=== PATIENT | female | born 1960 | race American Indian/Alaskan Native ===

== ENCOUNTER 2020-07-13 17:31 | Inpatient (IN) | payer MEDICARE ==
[2020-07-13] MEDS ORDERED: ASPIRIN 325 MG TAB PO ONE (17:49)
[2020-07-13 18:30] LABS: Basophils % (Auto) 0.4 % (0.0-1.8); Eosinophils # (Auto) 0.1 K/mm3 (0.0-0.4); Hematocrit 26.5 % (30.3-42.9); Hemoglobin 8.9 gm/dl (10.1-14.3); Lymphocytes # (Auto) 0.6 K/mm3 (1.2-5.4); Lymphocytes % (Auto) 12.9 % (13.4-35.0); Mean Corpuscular HGB Conc 33 % (30-34); Mean Corpuscular Volume 93 fl (79-97); Monocytes # (Auto) 0.2 K/mm3 (0.0-0.8); Monocytes % (Auto) 3.5 % (0.0-7.3); Platelet Count 188 K/mm3 (140-440); Red Blood Count 2.85 M/mm3 (3.65-5.03); Red Cell Distribution Width 17.2 % (13.2-15.2)
--- NOTE | 2020-07-13 18:31 | XRay Report ---
CHEST 1 VIEW INDICATION: Chest pain COMPARISON: 03/07/2017 FINDINGS: SUPPORT DEVICES: Central venous line has tip in the superior vena cava right atrial junction HEART / MEDIASTINUM: No significant abnormality. LUNGS / PLEURA: Bronchovascular markings are prominent. No pneumothorax. ADDITIONAL FINDINGS: IMPRESSION: 1. No acute cardiopulmonary disease Signer Name: Maxx Ramos MD Signed: 07/13/2020 6:27 PM Workstation Name: [id number]
--- NOTE | 2020-07-13 18:40 | Emergency Department Report ---
ED General Adult HPI - General Chief complaint: Chest Pain Stated complaint: CHEST PAIN/BACK PAIN Time Seen by Provider: 07/13/20 18:22 Source: EMS Mode of arrival: Stretcher Limitations: Physical Limitation - History of Present Illness Initial comments: Patient presents to the emergency department the chief complaint of chest pain that started today. She states the pain is located in middle of her chest and denies any radiation. She describes the pain as intermittent in nature. Patient denies any shortness of breath or abdominal pain. Patient does have end-stage renal disease and is on dialysis. Patient is a last dialysis was yesterday. 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 -: Sudden Location: chest Radiation: non-radiation Severity scale (0 -10): 4 Quality: aching Consistency: constant Improves with: none Worsens with: none Associated Symptoms: denies other symptoms Treatments Prior to Arrival: none - Related Data Home Medications Medication Instructions Recorded Confirmed Last Taken Fluticasone Propionate [Flonase] 100 mcg NS QDAY 02/15/14 03/01/17 Unknown Albuterol Sulfate [Albuterol 0.63% 0.63 mg IH Q4H PRN 03/01/17 03/01/17 1 Month Ago NEBS] ~01/29/17 AtorvaSTATin [Lipitor] 40 mg PO QHS 03/01/17 03/01/17 1 Day Ago ~02/28/17 Clopidogrel [Plavix] 75 mg PO QDAY 03/01/17 03/01/17 Unknown Ferrous Sulfate [Feosol 325 MG tab] 325 mg PO QDAY 03/01/17 03/01/17 Unknown Oxymetazoline 0.05% [Vicks Sinex] 1 spray NS BID 03/01/17 03/01/17 1 Day Ago ~02/28/17 carvediloL [Coreg] 25 mg PO BID 03/01/17 03/01/17 Unknown Previous Rx's Medication Instructions Recorded Last Taken Type Aspirin EC [Halfprin EC] 81 mg PO QDAY #30 tablet. 03/05/17 Unknown Rx AtorvaSTATin [Lipitor] 80 mg PO QHS #30 tablet 03/05/17 Unknown Rx Ezetimibe [Zetia] 10 mg PO QDAY #30 tablet 03/05/17 Unknown Rx Furosemide [Lasix TAB] 80 mg PO QDAY #30 tablet 03/05/17 Unknown Rx HYDROcodone/APAP 5-325 [[place] 1 - 2 each PO Q4-6H PRN #15 tablet 03/05/17 Unknown Rx 5-325 mg TAB] NIFEdipine XL [Procardia Xl] 60 mg PO BID #60 tablet 03/05/17 Unknown Rx Nystatin [Nystop Powder] 1 applic TP BID #15 g 03/05/17 Unknown Rx Warfarin [Coumadin] 10 mg PO DAILY@1700 #7 tablet 03/05/17 Unknown Rx Allergies Allergy/AdvReac Type Severity Reaction Status Date / Time apixaban [From Eliquis] Allergy Itching Verified 03/01/17 20:29 dabigatran etexilate mesylate Allergy Itching Verified 03/01/17 20:27 [From Pradaxa] hydralazine HCl Allergy Unknown Verified 03/01/17 13:11 [From Apresoline] morphine Allergy Itching Verified 02/15/14 02:23 povidone-iodine Allergy Itching Verified 03/01/17 20:26 [From Betadine] rivaroxaban [From Xarelto] Allergy Itching Verified 03/01/17 20:29 soap [From Betadine] Allergy Itching Verified 03/01/17 20:26 verapamil HCl [From Calan] Allergy Headache Verified 02/15/14 02:23 ED Review of Systems ROS: Stated complaint: CHEST PAIN/BACK PAIN Other details as noted in HPI Comment: All other systems reviewed and negative Constitutional: denies: chills, fever Eyes: denies: eye pain, eye discharge, vision change ENT: denies: ear pain, throat pain Respiratory: denies: cough, shortness of breath, wheezing Cardiovascular: chest pain. denies: palpitations Endocrine: no symptoms reported Gastrointestinal: denies: abdominal pain, nausea, diarrhea Genitourinary: denies: urgency, dysuria, discharge Musculoskeletal: denies: back pain, joint swelling, arthralgia Skin: denies: rash, lesions Neurological: denies: headache, weakness, paresthesias Psychiatric: denies: anxiety, depression Hematological/Lymphatic: denies: easy bleeding, easy bruising ED Past Medical Hx - Past Medical History Hx Hypertension: Yes Hx CVA: Yes (Left Side Deficits) Hx Heart Attack/AMI: Yes Hx Congestive Heart Failure: Yes Hx Diabetes: Yes Hx Deep Vein Thrombosis: No Hx Renal Disease: Yes (ESRD, Hemodialysis ur, Sat.) Hx Asthma: Yes Additional medical history: 99.5Sinusitis, Vaginal delivery x 2, 2 miscarriages, Cataract right eye - Surgical History Hx Pacemaker: No Hx Internal Defibrillator: No Additional Surgical History: Right collar bone replaced, - Social History Smoking Status: Unknown if ever smoked - Medications Home Medications: Home Medications Medication Instructions Recorded Confirmed Last Taken Type Fluticasone Propionate [Flonase] 100 mcg NS QDAY 02/15/14 03/01/17 Unknown History Albuterol Sulfate [Albuterol 0.63% 0.63 mg IH Q4H PRN 03/01/17 03/01/17 1 Month Ago History NEBS] ~01/29/17 AtorvaSTATin [Lipitor] 40 mg PO QHS 03/01/17 03/01/17 1 Day Ago History ~02/28/17 Clopidogrel [Plavix] 75 mg PO QDAY 03/01/17 03/01/17 Unknown History Ferrous Sulfate [Feosol 325 MG tab] 325 mg PO QDAY 03/01/17 03/01/17 Unknown History Oxymetazoline 0.05% [Vicks Sinex] 1 spray NS BID 03/01/17 03/01/17 1 Day Ago History ~02/28/17 carvediloL [Coreg] 25 mg PO BID 03/01/17 03/01/17 Unknown History Aspirin EC [Halfprin EC] 81 mg PO QDAY #30 tablet. 03/05/17 Unknown Rx AtorvaSTATin [Lipitor] 80 mg PO QHS #30 tablet 03/05/17 Unknown Rx Ezetimibe [Zetia] 10 mg PO QDAY #30 tablet 03/05/17 Unknown Rx Furosemide [Lasix TAB] 80 mg PO QDAY #30 tablet 03/05/17 Unknown Rx HYDROcodone/APAP 5-325 [[place] 1 - 2 each PO Q4-6H PRN #15 tablet 03/05/17 Unknown Rx 5-325 mg TAB] NIFEdipine XL [Procardia Xl] 60 mg PO BID #60 tablet 03/05/17 Unknown Rx Nystatin [Nystop Powder] 1 applic TP BID #15 g 03/05/17 Unknown Rx Warfarin [Coumadin] 10 mg PO DAILY@1700 #7 tablet 03/05/17 Unknown Rx ED Physical Exam - General Limitations: Physical Limitation General appearance: alert, in no apparent distress - Head Head exam: Present: atraumatic, normocephalic - Eye Eye exam: Present: normal appearance, PERRL, EOMI - ENT ENT exam: Present: mucous membranes moist - Neck Neck exam: Present: normal inspection - Respiratory Respiratory exam: Present: normal lung sounds bilaterally. Absent: respiratory distress - Cardiovascular Cardiovascular Exam: Present: regular rate, normal rhythm. Absent: systolic murmur, diastolic murmur, rubs, gallop - GI/Abdominal GI/Abdominal exam: Present: soft, normal bowel sounds. Absent: distended, tenderness - Extremities Exam Extremities exam: Present: normal inspection - Back Exam Back exam: Present: normal inspection - Neurological Exam Neurological exam: Present: alert, oriented X3, CN II-XII intact. Absent: motor sensory deficit - Psychiatric Psychiatric exam: Present: normal affect, normal mood - Skin Skin exam: Present: warm, dry, intact, normal color. Absent: rash ED Course Vital Signs 07/13/20 07/13/20 17:42 19:15 Pulse Rate 82 Respiratory 20 18 Rate Blood Pressure 183/100 O2 Sat by Pulse 97 100 Oximetry ED Medical Decision Making - Lab Data Result diagrams: 07/13/20 17:59 07/13/20 17:59 Lab Results 07/13/20 07/13/20 07/13/20 Range/Units 17:59 17:59 20:25 WBC 4.8 (4.5-11.0) K/mm3 RBC 2.85 L (3.65-5.03) M/mm3 Hgb 8.9 L (10.1-14.3) gm/dl Hct 26.5 L (30.3-42.9) % MCV 93 (79-97) fl MCH 31 (28-32) pg MCHC 33 (30-34) % RDW 17.2 H (13.2-15.2) % Plt Count 188 (140-440) K/mm3 Lymph % (Auto) 12.9 L (13.4-35.0) % [place] % (Auto) 3.5 (0.0-7.3) % Eos % (Auto) 3.0 (0.0-4.3) % Baso % (Auto) 0.4 (0.0-1.8) % Lymph # (Auto) 0.6 L (1.2-5.4) K/mm3 [place] # (Auto) 0.2 (0.0-0.8) K/mm3 Eos # (Auto) 0.1 (0.0-0.4) K/mm3 Baso # (Auto) 0.0 (0.0-0.1) K/mm3 Seg Neutrophils % 80.2 H (40.0-70.0) % Seg Neutrophils # 3.9 (1.8-7.7) K/mm3 Sodium 135 L (137-145) mmol/L Potassium 4.3 (3.6-5.0) mmol/L Chloride 95.5 L (98-107) mmol/L Carbon Dioxide 24 (22-30) mmol/L Anion Gap 20 mmol/L BUN 36 H (7-17) mg/dL Creatinine 5.5 H (0.6-1.2) mg/dL Estimated GFR 10 ml/min BUN/Creatinine Ratio 7 % Glucose 122 H (65-100) mg/dL Calcium 9.0 (8.4-10.2) mg/dL Troponin T 0.092 H 0.094 H (0.00-0.029) ng/mL - EKG Data -: EKG Interpreted by Tn EKG shows normal: sinus rhythm - EKG Data Interpretation: LVH - Radiology Data Radiology results: report reviewed - Medical Decision Making Discussed results with patient Critical care attestation.: If time is entered above; I have spent that time in minutes in the direct care of this critically ill patient, excluding procedure time. ED Disposition Clinical Impression: Chest pain Disposition: OP ADMIT IP TO THIS HOSP Is pt being admited?: Yes Does the pt Need Aspirin: Yes Condition: Stable Instructions: Chest Pain (ED) Referrals: PRIMARY CARE, [Primary Care Provider] - 3-5 Days
[2020-07-13] MEDS ORDERED: ASPIRIN 81 MG TAB CHEW PO ONE (22:49)
[2020-07-13] MEDS ORDERED: HEPARIN 10,000 UNITS/10 ML VIAL IV ONE ×2 (23:03→23:15)
[2020-07-13] MEDS ORDERED: oxyCODONE /ACETAMINOPHEN 5-325MG TAB PO STA (23:06)
[2020-07-13] MEDS ORDERED: ONDANSETRON 4 MG/2 ML INJ IV PRN (23:07)
[2020-07-13] MEDS ORDERED: HEPARIN/ 0.45% NACL DRIP 25,000 UNIT/500 ML BAG IV SCH (23:45)
[2020-07-14 00:06] LABS: INR 1.09 (0.87-1.13)
[2020-07-14 00:07] LABS: Partial Thromboplastin Time 28.2 Sec. (24.2-36.6)
[2020-07-14 01:20] LABS: Chol/HDL Ratio 2.57 %
[2020-07-14] MEDS: NITROGLYCERIN 2% OINT 1 GM TP SCH ×4 (05:12→19:01)
--- NOTE | 2020-07-14 06:09 | History and Physical Report ---
History of Present Illness Date of examination: 07/13/20 Date of admission: 07/13/20 22:55 Chief complaint: Chest Pain History of present illness: 60 year old male presenting with intermitted retrosternal chest that does not radiate and associated with shortness of breath, nausea but no vomiting.Patient also has history of diarrhea, and back pain. There is no history of fever, chills or cough. Past History Past Medical History: CAD, COPD, diabetes, ESRD, heart failure, hypertension, other (ASTHMA) Past Surgical History: Other (COLLAR BONE SURGERY) Medications and Allergies Allergies Allergy/AdvReac Type Severity Reaction Status Date / Time apixaban [From Eliquis] Allergy Itching Verified 03/01/17 20:29 dabigatran etexilate mesylate Allergy Itching Verified 03/01/17 20:27 [From Pradaxa] heparin Allergy Vomiting Verified 07/14/20 05:54 hydralazine HCl Allergy Unknown Verified 03/01/17 13:11 [From Apresoline] morphine Allergy Itching Verified 02/15/14 02:23 povidone-iodine Allergy Itching Verified 03/01/17 20:26 [From Betadine] rivaroxaban [From Xarelto] Allergy Itching Verified 03/01/17 20:29 soap [From Betadine] Allergy Itching Verified 03/01/17 20:26 verapamil HCl [From Calan] Allergy Headache Verified 02/15/14 02:23 Home Medications Medication Instructions Recorded Confirmed Last Taken Type Fluticasone Propionate [Flonase] 100 mcg NS QDAY 02/15/14 07/14/20 Unknown History Albuterol Sulfate [Albuterol 0.63% 0.63 mg IH Q4H PRN 03/01/17 07/14/20 1 Month Ago History NEBS] ~01/29/17 AtorvaSTATin [Lipitor] 40 mg PO QHS 03/01/17 07/14/20 1 Day Ago History ~02/28/17 Clopidogrel [Plavix] 75 mg PO QDAY 03/01/17 07/14/20 Unknown History Ferrous Sulfate [Feosol 325 MG tab] 325 mg PO QDAY 03/01/17 07/14/20 Unknown History Oxymetazoline 0.05% [Vicks Sinex] 1 spray NS BID 03/01/17 07/14/20 1 Day Ago History ~02/28/17 carvediloL [Coreg] 25 mg PO BID 03/01/17 07/14/20 Unknown History Aspirin EC [Halfprin EC] 81 mg PO QDAY #30 tablet. 03/05/17 07/14/20 Unknown Rx AtorvaSTATin [Lipitor] 80 mg PO QHS #30 tablet 03/05/17 07/14/20 Unknown Rx Ezetimibe [Zetia] 10 mg PO QDAY #30 tablet 03/05/17 07/14/20 Unknown Rx Furosemide [Lasix TAB] 80 mg PO QDAY #30 tablet 03/05/17 07/14/20 Unknown Rx HYDROcodone/APAP 5-325 [[place] 1 - 2 each PO Q4-6H PRN #15 tablet 03/05/17 07/14/20 Unknown Rx 5-325 mg TAB] NIFEdipine XL [Procardia Xl] 60 mg PO BID #60 tablet 03/05/17 07/14/20 Unknown Rx Nystatin [Nystop Powder] 1 applic TP BID #15 g 03/05/17 07/14/20 Unknown Rx Warfarin [Coumadin] 10 mg PO DAILY@1700 #7 tablet 03/05/17 07/14/20 Unknown Rx Active Meds: Active Medications Acetaminophen (Tylenol) 650 mg PO Q4H PRN PRN Reason: Headache Aspirin (Aspirin) 325 mg PO QDAY [facility] Nitroglycerin (Nitro-Bid 2%) 0.5 inch TP QIDNTG [facility]; Protocol Last Admin: 07/14/20 05:12 Dose: Not Given Documented by: Ondansetron HCl (Zofran) 4 mg IV Q8H PRN PRN Reason: Nausea And Vomiting Review of Systems Constitutional: no fever, no chills, no sweats, no weakness Eyes: bilateral: other (NO BILATERAL EYE SYMPTOM) Breasts: deferred Cardiovascular: chest pain, shortness of breath, no palpitations, no rapid/irregular heart beat, no edema, no syncope, no lightheadedness Respiratory: shortness of breath, dyspnea on exertion, no cough, no cough with sputum, no congestion, no wheezing Gastrointestinal: nausea, diarrhea, no abdominal pain, no vomiting, no constipation, no change in bowel habits Rectal: no pain Musculoskeletal: no neck stiffness, no neck pain Integumentary: no rash, no pruritis, no redness, no sores, no wounds Neurological: no paralysis, no parathesias, no numbness, no tingling, no seizures, no syncope, no tremors, no ataxia, no vertigo, no headaches Psychiatric: no anxiety, no depression Endocrine: no polydipsia, no polyuria, no nocturia, no excessive sweating Hematologic/Lymphatic: no easy bruising, no easy bleeding Exam - Constitutional Vitals: Temp Pulse Resp BP Pulse Ox 97.7 F 81 18 175/82 94 07/14/20 05:39 07/14/20 05:39 07/14/20 05:39 07/14/20 05:39 07/14/20 05:39 General appearance: Present: no acute distress - EENT Eyes: Present: PERRL ENT: hearing intact, clear oral mucosa - Neck Neck: Present: supple, normal ROM - Respiratory Respiratory effort: normal - Cardiovascular Rhythm: regular Heart Sounds: Present: S1 & S2. Absent: gallop, systolic murmur, diastolic murmur, rub, click - Extremities Extremities: no ischemia, No edema Peripheral Pulses: within normal limits - Abdominal General gastrointestinal: Present: soft, non-tender, non-distended, hepatomegaly, splenomegaly. Absent: tender, distended, rigid Female genitourinary: Present: deferred - Rectal Rectal Exam: deferred - Integumentary Integumentary: Present: clear, warm, dry. Absent: erythema - Musculoskeletal Musculoskeletal: strength equal bilaterally - Psychiatric Psychiatric: appropriate mood/affect HEART Score - HEART Score Risk factors: > 3 risk factors or hx of atherosclerotic disease Troponin: Troponin T 0.103 ng/mL (0.00-0.029) H* 07/13/20 23:36 Troponin: 1-3x normal limit - Critical Actions Critical Actions: 4-6 pts:12-16.6% risk of adverse cardiac event. Should be admitted (PATIENT UNDERGOING WORK UP) Results - Labs CBC & Chem 7: 07/13/20 23:36 07/13/20 17:59 Labs: Laboratory Last Values WBC 4.8 K/mm3 (4.5-11.0) 07/13/20 17:59 RBC 2.85 M/mm3 (3.65-5.03) L 07/13/20 17:59 Hgb 9.0 gm/dl (10.1-14.3) L 07/13/20 23:36 Hct 27.0 % (30.3-42.9) L 07/13/20 23:36 MCV 93 fl (79-97) 07/13/20 17:59 MCH 31 pg (28-32) 07/13/20 17:59 MCHC 33 % (30-34) 07/13/20 17:59 RDW 17.2 % (13.2-15.2) H 07/13/20 17:59 Plt Count 175 K/mm3 (140-440) 07/13/20 23:36 Lymph % (Auto) 12.9 % (13.4-35.0) L 07/13/20 17:59 [place] % (Auto) 3.5 % (0.0-7.3) 07/13/20 17:59 Eos % (Auto) 3.0 % (0.0-4.3) 07/13/20 17:59 Baso % (Auto) 0.4 % (0.0-1.8) 07/13/20 17:59 Lymph # (Auto) 0.6 K/mm3 (1.2-5.4) L 07/13/20 17:59 [place] # (Auto) 0.2 K/mm3 (0.0-0.8) 07/13/20 17:59 Eos # (Auto) 0.1 K/mm3 (0.0-0.4) 07/13/20 17:59 Baso # (Auto) 0.0 K/mm3 (0.0-0.1) 07/13/20 17:59 Seg Neutrophils % 80.2 % (40.0-70.0) H 07/13/20 17:59 Seg Neutrophils # 3.9 K/mm3 (1.8-7.7) 07/13/20 17:59 PT 14.3 Sec. (12.2-14.9) 07/13/20 23:36 INR 1.09 (0.87-1.13) 07/13/20 23:36 APTT 28.2 Sec. (24.2-36.6) 07/13/20 23:36 Sodium 135 mmol/L (137-145) L 07/13/20 17:59 Potassium 4.3 mmol/L (3.6-5.0) 07/13/20 17:59 Chloride 95.5 mmol/L (98-107) L 07/13/20 17:59 Carbon Dioxide 24 mmol/L (22-30) 07/13/20 17:59 Anion Gap 20 mmol/L 07/13/20 17:59 BUN 36 mg/dL (7-17) H 07/13/20 17:59 Creatinine 5.5 mg/dL (0.6-1.2) H 07/13/20 17:59 Estimated GFR 10 ml/min 07/13/20 17:59 BUN/Creatinine Ratio 7 % 07/13/20 17:59 Glucose 122 mg/dL (65-100) H 07/13/20 17:59 Calcium 9.0 mg/dL (8.4-10.2) 07/13/20 17:59 Troponin T 0.103 ng/mL (0.00-0.029) H* 07/13/20 23:36 Triglycerides 89 mg/dL (2-149) 07/13/20 23:36 Cholesterol 152 mg/dL (50-199) 07/13/20 23:36 LDL Cholesterol Direct 84 mg/dL (50-130) 07/13/20 23:36 HDL Cholesterol 59 mg/dL (40-59) 07/13/20 23:36 Cholesterol/HDL Ratio 2.57 % 07/13/20 23:36 Assessment and Plan - Patient Problems (1) End stage renal disease on dialysis Current Visit: No Status: Acute Plan to address problem: 1. NEPHROLOGY CONSULT 2. AVOID NEPHROTOXIC MEDICATIONS (2) NSTEMI (non-ST elevated myocardial infarction) Current Visit: Yes Status: Acute Plan to address problem: 1 I.V HEPARIN DRIP 2. NITROPASTE 3. ASPIRIN PO 4. CARDIOLOGY CONSULT 5 I.V ZOFRAN FOR NAUSEA AND VOMITING 6. OXYGEN BY NASAL CANNULA 7. TYLENOL PO FOR HEADACHE
[2020-07-14] MEDS ORDERED: ASPIRIN 325 MG TAB PO SCH (10:00)
[2020-07-14] MEDS ORDERED: NIFEdipine XL 60 MG TAB PO SCH (10:00)
[2020-07-14] MEDS ORDERED: NON-FORMULARY EACH (Furosemide [Lasix Tab] 80 MG) PO SCH (10:00)
--- NOTE | 2020-07-14 10:43 | Consultation ---
History of Present Illness Consult date: 07/14/20 Requesting physician: CABRERA ADAMS Consult reason: elevated troponin History of present illness: The pt is a 60 YO female NHR with a past medical history of CAD s/p PCI (most recent PCI on 01/06/2017 @ [facility] with successful multivessel PCI with RAGINI to LAD, RAGINI to LCX, and RAGINI to RCA), ICMP, CVA x 2 (most recent CVA was 1 month ago per pt report), ESRD on HD, HTN, HLP, DM, PVD, s/p LLE stent, H/O DVT in LLE, H/O PE, s/p IVC filter, anticoagulated on coumadin (failed NOAC therapy with ischemic CVA per pt report), anemia, asthma. Pt has been seen by our practice on prior hospitalizations, she reports that she is regularly followed by [facility]. She presented with c/o chest pain and back pain for 1 day prior to arrival. She d escribes her chest pain as an intermittent midsternal stabbing pain. She denies any SOB, palpitations, n/v, diaphoresis, dizziness or syncope. She reports compliance with her home medication regimen and dialysis. tte done 02/2017 showed EF 40-45%, LV mildly dilated. Past History Past Medical History: CAD, COPD, diabetes, ESRD, hypertension, other (ASTHMA) Past Surgical History: PTCA, Other (COLLAR BONE SURGERY) Medications and Allergies Allergies Allergy/AdvReac Type Severity Reaction Status Date / Time apixaban [From Eliquis] Allergy Itching Verified 03/01/17 20:29 dabigatran etexilate mesylate Allergy Itching Verified 03/01/17 20:27 [From Pradaxa] heparin Allergy Vomiting Verified 07/14/20 05:54 hydralazine HCl Allergy Unknown Verified 03/01/17 13:11 [From Apresoline] morphine Allergy Itching Verified 02/15/14 02:23 povidone-iodine Allergy Itching Verified 03/01/17 20:26 [From Betadine] rivaroxaban [From Xarelto] Allergy Itching Verified 03/01/17 20:29 soap [From Betadine] Allergy Itching Verified 03/01/17 20:26 verapamil HCl [From Calan] Allergy Headache Verified 02/15/14 02:23 Home Medications Medication Instructions Recorded Confirmed Last Taken Type Fluticasone Propionate [Flonase] 100 mcg NS QDAY 02/15/14 07/14/20 Unknown History Albuterol Sulfate [Albuterol 0.63% 0.63 mg IH Q4H PRN 03/01/17 07/14/20 1 Month Ago History NEBS] ~01/29/17 AtorvaSTATin [Lipitor] 40 mg PO QHS 03/01/17 07/14/20 1 Day Ago History ~02/28/17 Clopidogrel [Plavix] 75 mg PO QDAY 03/01/17 07/14/20 Unknown History Ferrous Sulfate [Feosol 325 MG tab] 325 mg PO QDAY 03/01/17 07/14/20 Unknown History Oxymetazoline 0.05% [Vicks Sinex] 1 spray NS BID 03/01/17 07/14/20 1 Day Ago History ~02/28/17 carvediloL [Coreg] 25 mg PO BID 03/01/17 07/14/20 Unknown History Aspirin EC [Halfprin EC] 81 mg PO QDAY #30 tablet. 03/05/17 07/14/20 Unknown Rx AtorvaSTATin [Lipitor] 80 mg PO QHS #30 tablet 03/05/17 07/14/20 Unknown Rx Ezetimibe [Zetia] 10 mg PO QDAY #30 tablet 03/05/17 07/14/20 Unknown Rx Furosemide [Lasix TAB] 80 mg PO QDAY #30 tablet 03/05/17 07/14/20 Unknown Rx HYDROcodone/APAP 5-325 [[place] 1 - 2 each PO Q4-6H PRN #15 tablet 03/05/17 Unknown Rx 5-325 mg TAB] Nystatin [Nystop Powder] 1 applic TP BID #15 g 03/05/17 07/14/20 Unknown Rx Warfarin [Coumadin] 10 mg PO DAILY@1700 #7 tablet 03/05/17 07/14/20 Unknown Rx Lidocaine [Lidoderm] 5 patch TRANSDERMA QDAY 07/14/20 07/14/20 Unknown History NIFEdipine XL [Procardia Xl] 90 mg PO BID 07/14/20 07/14/20 Unknown History Warfarin [Coumadin] 2 mg PO QDAY 07/14/20 07/14/20 Unknown History Warfarin [Coumadin] 10 mg PO QDAY 07/14/20 07/14/20 Unknown History oxyCODONE /ACETAMINOPHEN [Percocet 1 tab PO Q6HR PRN 07/14/20 07/14/20 Unknown History 5/325] Active Meds: Active Medications Acetaminophen (Tylenol) 650 mg PO Q4H PRN PRN Reason: Headache Aspirin (Halfprin Ec) 81 mg PO QDAY [facility] Atorvastatin Calcium (Lipitor) 40 mg PO QHS [facility] Carvedilol (Coreg) 25 mg PO BID [facility] Clopidogrel Bisulfate (Plavix) 75 mg PO QDAY [facility] Ezetimibe (Zetia) 10 mg PO QDAY [facility] Fluticasone Propionate (Flonase) 100 mcg NS QDAY [facility] Furosemide (Lasix) 80 mg PO DAILY [facility] Nifedipine (Procardia Xl) 90 mg PO BID [facility] Nitroglycerin (Nitro-Bid 2%) 0.5 inch TP QIDNTG [facility]; Protocol Last Admin: 07/14/20 05:12 Dose: Not Given Documented by: Ondansetron HCl (Zofran) 4 mg IV Q8H PRN PRN Reason: Nausea And Vomiting Review of Systems Constitutional: no weight loss, no weight gain, no fever, no chills, no sweats Ears, nose, mouth and throat: no ear pain, no nose pain, no sinus pressure, no sinus pain Cardiovascular: chest pain, no orthopnea, no palpitations, no rapid/irregular heart beat, no edema, no syncope, no lightheadedness, no shortness of breath, no dyspnea on exertion Respiratory: no cough, no shortness of breath, no dyspnea on exertion, no congestion, no wheezing, no pain on inspiration Gastrointestinal: no abdominal pain, no nausea, no vomiting, no diarrhea, no constipation, no change in bowel habits Genitourinary Female: no pelvic pain, no flank pain, no dysuria, no urinary freq uency, no urgency Musculoskeletal: low back pain (chronic), no neck stiffness, no neck pain, no shooting arm pain, no arm numbness/tingling, no shooting leg pain, no leg numbn ess/tingling Integumentary: no rash, no pruritis, no redness, no sores, no wounds Neurological: no head injury, no paralysis, no weakness, no parathesias, no numbness, no tingling, no seizures, no syncope Psychiatric: no anxiety Endocrine: no cold intolerance, no heat intolerance Hematologic/Lymphatic: no easy bruising, no easy bleeding Allergic/Immunologic: no urticaria Physical Examination Vital Signs Pulse Resp BP Pulse Ox 82 20 183/100 97 07/13/20 17:42 07/13/20 17:42 07/13/20 17:42 07/13/20 17:42 General appearance: no acute distress HEENT: Positive: PERRL, Normocephaly, Mucus Membranes Moist Neck: Positive: neck supple, trachea midline Cardiac: Positive: Reg Rate and Rhythm, S1/S2 Lungs: Positive: Decreased Breath Sounds Neuro: Positive: Grossly Intact Abdomen: Negative: Tender Skin: Negative: Rash Musculoskeletal: No Pain Extremities: Absent: edema Results 07/13/20 23:36 07/13/20 17:59 Coagulation 07/13/20 Range/Units 23:36 PT 14.3 (12.2-14.9) Sec. INR 1.09 (0.87-1.13) APTT 28.2 (24.2-36.6) Sec. Lipids 07/13/20 Range/Units 23:36 Triglycerides 89 (2-149) mg/dL Cholesterol 152 (50-199) mg/dL HDL Cholesterol 59 (40-59) mg/dL Cholesterol/HDL Ratio 2.57 % CBC 07/13/20 07/13/20 Range/Units 17:59 23:36 WBC 4.8 (4.5-11.0) K/mm3 RBC 2.85 L (3.65-5.03) M/mm3 Hgb 8.9 L 9.0 L (10.1-14.3) gm/dl Hct 26.5 L 27.0 L (30.3-42.9) % Plt Count 188 175 (140-440) K/mm3 Lymph # (Auto) 0.6 L (1.2-5.4) K/mm3 [place] # (Auto) 0.2 (0.0-0.8) K/mm3 Eos # (Auto) 0.1 (0.0-0.4) K/mm3 Baso # (Auto) 0.0 (0.0-0.1) K/mm3 Comprehensive Metabolic Panel 07/13/20 Range/Units 17:59 Sodium 135 L (137-145) mmol/L Potassium 4.3 (3.6-5.0) mmol/L Chloride 95.5 L (98-107) mmol/L Carbon Dioxide 24 (22-30) mmol/L BUN 36 H (7-17) mg/dL Creatinine 5.5 H (0.6-1.2) mg/dL Glucose 122 H (65-100) mg/dL Calcium 9.0 (8.4-10.2) mg/dL - Imaging and Cardiology Echo: report reviewed ( 02/2017 showed EF 40-45%, LV mildly dilated. ) Cardiac cath: report reviewed (most recent PCI on 01/06/2017 @ [facility] with successful multivessel PCI with RAGINI to LAD, RAGINI to LCX, and RAGINI to RCA) EKG: report reviewed, image reviewed EKG interpretations - Telemetry EKG Rhythm: Sinus Rhythm - EKG Sinus rhythms and dysrhythmias: sinus rhythm Chamber hypertrophy or enlargement: left ventricular hypertro Assessment and Plan Optimize BPs - home anti-hypertensive regimen resumed. CE elevation appears c/w NSTEMI type II. Cont to trend Dayo and f/u ECG in AM. Pending BPs are optimized, plan for lexiscan MPI stress test in AM. NPO after MN. Obtain echo. Pt has h/o DVT, PE, IVC filter in situ, CVA x 2 (most recent was 1 month ago per pt report). She reports she is anticoagulated with Coumadin only as she has failed NOAC therapy with recurrent CVA. Recommend resumption of Coumadin per primary team. Will follow. The patient has been seen in conjunction with Dr. Rhonda Limon who agrees with the assessment and plan of care. - Patient Problems (1) Chest pain Current Visit: Yes Status: Acute (2) NSTEMI (non-ST elevated myocardial infarction) Current Visit: Yes Status: Acute Plan to address problem: suspect type II (3) Hypertensive urgency Current Visit: Yes Status: Acute (4) CAD (coronary artery disease) Current Visit: Yes Status: Chronic (5) Stented coronary artery Current Visit: Yes Status: Chronic (6) Ischemic cardiomyopathy Current Visit: Yes Status: Chronic (7) PVD (peripheral vascular disease) Current Visit: Yes Status: Chronic (8) History of DVT (deep vein thrombosis) Current Visit: Yes Status: Chronic (9) History of pulmonary embolism Current Visit: Yes Status: Chronic (10) Presence of IVC filter Current Visit: Yes Status: Chronic (11) End stage renal disease on dialysis Current Visit: Yes Status: Chronic (12) History of CVA (cerebrovascular accident) Current Visit: Yes Status: Chronic (13) Hyperlipidemia Current Visit: Yes Status: Chronic (14) Diabetes Current Visit: Yes Status: Chronic (15) Anemia Current Visit: Yes Status: Acute
[2020-07-14] MEDS: ASPIRIN EC 81 MG TAB PO SCH (11:00)
[2020-07-14] MEDS: FUROSEMIDE 40 MG TAB PO SCH (11:00)
[2020-07-14] MEDS: CLOPIDOGREL 75 MG TAB PO SCH (11:02)
[2020-07-14] MEDS: EZETIMIBE 10 MG TAB PO SCH (11:03)
[2020-07-14] MEDS: NIFEdipine XL 90 MG TAB PO SCH ×2 (11:03→21:19)
[2020-07-14 11:11] LABS: Creatine Kinase MB 1.9 ng/mL (0.0-4.0)
--- NOTE | 2020-07-14 12:45 | Consultation ---
History of Present Illness - Reason for Consult Consult date: 07/14/20 end stage renal disease - History of Present Illness This is a 60 year-old woman with ESRD who presents for chest pain, diarrhea, back pain Patient usually dialyzes and follows with Dr. Hood. Last HD 07/12 as she missed on 07/11. Denies any recent issues with HD, including dizziness, lightheadedness, cramping, chest pain on HD. Currently, patient denies any issues including edema, access issues, nausea, vomiting, headaches. Feeling better, does note dyspnea however and is nasal cannula. Notes chronic diarrhea which is not improving. Past History Past Medical History: CAD, COPD, diabetes, ESRD, hypertension, other (ASTHMA) Past Surgical History: PTCA, Other (COLLAR BONE SURGERY) Medications and Allergies Allergies Allergy/AdvReac Type Severity Reaction Status Date / Time apixaban [From Eliquis] Allergy Itching Verified 03/01/17 20:29 dabigatran etexilate mesylate Allergy Itching Verified 03/01/17 20:27 [From Pradaxa] heparin Allergy Vomiting Verified 07/14/20 05:54 hydralazine HCl Allergy Unknown Verified 03/01/17 13:11 [From Apresoline] morphine Allergy Itching Verified 02/15/14 02:23 povidone-iodine Allergy Itching Verified 03/01/17 20:26 [From Betadine] rivaroxaban [From Xarelto] Allergy Itching Verified 03/01/17 20:29 soap [From Betadine] Allergy Itching Verified 03/01/17 20:26 verapamil HCl [From Calan] Allergy Headache Verified 02/15/14 02:23 Home Medications Medication Instructions Recorded Confirmed Last Taken Type Fluticasone Propionate [Flonase] 100 mcg NS QDAY 02/15/14 07/14/20 Unknown History Albuterol Sulfate [Albuterol 0.63% 0.63 mg IH Q4H PRN 03/01/17 07/14/20 1 Month Ago History NEBS] ~01/29/17 AtorvaSTATin [Lipitor] 40 mg PO QHS 03/01/17 07/14/20 1 Day Ago History ~02/28/17 Clopidogrel [Plavix] 75 mg PO QDAY 03/01/17 07/14/20 Unknown History Ferrous Sulfate [Feosol 325 MG tab] 325 mg PO QDAY 03/01/17 07/14/20 Unknown History Oxymetazoline 0.05% [Vicks Sinex] 1 spray NS BID 03/01/17 07/14/20 1 Day Ago History ~02/28/17 carvediloL [Coreg] 25 mg PO BID 03/01/17 07/14/20 Unknown History Aspirin EC [Halfprin EC] 81 mg PO QDAY #30 tablet. 03/05/17 07/14/20 Unknown Rx AtorvaSTATin [Lipitor] 80 mg PO QHS #30 tablet 03/05/17 07/14/20 Unknown Rx Ezetimibe [Zetia] 10 mg PO QDAY #30 tablet 03/05/17 07/14/20 Unknown Rx Furosemide [Lasix TAB] 80 mg PO QDAY #30 tablet 03/05/17 07/14/20 Unknown Rx HYDROcodone/APAP 5-325 [[place] 1 - 2 each PO Q4-6H PRN #15 tablet 03/05/17 Unknown Rx 5-325 mg TAB] Nystatin [Nystop Powder] 1 applic TP BID #15 g 03/05/17 07/14/20 Unknown Rx Warfarin [Coumadin] 10 mg PO DAILY@1700 #7 tablet 03/05/17 07/14/20 Unknown Rx Lidocaine [Lidoderm] 5 patch TRANSDERMA QDAY 07/14/20 07/14/20 Unknown History NIFEdipine XL [Procardia Xl] 90 mg PO BID 07/14/20 07/14/20 Unknown History Warfarin [Coumadin] 2 mg PO QDAY 07/14/20 07/14/20 Unknown History Warfarin [Coumadin] 10 mg PO QDAY 07/14/20 07/14/20 Unknown History oxyCODONE /ACETAMINOPHEN [Percocet 1 tab PO Q6HR PRN 07/14/20 07/14/20 Unknown History 5/325] Active Meds: Active Medications Acetaminophen (Tylenol) 650 mg PO Q4H PRN PRN Reason: Headache Aspirin (Halfprin Ec) 81 mg PO QDAY [facility] Atorvastatin Calcium (Lipitor) 40 mg PO QHS [facility] Carvedilol (Coreg) 25 mg PO BID [facility] Clopidogrel Bisulfate (Plavix) 75 mg PO QDAY [facility] Ezetimibe (Zetia) 10 mg PO QDAY [facility] Fluticasone Propionate (Flonase) 100 mcg NS QDAY [facility] Furosemide (Lasix) 80 mg PO DAILY [facility] Sodium Chloride (Nacl 0.9%) 100 mls @ 999 mls/hr IV CHICHI PRN PRN Reason: Hypotension Nifedipine (Procardia Xl) 90 mg PO BID [facility] Nitroglycerin (Nitro-Bid 2%) 0.5 inch TP QIDNTG [facility]; Protocol Last Admin: 07/14/20 05:12 Dose: Not Given Documented by: Ondansetron HCl (Zofran) 4 mg IV Q8H PRN PRN Reason: Nausea And Vomiting Review of Systems All systems: negative (as per HPI) Exam - Vital Signs Vital signs: Vital Signs Pulse Resp BP Pulse Ox 82 20 183/100 97 07/13/20 17:42 07/13/20 17:42 07/13/20 17:42 07/13/20 17:42 - Physical Exam Narrative exam: Constitutional: no acute distress Head: NC/AT Neck: supple Lungs: decreased sounds, on NC CV: RRR, no M/R/G Abdomen: soft, non-tender, bowel sounds present Back: nontender Extremities: no edema, pulses WNL Skin: intact Neuro: no focal deficits, alert and oriented x4 Results - Lab Results 07/13/20 23:36 07/13/20 17:59 Most recent lab results Calcium 9.0 mg/dL (8.4-10.2) 07/13/20 17:59 Assessment and Plan This is a 60 year old woman who presents with chest pain, diarrhea. # ESRD: will provide HD today given dyspnea, last HD was two days ago. Will continue MWF for now while inpatient (usually //) and prn based on labs, volume, clinical status - daily labs - renally dose meds - avoid nephrotoxins - renal diet # Anemia: last hemoglobin 9.0, will plan to restart ESAs with HD # HTN: UF as tolerated. BP high, continue home medications # Secondary Hyperparathyroidism: continue home binders as needed # Chest pain: no active chest pain at time of consult. Workup per cardiology, potential plan for stress test in AM # Diarrhea: monitor UF with HD # DM: management per primary
[2020-07-14] MEDS ORDERED: SODIUM CHLORIDE 0.9% 100 ML IV PRN (13:00)
[2020-07-14 15:33] LABS: Hepatitis B Surface Antigen Non-Reactive (Negative); Hepatitis C Virus Antibody Non-Reactive (NonReactive)
[2020-07-14] MEDS: carvediloL 25 MG TAB PO SCH ×2 (17:50→21:19)
--- NOTE | 2020-07-14 18:22 | Progress Note ---
Assessment and Plan Assessment and plan: --Non-ST elevation CT, type II In the setting of end-stage renal disease We will closely monitor Follow cardiology evaluation and recommendations Continue current management Possible stress test tomorrow --History of coronary artery disease status post PCI Continue current cardiac medications, cardiology following Possible stress test tomorrow --Ischemic cardiomyopathy; EF 40 to 45% 2016 Continue antifailure medications Follow echocardiogram LV function ejection fraction --End-stage renal disease; On hemodialysis, nephrology following HD per schedule --Hypertensive emergency; present on admission Blood pressures are reasonably controlled no Continue current antihypertensives As needed medications --History of peripheral vascular disease; Continue antiplatelets and statins --History of DVT and PE; On chronic anticoagulation with Coumadin Target INR 2-3 Closely monitor --History of IVC filter placement; supportive care --Type 2 diabetes mellitus; Accu-Chek sliding scale coverage ADA diet Insulin as needed --Dyslipidemia; Stable on lipid-lowering medications --Obesity; BMI 39.0 Advised weight reduction when medically stable --Possible obstructive sleep apnea; Patient may need outpatient sleep study Rule out KENY, CPAP BiPAP at night as needed --DVT prophylaxis; Patient is already on Coumadin We will closely monitor the patient and adjust the management as needed Follow surgical product sales consultant recommendation Plan of care reviewed with the patient and her nurse History Interval history: I have seen and examined the patient at the bedside Patient's chart and medications reviewed Patient was admitted with chest pain shortness of breath Feels slightly better Vital signs noted Hospitalist Physical - Constitutional Vitals: Temp Pulse Resp BP Pulse Ox 98.6 F 86 20 207/103 89 07/14/20 08:10 07/14/20 17:50 07/14/20 08:10 07/14/20 17:50 07/14/20 08:10 General appearance: Present: no acute distress, well-nourished, obese (Morbidly obese) - EENT Eyes: Present: PERRL, EOM intact - Neck Neck: Present: supple, normal ROM - Respiratory Respiratory effort: normal Respiratory: bilateral: diminished, negative: rales, rhonchi, wheezing - Cardiovascular Rhythm: regular Heart Sounds: Present: S1 & S2 - Extremities Extremities: no ischemia, No edema - Abdominal General gastrointestinal: soft, non-tender, non-distended, normal bowel sounds - Integumentary Integumentary: Present: clear, warm - Psychiatric Psychiatric: appropriate mood/affect, cooperative - Neurologic Neurologic: CNII-XII intact, moves all extremities HEART Score - HEART Score Risk factors: > 3 risk factors or hx of atherosclerotic disease Troponin: Troponin T 0.099 ng/mL (0.00-0.029) H 07/14/20 10:13 Troponin: 1-3x normal limit - Critical Actions Critical Actions: 4-6 pts:12-16.6% risk of adverse cardiac event. Should be admitted (PATIENT UNDERGOING WORK UP) Results - Labs CBC & Chem 7: 07/13/20 23:36 07/13/20 17:59 Labs: Laboratory Last Values WBC 4.8 K/mm3 (4.5-11.0) 07/13/20 17:59 RBC 2.85 M/mm3 (3.65-5.03) L 07/13/20 17:59 Hgb 9.0 gm/dl (10.1-14.3) L 07/13/20 23:36 Hct 27.0 % (30.3-42.9) L 07/13/20 23:36 MCV 93 fl (79-97) 07/13/20 17:59 MCH 31 pg (28-32) 07/13/20 17:59 MCHC 33 % (30-34) 07/13/20 17:59 RDW 17.2 % (13.2-15.2) H 07/13/20 17:59 Plt Count 175 K/mm3 (140-440) 07/13/20 23:36 Lymph % (Auto) 12.9 % (13.4-35.0) L 07/13/20 17:59 [place] % (Auto) 3.5 % (0.0-7.3) 07/13/20 17:59 Eos % (Auto) 3.0 % (0.0-4.3) 07/13/20 17:59 Baso % (Auto) 0.4 % (0.0-1.8) 07/13/20 17:59 Lymph # (Auto) 0.6 K/mm3 (1.2-5.4) L 07/13/20 17:59 [place] # (Auto) 0.2 K/mm3 (0.0-0.8) 07/13/20 17:59 Eos # (Auto) 0.1 K/mm3 (0.0-0.4) 07/13/20 17:59 Baso # (Auto) 0.0 K/mm3 (0.0-0.1) 07/13/20 17:59 Seg Neutrophils % 80.2 % (40.0-70.0) H 07/13/20 17:59 Seg Neutrophils # 3.9 K/mm3 (1.8-7.7) 07/13/20 17:59 PT 14.3 Sec. (12.2-14.9) 07/13/20 23:36 INR 1.09 (0.87-1.13) 07/13/20 23:36 APTT 28.2 Sec. (24.2-36.6) 07/13/20 23:36 Sodium 135 mmol/L (137-145) L 07/13/20 17:59 Potassium 4.3 mmol/L (3.6-5.0) 07/13/20 17:59 Chloride 95.5 mmol/L (98-107) L 07/13/20 17:59 Carbon Dioxide 24 mmol/L (22-30) 07/13/20 17:59 Anion Gap 20 mmol/L 07/13/20 17:59 BUN 36 mg/dL (7-17) H 07/13/20 17:59 Creatinine 5.5 mg/dL (0.6-1.2) H 07/13/20 17:59 Estimated GFR 10 ml/min 07/13/20 17:59 BUN/Creatinine Ratio 7 % 07/13/20 17:59 Glucose 122 mg/dL (65-100) H 07/13/20 17:59 Calcium 9.0 mg/dL (8.4-10.2) 07/13/20 17:59 Total Creatine Kinase 81 units/L (30-135) 07/14/20 10:13 CK-MB (CK-2) 1.9 ng/mL (0.0-4.0) 07/14/20 10:13 CK-MB (CK-2) Rel Index 2.3 (0-4) 07/14/20 10:13 Troponin T 0.099 ng/mL (0.00-0.029) H 07/14/20 10:13 Triglycerides 89 mg/dL (2-149) 11/05/20 23:36 Cholesterol 152 mg/dL (50-199) 07/13/20 23:36 LDL Cholesterol Direct 84 mg/dL (50-130) 07/13/20 23:36 HDL Cholesterol 59 mg/dL (40-59) 07/13/20 23:36 Cholesterol/HDL Ratio 2.57 % 07/13/20 23:36 Hepatitis A IgM Ab Non-reactive (NonReactive) 07/14/20 10:13 Hep Bs Antigen Non-reactive (Negative) 07/14/20 10:13 Hep B Core IgM Ab Non-reactive (NonReactive) 07/14/20 10:13 Hepatitis C Antibody Non-reactive (NonReactive) 07/14/20 10:13 Active Medications - Current Medications Current Medications: Generic Name Dose Route Start Last Admin Trade Name Freq PRN Reason Stop Dose Admin Acetaminophen 650 mg 07/13/20 23:07 Tylenol PO Q4H PRN Headache Aspirin 81 mg 07/14/20 10:00 Halfprin Ec PO QDAY [facility] Atorvastatin Calcium 40 mg 07/14/20 22:00 Lipitor PO QHS [facility] Carvedilol 25 mg 07/14/20 10:00 07/14/20 17:50 Coreg PO 25 mg BID JP Administration Clopidogrel Bisulfate 75 mg 07/14/20 10:00 Plavix PO QDAY [facility] Ezetimibe 10 mg 07/14/20 10:00 Zetia PO QDAY [facility] Fluticasone Propionate 100 mcg 07/14/20 10:00 Flonase NS QDAY [facility] Furosemide 80 mg 07/14/20 10:00 Lasix PO DAILY [facility] Sodium Chloride 100 mls @ 999 mls/hr 07/14/20 13:00 Nacl 0.9% IV CHICHI PRN Hypotension Nifedipine 90 mg 07/14/20 10:00 Procardia Xl PO BID [facility] Nitroglycerin 0.5 inch 07/14/20 06:00 07/14/20 05:12 Nitro-Bid 2% TP Not Given QIDNTG [facility] Protocol Ondansetron HCl 4 mg 07/13/20 23:07 Zofran IV Q8H PRN Nausea And Vomiting
[2020-07-14] MEDS: ACETAMINOPHEN 325 MG TAB PO PRN (21:19)
[2020-07-14] MEDS: HEPARIN 5,000 UNIT/1 ML VIAL SUB-Q SCH (21:20)
[2020-07-15] MEDS ORDERED: REGADENOSON 0.4 MG/5 ML INJ IV ONE ×2 (07:55→07:58)
--- NOTE | 2020-07-15 10:44 | Progress Note ---
Assessment and Plan Lexiscan stress MPI 07/15/2020 findings reviewed - fixed lateral wall defect; no significant ischemia; EF 38%. Echo pending. Continue ASA, Plavix, and statin. Pt has h/o DVT, PE, IVC filter in situ, CVA x 2 (most recent was 1 month ago per pt report). She reports she is anticoagulated with Coumadin only, as she has failed NOAC therapy with recurrent CVAs. Recommend resumption of Coumadin per Primary team. BP is much better on current antihypertensive regimen. Continue BB. Would also add low-dose Lisinopril if ok from a renal standpoint. Pt seen in conjunction with Dr. Dumont, who agrees with the assessment and plan of care. - Patient Problems (1) Chest pain Current Visit: Yes Status: Resolved (2) NSTEMI (non-ST elevated myocardial infarction) Current Visit: Yes Status: Acute Plan to address problem: Type 2 (3) End stage renal disease on dialysis Current Visit: Yes Status: Chronic (4) Anemia Current Visit: Yes Status: Chronic (5) CAD (coronary artery disease) Current Visit: Yes Status: Chronic (6) Stented coronary artery Current Visit: Yes Status: Chronic (7) Ischemic cardiomyopathy Current Visit: Yes Status: Chronic (8) History of DVT (deep vein thrombosis) Current Visit: Yes Status: Chronic (9) History of pulmonary embolism Current Visit: Yes Status: Chronic (10) Presence of IVC filter Current Visit: Yes Status: Chronic (11) Accelerated hypertension Current Visit: Yes Status: Chronic (12) DM2 (diabetes mellitus, type 2) Current Visit: Yes Status: Chronic (13) Secondary hyperparathyroidism Current Visit: Yes Status: Chronic (14) PVD (peripheral vascular disease) Current Visit: Yes Status: Chronic (15) History of CVA (cerebrovascular accident) Current Visit: Yes Status: Chronic Subjective Date of service: 07/15/20 Principal diagnosis: NSTEMI Type 2, Acc HTN Interval history: Pt seen in stress lab this AM. Chest pain has improved. No additional cardiac complaints. Pt noted to refuse tele. Objective Last Vital Signs Temp 96.6 F L 07/15/20 07:42 Pulse 80 07/15/20 07:42 Resp 18 07/15/20 07:42 BP 127/63 07/15/20 09:10 Pulse Ox 98 07/15/20 07:42 - Physical Examination General: No Apparent Distress HEENT: Positive: PERRL, Normocephaly Neck: Positive: neck supple, trachea midline Cardiac: Positive: S1/S2 Lungs: Positive: clear to auscultation Neuro: Positive: Grossly Intact Abdomen: Positive: Soft, Active Bowel Sounds. Negative: Tender Skin: Negative: Rash Musculoskeletal: No Pain Extremities: Absent: edema - Labs and Meds Cardiac Enzymes 07/14/20 Range/Units 10:13 CK-MB (CK-2) 1.9 (0.0-4.0) ng/mL - Imaging and Cardiology EKG: report reviewed, image reviewed Pharmacologic stress test: report reviewed (07/15/2020 - fixed lateral wall defect; no significant ischemia; EF 38%) Echo: report reviewed (02/2017 - EF 40-45%, LV mildly dilated) Cardiac cath: report reviewed (Most recent PCI on 01/06/2017 @ [facility] with successful multivessel PCI with RAGINI to LAD, RAGINI to LCX, and RAGINI to RCA) - EKG Sinus rhythms and dysrhythmias: sinus rhythm Chamber hypertrophy or enlargement: left ventricular hypertro
--- NOTE | 2020-07-15 11:48 | Progress Note ---
Assessment and Plan Assessment and plan: --Non-ST elevation SD, type II Pt's 07/15/2020 stress test negative EF 38 %. Cardiology following Continue current management including aspirin and Plavix --History of coronary artery disease status post PCI Continue current cardiac medications, cardiology following Possible stress test tomorrow --Ischemic cardiomyopathy; EF 40 to 45% 2016 Continue antifailure medications Follow echocardiogram LV function ejection fraction --End-stage renal disease; On hemodialysis, nephrology following HD per schedule --Hypertensive emergency; present on admission Blood pressures are reasonably controlled no Continue current antihypertensives As needed medications --History of peripheral vascular disease; Continue antiplatelets and statins --History of DVT and PE; On chronic anticoagulation with Coumadin Target INR 2-3, Closely monitor Patient is noncompliant, INR subtherapeutic when she was admitted --History of IVC filter placement; supportive care --Type 2 diabetes mellitus; Accu-Chek sliding scale coverage ADA diet Insulin as needed --Dyslipidemia; Stable on lipid-lowering medications --Obesity; BMI 39.0 Advised weight reduction when medically stable --Possible obstructive sleep apnea; Patient may need outpatient sleep study Rule out KENY, CPAP BiPAP at night as needed --DVT prophylaxis; Patient is already on Coumadin We will closely monitor the patient and adjust the management as needed Follow applications sales consultant recommendation Plan of care reviewed with the patient and her nurse History Interval history: I have seen and examined the patient at the bedside Patient's chart and medications reviewed Patient had negative stress test this morning Denies chest pain or shortness of breath Complains of generalized weakness Vital signs noted Hospitalist Physical - Constitutional Vitals: Temp Pulse Resp BP Pulse Ox 96.6 F L 80 18 127/63 98 07/15/20 07:42 07/15/20 07:42 07/15/20 07:42 07/15/20 09:10 07/15/20 07:42 General appearance: Present: no acute distress, well-nourished, obese (Morbidly obese) - EENT Eyes: Present: PERRL, EOM intact - Neck Neck: Present: supple, normal ROM - Respiratory Respiratory effort: normal Respiratory: bilateral: diminished, negative: rales, rhonchi, wheezing - Cardiovascular Rhythm: regular Heart Sounds: Present: S1 & S2 - Extremities Extremities: no ischemia, No edema - Abdominal General gastrointestinal: soft, non-tender, non-distended, normal bowel sounds - Integumentary Integumentary: Present: clear, warm - Psychiatric Psychiatric: appropriate mood/affect, cooperative - Neurologic Neurologic: moves all extremities HEART Score - HEART Score Risk factors: > 3 risk factors or hx of atherosclerotic disease Troponin: Troponin T 0.099 ng/mL (0.00-0.029) H 07/14/20 10:13 Troponin: 1-3x normal limit - Critical Actions Critical Actions: 4-6 pts:12-16.6% risk of adverse cardiac event. Should be admitted (PATIENT UNDERGOING WORK UP) Results - Labs CBC & Chem 7: 07/15/20 15:18 07/13/20 17:59 Labs: Laboratory Last Values WBC 4.8 K/mm3 (4.5-11.0) 07/13/20 17:59 RBC 2.85 M/mm3 (3.65-5.03) L 07/13/20 17:59 Hgb 9.0 gm/dl (10.1-14.3) L 07/13/20 23:36 Hct 27.0 % (30.3-42.9) L 07/13/20 23:36 MCV 93 fl (79-97) 07/13/20 17:59 MCH 31 pg (28-32) 07/13/20 17:59 MCHC 33 % (30-34) 07/13/20 17:59 RDW 17.2 % (13.2-15.2) H 07/13/20 17:59 Plt Count 175 K/mm3 (140-440) 07/13/20 23:36 Lymph % (Auto) 12.9 % (13.4-35.0) L 07/13/20 17:59 Morrison % (Auto) 3.5 % (0.0-7.3) 07/13/20 17:59 Eos % (Auto) 3.0 % (0.0-4.3) 07/13/20 17:59 Baso % (Auto) 0.4 % (0.0-1.8) 07/13/20 17:59 Lymph # (Auto) 0.6 K/mm3 (1.2-5.4) L 07/13/20 17:59 Morrison # (Auto) 0.2 K/mm3 (0.0-0.8) 07/13/20 17:59 Eos # (Auto) 0.1 K/mm3 (0.0-0.4) 07/13/20 17:59 Baso # (Auto) 0.0 K/mm3 (0.0-0.1) 07/13/20 17:59 Seg Neutrophils % 80.2 % (40.0-70.0) H 07/13/20 17:59 Seg Neutrophils # 3.9 K/mm3 (1.8-7.7) 07/13/20 17:59 PT 14.3 Sec. (12.2-14.9) 07/13/20 23:36 INR 1.09 (0.87-1.13) 07/13/20 23:36 APTT 28.2 Sec. (24.2-36.6) 07/13/20 23:36 Sodium 135 mmol/L (137-145) L 07/13/20 17:59 Potassium 4.3 mmol/L (3.6-5.0) 07/13/20 17:59 Chloride 95.5 mmol/L (98-107) L 07/13/20 17:59 Carbon Dioxide 24 mmol/L (22-30) 07/13/20 17:59 Anion Gap 20 mmol/L 07/13/20 17:59 BUN 36 mg/dL (7-17) H 07/13/20 17:59 Creatinine 5.5 mg/dL (0.6-1.2) H 07/13/20 17:59 Estimated GFR 10 ml/min 07/13/20 17:59 BUN/Creatinine Ratio 7 % 07/13/20 17:59 Glucose 122 mg/dL (65-100) H 07/13/20 17:59 Calcium 9.0 mg/dL (8.4-10.2) 07/13/20 17:59 Total Creatine Kinase 81 units/L (30-135) 07/14/20 10:13 CK-MB (CK-2) 1.9 ng/mL (0.0-4.0) 07/14/20 10:13 CK-MB (CK-2) Rel Index 2.3 (0-4) 07/14/20 10:13 Troponin T 0.099 ng/mL (0.00-0.029) H 07/14/20 10:13 Triglycerides 89 mg/dL (2-149) 07/13/20 23:36 Cholesterol 152 mg/dL (50-199) 07/13/20 23:36 LDL Cholesterol Direct 84 mg/dL (50-130) 07/13/20 23:36 HDL Cholesterol 59 mg/dL (40-59) 07/13/20 23:36 Cholesterol/HDL Ratio 2.57 % 07/13/20 23:36 Hepatitis A IgM Ab Non-reactive (NonReactive) 07/14/20 10:13 Hep Bs Antigen Non-reactive (Negative) 07/14/20 10:13 Hep B Core IgM Ab Non-reactive (NonReactive) 07/14/20 10:13 Hepatitis C Antibody Non-reactive (NonReactive) 07/14/20 10:13 Veliz/IV: Voiding Method Urinal Active Medications - Current Medications Current Medications: Generic Name Dose Route Start Last Admin Trade Name Freq PRN Reason Stop Dose Admin Acetaminophen 650 mg 07/13/20 23:07 07/14/20 21:19 Tylenol PO 650 mg Q4H PRN Administration Headache Aspirin 81 mg 07/14/20 10:00 07/14/20 11:00 Halfprin Ec PO Not Given QDAY [facility] Atorvastatin Calcium 40 mg 07/14/20 22:00 07/14/20 21:20 Lipitor PO Not Given QHS [facility] Carvedilol 25 mg 07/14/20 10:00 07/14/20 21:19 Coreg PO 25 mg BID JP Administration Clopidogrel Bisulfate 75 mg 07/14/20 10:00 07/14/20 11:02 Plavix PO Not Given QDAY [facility] Ezetimibe 10 mg 07/14/20 10:00 07/14/20 11:03 Zetia PO Not Given QDAY [facility] Fluticasone Propionate 100 mcg 07/14/20 10:00 Flonase NS QDAY [facility] Furosemide 80 mg 07/14/20 10:00 07/14/20 11:00 Lasix PO Not Given DAILY [facility] Heparin Sodium (Porcine) 5,000 unit 07/14/20 22:00 07/14/20 21:20 Heparin SUB-Q Not Given Q12HR [facility] Sodium Chloride 100 mls @ 999 mls/hr 07/14/20 13:00 Nacl 0.9% IV CHICHI PRN Hypotension Nifedipine 90 mg 07/14/20 10:00 07/14/20 21:19 Procardia Xl PO 90 mg BID JP Administration Nitroglycerin 0.5 inch 07/14/20 06:00 07/14/20 19:01 Nitro-Bid 2% TP Not Given QIDNTG [facility] Protocol Ondansetron HCl 4 mg 07/13/20 23:07 Zofran IV Q8H PRN Nausea And Vomiting
[2020-07-15] MEDS: FLUTICASONE PROPIONATE NASAL SPRAY 16 GM NS SCH ×2 (12:07→12:15)
[2020-07-15] MEDS: NITROGLYCERIN 2% OINT 1 GM TP SCH ×4 (12:07→17:44)
[2020-07-15] MEDS: EZETIMIBE 10 MG TAB PO SCH (12:08)
[2020-07-15] MEDS: ASPIRIN EC 81 MG TAB PO SCH (12:08)
[2020-07-15] MEDS: HEPARIN 5,000 UNIT/1 ML VIAL SUB-Q SCH (12:08)
[2020-07-15] MEDS: carvediloL 25 MG TAB PO SCH ×2 (12:15→21:41)
[2020-07-15] MEDS: FUROSEMIDE 40 MG TAB PO SCH (12:15)
[2020-07-15] MEDS: CLOPIDOGREL 75 MG TAB PO SCH (12:17)
[2020-07-15] MEDS: NIFEdipine XL 90 MG TAB PO SCH ×2 (12:18→21:40)
[2020-07-15 16:21] LABS: Hematocrit 30.4 % (30.3-42.9); Hemoglobin 9.8 gm/dl (10.1-14.3)
[2020-07-15] MEDS ORDERED: WARFARIN 10 MG TAB PO SCH (17:00)
[2020-07-15] MEDS: LIDOCAINE 5% 1 EACH PATCH TD SCH (17:43)
[2020-07-15] MEDS: WARFARIN 2 MG TAB PO SCH (17:43)
--- NOTE | 2020-07-15 18:36 | Treadmill Report ---
MYOCARDIAL PERFUSION IMAGING STUDY This is a 60-year-old female with history of multiple stent deployment and end-stage renal disease, was noted to have elevated troponin level and chest pain. Resting myocardial perfusion images revealed diminished radioisotope activity in the lateral wall. Again, she was noted to have similar diminished radioisotope activity in the lateral wall on post-Lexiscan images. There was diminished contractility of the lateral wall. Ejection fraction was noted to be 38%. IMPRESSION: 1. This test is positive for scar in the lateral wall without reversible ischemia. 2. Left ventricular systolic dysfunction with ejection fraction of 38%. JOB# [id number] ROBERT/NISH
--- NOTE | 2020-07-15 19:57 | Progress Note ---
Assessment and Plan This is a 60 year old woman who presents with chest pain, diarrhea. # ESRD: had HD yesterday for dyspnea. Will continue MWF for now while inpatient (usually //) and prn based on labs, volume, clinical status - daily labs - renally dose meds - avoid nephrotoxins - renal diet # Anemia: last hemoglobin 9.8, will plan to restart ESAs with HD prn # HTN: UF as tolerated. BP improved, continue home medications # Secondary Hyperparathyroidism: continue home binders as needed # Chest pain: no active chest pain at time of consult. Workup per cardiology # Diarrhea: monitor UF with HD; consider checking c-diff as patient notes she was positive for this recently # DM: management per primary Subjective Date of service: 07/15/20 Principal diagnosis: NSTEMI Type 2, Acc HTN Interval history: No acute issues noted, dyspnea improved. HD went well yesterday per patient. Does note ongoing diarrhea Objective - Exam Narrative Exam: Constitutional: no acute distress Head: NC/AT Neck: supple Lungs: decreased sounds, on NC CV: RRR, no M/R/G Abdomen: soft, non-tender, bowel sounds present Back: nontender Extremities: no edema, pulses WNL Skin: intact Neuro: no focal deficits, alert and oriented x4 - Vital Signs Vital signs: Vital Signs - 12hr 07/15/20 07/15/20 07/15/20 08:47 08:51 09:05 Blood Pressure 149/74 136/66 146/68 07/15/20 07/15/20 07/15/20 09:07 09:08 09:10 Blood Pressure 145/58 134/60 127/63 - Lab 07/15/20 15:18 07/13/20 17:59 Most recent lab results Calcium 9.0 mg/dL (8.4-10.2) 07/13/20 17:59 Medications & Allergies - Medications Allergies/Adverse Reactions: Allergies apixaban [From Eliquis] Allergy (Verified 03/01/17 20:29) Itching dabigatran etexilate mesylate [From Pradaxa] Allergy (Verified 03/01/17 20:27) Itching heparin Allergy (Verified 07/14/20 05:54) Vomiting hydralazine HCl [From Apresoline] Allergy (Verified 03/01/17 13:11) Unknown morphine Allergy (Verified 02/15/14 02:23) Itching povidone-iodine [From Betadine] Allergy (Verified 03/01/17 20:26) Itching rivaroxaban [From Xarelto] Allergy (Verified 03/01/17 20:29) Itching soap [From Betadine] Allergy (Verified 03/01/17 20:26) Itching verapamil HCl [From Calan] Allergy (Verified 02/15/14 02:23) Headache Home Medications: Home Medications Medication Instructions Recorded Confirmed Last Taken Type Fluticasone Propionate [Flonase] 100 mcg NS QDAY 02/15/14 07/14/20 Unknown History Albuterol Sulfate [Albuterol 0.63% 0.63 mg IH Q4H PRN 03/01/17 07/14/20 1 Month Ago History NEBS] ~01/29/17 AtorvaSTATin [Lipitor] 40 mg PO QHS 03/01/17 07/14/20 1 Day Ago History ~02/28/17 Clopidogrel [Plavix] 75 mg PO QDAY 03/01/17 07/14/20 Unknown History Ferrous Sulfate [Feosol 325 MG tab] 325 mg PO QDAY 03/01/17 07/14/20 Unknown History Oxymetazoline 0.05% [Vicks Sinex] 1 spray NS BID 03/01/17 07/14/20 1 Day Ago History ~02/28/17 carvediloL [Coreg] 25 mg PO BID 03/01/17 07/14/20 Unknown History Aspirin EC [Halfprin EC] 81 mg PO QDAY #30 tablet. 03/05/17 07/14/20 Unknown Rx AtorvaSTATin [Lipitor] 80 mg PO QHS #30 tablet 03/05/17 07/14/20 Unknown Rx Ezetimibe [Zetia] 10 mg PO QDAY #30 tablet 03/05/17 07/14/20 Unknown Rx Furosemide [Lasix TAB] 80 mg PO QDAY #30 tablet 03/05/17 07/14/20 Unknown Rx HYDROcodone/APAP 5-325 [[place] 1 - 2 each PO Q4-6H PRN #15 tablet 03/05/17 Unknown Rx 5-325 mg TAB] Nystatin [Nystop Powder] 1 applic TP BID #15 g 03/05/17 07/14/20 Unknown Rx Warfarin [Coumadin] 10 mg PO DAILY@1700 #7 tablet 03/05/17 07/14/20 Unknown Rx Lidocaine [Lidoderm] 5 patch TRANSDERMA QDAY 07/14/20 07/14/20 Unknown History NIFEdipine XL [Procardia Xl] 90 mg PO BID 07/14/20 07/14/20 Unknown History Warfarin [Coumadin] 2 mg PO QDAY 07/14/20 07/14/20 Unknown History Warfarin [Coumadin] 10 mg PO QDAY 07/14/20 07/14/20 Unknown History oxyCODONE /ACETAMINOPHEN [Percocet 1 tab PO Q6HR PRN 07/14/20 07/14/20 Unknown History 5/325] Active Medications: Generic Name Dose Route Start Last Admin Trade Name Freq PRN Reason Stop Dose Admin Acetaminophen 650 mg 07/13/20 23:07 07/14/20 21:19 Tylenol PO 650 mg Q4H PRN Administration Headache Aspirin 81 mg 07/14/20 10:00 07/15/20 12:08 Halfprin Ec PO Not Given QDAY [facility] Atorvastatin Calcium 40 mg 07/14/20 22:00 07/14/20 21:20 Lipitor PO Not Given QHS [facility] Carvedilol 25 mg 07/14/20 10:00 07/15/20 12:15 Coreg PO 25 mg BID JP Administration Clopidogrel Bisulfate 75 mg 07/14/20 10:00 07/15/20 12:17 Plavix PO 75 mg QDAY [facility] Administration Ezetimibe 10 mg 07/14/20 10:00 07/15/20 12:08 Zetia PO Not Given QDAY [facility] Fluticasone Propionate 100 mcg 07/14/20 10:00 07/15/20 12:15 Flonase NS 100 mcg QDAY [facility] Administration Furosemide 80 mg 07/14/20 10:00 07/15/20 12:15 Lasix PO 80 mg DAILY JP Administration Sodium Chloride 100 mls @ 999 mls/hr 07/14/20 13:00 Nacl 0.9% IV CHICHI PRN Hypotension Lidocaine 1 each 07/15/20 16:00 07/15/20 17:43 Lidoderm 5% TD 1 each QDAY [facility] Administration Loperamide HCl 2 mg 07/15/20 19:18 Imodium PO Q2H PRN Diarrhea Nifedipine 90 mg 07/14/20 10:00 07/15/20 12:18 Procardia Xl PO 90 mg BID JP Administration Nitroglycerin 0.5 inch 07/14/20 06:00 07/15/20 17:44 Nitro-Bid 2% TP Not Given QIDNTG [facility] Protocol Ondansetron HCl 4 mg 07/13/20 23:07 Zofran IV Q8H PRN Nausea And Vomiting Warfarin Sodium 10 mg 07/17/20 17:00 Coumadin PO MoWeFr [facility] Protocol Warfarin Sodium 10 mg 07/15/20 17:00 07/15/20 17:43 Coumadin PO 10 mg SuTuThSa [facility] Administration Warfarin Sodium 2 mg 07/15/20 17:00 07/15/20 17:43 Coumadin PO 2 mg SuTuThSa [facility] Administration
[2020-07-15] MEDS: LOPERAMIDE 2 MG CAP PO PRN (21:41)
[2020-07-16] MEDS: NITROGLYCERIN 2% OINT 1 GM TP SCH ×4 (06:14→18:30)
--- NOTE | 2020-07-16 08:45 | Progress Note ---
Assessment and Plan Lexiscan stress MPI 07/15/2020 findings reviewed - fixed lateral wall defect; no significant ischemia; EF 38%. Echo 07/14/2020 findings reviewed - mild concentric LVH; multiple regional wall abnormalities (septal, basal, inferior wall hypokinetic); EF 35-40%; impaired LV relaxation; elev LAP; LA mildly dilated; RV mild-mod dilated; AV leaflets mod thickened; trace AR; mild-mod MR; mild-mod TR. Continue ASA, Plavix, and statin. Coumadin resumed. BP is much better on current antihypertensive regimen. Continue BB. Will also add low-dose Lisinopril. Continue nitro patch PRN upon discharge. Otherwise stable cardiac status. Follow-up with Primary E Commerce Developer (Fito) within 1-2 weeks of discharge. Pt seen in conjunction with Dr. Dumont, who agrees with the assessment and plan of care. - Patient Problems (1) Chest pain Current Visit: Yes Status: Resolved (2) NSTEMI (non-ST elevated myocardial infarction) Current Visit: Yes Status: Acute Plan to address problem: Type 2 (3) End stage renal disease on dialysis Current Visit: Yes Status: Chronic (4) Anemia Current Visit: Yes Status: Chronic (5) CAD (coronary artery disease) Current Visit: Yes Status: Chronic (6) Stented coronary artery Current Visit: Yes Status: Chronic (7) Ischemic cardiomyopathy Current Visit: Yes Status: Chronic Plan to address problem: no ICD yet, EF 35-40% on echo this admission (8) History of DVT (deep vein thrombosis) Current Visit: Yes Status: Chronic (9) History of pulmonary embolism Current Visit: Yes Status: Chronic (10) Presence of IVC filter Current Visit: Yes Status: Chronic (11) Accelerated hypertension Current Visit: Yes Status: Chronic (12) DM2 (diabetes mellitus, type 2) Current Visit: Yes Status: Chronic (13) Secondary hyperparathyroidism Current Visit: Yes Status: Chronic (14) PVD (peripheral vascular disease) Current Visit: Yes Status: Chronic (15) Asthma Current Visit: No Status: Chronic (16) KENY (obstructive sleep apnea) Current Visit: Yes Status: Suspected (17) H/O myocardial ischemia Current Visit: Yes Status: Acute (18) History of CVA (cerebrovascular accident) Current Visit: Yes Status: Chronic Plan to address problem: x 2 Subjective Date of service: 07/16/20 Principal diagnosis: ESRD/HD, Acc HTN, NSTEMI 2, H/o PE/DVT (IVC filter) Interval history: Pt resting comfortably in bed upon exam. She denies any cardiac complaints overnight or this AM. Tele reviewed - SR 80s w/no acute events noted overnight. Objective Last Vital Signs Temp 98.2 F 07/16/20 08:48 Pulse 87 07/16/20 08:48 Resp 18 07/16/20 08:48 BP 138/61 07/16/20 08:48 Pulse Ox 100 07/16/20 08:48 - Physical Examination General: No Apparent Distress HEENT: Positive: EOMI, Normocephaly Neck: Positive: neck supple, trachea midline Cardiac: Positive: Reg Rate and Rhythm, S1/S2 Lungs: Positive: clear to auscultation Neuro: Positive: Grossly Intact Abdomen: Positive: Soft, Active Bowel Sounds. Negative: Tender Skin: Negative: Rash Musculoskeletal: No Fluid Collection Extremities: Present: upper extr. pulses, lower extr. pulses, Other (R foot in boot). Absent: edema - Labs and Meds CBC 07/15/20 Range/Units 15:18 Hgb 9.8 L (10.1-14.3) gm/dl Hct 30.4 (30.3-42.9) % Plt Count 154 (140-440) K/mm3 - Imaging and Cardiology EKG: report reviewed, image reviewed Pharmacologic stress test: report reviewed (07/15/2020 - fixed lateral wall defect; no significant ischemia; EF 38%) Echo: report reviewed (07/14/2020 - mild concentric LVH; multiple regional wall abnormalities (septal, basal, inferior wall hypokinetic); EF 35-40%; impaired LV relaxation; elev LAP; LA mildly dilated; RV mild-mod dilated; AV leaflets mod thickened; trace AR; mild-mod MR; mild-mod TR), other (02/2017 - EF 40-45%, LV mildly dilated) Cardiac cath: report reviewed (Most recent PCI on 01/06/[address] [facility] with successful multivessel PCI with RAGINI to LAD, RAGINI to LCX, and RAGINI to RCA) - Telemetry EKG Rhythm: Sinus Rhythm - EKG Sinus rhythms and dysrhythmias: sinus rhythm Chamber hypertrophy or enlargement: left ventricular hypertro
--- NOTE | 2020-07-16 10:07 | Progress Note ---
Assessment and Plan This is a 60 year old woman who presents with chest pain, diarrhea. # ESRD: had HD 07/14 for dyspnea. Will continue MWF for now while inpatient (usually // outpatient) and prn based on labs, volume, clinical status - daily labs - renally dose meds - avoid nephrotoxins - renal diet # Anemia: last hemoglobin 9.8, will plan to restart ESAs with HD prn # HTN: UF as tolerated. BP improved, continue home medications # Secondary Hyperparathyroidism: continue home binders as needed # Chest pain: no active chest pain at time of consult. Workup per cardiology # Diarrhea: monitor UF with HD; consider checking c-diff as patient notes she was positive for this recently # DM: management per primary Subjective Date of service: 07/16/20 Principal diagnosis: ESRD/HD, Acc HTN, NSTEMI 2, H/o PE/DVT (IVC filter) Interval history: No acute issues noted. Does note ongoing diarrhea Objective - Exam Narrative Exam: Constitutional: no acute distress Head: NC/AT Neck: supple Lungs: decreased sounds, on NC CV: RRR, no M/R/G Abdomen: soft, non-tender, bowel sounds present Back: nontender Extremities: no edema, pulses WNL Skin: intact Neuro: no focal deficits, alert and oriented x4 - Vital Signs Vital signs: Vital Signs - 12hr 07/15/20 07/15/20 07/16/20 22:28 23:43 04:24 Temperature 97.7 F 98.2 F Pulse Rate 86 88 Respiratory 20 20 Rate Blood Pressure 152/67 134/62 O2 Sat by Pulse 100 99 100 Oximetry 07/16/20 08:48 Temperature 98.2 F Pulse Rate 87 Respiratory 18 Rate Blood Pressure 138/61 O2 Sat by Pulse 100 Oximetry - Lab 07/15/20 15:18 07/13/20 17:59 Most recent lab results Calcium 9.0 mg/dL (8.4-10.2) 07/13/20 17:59 Medications & Allergies - Medications Allergies/Adverse Reactions: Allergies apixaban [From Eliquis] Allergy (Verified 03/01/17 20:29) Itching dabigatran etexilate mesylate [From Pradaxa] Allergy (Verified 03/01/17 20:27) Itching heparin Allergy (Verified 07/14/20 05:54) Vomiting hydralazine HCl [From Apresoline] Allergy (Verified 03/01/17 13:11) Unknown morphine Allergy (Verified 02/15/14 02:23) Itching povidone-iodine [From Betadine] Allergy (Verified 03/01/17 20:26) Itching rivaroxaban [From Xarelto] Allergy (Verified 03/01/17 20:29) Itching soap [From Betadine] Allergy (Verified 03/01/17 20:26) Itching verapamil HCl [From Calan] Allergy (Verified 02/15/14 02:23) Headache Home Medications: Home Medications Medication Instructions Recorded Confirmed Last Taken Type Fluticasone Propionate [Flonase] 100 mcg NS QDAY 02/15/14 07/14/20 Unknown History Albuterol Sulfate [Albuterol 0.63% 0.63 mg IH Q4H PRN 03/01/17 07/14/20 1 Month Ago History NEBS] ~01/29/17 AtorvaSTATin [Lipitor] 40 mg PO QHS 03/01/17 07/14/20 1 Day Ago History ~02/28/17 Clopidogrel [Plavix] 75 mg PO QDAY 03/01/17 07/14/20 Unknown History Ferrous Sulfate [Feosol 325 MG tab] 325 mg PO QDAY 03/01/17 07/14/20 Unknown History Oxymetazoline 0.05% [Vicks Sinex] 1 spray NS BID 03/01/17 07/14/20 1 Day Ago History ~02/28/17 carvediloL [Coreg] 25 mg PO BID 03/01/17 07/14/20 Unknown History Aspirin EC [Halfprin EC] 81 mg PO QDAY #30 tablet.dr 03/05/17 07/14/20 Unknown Rx AtorvaSTATin [Lipitor] 80 mg PO QHS #30 tablet 03/05/17 07/14/20 Unknown Rx Ezetimibe [Zetia] 10 mg PO QDAY #30 tablet 03/05/17 07/14/20 Unknown Rx Furosemide [Lasix TAB] 80 mg PO QDAY #30 tablet 03/05/17 07/14/20 Unknown Rx HYDROcodone/APAP 5-325 [[place] 1 - 2 each PO Q4-6H PRN #15 tablet 03/05/17 Unknown Rx 5-325 mg TAB] Nystatin [Nystop Powder] 1 applic TP BID #15 g 03/05/17 07/14/20 Unknown Rx Warfarin [Coumadin] 10 mg PO DAILY@1700 #7 tablet 03/05/17 07/14/20 Unknown Rx Lidocaine [Lidoderm] 5 patch TRANSDERMA QDAY 07/14/20 07/14/20 Unknown History NIFEdipine XL [Procardia Xl] 90 mg PO BID 07/14/20 07/14/20 Unknown History Warfarin [Coumadin] 2 mg PO QDAY 07/14/20 07/14/20 Unknown History Warfarin [Coumadin] 10 mg PO QDAY 07/14/20 07/14/20 Unknown History oxyCODONE /ACETAMINOPHEN [Percocet 1 tab PO Q6HR PRN 07/14/20 07/14/20 Unknown History 5/325] Active Medications: Generic Name Dose Route Start Last Admin Trade Name Freq PRN Reason Stop Dose Admin Acetaminophen 650 mg 07/13/20 23:07 07/14/20 21:19 Tylenol PO 650 mg Q4H PRN Administration Headache Aspirin 81 mg 07/14/20 10:00 07/15/20 12:08 Halfprin Ec PO Not Given QDAY [facility] Atorvastatin Calcium 40 mg 07/14/20 22:00 07/15/20 21:42 Lipitor PO Not Given QHS JP Carvedilol 25 mg 07/14/20 10:00 07/15/20 21:41 Coreg PO 25 mg BID JP Administration Clopidogrel Bisulfate 75 mg 07/14/20 10:00 07/15/20 12:17 Plavix PO 75 mg QDAY JP Administration Ezetimibe 10 mg 07/14/20 10:00 07/15/20 12:08 Zetia PO Not Given QDAY JP Fluticasone Propionate 100 mcg 07/14/20 10:00 07/15/20 12:15 Flonase NS 100 mcg QDAY JP Administration Furosemide 80 mg 07/14/20 10:00 07/15/20 12:15 Lasix PO 80 mg DAILY JP Administration Sodium Chloride 100 mls @ 999 mls/hr 07/14/20 13:00 Nacl 0.9% IV CHICHI PRN Hypotension Lidocaine 1 each 07/15/20 16:00 07/15/20 17:43 Lidoderm 5% TD 1 each QDAY JP Administration Lisinopril 5 mg 07/17/20 10:00 Zestril PO QDAY JP Loperamide HCl 2 mg 07/15/20 19:18 07/15/20 21:41 Imodium PO 2 mg Q2H PRN Administration Diarrhea Nifedipine 90 mg 07/14/20 10:00 07/15/20 21:40 Procardia Xl PO 90 mg BID JP Administration Nitroglycerin 0.5 inch 07/14/20 06:00 07/16/20 06:14 Nitro-Bid 2% TP Not Given QIDNTG [facility] Protocol Ondansetron HCl 4 mg 07/13/20 23:07 Zofran IV Q8H PRN Nausea And Vomiting Warfarin Sodium 10 mg 07/16/20 17:00 Coumadin PO DAILY@1700 [facility] Protocol Warfarin Sodium 2 mg 07/15/20 17:00 07/15/20 17:43 Coumadin PO 2 mg SuTuThSa JP Administration
[2020-07-16] MEDS: FUROSEMIDE 40 MG TAB PO SCH (12:15)
[2020-07-16] MEDS: FLUTICASONE PROPIONATE NASAL SPRAY 16 GM NS SCH (12:15)
[2020-07-16] MEDS: LIDOCAINE 5% 1 EACH PATCH TD SCH (12:15)
[2020-07-16] MEDS: EZETIMIBE 10 MG TAB PO SCH (12:15)
[2020-07-16] MEDS: ASPIRIN EC 81 MG TAB PO SCH (12:15)
[2020-07-16] MEDS: carvediloL 25 MG TAB PO SCH ×2 (12:15→22:03)
[2020-07-16] MEDS: NIFEdipine XL 90 MG TAB PO SCH ×2 (12:15→22:03)
[2020-07-16] MEDS: CLOPIDOGREL 75 MG TAB PO SCH (12:15)
[2020-07-16 13:57] LABS: INR 1.02 (0.87-1.13)
[2020-07-16 14:10] LABS: Calcium 8.7 mg/dL (8.4-10.2)
--- NOTE | 2020-07-16 15:55 | Progress Note ---
Assessment and Plan Assessment and plan: --Non-ST elevation IL, type II Pt's 07/15/2020 stress test negative EF 38 %. Continue current management including aspirin and Plavix --History of coronary artery disease status post PCI Continue current cardiac medications, cardiology following --Ischemic cardiomyopathy; EF 40 to 45% 2016 Continue antifailure medications Follow echocardiogram LV function ejection fraction --End-stage renal disease; On hemodialysis, nephrology following, HD per schedule --Hypertensive emergency; present on admission Blood pressures are reasonably controlled now Continue current antihypertensives --History of peripheral vascular disease; Continue antiplatelets and statins --History of DVT and PE; On chronic anticoagulation with Coumadin Target INR 2-3, Closely monitor Patient is noncompliant, INR subtherapeutic when she was admitted --History of IVC filter placement; supportive care --Type 2 diabetes mellitus; Accu-Chek sliding scale coverage ADA diet Insulin as needed --Dyslipidemia; Stable on lipid-lowering medications --Obesity; BMI 39.0 Advised weight reduction when medically stable --Possible obstructive sleep apnea; Patient may need outpatient sleep study Rule out KENY, CPAP BiPAP at night as needed --DVT prophylaxis; Patient is already on Coumadin DC planning per case management We will closely monitor the patient and adjust management as needed Plan of care reviewed with the patient and her nurse History Interval history: Patient feels better No new complaints Vital signs noted Hospitalist Physical - Constitutional Vitals: Temp Pulse Resp BP Pulse Ox 96.4 F L 83 18 131/71 100 07/16/20 13:55 07/16/20 13:55 07/16/20 13:55 07/16/20 13:55 07/16/20 13:55 General appearance: Present: no acute distress, well-nourished, obese (Morbidly obese) - EENT Eyes: Present: PERRL, EOM intact - Neck Neck: Present: supple, normal ROM - Respiratory Respiratory effort: normal Respiratory: bilateral: diminished, negative: rales, rhonchi, wheezing - Cardiovascular Rhythm: regular Heart Sounds: Present: S1 & S2 - Extremities Extremities: no ischemia, No edema - Abdominal General gastrointestinal: soft, non-tender, non-distended, normal bowel sounds - Integumentary Integumentary: Present: clear, warm - Psychiatric Psychiatric: appropriate mood/affect, cooperative - Neurologic Neurologic: moves all extremities HEART Score - HEART Score Risk factors: > 3 risk factors or hx of atherosclerotic disease Troponin: Troponin T 0.099 ng/mL (0.00-0.029) H 07/14/20 10:13 Troponin: 1-3x normal limit - Critical Actions Critical Actions: 4-6 pts:12-16.6% risk of adverse cardiac event. Should be admitted (PATIENT UNDERGOING WORK UP) Results - Labs CBC & Chem 7: 07/15/20 15:18 07/16/20 12:46 Labs: Laboratory Last Values WBC 4.8 K/mm3 (4.5-11.0) 07/13/20 17:59 RBC 2.85 M/mm3 (3.65-5.03) L 07/13/20 17:59 Hgb 9.8 gm/dl (10.1-14.3) L 07/15/20 15:18 Hct 30.4 % (30.3-42.9) 07/15/20 15:18 MCV 93 fl (79-97) 07/13/20 17:59 MCH 31 pg (28-32) 07/13/20 17:59 MCHC 33 % (30-34) 07/13/20 17:59 RDW 17.2 % (13.2-15.2) H 07/13/20 17:59 Plt Count 154 K/mm3 (140-440) 07/15/20 15:18 Lymph % (Auto) 12.9 % (13.4-35.0) L 07/13/20 17:59 Hayes % (Auto) 3.5 % (0.0-7.3) 07/13/20 17:59 Eos % (Auto) 3.0 % (0.0-4.3) 07/13/20 17:59 Baso % (Auto) 0.4 % (0.0-1.8) 07/13/20 17:59 Lymph # (Auto) 0.6 K/mm3 (1.2-5.4) L 07/13/20 17:59 Hayes # (Auto) 0.2 K/mm3 (0.0-0.8) 07/13/20 17:59 Eos # (Auto) 0.1 K/mm3 (0.0-0.4) 07/13/20 17:59 Baso # (Auto) 0.0 K/mm3 (0.0-0.1) 07/13/20 17:59 Seg Neutrophils % 80.2 % (40.0-70.0) H 07/13/20 17:59 Seg Neutrophils # 3.9 K/mm3 (1.8-7.7) 07/13/20 17:59 PT 13.6 Sec. (12.2-14.9) 07/16/20 12:46 INR 1.02 (0.87-1.13) 07/16/20 12:46 APTT 28.2 Sec. (24.2-36.6) 07/13/20 23:36 Sodium 138 mmol/L (137-145) 07/16/20 12:46 Potassium 3.8 mmol/L (3.6-5.0) 07/16/20 12:46 Chloride 96.7 mmol/L (98-107) L 07/16/20 12:46 Carbon Dioxide 28 mmol/L (22-30) 07/16/20 12:46 Anion Gap 17 mmol/L 07/16/20 12:46 BUN 40 mg/dL (7-17) H 07/16/20 12:46 Creatinine 5.9 mg/dL (0.6-1.2) H 07/16/20 12:46 Estimated GFR 9 ml/min 07/16/20 12:46 BUN/Creatinine Ratio 7 % 07/16/20 12:46 Glucose 117 mg/dL (65-100) H 07/16/20 12:46 Calcium 8.7 mg/dL (8.4-10.2) 07/16/20 12:46 Total Creatine Kinase 81 units/L (30-135) 07/14/20 10:13 CK-MB (CK-2) 1.9 ng/mL (0.0-4.0) 07/14/20 10:13 CK-MB (CK-2) Rel Index 2.3 (0-4) 07/14/20 10:13 Troponin T 0.099 ng/mL (0.00-0.029) H 07/14/20 10:13 Triglycerides 89 mg/dL (2-149) 07/13/20 23:36 Cholesterol 152 mg/dL (50-199) 07/13/20 23:36 LDL Cholesterol Direct 84 mg/dL (50-130) 07/13/20 23:36 HDL Cholesterol 59 mg/dL (40-59) 07/13/20 23:36 Cholesterol/HDL Ratio 2.57 % 07/13/20 23:36 Hepatitis A IgM Ab Non-reactive (NonReactive) 07/14/20 10:13 Hep Bs Antigen Non-reactive (Negative) 07/14/20 10:13 Hep B Core IgM Ab Non-reactive (NonReactive) 07/14/20 10:13 Hepatitis C Antibody Non-reactive (NonReactive) 07/14/20 10:13 - Diagnostic Impressions Diagnostic Impressions: Echocardiogram 07/14/20 10:55 Transthoracic Echocardiogram Indication: Chest Pain BP: 137/63 HR: 79 Conclusions *The left ventricular chamber size is normal. *Mild concentric left ventricular hypertrophy is observed. *There are multiple regional wall motion abnormalities. *septal,basal inferior wall hypokinetic *The estimated ejection fraction is 35-40%. *Abnormal left ventricular diastolic filling is observed, consistent with impaired relaxation. *The left ventricular diastolic filling pattern is consistent with pseudonormalization. *The left ventricular diastolic filling pattern is consistent with elevated mean left atrial pressure. *The left atrium is mildly dilated. *The right ventricle is mild to moderately dilated. *The aortic valve leaflets are moderately thickened. *There is trace of aortic regurgitation. *There is no evidence of aortic stenosis. *There is mitral annular calcification. *There is mild to moderate mitral regurgitation. *There is mild to moderate tricuspid regurgitation. *There is no pericardial effusion. *The inferior vena cava appears normal in size. Findings Left Ventricle: The left ventricular chamber size is normal. Mild concentric left ventricular hypertrophy is observed. There are multiple regional wall motion abnormalities. Global left ventricular systolic function is mild to moderately decreased. The estimated ejection fraction is 35-40%. Abnormal left ventricular diastolic function is observed. The left ventricular diastolic filling pattern is consistent with pseudonormalization. The left ventricular diastolic filling pattern is consistent with elevated mean left atrial pressure. Left Atrium: The left atrium is mildly dilated. Right Ventricle: The right ventricle is mild to moderately dilated. The right ventricular global systolic function is normal. Right Atrium: The right atrium appears normal. The interatrial septum appears normal. 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 Aortic Valve: The aortic valve is trileaflet. The aortic valve leaflets are moderately thickened. There is trace of aortic regurgitation. There is no evidence of aortic stenosis. Mitral Valve: The mitral valve leaflets appear normal. There is mitral annular calcification. There is mild to moderate mitral regurgitation. There is no evidence of mitral stenosis. Tricuspid Valve: The tricuspid valve leaflets are normal. There is mild to moderate tricuspid regurgitation. There is no tricuspid stenosis. Pulmonic Valve: The pulmonic valve appears normal. There is trace pulmonic regurgitation. There is no pulmonic stenosis. Pericardium: There is no pericardial effusion. Aorta: There is no dilatation of the ascending aorta. There is no dilatation of the aortic arch. There is no dilatation of the descending thoracic aorta. There is no dilatation of the aortic root. Venous: The inferior vena cava appears normal in size. Measurements Chambers 2D Name Value Normal Range IVSd (2D) 1.21 cm (0.6 - 1.1) LVPWd (2D) 1.22 cm (0.6 - 1.1) LVIDd (2D) 5.61 cm (3.7 - 5.6) LVIDs (2D) 4.74 cm (2 - 3.8) LV FS (2D) 15.52 % - EF Teichholz (2D) 32.35 % - Ao root diameter (2D) 2.98 cm (2 - 3.7) Volumes/Mass Name Value Normal Range LA ESV SP 4CH (A/L) 90.79 ml - LA ESV SP 2CH (A/L) 79.53 ml - LA ESV BP (A/L) 85.37 ml - LA ESV SP 4CH (MOD) 84.6 ml - LA ESV SP 2CH (MOD) 74.61 ml - LV EDV SP 4CH (MOD) 197.38 ml - LV ESV SP 4CH (MOD) 123.93 ml - EF SP 4CH (MOD) 37.21 % - LV EDV SP 2CH (MOD) 194.2 ml - LV ESV SP 2CH (MOD) 123.7 ml - EF SP 2CH (MOD) 36.3 % - LV EDV BP 201.77 ml - LV ESV BP 131.12 ml - BP EF (MOD) 35.02 % - Diastolic/Systolic Function Name Value Normal Range MV E-wave Vmax 1.15 m/sec - MV deceleration time 133.32 msec - MV A-wave Vmax 0.78 m/sec - MV E:A ratio 1.48 ratio - Aortic Valve Name Value Normal Range AV Vmax 1.8 m/sec - AV VTI 35.01 cm - AV peak gradient 12.99 mmHg - AV mean gradient 6.54 mmHg - LVOT diameter 2.11 cm - LVOT Vmax 0.86 m/sec - LVOT VTI 17.92 cm - LVOT peak gradient 2.94 mmHg - LVOT mean gradient 1.54 mmHg - SV LVOT 62.77 ml - SKINNY (continuity Vmax) 1.67 cm2 - SKINNY (continuity VTI) 1.79 cm2 - Tricuspid Valve Name Value Normal Range TR Vmax 3.55 m/sec - TR peak gradient 50.29 mmHg - Pulmonic Valve/Qp:Qs Name Value Normal Range PV Vmax 1.09 m/sec - PV peak gradient 4.78 mmHg - IL end-diastolic Vmax 1.48 m/sec - PV acceleration time 117.98 msec - Veliz/IV: Voiding Method Toilet IV Catheter Type [Left Hand] Peripheral IV Active Medications - Current Medications Current Medications: Generic Name Dose Route Start Last Admin Trade Name Freq PRN Reason Stop Dose Admin Acetaminophen 650 mg 07/13/20 23:07 07/14/20 21:19 Tylenol PO 650 mg Q4H PRN Administration Headache Aspirin 81 mg 07/14/20 10:00 07/15/20 12:08 Halfprin Ec PO Not Given QDAY [facility] Atorvastatin Calcium 40 mg 07/14/20 22:00 07/15/20 21:42 Lipitor PO Not Given QHS JP Carvedilol 25 mg 07/14/20 10:00 07/15/20 21:41 Coreg PO 25 mg BID JP Administration Clopidogrel Bisulfate 75 mg 07/14/20 10:00 07/15/20 12:17 Plavix PO 75 mg QDAY JP Administration Ezetimibe 10 mg 07/14/20 10:00 07/15/20 12:08 Zetia PO Not Given QDAY JP Fluticasone Propionate 100 mcg 07/14/20 10:00 07/15/20 12:15 Flonase NS 100 mcg QDAY JP Administration Furosemide 80 mg 07/14/20 10:00 07/15/20 12:15 Lasix PO 80 mg DAILY JP Administration Sodium Chloride 100 mls @ 999 mls/hr 07/14/20 13:00 Nacl 0.9% IV CHICHI PRN Hypotension Lidocaine 1 each 07/15/20 16:00 07/15/20 17:43 Lidoderm 5% TD 1 each QDAY [facility] Administration Lisinopril 5 mg 07/17/20 10:00 Zestril PO QDAY [facility] Loperamide HCl 2 mg 07/15/20 19:18 07/15/20 21:41 Imodium PO 2 mg Q2H PRN Administration Diarrhea Nifedipine 90 mg 07/14/20 10:00 07/15/20 21:40 Procardia Xl PO 90 mg BID JP Administration Nitroglycerin 0.5 inch 07/14/20 06:00 07/16/20 06:14 Nitro-Bid 2% TP Not Given QIDNTG [facility] Protocol Ondansetron HCl 4 mg 07/13/20 23:07 Zofran IV Q8H PRN Nausea And Vomiting Warfarin Sodium 10 mg 07/16/20 17:00 Coumadin PO DAILY@1700 [facility] Protocol Warfarin Sodium 2 mg 07/15/20 17:00 07/15/20 17:43 Coumadin PO 2 mg SuTuThSa [facility] Administration
[2020-07-16] MEDS: WARFARIN 10 MG TAB PO SCH (17:08)
[2020-07-16] MEDS: WARFARIN 2 MG TAB PO SCH (20:09)
[2020-07-16] MEDS: LOPERAMIDE 2 MG CAP PO PRN (22:03)
[2020-07-17 08:31] LABS: INR 1.07 (0.87-1.13)
[2020-07-17 08:32] LABS: Calcium 8.7 mg/dL (8.4-10.2)
[2020-07-17] MEDS: CLOPIDOGREL 75 MG TAB PO SCH ×2 (09:04→13:53)
[2020-07-17] MEDS: NIFEdipine XL 90 MG TAB PO SCH ×2 (09:04→22:06)
[2020-07-17] MEDS: ASPIRIN EC 81 MG TAB PO SCH ×2 (09:04→13:53)
[2020-07-17] MEDS: LISINOPRIL 5 MG TAB PO SCH ×2 (09:04→13:54)
[2020-07-17] MEDS: carvediloL 25 MG TAB PO SCH ×2 (09:04→22:12)
[2020-07-17] MEDS: EZETIMIBE 10 MG TAB PO SCH (09:04)
[2020-07-17] MEDS: FUROSEMIDE 40 MG TAB PO SCH (09:04)
--- NOTE | 2020-07-17 09:29 | Progress Note ---
Assessment and Plan Impression: * End stage renal disease * NSTEMI --MPI: fixed lateral wall defect; no significant ischemia; EF 38%. (Jul 15 2020) --TTE: mild concentric LVH; multiple regional wall abnormalities (septal, basal, inf wall hypokinetic); EF 35-40%; impaired LV relaxation (Jul 14 2020) * Ischemic cardiomyopathy * Hypertension * Anemia secondary to CKD * Secondary hyperparathyroidism Plan: * Hemodialysis treatment ordered for today * UF as tolerated * Resume TTS schedule upon d/c * Cardiology recommendations noted * Renal/HD diet * Note plans for discharge; unsure of patient's outpatient dialysis clinic - per CM notes, patient is not a dialysis patient at [facility] or [facility] [place] [place] Subjective Date of service: 07/17/20 Principal diagnosis: ESRD/HD, Acc HTN, NSTEMI 2, H/o PE/DVT (IVC filter) Interval history: Patient seen on dialysis today - resting comfortably Objective - Vital Signs Vital signs: Vital Signs - 12hr 07/16/20 07/16/20 07/17/20 22:03 22:33 00:24 Temperature 98.0 F Pulse Rate 87 87 Respiratory 18 Rate Blood Pressure 146/69 156/67 Blood Pressure [Right] O2 Sat by Pulse 100 99 Oximetry 07/17/20 07/17/20 07/17/20 05:26 09:04 09:09 Temperature 98.6 F Pulse Rate 68 Respiratory Rate Blood Pressure 140/68 140/68 Blood Pressure 141/68 [Right] O2 Sat by Pulse Oximetry - General Appearance General appearance: well-developed EENT: ATNC Respiratory: Present: Clear to Ascultation Cardiology: regular, S1S2 Musculoskeletal: other (no edema) Psychiatric: cooperative - Lab 07/15/20 15:18 07/17/20 06:33 Most recent lab results Calcium 8.7 mg/dL (8.4-10.2) 07/17/20 06:33 Medications & Allergies - Medications Allergies/Adverse Reactions: Allergies apixaban [From Eliquis] Allergy (Verified 03/01/17 20:29) Itching dabigatran etexilate mesylate [From Pradaxa] Allergy (Verified 03/01/17 20:27) Itching heparin Allergy (Verified 07/14/20 05:54) Vomiting hydralazine HCl [From Apresoline] Allergy (Verified 03/01/17 13:11) Unknown morphine Allergy (Verified 02/15/14 02:23) Itching povidone-iodine [From Betadine] Allergy (Verified 03/01/17 20:26) Itching rivaroxaban [From Xarelto] Allergy (Verified 03/01/17 20:29) Itching soap [From Betadine] Allergy (Verified 03/01/17 20:26) Itching verapamil HCl [From Calan] Allergy (Verified 02/15/14 02:23) Headache Home Medications: Home Medications Medication Instructions Recorded Confirmed Last Taken Type Fluticasone Propionate [Flonase] 100 mcg NS QDAY 02/15/14 07/14/20 Unknown History Albuterol Sulfate [Albuterol 0.63% 0.63 mg IH Q4H PRN 03/01/17 07/14/20 1 Month Ago History NEBS] ~01/29/17 AtorvaSTATin [Lipitor] 40 mg PO QHS 03/01/17 07/14/20 1 Day Ago History ~02/28/17 Clopidogrel [Plavix] 75 mg PO QDAY 03/01/17 07/14/20 Unknown History Ferrous Sulfate [Feosol 325 MG tab] 325 mg PO QDAY 03/01/17 07/14/20 Unknown History Oxymetazoline 0.05% [Vicks Sinex] 1 spray NS BID 03/01/17 07/14/20 1 Day Ago History ~02/28/17 carvediloL [Coreg] 25 mg PO BID 03/01/17 07/14/20 Unknown History Aspirin EC [Halfprin EC] 81 mg PO QDAY #30 tablet. 03/05/17 07/14/20 Unknown Rx AtorvaSTATin [Lipitor] 80 mg PO QHS #30 tablet 03/05/17 07/14/20 Unknown Rx Ezetimibe [Zetia] 10 mg PO QDAY #30 tablet 03/05/17 07/14/20 Unknown Rx Furosemide [Lasix TAB] 80 mg PO QDAY #30 tablet 03/05/17 07/14/20 Unknown Rx HYDROcodone/APAP 5-325 [Geraldine 1 - 2 each PO Q4-6H PRN #15 tablet 03/05/17 Unknown Rx 5-325 mg TAB] Nystatin [Nystop Powder] 1 applic TP BID #15 g 03/05/17 07/14/20 Unknown Rx Warfarin [Coumadin] 10 mg PO DAILY@1700 #7 tablet 03/05/17 07/14/20 Unknown Rx Lidocaine [Lidoderm] 5 patch TRANSDERMA QDAY 07/14/20 07/14/20 Unknown History NIFEdipine XL [Procardia Xl] 90 mg PO BID 07/14/20 07/14/20 Unknown History Warfarin [Coumadin] 2 mg PO QDAY 07/14/20 07/14/20 Unknown History Warfarin [Coumadin] 10 mg PO QDAY 07/14/20 07/14/20 Unknown History oxyCODONE /ACETAMINOPHEN [Percocet 1 tab PO Q6HR PRN 07/14/20 07/14/20 Unknown History 5/325] Active Medications: Generic Name Dose Route Start Last Admin Trade Name Freq PRN Reason Stop Dose Admin Acetaminophen 650 mg 07/13/20 23:07 07/14/20 21:19 Tylenol PO 650 mg Q4H PRN Administration Headache Albuterol 2.5 mg 07/16/20 18:22 Proventil IH Q4HRT PRN Shortness Of Breath Aspirin 81 mg 07/14/20 10:00 07/17/20 09:04 Halfprin Ec PO 81 mg QDAY JP Administration Atorvastatin Calcium 40 mg 07/14/20 22:00 07/16/20 22:10 Lipitor PO Not Given QHS JP Carvedilol 25 mg 07/14/20 10:00 07/17/20 09:04 Coreg PO 25 mg BID JP Administration Clopidogrel Bisulfate 75 mg 07/14/20 10:00 07/17/20 09:04 Plavix PO 75 mg QDAY JP Administration Ezetimibe 10 mg 07/14/20 10:00 07/17/20 09:04 Zetia PO 10 mg QDAY JP Administration Fluticasone Propionate 100 mcg 07/14/20 10:00 07/16/20 12:15 Flonase NS 100 mcg QDAY JP Administration Furosemide 80 mg 07/14/20 10:00 07/17/20 09:04 Lasix PO 80 mg DAILY JP Administration Sodium Chloride 100 mls @ 999 mls/hr 07/14/20 13:00 Nacl 0.9% IV CHICHI PRN Hypotension Lidocaine 1 each 07/15/20 16:00 07/16/20 12:15 Lidoderm 5% TD 1 each QDAY JP Administration Lisinopril 5 mg 07/17/20 10:00 07/17/20 09:04 Zestril PO 5 mg QDAY JP Administration Loperamide HCl 2 mg 07/15/20 19:18 07/15/20 21:41 Imodium PO 2 mg Q2H PRN Administration Diarrhea Nifedipine 90 mg 07/14/20 10:00 07/17/20 09:04 Procardia Xl PO 90 mg BID JP Administration Nitroglycerin 0.5 inch 07/14/20 06:00 07/16/20 18:30 Nitro-Bid 2% TP Not Given QIDNTG [facility] Protocol Ondansetron HCl 4 mg 07/13/20 23:07 Zofran IV Q8H PRN Nausea And Vomiting Warfarin Sodium 10 mg 07/16/20 17:00 07/16/20 17:08 Coumadin PO 10 mg DAILY@1700 [facility] Administration Protocol Warfarin Sodium 2 mg 07/15/20 17:00 07/16/20 20:09 Coumadin PO 2 mg SuTuThSa [facility] Administration
[2020-07-17] MEDS ORDERED: LISINOPRIL 5 MG TAB PO SCH (10:00)
[2020-07-17] MEDS: NITROGLYCERIN 2% OINT 1 GM TP SCH ×4 (10:47→17:53)
[2020-07-17] MEDS: FLUTICASONE PROPIONATE NASAL SPRAY 16 GM NS SCH ×2 (13:38→13:52)
[2020-07-17] MEDS: LIDOCAINE 5% 1 EACH PATCH TD SCH (13:39)
--- NOTE | 2020-07-17 14:15 | Progress Note ---
Assessment and Plan Assessment and plan: --Non-ST elevation ID, type II Pt's 07/15/2020 stress test negative EF 38 %. Continue current management including aspirin and Plavix Cardiology cleared for discharge --History of coronary artery disease status post PCI Continue current cardiac medications, cardiology following --Ischemic cardiomyopathy; EF 40 to 45% 2016 Continue antifailure medications Follow echocardiogram LV function ejection fraction --End-stage renal disease; On hemodialysis, nephrology following, HD per schedule Stable ,renal cleared for discharge --Hypertensive emergency; present on admission Blood pressures well controlled --History of peripheral vascular disease; Continue antiplatelets and statins --History of DVT and PE; chronic anticoagulation with Coumadin subtherapeutic INR noncompliant Coumadin resumed Target INR 2-3, Closely monitor Monitor INR and adjust as needed --History of IVC filter placement; supportive care --Type 2 diabetes mellitus; Accu-Chek sliding scale coverage ADA diet Insulin as needed --Dyslipidemia; Stable on lipid-lowering medications --Obesity; BMI 39.0 Advised weight reduction when medically stable --Possible obstructive sleep apnea; Patient may need outpatient sleep study Rule out KENY, CPAP BiPAP at night as needed --DVT prophylaxis; Patient is already on Coumadin DC planning per case management We will closely monitor the patient and adjust management as needed Plan of care reviewed with the patient and her nurse --07/17/2020; patient is clinically stable for discharge, cleared by nephrology and cardiology Patient wants a different SNF placement, case management assisting with discharge planning Patient is clinically stable for discharge today Awaiting placement History Interval history: I have seen and examined the patient at the bedside Patient's chart and medications reviewed Patient received hemodialysis today No new complaints Vital signs noted Hospitalist Physical - Constitutional Vitals: Temp Pulse Resp BP Pulse Ox 98.6 F 85 18 121/64 96 07/17/20 05:26 07/17/20 10:00 07/17/20 13:50 07/17/20 13:50 07/17/20 10:32 General appearance: Present: no acute distress, well-nourished, obese (Morbidly obese) - EENT Eyes: Present: PERRL, EOM intact - Neck Neck: Present: supple, normal ROM - Respiratory Respiratory effort: normal Respiratory: bilateral: diminished, rales, negative: rhonchi, wheezing - Cardiovascular Rhythm: regular Heart Sounds: Present: S1 & S2 - Extremities Extremities: no ischemia, No edema - Abdominal General gastrointestinal: soft, non-tender, non-distended, normal bowel sounds - Integumentary Integumentary: Present: clear, warm - Psychiatric Psychiatric: appropriate mood/affect, cooperative - Neurologic Neurologic: moves all extremities HEART Score - HEART Score Risk factors: > 3 risk factors or hx of atherosclerotic disease Troponin: Troponin T 0.099 ng/mL (0.00-0.029) H 07/14/20 10:13 Troponin: 1-3x normal limit - Critical Actions Critical Actions: 4-6 pts:12-16.6% risk of adverse cardiac event. Should be admitted (PATIENT UNDERGOING WORK UP) Results - Labs CBC & Chem 7: 07/15/20 15:18 07/17/20 06:33 Labs: Laboratory Last Values WBC 4.8 K/mm3 (4.5-11.0) 07/13/20 17:59 RBC 2.85 M/mm3 (3.65-5.03) L 07/13/20 17:59 Hgb 9.8 gm/dl (10.1-14.3) L 07/15/20 15:18 Hct 30.4 % (30.3-42.9) 07/15/20 15:18 MCV 93 fl (79-97) 07/13/20 17:59 MCH 31 pg (28-32) 07/13/20 17:59 MCHC 33 % (30-34) 07/13/20 17:59 RDW 17.2 % (13.2-15.2) H 07/13/20 17:59 Plt Count 154 K/mm3 (140-440) 07/15/20 15:18 Lymph % (Auto) 12.9 % (13.4-35.0) L 07/13/20 17:59 [place] % (Auto) 3.5 % (0.0-7.3) 07/13/20 17:59 Eos % (Auto) 3.0 % (0.0-4.3) 07/13/20 17:59 Baso % (Auto) 0.4 % (0.0-1.8) 07/13/20 17:59 Lymph # (Auto) 0.6 K/mm3 (1.2-5.4) L 07/13/20 17:59 [place] # (Auto) 0.2 K/mm3 (0.0-0.8) 07/13/20 17:59 Eos # (Auto) 0.1 K/mm3 (0.0-0.4) 07/13/20 17:59 Baso # (Auto) 0.0 K/mm3 (0.0-0.1) 07/13/20 17:59 Seg Neutrophils % 80.2 % (40.0-70.0) H 07/13/20 17:59 Seg Neutrophils # 3.9 K/mm3 (1.8-7.7) 07/13/20 17:59 PT 14.1 Sec. (12.2-14.9) 07/17/20 06:33 INR 1.07 (0.87-1.13) 07/17/20 06:33 APTT 28.2 Sec. (24.2-36.6) 07/13/20 23:36 Sodium 136 mmol/L (137-145) L 07/17/20 06:33 Potassium 4.2 mmol/L (3.6-5.0) 07/17/20 06:33 Chloride 96.2 mmol/L (98-107) L 07/17/20 06:33 Carbon Dioxide 24 mmol/L (22-30) 07/17/20 06:33 Anion Gap 20 mmol/L 07/17/20 06:33 BUN 48 mg/dL (7-17) H 07/17/20 06:33 Creatinine 7.0 mg/dL (0.6-1.2) H 07/17/20 06:33 Estimated GFR 7 ml/min 07/17/20 06:33 BUN/Creatinine Ratio 7 % 07/17/20 06:33 Glucose 104 mg/dL (65-100) H 07/17/20 06:33 Calcium 8.7 mg/dL (8.4-10.2) 07/17/20 06:33 Total Creatine Kinase 81 units/L (30-135) 07/14/20 10:13 CK-MB (CK-2) 1.9 ng/mL (0.0-4.0) 07/14/20 10:13 CK-MB (CK-2) Rel Index 2.3 (0-4) 07/14/20 10:13 Troponin T 0.099 ng/mL (0.00-0.029) H 07/14/20 10:13 Triglycerides 89 mg/dL (2-149) 07/13/20 23:36 Cholesterol 152 mg/dL (50-199) 07/13/20 23:36 LDL Cholesterol Direct 84 mg/dL (50-130) 07/13/20 23:36 HDL Cholesterol 59 mg/dL (40-59) 07/13/20 23:36 Cholesterol/HDL Ratio 2.57 % 07/13/20 23:36 Hepatitis A IgM Ab Non-reactive (NonReactive) 07/14/20 10:13 Hep Bs Antigen Non-reactive (Negative) 07/14/20 10:13 Hep B Core IgM Ab Non-reactive (NonReactive) 07/14/20 10:13 Hepatitis C Antibody Non-reactive (NonReactive) 07/14/20 10:13 Microbiology: Microbiology 07/15/20 Unknown Nares - Right MRSA Culture - Preliminary - Diagnostic Impressions Diagnostic Impressions: Echocardiogram 07/14/20 10:55 Transthoracic Echocardiogram Indication: Chest Pain BP: 137/63 HR: 79 Conclusions *The left ventricular chamber size is normal. *Mild concentric left ventricular hypertrophy is observed. *There are multiple regional wall motion abnormalities. *septal,basal inferior wall hypokinetic *The estimated ejection fraction is 35-40%. *Abnormal left ventricular diastolic filling is observed, consistent with impaired relaxation. *The left ventricular diastolic filling pattern is consistent with pseudonormalization. *The left ventricular diastolic filling pattern is consistent with elevated mean left atrial pressure. *The left atrium is mildly dilated. *The right ventricle is mild to moderately dilated. *The aortic valve leaflets are moderately thickened. *There is trace of aortic regurgitation. *There is no evidence of aortic stenosis. *There is mitral annular calcification. *There is mild to moderate mitral regurgitation. *There is mild to moderate tricuspid regurgitation. *There is no pericardial effusion. *The inferior vena cava appears normal in size. Findings Left Ventricle: The left ventricular chamber size is normal. Mild concentric left ventricular hypertrophy is observed. There are multiple regional wall motion abnormalities. Global left ventricular systolic function is mild to moderately decreased. The estimated ejection fraction is 35-40%. Abnormal left ventricular diastolic function is observed. The left ventricular diastolic filling pattern is consistent with pseudonormalization. The left ventricular diastolic filling pattern is consistent with elevated mean left atrial pressure. Left Atrium: The left atrium is mildly dilated. Right Ventricle: The right ventricle is mild to moderately dilated. The right ventricular global systolic function is normal. Right Atrium: The right atrium appears normal. The interatrial septum appears normal. 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 Aortic Valve: The aortic valve is trileaflet. The aortic valve leaflets are moderately thickened. There is trace of aortic regurgitation. There is no evidence of aortic stenosis. Mitral Valve: The mitral valve leaflets appear normal. There is mitral annular calcification. There is mild to moderate mitral regurgitation. There is no evidence of mitral stenosis. Tricuspid Valve: The tricuspid valve leaflets are normal. There is mild to moderate tricuspid regurgitation. There is no tricuspid stenosis. Pulmonic Valve: The pulmonic valve appears normal. There is trace pulmonic regurgitation. There is no pulmonic stenosis. Pericardium: There is no pericardial effusion. Aorta: There is no dilatation of the ascending aorta. There is no dilatation of the aortic arch. There is no dilatation of the descending thoracic aorta. There is no dilatation of the aortic root. Venous: The inferior vena cava appears normal in size. Measurements Chambers 2D Name Value Normal Range IVSd (2D) 1.21 cm (0.6 - 1.1) LVPWd (2D) 1.22 cm (0.6 - 1.1) LVIDd (2D) 5.61 cm (3.7 - 5.6) LVIDs (2D) 4.74 cm (2 - 3.8) LV FS (2D) 15.52 % - EF Teichholz (2D) 32.35 % - Ao root diameter (2D) 2.98 cm (2 - 3.7) Volumes/Mass Name Value Normal Range LA ESV SP 4CH (A/L) 90.79 ml - LA ESV SP 2CH (A/L) 79.53 ml - LA ESV BP (A/L) 85.37 ml - LA ESV SP 4CH (MOD) 84.6 ml - LA ESV SP 2CH (MOD) 74.61 ml - LV EDV SP 4CH (MOD) 197.38 ml - LV ESV SP 4CH (MOD) 123.93 ml - EF SP 4CH (MOD) 37.21 % - LV EDV SP 2CH (MOD) 194.2 ml - LV ESV SP 2CH (MOD) 123.7 ml - EF SP 2CH (MOD) 36.3 % - LV EDV BP 201.77 ml - LV ESV BP 131.12 ml - BP EF (MOD) 35.02 % - Diastolic/Systolic Function Name Value Normal Range MV E-wave Vmax 1.15 m/sec - MV deceleration time 133.32 msec - MV A-wave Vmax 0.78 m/sec - MV E:A ratio 1.48 ratio - Aortic Valve Name Value Normal Range AV Vmax 1.8 m/sec - AV VTI 35.01 cm - AV peak gradient 12.99 mmHg - AV mean gradient 6.54 mmHg - LVOT diameter 2.11 cm - LVOT Vmax 0.86 m/sec - LVOT VTI 17.92 cm - LVOT peak gradient 2.94 mmHg - LVOT mean gradient 1.54 mmHg - SV LVOT 62.77 ml - SKINNY (continuity Vmax) 1.67 cm2 - SKINNY (continuity VTI) 1.79 cm2 - Tricuspid Valve Name Value Normal Range TR Vmax 3.55 m/sec - TR peak gradient 50.29 mmHg - Pulmonic Valve/Qp:Qs Name Value Normal Range PV Vmax 1.09 m/sec - PV peak gradient 4.78 mmHg - AR end-diastolic Vmax 1.48 m/sec - PV acceleration time 117.98 msec - Veliz/IV: Voiding Method Bedpan IV Catheter Type [Left Hand] Peripheral IV Active Medications - Current Medications Current Medications: Generic Name Dose Route Start Last Admin Trade Name Adolfoq PRN Reason Stop Dose Admin Acetaminophen 650 mg 07/13/20 23:07 07/14/20 21:19 Tylenol PO 650 mg Q4H PRN Administration Headache Albuterol 2.5 mg 07/16/20 18:22 Proventil IH Q4HRT PRN Shortness Of Breath Aspirin 81 mg 07/14/20 10:00 07/17/20 13:53 Halfprin Ec PO Not Given QDAY JP Atorvastatin Calcium 40 mg 07/14/20 22:00 07/16/20 22:10 Lipitor PO Not Given QHS JP Carvedilol 25 mg 07/14/20 10:00 07/17/20 09:04 Coreg PO 25 mg BID JP Administration Clopidogrel Bisulfate 75 mg 07/14/20 10:00 07/17/20 13:53 Plavix PO Not Given QDAY JP Ezetimibe 10 mg 07/14/20 10:00 07/17/20 09:04 Zetia PO 10 mg QDAY JP Administration Fluticasone Propionate 100 mcg 07/14/20 10:00 07/17/20 13:52 Flonase NS Not Given QDAY JP Furosemide 80 mg 07/14/20 10:00 07/17/20 09:04 Lasix PO 80 mg DAILY JP Administration Sodium Chloride 100 mls @ 999 mls/hr 07/14/20 13:00 Nacl 0.9% IV CHICHI PRN Hypotension Lidocaine 1 each 07/15/20 16:00 07/17/20 13:39 Lidoderm 5% TD [address] [facility] Administration Lisinopril 5 mg 07/17/20 10:00 07/17/20 13:54 Zestril PO Not Given QDAY JP Loperamide HCl 2 mg 07/15/20 19:18 07/15/20 21:41 Imodium PO 2 mg Q2H PRN Administration Diarrhea Nifedipine 90 mg 07/14/20 10:00 07/17/20 09:04 Procardia Xl PO 90 mg BID JP Administration Nitroglycerin 0.5 inch 07/14/20 06:00 07/17/20 13:58 Nitro-Bid 2% TP Not Given QIDNTG [facility] Protocol Ondansetron HCl 4 mg 07/13/20 23:07 Zofran IV Q8H PRN Nausea And Vomiting Warfarin Sodium 10 mg 07/16/20 17:00 07/16/20 17:08 Coumadin PO 10 mg DAILY@1700 [facility] Administration Protocol Warfarin Sodium 2 mg 07/15/20 17:00 07/16/20 20:09 Coumadin PO [id number] [facility] Administration Nutrition/Malnutrition Assess - Dietary Evaluation Nutrition/Malnutrition Findings: Nutrition Notes Start: 07/17/20 13:10 Freq: Status: Active Protocol: Document 07/17/20 13:10 YENI (Rec: 07/17/20 13:13 [email or web address] [id number]) Nutrition Notes Initial or Follow up Brief Note Current Diagnosis CKD (stage V CKD),Coronary Artery Disease,Diabetes, Hypertension Other Pertinent Diagnosis ESRD on HD, NSTEMI, dyslipidedema Current Diet Renal Pertinent Medications Coumadin Lasix Subjective/Other Information Screen for Coumadin education. Pt not in room at time of visit. Nutrition Intervention Follow-Up By: 07/18/20 Additional Comments FU for Comandin education
[2020-07-17] MEDS: ALBUTEROL 2.5 MG/3 ML NEBU IH PRN ×2 (15:20→21:19)
[2020-07-17] MEDS: WARFARIN 10 MG TAB PO SCH (17:41)
[2020-07-18] MEDS: NITROGLYCERIN 2% OINT 1 GM TP SCH ×4 (05:53→18:01)
[2020-07-18] MEDS: NIFEdipine XL 90 MG TAB PO SCH ×2 (09:52→21:52)
[2020-07-18] MEDS: carvediloL 25 MG TAB PO SCH ×2 (09:52→21:52)
[2020-07-18] MEDS: ASPIRIN EC 81 MG TAB PO SCH (09:52)
[2020-07-18] MEDS: CLOPIDOGREL 75 MG TAB PO SCH (09:52)
[2020-07-18] MEDS: LIDOCAINE 5% 1 EACH PATCH TD SCH (09:56)
[2020-07-18] MEDS: FLUTICASONE PROPIONATE NASAL SPRAY 16 GM NS SCH (09:57)
[2020-07-18] MEDS: EZETIMIBE 10 MG TAB PO SCH (09:57)
[2020-07-18] MEDS: LISINOPRIL 5 MG TAB PO SCH (09:59)
--- NOTE | 2020-07-18 10:04 | Progress Note ---
Assessment and Plan Impression: * End stage renal disease * NSTEMI --MPI: fixed lateral wall defect; no significant ischemia; EF 38%. (Jul 15 2020) --TTE: mild concentric LVH; multiple regional wall abnormalities (septal, basal, inf wall hypokinetic); EF 35-40%; impaired LV relaxation (Jul 14 2020) * Ischemic cardiomyopathy * Hypertension * Anemia secondary to CKD * Secondary hyperparathyroidism Plan: * Continue hemodialysis MWF * UF as tolerated * Cardiology recommendations noted * Renal/HD diet * Discharge planning in progress - awaiting SNF placement Subjective Date of service: 07/18/20 Principal diagnosis: ESRD/HD, Acc HTN, NSTEMI 2, H/o PE/DVT (IVC filter) Interval history: Patient has no complaint today with exception of chronic back pain Objective - Vital Signs Vital signs: Vital Signs - 12hr 07/17/20 07/18/20 07/18/20 23:44 02:00 04:21 Temperature 96.8 F L 97.8 F Pulse Rate 91 H 104 H 87 Respiratory 20 16 Rate Blood Pressure 153/73 135/68 O2 Sat by Pulse 100 97 Oximetry 07/18/20 07/18/20 07/18/20 07:30 08:35 09:52 Temperature 98.6 F Pulse Rate 86 82 Respiratory 18 Rate Blood Pressure 137/63 O2 Sat by Pulse 96 96 Oximetry 07/18/20 07/18/20 09:56 09:59 Temperature Pulse Rate 82 82 Respiratory Rate Blood Pressure O2 Sat by Pulse Oximetry - General Appearance General appearance: well-developed, well-nourished EENT: ATNC Cardiology: regular, S1S2 Gastrointestinal: normal Integumentary: no rash, warm and dry Neurologic: alert and oriented x3 Musculoskeletal: other (no edema) Psychiatric: cooperative - Lab 07/15/20 15:18 07/17/20 06:33 Most recent lab results Calcium 8.7 mg/dL (8.4-10.2) 07/17/20 06:33 Medications & Allergies - Medications Allergies/Adverse Reactions: Allergies apixaban [From Eliquis] Allergy (Verified 03/01/17 20:29) Itching dabigatran etexilate mesylate [From Pradaxa] Allergy (Verified 03/01/17 20:27) Itching heparin Allergy (Verified 07/14/20 05:54) Vomiting hydralazine HCl [From Apresoline] Allergy (Verified 03/01/17 13:11) Unknown morphine Allergy (Verified 02/15/14 02:23) Itching povidone-iodine [From Betadine] Allergy (Verified 03/01/17 20:26) Itching rivaroxaban [From Xarelto] Allergy (Verified 03/01/17 20:29) Itching soap [From Betadine] Allergy (Verified 03/01/17 20:26) Itching verapamil HCl [From Calan] Allergy (Verified 02/15/14 02:23) Headache Home Medications: Home Medications Medication Instructions Recorded Confirmed Last Taken Type Fluticasone Propionate [Flonase] 100 mcg NS QDAY 02/15/14 07/14/20 Unknown History Albuterol Sulfate [Albuterol 0.63% 0.63 mg IH Q4H PRN 03/01/17 07/14/20 1 Month Ago History NEBS] ~01/29/17 AtorvaSTATin [Lipitor] 40 mg PO QHS 03/01/17 07/14/20 1 Day Ago History ~02/28/17 Clopidogrel [Plavix] 75 mg PO QDAY 03/01/17 07/14/20 Unknown History Ferrous Sulfate [Feosol 325 MG tab] 325 mg PO QDAY 03/01/17 07/14/20 Unknown History Oxymetazoline 0.05% [Vicks Sinex] 1 spray NS BID 03/01/17 07/14/20 1 Day Ago History ~02/28/17 carvediloL [Coreg] 25 mg PO BID 03/01/17 07/14/20 Unknown History Aspirin EC [Halfprin EC] 81 mg PO QDAY #30 tablet. 03/05/17 07/14/20 Unknown Rx AtorvaSTATin [Lipitor] 80 mg PO QHS #30 tablet 03/05/17 07/14/20 Unknown Rx Ezetimibe [Zetia] 10 mg PO QDAY #30 tablet 03/05/17 07/14/20 Unknown Rx Furosemide [Lasix TAB] 80 mg PO QDAY #30 tablet 03/05/17 07/14/20 Unknown Rx HYDROcodone/APAP 5-325 [[place] 1 - 2 each PO Q4-6H PRN #15 tablet 03/05/17 Unknown Rx 5-325 mg TAB] Nystatin [Nystop Powder] 1 applic TP BID #15 g 03/05/17 07/14/20 Unknown Rx Warfarin [Coumadin] 10 mg PO DAILY@1700 #7 tablet 03/05/17 07/14/20 Unknown Rx Lidocaine [Lidoderm] 5 patch TRANSDERMA QDAY 07/14/20 07/14/20 Unknown History NIFEdipine XL [Procardia Xl] 90 mg PO BID 07/14/20 07/14/20 Unknown History Warfarin [Coumadin] 2 mg PO QDAY 07/14/20 07/14/20 Unknown History Warfarin [Coumadin] 10 mg PO QDAY 07/14/20 07/14/20 Unknown History oxyCODONE /ACETAMINOPHEN [Percocet 1 tab PO Q6HR PRN 07/14/20 07/14/20 Unknown History 5/325] Active Medications: Generic Name Dose Route Start Last Admin Trade Name Freq PRN Reason Stop Dose Admin Acetaminophen 650 mg 07/13/20 23:07 07/14/20 21:19 Tylenol PO 650 mg Q4H PRN Administration Headache Albuterol 2.5 mg 07/16/20 18:22 07/17/20 21:19 Proventil IH 2.5 mg Q4HRT PRN Administration Shortness Of Breath Aspirin 81 mg 07/14/20 10:00 07/18/20 09:52 Halfprin Ec PO 81 mg QDAY JP Administration Atorvastatin Calcium 40 mg 07/14/20 22:00 07/17/20 22:12 Lipitor PO Not Given QHS JP Carvedilol 25 mg 07/14/20 10:00 07/18/20 09:52 Coreg PO 25 mg BID JP Administration Clopidogrel Bisulfate 75 mg 07/14/20 10:00 07/18/20 09:52 Plavix PO 75 mg QDAY JP Administration Ezetimibe 10 mg 07/14/20 10:00 07/18/20 09:57 Zetia PO Not Given QDAY JP Fluticasone Propionate 100 mcg 07/14/20 10:00 07/18/20 09:57 Flonase NS Not Given QDAY JP Furosemide 80 mg 07/14/20 10:00 07/17/20 09:04 Lasix PO 80 mg DAILY JP Administration Sodium Chloride 100 mls @ 999 mls/hr 07/14/20 13:00 Nacl 0.9% IV CHICHI PRN Hypotension Lidocaine 1 each 07/15/20 16:00 07/18/20 09:56 Lidoderm 5% TD 1 each QDAY [facility] Administration Lisinopril 5 mg 07/17/20 10:00 07/18/20 09:59 Zestril PO Not Given QDAY [facility] Loperamide HCl 2 mg 07/15/20 19:18 07/15/20 21:41 Imodium PO 2 mg Q2H PRN Administration Diarrhea Nifedipine 90 mg 07/14/20 10:00 07/18/20 09:52 Procardia Xl PO 90 mg BID JP Administration Nitroglycerin 0.5 inch 07/14/20 06:00 07/18/20 09:56 Nitro-Bid 2% TP Not Given QIDNTG [facility] Protocol Ondansetron HCl 4 mg 07/13/20 23:07 Zofran IV Q8H PRN Nausea And Vomiting Warfarin Sodium 10 mg 07/16/20 17:00 07/17/20 17:41 Coumadin PO 10 mg DAILY@1700 [facility] Administration Protocol Warfarin Sodium 2 mg 07/18/20 17:00 Coumadin PO DAILY@1700 [facility]
[2020-07-18] MEDS: FUROSEMIDE 40 MG TAB PO SCH (10:12)
--- NOTE | 2020-07-18 12:18 | Progress Note ---
Assessment and Plan Assessment and plan: --Non-ST elevation [place], type II Pt's 07/15/2020 stress test negative EF 38 %. Continue current management including aspirin and Plavix Cardiology cleared for discharge --History of coronary artery disease status post PCI Continue current cardiac medications, cardiology following --Ischemic cardiomyopathy; EF 40 to 45% 2016 Continue antifailure medications Follow echocardiogram LV function ejection fraction --End-stage renal disease; On hemodialysis, nephrology following, HD per schedule Stable ,renal cleared for discharge --Hypertensive emergency; present on admission Blood pressures well controlled --History of peripheral vascular disease; Continue antiplatelets and statins --History of DVT and PE; chronic anticoagulation with Coumadin subtherapeutic INR noncompliant Coumadin resumed Target INR 2-3, Closely monitor Monitor INR and adjust as needed --History of IVC filter placement; supportive care --Type 2 diabetes mellitus; Accu-Chek sliding scale coverage ADA diet Insulin as needed --Dyslipidemia; Stable on lipid-lowering medications --Obesity; BMI 39.0 Advised weight reduction when medically stable --Possible obstructive sleep apnea; Patient may need outpatient sleep study Rule out KENY, CPAP BiPAP at night as needed --DVT prophylaxis; Patient is already on Coumadin DC planning per case management We will closely monitor the patient and adjust management as needed Plan of care reviewed with the patient and her nurse --07/17/2020; patient is clinically stable for discharge, cleared by nephrology and cardiology Patient wants a different SNF placement, case management assisting with discharge planning Patient is clinically stable for discharge today Awaiting placement History Interval history: I have seen and examined the patient at the bedside Patient's chart and medications reviewed Patient feels slightly better no new complaints Vital signs noted Case management is processing placement Hospitalist Physical - Constitutional Vitals: Temp Pulse Resp BP Pulse Ox 98.6 F 82 18 137/63 96 07/18/20 07:30 07/18/20 09:59 07/18/20 07:30 07/18/20 07:30 07/18/20 08:35 General appearance: Present: no acute distress, well-nourished, obese (Morbidly obese) - EENT Eyes: Present: PERRL, EOM intact - Neck Neck: Present: supple, normal ROM - Respiratory Respiratory effort: normal Respiratory: bilateral: diminished, negative: rales, rhonchi, wheezing - Cardiovascular Rhythm: regular Heart Sounds: Present: S1 & S2 - Extremities Extremities: no ischemia, No edema - Abdominal General gastrointestinal: soft, non-tender, non-distended, normal bowel sounds - Integumentary Integumentary: Present: clear, warm - Psychiatric Psychiatric: appropriate mood/affect, cooperative - Neurologic Neurologic: moves all extremities, other (Legally blind) HEART Score - HEART Score Risk factors: > 3 risk factors or hx of atherosclerotic disease Troponin: Troponin T 0.099 ng/mL (0.00-0.029) H 07/14/20 10:13 Troponin: 1-3x normal limit - Critical Actions Critical Actions: 4-6 pts:12-16.6% risk of adverse cardiac event. Should be admitted (PATIENT UNDERGOING WORK UP) Results - Labs CBC & Chem 7: 07/15/20 15:18 07/17/20 06:33 Labs: Laboratory Last Values WBC 4.8 K/mm3 (4.5-11.0) 07/13/20 17:59 RBC 2.85 M/mm3 (3.65-5.03) L 07/13/20 17:59 Hgb 9.8 gm/dl (10.1-14.3) L 07/15/20 15:18 Hct 30.4 % (30.3-42.9) 07/15/20 15:18 MCV 93 fl (79-97) 07/13/20 17:59 MCH 31 pg (28-32) 07/13/20 17:59 MCHC 33 % (30-34) 07/13/20 17:59 RDW 17.2 % (13.2-15.2) H 07/13/20 17:59 Plt Count 154 K/mm3 (140-440) 07/15/20 15:18 Lymph % (Auto) 12.9 % (13.4-35.0) L 07/13/20 17:59 [place] % (Auto) 3.5 % (0.0-7.3) 07/13/20 17:59 Eos % (Auto) 3.0 % (0.0-4.3) 07/13/20 17:59 Baso % (Auto) 0.4 % (0.0-1.8) 07/13/20 17:59 Lymph # (Auto) 0.6 K/mm3 (1.2-5.4) L 07/13/20 17:59 [place] # (Auto) 0.2 K/mm3 (0.0-0.8) 07/13/20 17:59 Eos # (Auto) 0.1 K/mm3 (0.0-0.4) 07/13/20 17:59 Baso # (Auto) 0.0 K/mm3 (0.0-0.1) 07/13/20 17:59 Seg Neutrophils % 80.2 % (40.0-70.0) H 07/13/20 17:59 Seg Neutrophils # 3.9 K/mm3 (1.8-7.7) 07/13/20 17:59 PT 13.4 Sec. (12.2-14.9) 07/18/20 07:22 INR 1.00 (0.87-1.13) 07/18/20 07:22 APTT 28.2 Sec. (24.2-36.6) 07/13/20 23:36 Sodium 136 mmol/L (137-145) L 07/17/20 06:33 Potassium 4.2 mmol/L (3.6-5.0) 07/17/20 06:33 Chloride 96.2 mmol/L (98-107) L 07/17/20 06:33 Carbon Dioxide 24 mmol/L (22-30) 07/17/20 06:33 Anion Gap 20 mmol/L 07/17/20 06:33 BUN 48 mg/dL (7-17) H 07/17/20 06:33 Creatinine 7.0 mg/dL (0.6-1.2) H 07/17/20 06:33 Estimated GFR 7 ml/min 07/17/20 06:33 BUN/Creatinine Ratio 7 % 07/17/20 06:33 Glucose 104 mg/dL (65-100) H 07/17/20 06:33 Calcium 8.7 mg/dL (8.4-10.2) 07/17/20 06:33 Total Creatine Kinase 81 units/L (30-135) 07/14/20 10:13 CK-MB (CK-2) 1.9 ng/mL (0.0-4.0) 07/14/20 10:13 CK-MB (CK-2) Rel Index 2.3 (0-4) 07/14/20 10:13 Troponin T 0.099 ng/mL (0.00-0.029) H 07/14/20 10:13 Triglycerides 89 mg/dL (2-149) 07/13/20 23:36 Cholesterol 152 mg/dL (50-199) 07/13/20 23:36 LDL Cholesterol Direct 84 mg/dL (50-130) 07/13/20 23:36 HDL Cholesterol 59 mg/dL (40-59) 07/13/20 23:36 Cholesterol/HDL Ratio 2.57 % 07/13/20 23:36 Hepatitis A IgM Ab Non-reactive (NonReactive) 07/14/20 10:13 Hep Bs Antigen Non-reactive (Negative) 07/14/20 10:13 Hep B Core IgM Ab Non-reactive (NonReactive) 07/14/20 10:13 Hepatitis C Antibody Non-reactive (NonReactive) 07/14/20 10:13 Microbiology: Microbiology 07/15/20 Unknown Nares - Right MRSA Culture - Final - Diagnostic Impressions Diagnostic Impressions: Echocardiogram 07/14/20 10:55 Transthoracic Echocardiogram Indication: Chest Pain BP: 137/63 HR: 79 Conclusions *The left ventricular chamber size is normal. *Mild concentric left ventricular hypertrophy is observed. *There are multiple regional wall motion abnormalities. *septal,basal inferior wall hypokinetic *The estimated ejection fraction is 35-40%. *Abnormal left ventricular diastolic filling is observed, consistent with impaired relaxation. *The left ventricular diastolic filling pattern is consistent with pseudonormalization. *The left ventricular diastolic filling pattern is consistent with elevated mean left atrial pressure. *The left atrium is mildly dilated. *The right ventricle is mild to moderately dilated. *The aortic valve leaflets are moderately thickened. *There is trace of aortic regurgitation. *There is no evidence of aortic stenosis. *There is mitral annular calcification. *There is mild to moderate mitral regurgitation. *There is mild to moderate tricuspid regurgitation. *There is no pericardial effusion. *The inferior vena cava appears normal in size. Findings Left Ventricle: The left ventricular chamber size is normal. Mild concentric left ventricular hypertrophy is observed. There are multiple regional wall motion abnormalities. Global left ventricular systolic function is mild to moderately decreased. The estimated ejection fraction is 35-40%. Abnormal left ventricular diastolic function is observed. The left ventricular diastolic filling pattern is consistent with pseudonormalization. The left ventricular diastolic filling pattern is consistent with elevated mean left atrial pressure. Left Atrium: The left atrium is mildly dilated. Right Ventricle: The right ventricle is mild to moderately dilated. The right ventricular global systolic function is normal. Right Atrium: The right atrium appears normal. The interatrial septum appears normal. 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 Aortic Valve: The aortic valve is trileaflet. The aortic valve leaflets are moderately thickened. There is trace of aortic regurgitation. There is no evidence of aortic stenosis. Mitral Valve: The mitral valve leaflets appear normal. There is mitral annular calcification. There is mild to moderate mitral regurgitation. There is no evidence of mitral stenosis. Tricuspid Valve: The tricuspid valve leaflets are normal. There is mild to moderate tricuspid regurgitation. There is no tricuspid stenosis. Pulmonic Valve: The pulmonic valve appears normal. There is trace pulmonic regurgitation. There is no pulmonic stenosis. Pericardium: There is no pericardial effusion. Aorta: There is no dilatation of the ascending aorta. There is no dilatation of the aortic arch. There is no dilatation of the descending thoracic aorta. There is no dilatation of the aortic root. Venous: The inferior vena cava appears normal in size. Measurements Chambers 2D Name Value Normal Range IVSd (2D) 1.21 cm (0.6 - 1.1) LVPWd (2D) 1.22 cm (0.6 - 1.1) LVIDd (2D) 5.61 cm (3.7 - 5.6) LVIDs (2D) 4.74 cm (2 - 3.8) LV FS (2D) 15.52 % - EF Teichholz (2D) 32.35 % - Ao root diameter (2D) 2.98 cm (2 - 3.7) Volumes/Mass Name Value Normal Range LA ESV SP 4CH (A/L) 90.79 ml - LA ESV SP 2CH (A/L) 79.53 ml - LA ESV BP (A/L) 85.37 ml - LA ESV SP 4CH (MOD) 84.6 ml - LA ESV SP 2CH (MOD) 74.61 ml - LV EDV SP 4CH (MOD) 197.38 ml - LV ESV SP 4CH (MOD) 123.93 ml - EF SP 4CH (MOD) 37.21 % - LV EDV SP 2CH (MOD) 194.2 ml - LV ESV SP 2CH (MOD) 123.7 ml - EF SP 2CH (MOD) 36.3 % - LV EDV BP 201.77 ml - LV ESV BP 131.12 ml - BP EF (MOD) 35.02 % - Diastolic/Systolic Function Name Value Normal Range MV E-wave Vmax 1.15 m/sec - MV deceleration time 133.32 msec - MV A-wave Vmax 0.78 m/sec - MV E:A ratio 1.48 ratio - Aortic Valve Name Value Normal Range AV Vmax 1.8 m/sec - AV VTI 35.01 cm - AV peak gradient 12.99 mmHg - AV mean gradient 6.54 mmHg - LVOT diameter 2.11 cm - LVOT Vmax 0.86 m/sec - LVOT VTI 17.92 cm - LVOT peak gradient 2.94 mmHg - LVOT mean gradient 1.54 mmHg - SV LVOT 62.77 ml - SKINNY (continuity Vmax) 1.67 cm2 - SKINNY (continuity VTI) 1.79 cm2 - Tricuspid Valve Name Value Normal Range TR Vmax 3.55 m/sec - TR peak gradient 50.29 mmHg - Pulmonic Valve/Qp:Qs Name Value Normal Range PV Vmax 1.09 m/sec - PV peak gradient 4.78 mmHg - WV end-diastolic Vmax 1.48 m/sec - PV acceleration time 117.98 msec - Veliz/IV: Voiding Method Bedpan IV Catheter Type [Left Hand] Peripheral IV Active Medications - Current Medications Current Medications: Generic Name Dose Route Start Last Admin Trade Name Adolfoq PRN Reason Stop Dose Admin Acetaminophen 650 mg 07/13/20 23:07 07/14/20 21:19 Tylenol PO 650 mg Q4H PRN Administration Headache Albuterol 2.5 mg 07/16/20 18:22 07/17/20 21:19 Proventil IH 2.5 mg Q4HRT PRN Administration Shortness Of Breath Aspirin 81 mg 07/14/20 10:00 07/18/20 09:52 Halfprin Ec PO 81 mg QDAY JP Administration Atorvastatin Calcium 40 mg 07/14/20 22:00 07/17/20 22:12 Lipitor PO Not Given QHS JP Carvedilol 25 mg 07/14/20 10:00 07/18/20 09:52 Coreg PO 25 mg BID [facility] Administration Clopidogrel Bisulfate 75 mg 07/14/20 10:00 07/18/20 09:52 Plavix PO 75 mg QDAY JP Administration Ezetimibe 10 mg 07/14/20 10:00 07/18/20 09:57 Zetia PO Not Given QDAY [facility] Fluticasone Propionate 100 mcg 07/14/20 10:00 07/18/20 09:57 Flonase NS Not Given QDAY [facility] Furosemide 80 mg 07/14/20 10:00 07/18/20 10:12 Lasix PO 80 mg DAILY [facility] Administration Sodium Chloride 100 mls @ 999 mls/hr 07/14/20 13:00 Nacl 0.9% IV CHICHI PRN Hypotension Lidocaine 1 each 07/15/20 16:00 07/18/20 09:56 Lidoderm 5% TD 1 each QDAY [facility] Administration Lisinopril 5 mg 07/17/20 10:00 07/18/20 09:59 Zestril PO Not Given QDAY [facility] Loperamide HCl 2 mg 07/15/20 19:18 07/15/20 21:41 Imodium PO 2 mg Q2H PRN Administration Diarrhea Nifedipine 90 mg 07/14/20 10:00 07/18/20 09:52 Procardia Xl PO 90 mg BID [facility] Administration Nitroglycerin 0.5 inch 07/14/20 06:00 07/18/20 09:56 Nitro-Bid 2% TP Not Given QIDNTG [facility] Protocol Ondansetron HCl 4 mg 07/13/20 23:07 Zofran IV Q8H PRN Nausea And Vomiting Warfarin Sodium 10 mg 07/16/20 17:00 07/17/20 17:41 Coumadin PO 10 mg DAILY@1700 [facility] Administration Protocol Warfarin Sodium 2 mg 07/18/20 17:00 Coumadin PO DAILY@1700 [facility] Nutrition/Malnutrition Assess - Dietary Evaluation Nutrition/Malnutrition Findings: Nutrition Notes Start: 07/17/20 13:10 Freq: Status: Active Protocol: Document 07/18/20 11:47 EN (Rec: 07/18/20 12:10 EN [email or web address]) Co-Sign 07/18/20 11:47 LM Nutrition Notes Need for Assessment generated from: Education Initial or Follow up Assessment Current Diagnosis CKD (stage V CKD),Coronary Artery Disease,Diabetes, Hypertension Other Pertinent Diagnosis ESRD on HD, NSTEMI, dyslipidedema Current Diet Renal Labs/Tests Na 136, BUN 48, Cr 7.0, Glu 104 Pertinent Medications Coumadin 10mg Lasix 80mg Height 5 ft 3 in Weight 75.3 kg [place] Body Weight (kg) 52.27 BMI 29.4 Intake Prior to Admission Good Weight change and time frame 19% weight loss in 2 months Weight Status Overweight Subjective/Other Information Screen for Coumadin education. Pt reports beginning Coumadin in 2011. Education provided on Vitamin K and Vit K foods. Pt verbalized understanding. Pt states that she has eating well [employer] but that she has unintentionally lost 40 pounds (18kg) in 2 months. Pt declines N/V/D. Pt reports that she has allergies to chicken, eggs, fish and turkey . Pt states that she has a good appetite and that she would like more food. Pt reports eating 50% of her breakfast because she was served eggs which she cannot have. Pt states that ONS cause her to have diarrhea and that she would not like tea, coffee, mashed potatoes or gravy. Pt would like bottled water on every tray. Burn Absent Trauma Absent GI Symptoms None Food Allergy Yes Current % PO Fair (50-74%) Minimum of two criteria No Interpretation of Weight Loss (severe) >5% in 1 month #2 Nutrition Diagnosis Inadequate oral intake Etiology CHF and ESRD As Evidenced by Signs and Symptoms consuming 50% of breakfast #1 Nutrition Diagnosis Food and nutrition-related knowledge deficit Etiology No prior nutrition education relating to Coumadin As Evidenced by Signs and Symptoms Pt verbalized questions about Vitamin K foods. Is patient on ventilator? No Is Patient Ambulatory and/or Out of Bed No REE-([facility]-confined to bed) [phone] Calculation Used for Recommendations [facility] Additional Notes Protein: >1.2 g/kg (> 90g) Fluid: [id number] ml/day Nutrition Intervention Change Diet Order: Continue Renal diet Teaching Recipient Patient Learning Readiness Good Teaching Methods Discussion Response to Teaching Verbalize understanding Barriers to Learning Visual RD phone number provided Yes Patient aware of follow up options Yes Goal #1 Meet 75% of energy and protein needs Anticipated Discharge Needs: Renal diet Follow-Up By: 07/20/20 Additional Comments F/u for intakes and possible education questions
[2020-07-18] MEDS: WARFARIN 2 MG TAB PO SCH (17:56)
[2020-07-18] MEDS: WARFARIN 10 MG TAB PO SCH (18:16)
[2020-07-19] MEDS: NITROGLYCERIN 2% OINT 1 GM TP SCH ×3 (05:47→14:38)
[2020-07-19] MEDS: LIDOCAINE 5% 1 EACH PATCH TD SCH (09:20)
--- NOTE | 2020-07-19 09:30 | Progress Note ---
Assessment and Plan Impression: * End stage renal disease * NSTEMI --MPI: fixed lateral wall defect; no significant ischemia; EF 38%. (Jul 15 2020) --TTE: mild concentric LVH; multiple regional wall abnormalities (septal, basal, inf wall hypokinetic); EF 35-40%; impaired LV relaxation (Jul 14 2020) * Ischemic cardiomyopathy * Hypertension * Anemia secondary to CKD * Secondary hyperparathyroidism Plan: * AM labs are pending * Continue hemodialysis MWF * UF as tolerated * Cardiology recommendations noted * Renal/HD diet * Discharge planning in progress - awaiting SNF placement Subjective Date of service: 07/19/20 Principal diagnosis: ESRD/HD, Acc HTN, NSTEMI 2, H/o PE/DVT (IVC filter) Interval history: Patient has no complaint today. Objective - Vital Signs Vital signs: Vital Signs - 12hr 07/18/20 07/18/20 07/18/20 21:52 22:00 22:50 Temperature 97.6 F Pulse Rate 84 91 H Respiratory 18 28 H Rate Blood Pressure 151/77 164/79 O2 Sat by Pulse 96 97 Oximetry 07/19/20 02:00 Temperature Pulse Rate 90 Respiratory Rate Blood Pressure O2 Sat by Pulse Oximetry - General Appearance General appearance: well-developed, well-nourished EENT: ATNC Respiratory: Present: Clear to Ascultation Cardiology: regular, S1S2 Integumentary: no rash, warm and dry Musculoskeletal: other (no edema) Psychiatric: cooperative - Lab 07/15/20 15:18 07/17/20 06:33 Most recent lab results Calcium 8.7 mg/dL (8.4-10.2) 07/17/20 06:33 Medications & Allergies - Medications Allergies/Adverse Reactions: Allergies apixaban [From Eliquis] Allergy (Verified 03/01/17 20:29) Itching dabigatran etexilate mesylate [From Pradaxa] Allergy (Verified 03/01/17 20:27) Itching heparin Allergy (Verified 07/14/20 05:54) Vomiting hydralazine HCl [From Apresoline] Allergy (Verified 03/01/17 13:11) Unknown morphine Allergy (Verified 02/15/14 02:23) Itching povidone-iodine [From Betadine] Allergy (Verified 03/01/17 20:26) Itching rivaroxaban [From Xarelto] Allergy (Verified 03/01/17 20:29) Itching soap [From Betadine] Allergy (Verified 03/01/17 20:26) Itching verapamil HCl [From Calan] Allergy (Verified 02/15/14 02:23) Headache Home Medications: Home Medications Medication Instructions Recorded Confirmed Last Taken Type Fluticasone Propionate [Flonase] 100 mcg NS QDAY 02/15/14 07/14/20 Unknown History Albuterol Sulfate [Albuterol 0.63% 0.63 mg IH Q4H PRN 03/01/17 07/14/20 1 Month Ago History NEBS] ~01/29/17 AtorvaSTATin [Lipitor] 40 mg PO QHS 03/01/17 07/14/20 1 Day Ago History ~02/28/17 Clopidogrel [Plavix] 75 mg PO QDAY 03/01/17 07/14/20 Unknown History Ferrous Sulfate [Feosol 325 MG tab] 325 mg PO QDAY 03/01/17 07/14/20 Unknown History Oxymetazoline 0.05% [Vicks Sinex] 1 spray NS BID 03/01/17 07/14/20 1 Day Ago History ~02/28/17 carvediloL [Coreg] 25 mg PO BID 03/01/17 07/14/20 Unknown History Aspirin EC [Halfprin EC] 81 mg PO QDAY #30 tablet. 03/05/17 07/14/20 Unknown Rx AtorvaSTATin [Lipitor] 80 mg PO QHS #30 tablet 03/05/17 07/14/20 Unknown Rx Ezetimibe [Zetia] 10 mg PO QDAY #30 tablet 03/05/17 07/14/20 Unknown Rx Furosemide [Lasix TAB] 80 mg PO QDAY #30 tablet 03/05/17 07/14/20 Unknown Rx HYDROcodone/APAP 5-325 [[place] 1 - 2 each PO Q4-6H PRN #15 tablet 03/05/17 Unknown Rx 5-325 mg TAB] Nystatin [Nystop Powder] 1 applic TP BID #15 g 03/05/17 07/14/20 Unknown Rx Warfarin [Coumadin] 10 mg PO DAILY@1700 #7 tablet 03/05/17 07/14/20 Unknown Rx Lidocaine [Lidoderm] 5 patch TRANSDERMA QDAY 07/14/20 07/14/20 Unknown History NIFEdipine XL [Procardia Xl] 90 mg PO BID 07/14/20 07/14/20 Unknown History Warfarin [Coumadin] 2 mg PO QDAY 07/14/20 07/14/20 Unknown History Warfarin [Coumadin] 10 mg PO QDAY 07/14/20 07/14/20 Unknown History oxyCODONE /ACETAMINOPHEN [Percocet 1 tab PO Q6HR PRN 07/14/20 07/14/20 Unknown History 5/325] Active Medications: Generic Name Dose Route Start Last Admin Trade Name Freq PRN Reason Stop Dose Admin Acetaminophen 650 mg 07/13/20 23:07 07/14/20 21:19 Tylenol PO 650 mg Q4H PRN Administration Headache Albuterol 2.5 mg 07/16/20 18:22 07/17/20 21:19 Proventil IH 2.5 mg Q4HRT PRN Administration Shortness Of Breath Aspirin 81 mg 07/14/20 10:00 07/18/20 09:52 Halfprin Ec PO 81 mg QDAY JP Administration Atorvastatin Calcium 40 mg 07/14/20 22:00 07/18/20 22:00 Lipitor PO Not Given QHS JP Carvedilol 25 mg 07/14/20 10:00 07/18/20 21:52 Coreg PO 25 mg BID JP Administration Clopidogrel Bisulfate 75 mg 07/14/20 10:00 07/18/20 09:52 Plavix PO 75 mg QDAY JP Administration Ezetimibe 10 mg 07/14/20 10:00 07/18/20 09:57 Zetia PO Not Given QDAY [facility] Fluticasone Propionate 100 mcg 07/14/20 10:00 07/18/20 09:57 Flonase NS Not Given QDAY [facility] Furosemide 80 mg 07/14/20 10:00 07/18/20 10:12 Lasix PO 80 mg DAILY JP Administration Sodium Chloride 100 mls @ 999 mls/hr 07/14/20 13:00 Nacl 0.9% IV CHICHI PRN Hypotension Lidocaine 1 each 07/15/20 16:00 07/18/20 09:56 Lidoderm 5% TD 1 each QDAY JP Administration Lisinopril 5 mg 07/17/20 10:00 07/18/20 09:59 Zestril PO Not Given QDAY [facility] Loperamide HCl 2 mg 07/15/20 19:18 07/15/20 21:41 Imodium PO 2 mg Q2H PRN Administration Diarrhea Nifedipine 90 mg 07/14/20 10:00 07/18/20 21:52 Procardia Xl PO 90 mg BID JP Administration Nitroglycerin 0.5 inch 07/14/20 06:00 07/19/20 05:47 Nitro-Bid 2% TP Not Given QIDNTG [facility] Protocol Ondansetron HCl 4 mg 07/13/20 23:07 Zofran IV Q8H PRN Nausea And Vomiting Warfarin Sodium 10 mg 07/16/20 17:00 07/18/20 18:16 Coumadin PO 10 mg DAILY@1700 [facility] Administration Protocol Warfarin Sodium 2 mg 07/18/20 17:00 07/18/20 17:56 Coumadin PO 2 mg DAILY@1700 [facility] Administration
[2020-07-19] MEDS: CLOPIDOGREL 75 MG TAB PO SCH ×2 (09:39→14:52)
[2020-07-19] MEDS: NIFEdipine XL 90 MG TAB PO SCH ×2 (09:39→22:31)
[2020-07-19] MEDS: LISINOPRIL 5 MG TAB PO SCH (09:39)
[2020-07-19] MEDS: EZETIMIBE 10 MG TAB PO SCH (09:40)
--- NOTE | 2020-07-19 10:44 | Progress Note ---
Assessment and Plan Assessment and plan: --Non-ST elevation FL, type II Pt's 07/15/2020 stress test negative EF 38 %. Continue current management including aspirin and Plavix Cardiology cleared for discharge --History of coronary artery disease status post PCI Continue current cardiac medications, cardiology following --Ischemic cardiomyopathy; EF 40 to 45% 2016 Continue antifailure medications Follow echocardiogram LV function ejection fraction --End-stage renal disease; On hemodialysis, nephrology following, HD per schedule Stable ,renal cleared for discharge --Hypertensive emergency; present on admission Blood pressures well controlled --History of peripheral vascular disease; Continue antiplatelets and statins --History of DVT and PE; chronic anticoagulation with Coumadin subtherapeutic INR noncompliant Coumadin resumed Target INR 2-3, Closely monitor Monitor INR and adjust as needed --History of IVC filter placement; supportive care --Type 2 diabetes mellitus; Accu-Chek sliding scale coverage ADA diet Insulin as needed --Dyslipidemia; Stable on lipid-lowering medications --Obesity; BMI 39.0 Advised weight reduction when medically stable --Possible obstructive sleep apnea; Patient may need outpatient sleep study Rule out KENY, CPAP BiPAP at night as needed --DVT prophylaxis; Patient is already on Coumadin DC planning per case management We will closely monitor the patient and adjust management as needed Plan of care reviewed with the patient and her nurse --07/17/2020; patient is clinically stable for discharge, cleared by nephrology and cardiology Patient wants a different SNF placement, case management assisting with discharge planning 07/18/2020; patient is hemodynamically and clinically stable for discharge Cleared by nephrology and cardiology, DC planning per case management 07/19/20; stable for discharge, pending placement History Interval history: I have seen and examined the patient at the bedside Patient's chart medications tests and reports reviewed Patient received hemodialysis today No new complaints Patient is clinically stable for discharge Case management working on DC planning and placement Hospitalist Physical - Constitutional Vitals: Temp Pulse Resp BP Pulse Ox 97.3 F L 78 18 164/75 100 07/19/20 08:47 07/19/20 09:39 07/19/20 08:47 07/19/20 08:47 07/19/20 08:47 General appearance: Present: no acute distress, well-nourished, obese (Morbidly obese), other (Patient is legally blind) - EENT Eyes: Present: PERRL, EOM intact - Neck Neck: Present: supple, normal ROM - Respiratory Respiratory effort: normal Respiratory: bilateral: diminished, negative: rales, rhonchi, wheezing - Cardiovascular Rhythm: regular Heart Sounds: Present: S1 & S2 - Extremities Extremities: no ischemia, No edema - Abdominal General gastrointestinal: soft, non-tender, non-distended, normal bowel sounds - Integumentary Integumentary: Present: clear, warm - Psychiatric Psychiatric: appropriate mood/affect, cooperative - Neurologic Neurologic: moves all extremities HEART Score - HEART Score Risk factors: > 3 risk factors or hx of atherosclerotic disease Troponin: Troponin T 0.099 ng/mL (0.00-0.029) H 07/14/20 10:13 Troponin: 1-3x normal limit - Critical Actions Critical Actions: 4-6 pts:12-16.6% risk of adverse cardiac event. Should be admitted (PATIENT UNDERGOING WORK UP) Results - Labs CBC & Chem 7: 07/19/20 14:48 07/19/20 14:48 Labs: Laboratory Last Values WBC 4.8 K/mm3 (4.5-11.0) 07/13/20 17:59 RBC 2.85 M/mm3 (3.65-5.03) L 07/13/20 17:59 Hgb 9.8 gm/dl (10.1-14.3) L 07/15/20 15:18 Hct 30.4 % (30.3-42.9) 07/15/20 15:18 MCV 93 fl (79-97) 07/13/20 17:59 MCH 31 pg (28-32) 07/13/20 17:59 MCHC 33 % (30-34) 07/13/20 17:59 RDW 17.2 % (13.2-15.2) H 07/13/20 17:59 Plt Count 154 K/mm3 (140-440) 07/15/20 15:18 Lymph % (Auto) 12.9 % (13.4-35.0) L 07/13/20 17:59 Haralson % (Auto) 3.5 % (0.0-7.3) 07/13/20 17:59 Eos % (Auto) 3.0 % (0.0-4.3) 07/13/20 17:59 Baso % (Auto) 0.4 % (0.0-1.8) 07/13/20 17:59 Lymph # (Auto) 0.6 K/mm3 (1.2-5.4) L 07/13/20 17:59 Haralson # (Auto) 0.2 K/mm3 (0.0-0.8) 07/13/20 17:59 Eos # (Auto) 0.1 K/mm3 (0.0-0.4) 07/13/20 17:59 Baso # (Auto) 0.0 K/mm3 (0.0-0.1) 07/13/20 17:59 Seg Neutrophils % 80.2 % (40.0-70.0) H 07/13/20 17:59 Seg Neutrophils # 3.9 K/mm3 (1.8-7.7) 07/13/20 17:59 PT 13.4 Sec. (12.2-14.9) 07/18/20 07:22 INR 1.00 (0.87-1.13) 07/18/20 07:22 APTT 28.2 Sec. (24.2-36.6) 07/13/20 23:36 Sodium 136 mmol/L (137-145) L 07/17/20 06:33 Potassium 4.2 mmol/L (3.6-5.0) 07/17/20 06:33 Chloride 96.2 mmol/L (98-107) L 07/17/20 06:33 Carbon Dioxide 24 mmol/L (22-30) 07/17/20 06:33 Anion Gap 20 mmol/L 07/17/20 06:33 BUN 48 mg/dL (7-17) H 07/17/20 06:33 Creatinine 7.0 mg/dL (0.6-1.2) H 07/17/20 06:33 Estimated GFR 7 ml/min 07/17/20 06:33 BUN/Creatinine Ratio 7 % 07/17/20 06:33 Glucose 104 mg/dL (65-100) H 07/17/20 06:33 Calcium 8.7 mg/dL (8.4-10.2) 07/17/20 06:33 Total Creatine Kinase 81 units/L (30-135) 07/14/20 10:13 CK-MB (CK-2) 1.9 ng/mL (0.0-4.0) 07/14/20 10:13 CK-MB (CK-2) Rel Index 2.3 (0-4) 07/14/20 10:13 Troponin T 0.099 ng/mL (0.00-0.029) H 07/14/20 10:13 Triglycerides 89 mg/dL (2-149) 07/13/20 23:36 Cholesterol 152 mg/dL (50-199) 07/13/20 23:36 LDL Cholesterol Direct 84 mg/dL (50-130) 07/13/20 23:36 HDL Cholesterol 59 mg/dL (40-59) 07/13/20 23:36 Cholesterol/HDL Ratio 2.57 % 07/13/20 23:36 Hepatitis A IgM Ab Non-reactive (NonReactive) 07/14/20 10:13 Hep Bs Antigen Non-reactive (Negative) 07/14/20 10:13 Hep B Core IgM Ab Non-reactive (NonReactive) 07/14/20 10:13 Hepatitis C Antibody Non-reactive (NonReactive) 07/14/20 10:13 Microbiology: Microbiology 07/15/20 Unknown Nares - Right MRSA Culture - Final - Diagnostic Impressions Diagnostic Impressions: Echocardiogram 07/14/20 10:55 Transthoracic Echocardiogram Indication: Chest Pain BP: 137/63 HR: 79 Conclusions *The left ventricular chamber size is normal. *Mild concentric left ventricular hypertrophy is observed. *There are multiple regional wall motion abnormalities. *septal,basal inferior wall hypokinetic *The estimated ejection fraction is 35-40%. *Abnormal left ventricular diastolic filling is observed, consistent with impaired relaxation. *The left ventricular diastolic filling pattern is consistent with pseudonormalization. *The left ventricular diastolic filling pattern is consistent with elevated mean left atrial pressure. *The left atrium is mildly dilated. *The right ventricle is mild to moderately dilated. *The aortic valve leaflets are moderately thickened. *There is trace of aortic regurgitation. *There is no evidence of aortic stenosis. *There is mitral annular calcification. *There is mild to moderate mitral regurgitation. *There is mild to moderate tricuspid regurgitation. *There is no pericardial effusion. *The inferior vena cava appears normal in size. Findings Left Ventricle: The left ventricular chamber size is normal. Mild concentric left ventricular hypertrophy is observed. There are multiple regional wall motion abnormalities. Global left ventricular systolic function is mild to moderately decreased. The estimated ejection fraction is 35-40%. Abnormal left ventricular diastolic function is observed. The left ventricular diastolic filling pattern is consistent with pseudonormalization. The left ventricular diastolic filling pattern is consistent with elevated mean left atrial pressure. Left Atrium: The left atrium is mildly dilated. Right Ventricle: The right ventricle is mild to moderately dilated. The right ventricular global systolic function is normal. Right Atrium: The right atrium appears normal. The interatrial septum appears normal. 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 Aortic Valve: The aortic valve is trileaflet. The aortic valve leaflets are moderately thickened. There is trace of aortic regurgitation. There is no evidence of aortic stenosis. Mitral Valve: The mitral valve leaflets appear normal. There is mitral annular calcification. There is mild to moderate mitral regurgitation. There is no evidence of mitral stenosis. Tricuspid Valve: The tricuspid valve leaflets are normal. There is mild to moderate tricuspid regurgitation. There is no tricuspid stenosis. Pulmonic Valve: The pulmonic valve appears normal. There is trace pulmonic regurgitation. There is no pulmonic stenosis. Pericardium: There is no pericardial effusion. Aorta: There is no dilatation of the ascending aorta. There is no dilatation of the aortic arch. There is no dilatation of the descending thoracic aorta. There is no dilatation of the aortic root. Venous: The inferior vena cava appears normal in size. Measurements Chambers 2D Name Value Normal Range IVSd (2D) 1.21 cm (0.6 - 1.1) LVPWd (2D) 1.22 cm (0.6 - 1.1) LVIDd (2D) 5.61 cm (3.7 - 5.6) LVIDs (2D) 4.74 cm (2 - 3.8) LV FS (2D) 15.52 % - EF Teichholz (2D) 32.35 % - Ao root diameter (2D) 2.98 cm (2 - 3.7) Volumes/Mass Name Value Normal Range LA ESV SP 4CH (A/L) 90.79 ml - LA ESV SP 2CH (A/L) 79.53 ml - LA ESV BP (A/L) 85.37 ml - LA ESV SP 4CH (MOD) 84.6 ml - LA ESV SP 2CH (MOD) 74.61 ml - LV EDV SP 4CH (MOD) 197.38 ml - LV ESV SP 4CH (MOD) 123.93 ml - EF SP 4CH (MOD) 37.21 % - LV EDV SP 2CH (MOD) 194.2 ml - LV ESV SP 2CH (MOD) 123.7 ml - EF SP 2CH (MOD) 36.3 % - LV EDV BP 201.77 ml - LV ESV BP 131.12 ml - BP EF (MOD) 35.02 % - Diastolic/Systolic Function Name Value Normal Range MV E-wave Vmax 1.15 m/sec - MV deceleration time 133.32 msec - MV A-wave Vmax 0.78 m/sec - MV E:A ratio 1.48 ratio - Aortic Valve Name Value Normal Range AV Vmax 1.8 m/sec - AV VTI 35.01 cm - AV peak gradient 12.99 mmHg - AV mean gradient 6.54 mmHg - LVOT diameter 2.11 cm - LVOT Vmax 0.86 m/sec - LVOT VTI 17.92 cm - LVOT peak gradient 2.94 mmHg - LVOT mean gradient 1.54 mmHg - SV LVOT 62.77 ml - SKINNY (continuity Vmax) 1.67 cm2 - SKINNY (continuity VTI) 1.79 cm2 - Tricuspid Valve Name Value Normal Range TR Vmax 3.55 m/sec - TR peak gradient 50.29 mmHg - Pulmonic Valve/Qp:Qs Name Value Normal Range PV Vmax 1.09 m/sec - PV peak gradient 4.78 mmHg - TX end-diastolic Vmax 1.48 m/sec - PV acceleration time 117.98 msec - Veliz/IV: Voiding Method Bedpan IV Catheter Type [Left Hand] Peripheral IV Active Medications - Current Medications Current Medications: Generic Name Dose Route Start Last Admin Trade Name Freq PRN Reason Stop Dose Admin Acetaminophen 650 mg 07/13/20 23:07 07/14/20 21:19 Tylenol PO 650 mg Q4H PRN Administration Headache Albuterol 2.5 mg 07/16/20 18:22 07/17/20 21:19 Proventil IH 2.5 mg Q4HRT PRN Administration Shortness Of Breath Aspirin 81 mg 07/14/20 10:00 07/18/20 09:52 Halfprin Ec PO 81 mg QDAY JP Administration Atorvastatin Calcium 40 mg 07/14/20 22:00 07/18/20 22:00 Lipitor PO Not Given QHS JP Carvedilol 25 mg 07/14/20 10:00 07/18/20 21:52 Coreg PO 25 mg BID JP Administration Clopidogrel Bisulfate 75 mg 07/14/20 10:00 07/19/20 09:39 Plavix PO Not Given QDAY JP Ezetimibe 10 mg 07/14/20 10:00 07/19/20 09:40 Zetia PO Not Given QDAY JP Fluticasone Propionate 100 mcg 07/14/20 10:00 07/18/20 09:57 Flonase NS Not Given QDAY JP Furosemide 80 mg 07/14/20 10:00 07/18/20 10:12 Lasix PO 80 mg DAILY [facility] Administration Sodium Chloride 100 mls @ 999 mls/hr 07/14/20 13:00 Nacl 0.9% IV CHICHI PRN Hypotension Lidocaine 1 each 07/15/20 16:00 07/19/20 09:20 Lidoderm 5% TD 1 each QDAY [facility] Administration Lisinopril 5 mg 07/17/20 10:00 07/19/20 09:39 Zestril PO Not Given QDAY JP Loperamide HCl 2 mg 07/15/20 19:18 07/15/20 21:41 Imodium PO 2 mg Q2H PRN Administration Diarrhea Nifedipine 90 mg 07/14/20 10:00 07/19/20 09:39 Procardia Xl PO 90 mg BID JP Administration Nitroglycerin 0.5 inch 07/14/20 06:00 07/19/20 09:33 Nitro-Bid 2% TP Not Given QIDNTG [facility] Protocol Ondansetron HCl 4 mg 07/13/20 23:07 Zofran IV Q8H PRN Nausea And Vomiting Warfarin Sodium 10 mg 07/16/20 17:00 07/18/20 18:16 Coumadin PO 10 mg DAILY@1700 [facility] Administration Protocol Warfarin Sodium 2 mg 07/18/20 17:00 07/18/20 17:56 Coumadin PO 2 mg DAILY@1700 [facility] Administration Nutrition/Malnutrition Assess - Dietary Evaluation Nutrition/Malnutrition Findings: Nutrition Notes Start: 07/17/20 13:10 Freq: Status: Active Protocol: Document 11/10/20 11:47 EN (Rec: 07/18/20 12:10 EN [email or web address]) Co-Sign 07/18/20 11:47 LM Nutrition Notes Need for Assessment generated from: Education Initial or Follow up Assessment Current Diagnosis CKD (stage V CKD),Coronary Artery Disease,Diabetes, Hypertension Other Pertinent Diagnosis ESRD on HD, NSTEMI, dyslipidedema Current Diet Renal Labs/Tests Na 136, BUN 48, Cr 7.0, Glu 104 Pertinent Medications Coumadin 10mg Lasix 80mg Height 5 ft 3 in Weight 75.3 kg [place] Body Weight (kg) 52.27 BMI 29.4 Intake Prior to Admission Good Weight change and time frame 19% weight loss in 2 months Weight Status Overweight Subjective/Other Information Screen for Coumadin education. Pt reports beginning Coumadin in 2011. Education provided on Vitamin K and Vit K foods. Pt verbalized understanding. Pt states that she has eating well [employer] but that she has unintentionally lost 40 pounds (18kg) in 2 months. Pt declines N/V/D. Pt reports that she has allergies to chicken, eggs, fish and turkey . Pt states that she has a good appetite and that she would like more food. Pt reports eating 50% of her breakfast because she was served eggs which she cannot have. Pt states that ONS cause her to have diarrhea and that she would not like tea, coffee, mashed potatoes or gravy. Pt would like bottled water on every tray. Burn Absent Trauma Absent GI Symptoms None Food Allergy Yes Current % PO Fair (50-74%) Minimum of two criteria No Interpretation of Weight Loss (severe) >5% in 1 month #2 Nutrition Diagnosis Inadequate oral intake Etiology CHF and ESRD As Evidenced by Signs and Symptoms consuming 50% of breakfast #1 Nutrition Diagnosis Food and nutrition-related knowledge deficit Etiology No prior nutrition education relating to Coumadin and Vitamin K interaction As Evidenced by Signs and Symptoms Pt verbalized questions about Vitamin K foods. Is patient on ventilator? No Is Patient Ambulatory and/or Out of Bed No REE-([facility]-confined to bed) 6501.304 Calculation Used for Recommendations [facility] Additional Notes Protein: >1.2 g/kg (> 90g) Fluid: Urine output + 1000 ml/ day Nutrition Intervention Change Diet Order: Continue Renal diet Teaching Recipient Patient Learning Readiness Good Teaching Methods Discussion Response to Teaching Verbalize understanding Education Handouts Provided Handout not provided because patient is blind, handout read to patient Barriers to Learning Visual RD phone number provided Yes Patient aware of follow up options Yes Goal #1 Meet 75% of energy and protein needs Anticipated Discharge Needs: Renal diet Follow-Up By: 07/20/20 Additional Comments F/u for intakes and possible education questions
[2020-07-19] MEDS: FLUTICASONE PROPIONATE NASAL SPRAY 16 GM NS SCH (12:00)
[2020-07-19] MEDS: FUROSEMIDE 40 MG TAB PO SCH (14:52)
[2020-07-19] MEDS: carvediloL 25 MG TAB PO SCH ×2 (14:52→22:30)
[2020-07-19] MEDS: ASPIRIN EC 81 MG TAB PO SCH (14:53)
[2020-07-19 15:31] LABS: Basophils % (Auto) 0.4 % (0.0-1.8); Eosinophils # (Auto) 0.1 K/mm3 (0.0-0.4); Eosinophils % (Auto) 1.8 % (0.0-4.3); Hematocrit 24.1 % (30.3-42.9); Hemoglobin 8.1 gm/dl (10.1-14.3); Lymphocytes # (Auto) 0.7 K/mm3 (1.2-5.4); Lymphocytes % (Auto) 13.6 % (13.4-35.0); Mean Corpuscular HGB Conc 34 % (30-34); Mean Corpuscular Volume 91 fl (79-97); Monocytes # (Auto) 0.3 K/mm3 (0.0-0.8); Monocytes % (Auto) 6.4 % (0.0-7.3); Platelet Count 145 K/mm3 (140-440); Red Blood Count 2.65 M/mm3 (3.65-5.03); Red Cell Distribution Width 16.5 % (13.2-15.2)
[2020-07-19 15:36] LABS: Calcium 8.9 mg/dL (8.4-10.2)
[2020-07-19 15:41] LABS: INR 1.33 (0.87-1.13)
[2020-07-19] MEDS: WARFARIN 10 MG TAB PO SCH (18:21)
[2020-07-20] MEDS: NITROGLYCERIN 2% OINT 1 GM TP SCH ×5 (06:18→18:00)
[2020-07-20] MEDS: WARFARIN 2 MG TAB PO SCH ×2 (08:33→17:54)
[2020-07-20] MEDS: FLUTICASONE PROPIONATE NASAL SPRAY 16 GM NS SCH (09:51)
[2020-07-20] MEDS: LISINOPRIL 5 MG TAB PO SCH (09:52)
[2020-07-20] MEDS: EZETIMIBE 10 MG TAB PO SCH (09:52)
[2020-07-20] MEDS: NIFEdipine XL 90 MG TAB PO SCH ×2 (09:56→21:06)
[2020-07-20] MEDS: LIDOCAINE 5% 1 EACH PATCH TD SCH (09:56)
[2020-07-20] MEDS: ASPIRIN EC 81 MG TAB PO SCH ×2 (09:56→10:42)
[2020-07-20] MEDS: carvediloL 25 MG TAB PO SCH ×2 (09:56→21:06)
[2020-07-20] MEDS: CLOPIDOGREL 75 MG TAB PO SCH ×2 (09:56→10:44)
[2020-07-20] MEDS: FUROSEMIDE 40 MG TAB PO SCH ×2 (09:56→10:43)
--- NOTE | 2020-07-20 10:47 | Progress Note ---
Assessment and Plan Assessment and plan: --Non-ST elevation PA, type II 07/15/2020 stress test negative for acute ischemia EF 38 %. Continue current management including aspirin and Plavix Cardiology cleared for discharge --History of coronary artery disease status post PCI Continue current cardiac medications, cardiology following --Ischemic cardiomyopathy; EF 40 to 45% 2016 Continue antifailure medications Follow echocardiogram LV function ejection fraction --End-stage renal disease; MWF On hemodialysis, nephrology following, HD per schedule Stable ,renal cleared for discharge --Hypertensive emergency; present on admission Blood pressures well controlled --History of peripheral vascular disease; Continue antiplatelets and statins --History of DVT and PE; chronic anticoagulation with Coumadin subtherapeutic INR noncompliant Coumadin resumed Target INR 2-3, Closely monitor Monitor INR and adjust as needed --History of IVC filter placement; supportive care --Type 2 diabetes mellitus; Accu-Chek sliding scale coverage ADA diet Insulin as needed --Dyslipidemia; Stable on lipid-lowering medications --Obesity; BMI 39.0 Advised weight reduction when medically stable --Possible obstructive sleep apnea; Patient may need outpatient sleep study Rule out KENY, CPAP BiPAP at night as needed --DVT prophylaxis; Patient is already on Coumadin DC planning per case management We will closely monitor the patient and adjust management as needed Plan of care reviewed with the patient and her nurse Patient is stable for discharge, awaiting placement --07/17/2020; patient is clinically stable for discharge, cleared by nephrology and cardiology Patient wants a different SNF placement, case management assisting with discharge planning 07/18/2020; patient is hemodynamically and clinically stable for discharge Cleared by nephrology and cardiology, DC planning per case management 07/19/20; stable for discharge, pending placement 07/20/20 patient is end-stage renal disease on hemodialysis, patient is clinically stable Awaiting placement History Interval history: I have seen and examined the patient at the bedside Patient feels better no new complaints Awaiting placement Vital signs noted Hospitalist Physical - Constitutional Vitals: Temp Pulse Resp BP Pulse Ox 98.7 F 91 H 18 152/70 98 07/20/20 08:13 07/20/20 08:14 07/20/20 10:00 07/20/20 08:13 07/20/20 08:14 General appearance: Present: no acute distress, well-nourished, obese (Morbidly obese), other (Patient is legally blind) - EENT Eyes: Present: PERRL, EOM intact - Neck Neck: Present: supple, normal ROM - Respiratory Respiratory effort: normal Respiratory: bilateral: diminished, negative: rales, rhonchi, wheezing - Cardiovascular Rhythm: regular Heart Sounds: Present: S1 & S2 - Extremities Extremities: no ischemia, No edema - Abdominal General gastrointestinal: soft, non-tender, non-distended, normal bowel sounds - Integumentary Integumentary: Present: clear, warm - Psychiatric Psychiatric: appropriate mood/affect, cooperative - Neurologic Neurologic: moves all extremities, other (Legally blind) HEART Score - HEART Score Risk factors: > 3 risk factors or hx of atherosclerotic disease Troponin: Troponin T 0.099 ng/mL (0.00-0.029) H 07/14/20 10:13 Troponin: 1-3x normal limit - Critical Actions Critical Actions: 4-6 pts:12-16.6% risk of adverse cardiac event. Should be admitted (PATIENT UNDERGOING WORK UP) Results - Labs CBC & Chem 7: 07/19/20 14:48 07/19/20 14:48 Labs: Laboratory Last Values WBC 4.9 K/mm3 (4.5-11.0) 07/19/20 14:48 RBC 2.65 M/mm3 (3.65-5.03) L 07/19/20 14:48 Hgb 8.1 gm/dl (10.1-14.3) L 07/19/20 14:48 Hct 24.1 % (30.3-42.9) L 07/19/20 14:48 MCV 91 fl (79-97) 07/19/20 14:48 MCH 31 pg (28-32) 07/19/20 14:48 MCHC 34 % (30-34) 07/19/20 14:48 RDW 16.5 % (13.2-15.2) H 07/19/20 14:48 Plt Count 145 K/mm3 (140-440) 07/19/20 14:48 Lymph % (Auto) 13.6 % (13.4-35.0) 07/19/20 14:48 [place] % (Auto) 6.4 % (0.0-7.3) 07/19/20 14:48 Eos % (Auto) 1.8 % (0.0-4.3) 07/19/20 14:48 Baso % (Auto) 0.4 % (0.0-1.8) 07/19/20 14:48 Lymph # (Auto) 0.7 K/mm3 (1.2-5.4) L 07/19/20 14:48 [place] # (Auto) 0.3 K/mm3 (0.0-0.8) 07/19/20 14:48 Eos # (Auto) 0.1 K/mm3 (0.0-0.4) 07/19/20 14:48 Baso # (Auto) 0.0 K/mm3 (0.0-0.1) 07/19/20 14:48 Seg Neutrophils % 77.8 % (40.0-70.0) H 07/19/20 14:48 Seg Neutrophils # 3.8 K/mm3 (1.8-7.7) 07/19/20 14:48 PT 16.8 Sec. (12.2-14.9) H 07/19/20 14:48 INR 1.33 (0.87-1.13) H 07/19/20 14:48 APTT 28.2 Sec. (24.2-36.6) 07/13/20 23:36 Sodium 137 mmol/L (137-145) 07/19/20 14:48 Potassium 3.7 mmol/L (3.6-5.0) 07/19/20 14:48 Chloride 97.4 mmol/L (98-107) L 07/19/20 14:48 Carbon Dioxide 29 mmol/L (22-30) 07/19/20 14:48 Anion Gap 14 mmol/L 07/19/20 14:48 BUN 25 mg/dL (7-17) H 07/19/20 14:48 Creatinine 4.1 mg/dL (0.6-1.2) H 07/19/20 14:48 Estimated GFR 13 ml/min 07/19/20 14:48 BUN/Creatinine Ratio 6 % 07/19/20 14:48 Glucose 99 mg/dL (65-100) 07/19/20 14:48 Calcium 8.9 mg/dL (8.4-10.2) 07/19/20 14:48 Total Creatine Kinase 81 units/L (30-135) 07/14/20 10:13 CK-MB (CK-2) 1.9 ng/mL (0.0-4.0) 07/14/20 10:13 CK-MB (CK-2) Rel Index 2.3 (0-4) 07/14/20 10:13 Troponin T 0.099 ng/mL (0.00-0.029) H 07/14/20 10:13 Triglycerides 89 mg/dL (2-149) 07/13/20 23:36 Cholesterol 152 mg/dL (50-199) 07/13/20 23:36 LDL Cholesterol Direct 84 mg/dL (50-130) 07/13/20 23:36 HDL Cholesterol 59 mg/dL (40-59) 07/13/20 23:36 Cholesterol/HDL Ratio 2.57 % 07/13/20 23:36 Hepatitis A IgM Ab Non-reactive (NonReactive) 07/14/20 10:13 Hep Bs Antigen Non-reactive (Negative) 07/14/20 10:13 Hep B Core IgM Ab Non-reactive (NonReactive) 07/14/20 10:13 Hepatitis C Antibody Non-reactive (NonReactive) 07/14/20 10:13 - Diagnostic Impressions Diagnostic Impressions: Echocardiogram 07/14/20 10:55 Transthoracic Echocardiogram Indication: Chest Pain BP: 137/63 HR: 79 Conclusions *The left ventricular chamber size is normal. *Mild concentric left ventricular hypertrophy is observed. *There are multiple regional wall motion abnormalities. *septal,basal inferior wall hypokinetic *The estimated ejection fraction is 35-40%. *Abnormal left ventricular diastolic filling is observed, consistent with impaired relaxation. *The left ventricular diastolic filling pattern is consistent with pseudonormalization. *The left ventricular diastolic filling pattern is consistent with elevated mean left atrial pressure. *The left atrium is mildly dilated. *The right ventricle is mild to moderately dilated. *The aortic valve leaflets are moderately thickened. *There is trace of aortic regurgitation. *There is no evidence of aortic stenosis. *There is mitral annular calcification. *There is mild to moderate mitral regurgitation. *There is mild to moderate tricuspid regurgitation. *There is no pericardial effusion. *The inferior vena cava appears normal in size. Findings Left Ventricle: The left ventricular chamber size is normal. Mild concentric left ventricular hypertrophy is observed. There are multiple regional wall motion abnormalities. Global left ventricular systolic function is mild to moderately decreased. The estimated ejection fraction is 35-40%. Abnormal left ventricular diastolic function is observed. The left ventricular diastolic filling pattern is consistent with pseudonormalization. The left ventricular diastolic filling pattern is consistent with elevated mean left atrial pressure. Left Atrium: The left atrium is mildly dilated. Right Ventricle: The right ventricle is mild to moderately dilated. The right ventricular global systolic function is normal. Right Atrium: The right atrium appears normal. The interatrial septum appears normal. 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 Aortic Valve: The aortic valve is trileaflet. The aortic valve leaflets are moderately thickened. There is trace of aortic regurgitation. There is no evidence of aortic stenosis. Mitral Valve: The mitral valve leaflets appear normal. There is mitral annular calcification. There is mild to moderate mitral regurgitation. There is no evidence of mitral stenosis. Tricuspid Valve: The tricuspid valve leaflets are normal. There is mild to moderate tricuspid regurgitation. There is no tricuspid stenosis. Pulmonic Valve: The pulmonic valve appears normal. There is trace pulmonic regurgitation. There is no pulmonic stenosis. Pericardium: There is no pericardial effusion. Aorta: There is no dilatation of the ascending aorta. There is no dilatation of the aortic arch. There is no dilatation of the descending thoracic aorta. There is no dilatation of the aortic root. Venous: The inferior vena cava appears normal in size. Measurements Chambers 2D Name Value Normal Range IVSd (2D) 1.21 cm (0.6 - 1.1) LVPWd (2D) 1.22 cm (0.6 - 1.1) LVIDd (2D) 5.61 cm (3.7 - 5.6) LVIDs (2D) 4.74 cm (2 - 3.8) LV FS (2D) 15.52 % - EF Teichholz (2D) 32.35 % - Ao root diameter (2D) 2.98 cm (2 - 3.7) Volumes/Mass Name Value Normal Range LA ESV SP 4CH (A/L) 90.79 ml - LA ESV SP 2CH (A/L) 79.53 ml - LA ESV BP (A/L) 85.37 ml - LA ESV SP 4CH (MOD) 84.6 ml - LA ESV SP 2CH (MOD) 74.61 ml - LV EDV SP 4CH (MOD) 197.38 ml - LV ESV SP 4CH (MOD) 123.93 ml - EF SP 4CH (MOD) 37.21 % - LV EDV SP 2CH (MOD) 194.2 ml - LV ESV SP 2CH (MOD) 123.7 ml - EF SP 2CH (MOD) 36.3 % - LV EDV BP 201.77 ml - LV ESV BP 131.12 ml - BP EF (MOD) 35.02 % - Diastolic/Systolic Function Name Value Normal Range MV E-wave Vmax 1.15 m/sec - MV deceleration time 133.32 msec - MV A-wave Vmax 0.78 m/sec - MV E:A ratio 1.48 ratio - Aortic Valve Name Value Normal Range AV Vmax 1.8 m/sec - AV VTI 35.01 cm - AV peak gradient 12.99 mmHg - AV mean gradient 6.54 mmHg - LVOT diameter 2.11 cm - LVOT Vmax 0.86 m/sec - LVOT VTI 17.92 cm - LVOT peak gradient 2.94 mmHg - LVOT mean gradient 1.54 mmHg - SV LVOT 62.77 ml - SKINNY (continuity Vmax) 1.67 cm2 - SKINNY (continuity VTI) 1.79 cm2 - Tricuspid Valve Name Value Normal Range TR Vmax 3.55 m/sec - TR peak gradient 50.29 mmHg - Pulmonic Valve/Qp:Qs Name Value Normal Range PV Vmax 1.09 m/sec - PV peak gradient 4.78 mmHg - MS end-diastolic Vmax 1.48 m/sec - PV acceleration time 117.98 msec - Veliz/IV: Voiding Method Bedpan IV Catheter Type [Left Hand] Peripheral IV IV Catheter Type [Left INT / Saline Lock Internal Jugular] Active Medications - Current Medications Current Medications: Generic Name Dose Route Start Last Admin Trade Name Freq PRN Reason Stop Dose Admin Acetaminophen 650 mg 07/13/20 23:07 07/14/20 21:19 Tylenol PO 650 mg Q4H PRN Administration Headache Albuterol 2.5 mg 07/16/20 18:22 07/17/20 21:19 Proventil IH 2.5 mg Q4HRT PRN Administration Shortness Of Breath Aspirin 81 mg 07/14/20 10:00 07/20/20 10:42 Halfprin Ec PO Not Given QDAY [facility] Atorvastatin Calcium 40 mg 07/14/20 22:00 07/19/20 22:30 Lipitor PO Not Given QHS [facility] Carvedilol 25 mg 07/14/20 10:00 07/20/20 09:56 Coreg PO 25 mg BID [facility] Administration Clopidogrel Bisulfate 75 mg 07/14/20 10:00 07/20/20 10:44 Plavix PO Not Given QDAY [facility] Ezetimibe 10 mg 07/14/20 10:00 07/20/20 09:52 Zetia PO Not Given QDAY [facility] Fluticasone Propionate 100 mcg 07/14/20 10:00 07/20/20 09:51 Flonase NS Not Given QDAY [facility] Furosemide 80 mg 07/14/20 10:00 07/20/20 10:43 Lasix PO Not Given DAILY [facility] Sodium Chloride 100 mls @ 999 mls/hr 07/14/20 13:00 Nacl 0.9% IV HCICHI PRN Hypotension Lidocaine 1 each 07/15/20 16:00 07/20/20 09:56 Lidoderm 5% TD 1 each QDAY [facility] Administration Lisinopril 5 mg 07/17/20 10:00 07/20/20 09:52 Zestril PO Not Given QDAY [facility] Loperamide HCl 2 mg 07/15/20 19:18 07/15/20 21:41 Imodium PO 2 mg Q2H PRN Administration Diarrhea Nifedipine 90 mg 07/14/20 10:00 07/20/20 09:56 Procardia Xl PO 90 mg BID [facility] Administration Nitroglycerin 0.5 inch 07/14/20 06:00 07/20/20 09:51 Nitro-Bid 2% TP Not Given QIDNTG [facility] Protocol Ondansetron HCl 4 mg 07/13/20 23:07 Zofran IV Q8H PRN Nausea And Vomiting Warfarin Sodium 10 mg 07/16/20 17:00 07/19/20 18:21 Coumadin PO 10 mg DAILY@1700 [facility] Administration Protocol Warfarin Sodium 2 mg 07/18/20 17:00 07/20/20 08:33 Coumadin PO Not Given DAILY@1700 [facility] Nutrition/Malnutrition Assess - Dietary Evaluation Nutrition/Malnutrition Findings: Nutrition Notes Start: 07/17/20 13:10 Freq: Status: Active Protocol: Document 07/18/20 11:47 EN (Rec: 07/18/20 12:10 EN [email or web address]) Co-Sign 07/18/20 11:47 LM Nutrition Notes Need for Assessment generated from: Education Initial or Follow up Assessment Current Diagnosis CKD (stage V CKD),Coronary Artery Disease,Diabetes, Hypertension Other Pertinent Diagnosis ESRD on HD, NSTEMI, dyslipidedema Current Diet Renal Labs/Tests Na 136, BUN 48, Cr 7.0, Glu 104 Pertinent Medications Coumadin 10mg Lasix 80mg Height 5 ft 3 in Weight 75.3 kg [place] Body Weight (kg) 52.27 BMI 29.4 Intake Prior to Admission Good Weight change and time frame 19% weight loss in 2 months Weight Status Overweight Subjective/Other Information Screen for Coumadin education. Pt reports beginning Coumadin in 2011. Education provided on Vitamin K and Vit K foods. Pt verbalized understanding. 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 Pt declines N/V/D. Pt reports that she has allergies to chicken, eggs, fish and turkey . Pt states that she has a good appetite and that she would like more food. Pt reports eating 50% of her breakfast because she was served eggs which she cannot have. Pt states that ONS cause her to have diarrhea and that she would not like tea, coffee, mashed potatoes or gravy. Pt would like bottled water on every tray. Burn Absent Trauma Absent GI Symptoms None Food Allergy Yes Current % PO Fair (50-74%) Minimum of two criteria No Interpretation of Weight Loss (severe) >5% in 1 month #2 Nutrition Diagnosis Inadequate oral intake Etiology CHF and ESRD As Evidenced by Signs and Symptoms consuming 50% of breakfast #1 Nutrition Diagnosis Food and nutrition-related knowledge deficit Etiology No prior nutrition education relating to Coumadin and Vitamin K interaction As Evidenced by Signs and Symptoms Pt verbalized questions about Vitamin K foods. Is patient on ventilator? No Is Patient Ambulatory and/or Out of Bed No REE-([facility]-confined to bed) 7045.404 Calculation Used for Recommendations [facility] Additional Notes Protein: >1.2 g/kg (> 90g) Fluid: Urine output + 1000 ml/ day Nutrition Intervention Change Diet Order: Continue Renal diet Teaching Recipient Patient Learning Readiness Good Teaching Methods Discussion Response to Teaching Verbalize understanding Education Handouts Provided Handout not provided because patient is blind, handout read to patient Barriers to Learning Visual RD phone number provided Yes Patient aware of follow up options Yes Goal #1 Meet 75% of energy and protein needs Anticipated Discharge Needs: Renal diet Follow-Up By: 07/20/20 Additional Comments F/u for intakes and possible education questions
[2020-07-20] MEDS: ALBUTEROL 2.5 MG/3 ML NEBU IH PRN (11:25)
[2020-07-20 11:41] LABS: INR 1.22 (0.87-1.13)
--- NOTE | 2020-07-20 13:35 | Progress Note ---
Assessment and Plan Impression: * End stage renal disease * NSTEMI --MPI: fixed lateral wall defect; no significant ischemia; EF 38%. (Jul 15 2020) --TTE: mild concentric LVH; multiple regional wall abnormalities (septal, basal, inf wall hypokinetic); EF 35-40%; impaired LV relaxation (Jul 14 2020) * Ischemic cardiomyopathy * Hypertension * Anemia secondary to CKD * Secondary hyperparathyroidism Plan: * Patient is s/p HD yesterday. No acute need for HD today * Continue hemodialysis MWF * UF as tolerated * Cardiology recommendations noted * Renal/HD diet * Discharge planning in progress - awaiting SNF placement Subjective Date of service: 07/20/20 Principal diagnosis: ESRD/HD, Acc HTN, NSTEMI 2, H/o PE/DVT (IVC filter) Interval history: Patient has no complaints today Objective - Vital Signs Vital signs: Vital Signs - 12hr 07/20/20 07/20/20 07/20/20 04:17 05:28 08:13 Temperature 98.3 F 98.7 F Pulse Rate 82 88 Pulse Rate [ Anterior Bilateral] Respiratory 18 20 Rate Respiratory Rate [Anterior Bilateral] Blood Pressure 158/75 152/70 O2 Sat by Pulse 97 Oximetry 07/20/20 07/20/20 07/20/20 08:14 10:00 11:40 Temperature Pulse Rate 91 H Pulse Rate [ 76 Anterior Bilateral] Respiratory 18 Rate Respiratory 18 Rate [Anterior Bilateral] Blood Pressure O2 Sat by Pulse 98 Oximetry 07/20/20 11:41 Temperature Pulse Rate Pulse Rate [ Anterior Bilateral] Respiratory Rate Respiratory Rate [Anterior Bilateral] Blood Pressure O2 Sat by Pulse 100 Oximetry - General Appearance General appearance: well-developed, well-nourished EENT: ATNC Neck: other ([facility] permcath) Respiratory: Present: Clear to Ascultation Cardiology: regular, S1S2 Gastrointestinal: normal, no tenderness, no distended Integumentary: warm and dry Psychiatric: cooperative - Lab 07/19/20 14:48 07/19/20 14:48 Most recent lab results Calcium 8.9 mg/dL (8.4-10.2) 07/19/20 14:48 Medications & Allergies - Medications Allergies/Adverse Reactions: Allergies apixaban [From Eliquis] Allergy (Verified 03/01/17 20:29) Itching dabigatran etexilate mesylate [From Pradaxa] Allergy (Verified 03/01/17 20:27) Itching heparin Allergy (Verified 07/14/20 05:54) Vomiting hydralazine HCl [From Apresoline] Allergy (Verified 03/01/17 13:11) Unknown morphine Allergy (Verified 02/15/14 02:23) Itching povidone-iodine [From Betadine] Allergy (Verified 03/01/17 20:26) Itching rivaroxaban [From Xarelto] Allergy (Verified 03/01/17 20:29) Itching soap [From Betadine] Allergy (Verified 03/01/17 20:26) Itching verapamil HCl [From Calan] Allergy (Verified 02/15/14 02:23) Headache Home Medications: Home Medications Medication Instructions Recorded Confirmed Last Taken Type Fluticasone Propionate [Flonase] 100 mcg NS QDAY 02/15/14 07/14/20 Unknown History Albuterol Sulfate [Albuterol 0.63% 0.63 mg IH Q4H PRN 03/01/17 07/14/20 1 Month Ago History NEBS] ~01/29/17 AtorvaSTATin [Lipitor] 40 mg PO QHS 03/01/17 07/14/20 1 Day Ago History ~02/28/17 Clopidogrel [Plavix] 75 mg PO QDAY 03/01/17 07/14/20 Unknown History Ferrous Sulfate [Feosol 325 MG tab] 325 mg PO QDAY 03/01/17 07/14/20 Unknown History Oxymetazoline 0.05% [Vicks Sinex] 1 spray NS BID 03/01/17 07/14/20 1 Day Ago History ~02/28/17 carvediloL [Coreg] 25 mg PO BID 03/01/17 07/14/20 Unknown History Aspirin EC [Halfprin EC] 81 mg PO QDAY #30 tablet. 03/05/17 07/14/20 Unknown Rx AtorvaSTATin [Lipitor] 80 mg PO QHS #30 tablet 03/05/17 07/14/20 Unknown Rx Ezetimibe [Zetia] 10 mg PO QDAY #30 tablet 03/05/17 07/14/20 Unknown Rx Furosemide [Lasix TAB] 80 mg PO QDAY #30 tablet 03/05/17 07/14/20 Unknown Rx HYDROcodone/APAP 5-325 [[place] 1 - 2 each PO Q4-6H PRN #15 tablet 03/05/17 Unknown Rx 5-325 mg TAB] Nystatin [Nystop Powder] 1 applic TP BID #15 g 03/05/17 07/14/20 Unknown Rx Warfarin [Coumadin] 10 mg PO DAILY@1700 #7 tablet 03/05/17 07/14/20 Unknown Rx Lidocaine [Lidoderm] 5 patch TRANSDERMA QDAY 07/14/20 07/14/20 Unknown History NIFEdipine XL [Procardia Xl] 90 mg PO BID 07/14/20 07/14/20 Unknown History Warfarin [Coumadin] 2 mg PO QDAY 07/14/20 07/14/20 Unknown History Warfarin [Coumadin] 10 mg PO QDAY 07/14/20 07/14/20 Unknown History oxyCODONE /ACETAMINOPHEN [Percocet 1 tab PO Q6HR PRN 07/14/20 07/14/20 Unknown History 5/325] Active Medications: Generic Name Dose Route Start Last Admin Trade Name Freq PRN Reason Stop Dose Admin Acetaminophen 650 mg 07/13/20 23:07 07/14/20 21:19 Tylenol PO 650 mg Q4H PRN Administration Headache Albuterol 2.5 mg 07/16/20 18:22 07/20/20 11:25 Proventil IH 2.5 mg Q4HRT PRN Administration Shortness Of Breath Aspirin 81 mg 07/14/20 10:00 07/20/20 10:42 Halfprin Ec PO Not Given QDAY [facility] Atorvastatin Calcium 40 mg 07/14/20 22:00 07/19/20 22:30 Lipitor PO Not Given QHS [facility] Carvedilol 25 mg 07/14/20 10:00 07/20/20 09:56 Coreg PO 25 mg BID [facility] Administration Clopidogrel Bisulfate 75 mg 07/14/20 10:00 07/20/20 10:44 Plavix PO Not Given QDAY [facility] Ezetimibe 10 mg 07/14/20 10:00 07/20/20 09:52 Zetia PO Not Given QDAY [facility] Fluticasone Propionate 100 mcg 07/14/20 10:00 07/20/20 09:51 Flonase NS Not Given QDAY [facility] Furosemide 80 mg 07/14/20 10:00 07/20/20 10:43 Lasix PO Not Given DAILY [facility] Sodium Chloride 100 mls @ 999 mls/hr 07/14/20 13:00 Nacl 0.9% IV CHICHI PRN Hypotension Lidocaine 1 each 07/15/20 16:00 07/20/20 09:56 Lidoderm 5% TD 1 each QDAY [facility] Administration Lisinopril 5 mg 07/17/20 10:00 07/20/20 09:52 Zestril PO Not Given QDAY [facility] Loperamide HCl 2 mg 07/15/20 19:18 07/15/20 21:41 Imodium PO 2 mg Q2H PRN Administration Diarrhea Nifedipine 90 mg 07/14/20 10:00 07/20/20 09:56 Procardia Xl PO 90 mg BID [facility] Administration Nitroglycerin 0.5 inch 07/14/20 06:00 07/20/20 09:51 Nitro-Bid 2% TP Not Given QIDNTG [facility] Protocol Ondansetron HCl 4 mg 07/13/20 23:07 Zofran IV Q8H PRN Nausea And Vomiting Warfarin Sodium 10 mg 07/16/20 17:00 07/19/20 18:21 Coumadin PO 10 mg DAILY@1700 [facility] Administration Protocol Warfarin Sodium 2 mg 07/18/20 17:00 07/20/20 08:33 Coumadin PO Not Given DAILY@1700 [facility]
[2020-07-20] MEDS: WARFARIN 10 MG TAB PO SCH (17:54)
[2020-07-21] MEDS: NITROGLYCERIN 2% OINT 1 GM TP SCH ×4 (06:27→17:21)
[2020-07-21 09:52] LABS: Basophils % (Auto) 0.4 % (0.0-1.8); Eosinophils # (Auto) 0.1 K/mm3 (0.0-0.4); Eosinophils % (Auto) 1.9 % (0.0-4.3); Hematocrit 26.4 % (30.3-42.9); Lymphocytes # (Auto) 0.9 K/mm3 (1.2-5.4); Lymphocytes % (Auto) 16.5 % (13.4-35.0); Mean Corpuscular HGB Conc 34 % (30-34); Mean Corpuscular Volume 92 fl (79-97); Monocytes # (Auto) 0.3 K/mm3 (0.0-0.8); Platelet Count 162 K/mm3 (140-440); Red Blood Count 2.89 M/mm3 (3.65-5.03); Red Cell Distribution Width 16.4 % (13.2-15.2)
[2020-07-21] MEDS: NIFEdipine XL 90 MG TAB PO SCH ×2 (09:56→22:46)
[2020-07-21] MEDS: LIDOCAINE 5% 1 EACH PATCH TD SCH (09:57)
[2020-07-21 09:59] LABS: INR 1.58 (0.87-1.13)
[2020-07-21 10:10] LABS: Calcium 9.2 mg/dL (8.4-10.2)
[2020-07-21] MEDS: FLUTICASONE PROPIONATE NASAL SPRAY 16 GM NS SCH (10:12)
[2020-07-21] MEDS: carvediloL 25 MG TAB PO SCH ×2 (10:12→22:46)
[2020-07-21] MEDS: CLOPIDOGREL 75 MG TAB PO SCH (10:13)
[2020-07-21] MEDS: EZETIMIBE 10 MG TAB PO SCH (10:13)
[2020-07-21] MEDS: FUROSEMIDE 40 MG TAB PO SCH (10:13)
[2020-07-21] MEDS: LISINOPRIL 5 MG TAB PO SCH (10:13)
[2020-07-21] MEDS: ASPIRIN EC 81 MG TAB PO SCH (10:13)
--- NOTE | 2020-07-21 17:18 | Progress Note ---
Assessment and Plan Impression: * End stage renal disease * NSTEMI --MPI: fixed lateral wall defect; no significant ischemia; EF 38%. (Jul 15 2020) --TTE: mild concentric LVH; multiple regional wall abnormalities (septal, basal, inf wall hypokinetic); EF 35-40%; impaired LV relaxation (Jul 14 2020) * Ischemic cardiomyopathy * Hypertension * Anemia secondary to CKD * Secondary hyperparathyroidism Plan: * HD today * Continue hemodialysis MWF - UF as tolerated * Start Epogen 10k TIW * Renal/HD diet * Discharge planning in progress - awaiting SNF placement Dialysis Note * Patient seen on dialysis - no distress. Resting comfortably * Current vitals: 154/75, 71 * Qb 350, Qd 600 * Bath 2K/2.5Ca * Goal UF 2500 Subjective Date of service: 07/21/20 Principal diagnosis: ESRD/HD, Acc HTN, NSTEMI 2, H/o PE/DVT (IVC filter) Interval history: Patient seen on dialysis - resting comfortably Objective - Vital Signs Vital signs: Vital Signs - 12hr 07/21/20 07/21/20 07/21/20 07:57 10:00 12:00 Temperature 97.8 F Pulse Rate 79 75 Respiratory 20 18 Rate Blood Pressure 153/74 O2 Sat by Pulse 99 Oximetry 07/21/20 07/21/20 07/21/20 15:20 15:30 15:45 Temperature 97.8 F Pulse Rate 75 78 80 Respiratory 18 Rate Blood Pressure 153/74 136/74 157/81 O2 Sat by Pulse Oximetry 07/21/20 07/21/20 07/21/20 16:00 16:15 16:30 Temperature Pulse Rate 80 69 71 Respiratory Rate Blood Pressure 152/77 144/67 154/75 O2 Sat by Pulse Oximetry 07/21/20 16:45 Temperature Pulse Rate 64 Respiratory Rate Blood Pressure 156/68 O2 Sat by Pulse Oximetry - General Appearance General appearance: well-developed, well-nourished EENT: ATNC Musculoskeletal: other (no edema) - Lab 07/21/20 08:40 07/21/20 08:40 Most recent lab results Calcium 9.2 mg/dL (8.4-10.2) 07/21/20 08:40 Medications & Allergies - Medications Allergies/Adverse Reactions: Allergies apixaban [From Eliquis] Allergy (Verified 03/01/17 20:29) Itching dabigatran etexilate mesylate [From Pradaxa] Allergy (Verified 03/01/17 20:27) Itching heparin Allergy (Verified 07/14/20 05:54) Vomiting hydralazine HCl [From Apresoline] Allergy (Verified 03/01/17 13:11) Unknown morphine Allergy (Verified 02/15/14 02:23) Itching povidone-iodine [From Betadine] Allergy (Verified 03/01/17 20:26) Itching rivaroxaban [From Xarelto] Allergy (Verified 03/01/17 20:29) Itching soap [From Betadine] Allergy (Verified 03/01/17 20:26) Itching verapamil HCl [From Calan] Allergy (Verified 02/15/14 02:23) Headache Home Medications: Home Medications Medication Instructions Recorded Confirmed Last Taken Type Fluticasone Propionate [Flonase] 100 mcg NS QDAY 02/15/14 07/14/20 Unknown History Albuterol Sulfate [Albuterol 0.63% 0.63 mg IH Q4H PRN 03/01/17 07/14/20 1 Month Ago History NEBS] ~01/29/17 AtorvaSTATin [Lipitor] 40 mg PO QHS 03/01/17 07/14/20 1 Day Ago History ~02/28/17 Clopidogrel [Plavix] 75 mg PO QDAY 03/01/17 07/14/20 Unknown History Ferrous Sulfate [Feosol 325 MG tab] 325 mg PO QDAY 03/01/17 07/14/20 Unknown History Oxymetazoline 0.05% [Vicks Sinex] 1 spray NS BID 03/01/17 07/14/20 1 Day Ago History ~02/28/17 carvediloL [Coreg] 25 mg PO BID 03/01/17 07/14/20 Unknown History Aspirin EC [Halfprin EC] 81 mg PO QDAY #30 tablet. 03/05/17 07/14/20 Unknown Rx AtorvaSTATin [Lipitor] 80 mg PO QHS #30 tablet 03/05/17 07/14/20 Unknown Rx Ezetimibe [Zetia] 10 mg PO QDAY #30 tablet 03/05/17 07/14/20 Unknown Rx Furosemide [Lasix TAB] 80 mg PO QDAY #30 tablet 03/05/17 07/14/20 Unknown Rx HYDROcodone/APAP 5-325 [[place] 1 - 2 each PO Q4-6H PRN #15 tablet 03/05/17 Unknown Rx 5-325 mg TAB] Nystatin [Nystop Powder] 1 applic TP BID #15 g 03/05/17 07/14/20 Unknown Rx Warfarin [Coumadin] 10 mg PO DAILY@1700 #7 tablet 03/05/17 07/14/20 Unknown Rx Lidocaine [Lidoderm] 5 patch TRANSDERMA QDAY 07/14/20 07/14/20 Unknown History NIFEdipine XL [Procardia Xl] 90 mg PO BID 07/14/20 07/14/20 Unknown History Warfarin [Coumadin] 2 mg PO QDAY 07/14/20 07/14/20 Unknown History Warfarin [Coumadin] 10 mg PO QDAY 07/14/20 07/14/20 Unknown History oxyCODONE /ACETAMINOPHEN [Percocet 1 tab PO Q6HR PRN 07/14/20 07/14/20 Unknown History 5/325] Levothyroxine [Synthroid] 88 mcg PO QAM 07/21/20 07/21/20 Unknown History Active Medications: Generic Name Dose Route Start Last Admin Trade Name Freq PRN Reason Stop Dose Admin Acetaminophen 650 mg 07/13/20 23:07 07/14/20 21:19 Tylenol PO 650 mg Q4H PRN Administration Headache Albuterol 2.5 mg 07/16/20 18:22 07/20/20 11:25 Proventil IH 2.5 mg Q4HRT PRN Administration Shortness Of Breath Aspirin 81 mg 07/14/20 10:00 07/21/20 10:13 Halfprin Ec PO Not Given QDAY [facility] Atorvastatin Calcium 40 mg 07/14/20 22:00 07/20/20 21:13 Lipitor PO Not Given QHS [facility] Carvedilol 25 mg 07/14/20 10:00 07/21/20 10:12 Coreg PO Not Given BID [facility] Clopidogrel Bisulfate 75 mg 07/14/20 10:00 07/21/20 10:13 Plavix PO Not Given QDAY [facility] Ezetimibe 10 mg 07/14/20 10:00 07/21/20 10:13 Zetia PO Not Given QDAY [facility] Fluticasone Propionate 100 mcg 07/14/20 10:00 07/21/20 10:12 Flonase NS Not Given QDAY [facility] Furosemide 80 mg 07/14/20 10:00 07/21/20 10:13 Lasix PO Not Given DAILY [facility] Sodium Chloride 100 mls @ 999 mls/hr 07/14/20 13:00 Nacl 0.9% IV CHICHI PRN Hypotension Lidocaine 1 each 07/15/20 16:00 07/21/20 09:57 Lidoderm 5% TD 1 each QDAY [facility] Administration Lisinopril 5 mg 07/17/20 10:00 07/21/20 10:13 Zestril PO Not Given QDAY [facility] Loperamide HCl 2 mg 07/15/20 19:18 07/15/20 21:41 Imodium PO 2 mg Q2H PRN Administration Diarrhea Nifedipine 90 mg 07/14/20 10:00 07/21/20 09:56 Procardia Xl PO 90 mg BID JP Administration Nitroglycerin 0.5 inch 07/14/20 06:00 07/21/20 15:28 Nitro-Bid 2% TP Not Given QIDNTG [facility] Protocol Ondansetron HCl 4 mg 07/13/20 23:07 Zofran IV Q8H PRN Nausea And Vomiting Warfarin Sodium 10 mg 07/16/20 17:00 07/20/20 17:54 Coumadin PO 10 mg DAILY@1700 [facility] Administration Protocol Warfarin Sodium 2 mg 07/18/20 17:00 07/20/20 17:54 Coumadin PO 2 mg DAILY@1700 [facility] Administration
[2020-07-21] MEDS: WARFARIN 10 MG TAB PO SCH (18:35)
[2020-07-21] MEDS: WARFARIN 2 MG TAB PO SCH (18:35)
--- NOTE | 2020-07-21 18:37 | Progress Note ---
Assessment and Plan Assessment and plan: --Non-ST elevation CA, type II 07/15/2020 stress test negative for acute ischemia EF 38 %. Continue current management including aspirin and Plavix Cardiology cleared for discharge --History of coronary artery disease status post PCI Continue current cardiac medications, cardiology following --Ischemic cardiomyopathy; EF 40 to 45% 2016 Continue antifailure medications Follow echocardiogram LV function ejection fraction --End-stage renal disease; MWF On hemodialysis, nephrology following, HD per schedule Stable ,renal cleared for discharge --Hypertensive emergency; present on admission Blood pressures well controlled --History of peripheral vascular disease; Continue antiplatelets and statins --History of DVT and PE; chronic anticoagulation with Coumadin subtherapeutic INR noncompliant Coumadin resumed Target INR 2-3, Closely monitor Monitor INR and adjust as needed --History of IVC filter placement; supportive care --Type 2 diabetes mellitus; Accu-Chek sliding scale coverage ADA diet Insulin as needed --Dyslipidemia; Stable on lipid-lowering medications --Obesity; BMI 39.0 Advised weight reduction when medically stable --Possible obstructive sleep apnea; Patient may need outpatient sleep study Rule out KENY, CPAP BiPAP at night as needed --DVT prophylaxis; Patient is already on Coumadin DC planning per case management We will closely monitor the patient and adjust management as needed Plan of care reviewed with the patient and her nurse Patient is stable for discharge, awaiting placement --07/17/2020; patient is clinically stable for discharge, cleared by nephrology and cardiology Patient wants a different SNF placement, case management assisting with discharge planning 07/18/2020; patient is hemodynamically and clinically stable for discharge Cleared by nephrology and cardiology, DC planning per case management 07/19/20; stable for discharge, pending placement 07/20/20 patient is end-stage renal disease on hemodialysis, patient is clinically stable Awaiting placement 07/21/20; patient is clinically stable for discharge, awaiting placement Brief history; 60-year-old female patient who is legally blind with significant history of coronary artery disease status post PCI, ischemic cardiomyopathy CVA end-stage renal disease on hemodialysis, history of PE IVC filter placement anticoagulation with Coumadin anemia was admitted through emergency room with chest pain Elevated troponins, evaluated by cardiology, underwent stress test which was negative for acute ischemia, patient was seen by nephrology receiving hemodialysis per schedule Patient is clinically stable for discharge, awaiting placement History Interval history: I have seen and examined the patient at the bedside Patient's chart and medications reviewed No new complaints, patient receiving hemodialysis per schedule Clinically stable for discharge Awaiting placement Hospitalist Physical - Constitutional Vitals: Temp Pulse Resp BP Pulse Ox 97.8 F 64 18 156/68 100 07/21/20 15:20 07/21/20 16:45 07/21/20 15:20 07/21/20 16:45 07/21/20 12:13 General appearance: Present: no acute distress, well-nourished, obese (Morbidly obese), other (Patient is legally blind) - EENT Eyes: Present: PERRL, EOM intact - Neck Neck: Present: supple, normal ROM - Respiratory Respiratory effort: normal Respiratory: bilateral: diminished, negative: rales, rhonchi, wheezing - Cardiovascular Rhythm: regular Heart Sounds: Present: S1 & S2 - Extremities Extremities: no ischemia, No edema - Abdominal General gastrointestinal: soft, non-tender, non-distended, normal bowel sounds - Integumentary Integumentary: Present: clear, warm - Psychiatric Psychiatric: appropriate mood/affect, cooperative - Neurologic Neurologic: moves all extremities, other (Legally blind) HEART Score - HEART Score Risk factors: > 3 risk factors or hx of atherosclerotic disease Troponin: Troponin T 0.099 ng/mL (0.00-0.029) H 07/14/20 10:13 Troponin: 1-3x normal limit - Critical Actions Critical Actions: 4-6 pts:12-16.6% risk of adverse cardiac event. Should be admitted (PATIENT UNDERGOING WORK UP) Results - Labs CBC & Chem 7: 07/21/20 08:40 07/21/20 08:40 Labs: Laboratory Last Values WBC 5.5 K/mm3 (4.5-11.0) 07/21/20 08:40 RBC 2.89 M/mm3 (3.65-5.03) L 07/21/20 08:40 Hgb 9.0 gm/dl (10.1-14.3) L 07/21/20 08:40 Hct 26.4 % (30.3-42.9) L 07/21/20 08:40 MCV 92 fl (79-97) 07/21/20 08:40 MCH 31 pg (28-32) 07/21/20 08:40 MCHC 34 % (30-34) 07/21/20 08:40 RDW 16.4 % (13.2-15.2) H 07/21/20 08:40 Plt Count 162 K/mm3 (140-440) 07/21/20 08:40 Lymph % (Auto) 16.5 % (13.4-35.0) 07/21/20 08:40 [place] % (Auto) 5.0 % (0.0-7.3) 07/21/20 08:40 Eos % (Auto) 1.9 % (0.0-4.3) 07/21/20 08:40 Baso % (Auto) 0.4 % (0.0-1.8) 07/21/20 08:40 Lymph # (Auto) 0.9 K/mm3 (1.2-5.4) L 07/21/20 08:40 [place] # (Auto) 0.3 K/mm3 (0.0-0.8) 07/21/20 08:40 Eos # (Auto) 0.1 K/mm3 (0.0-0.4) 07/21/20 08:40 Baso # (Auto) 0.0 K/mm3 (0.0-0.1) 07/21/20 08:40 Seg Neutrophils % 76.2 % (40.0-70.0) H 07/21/20 08:40 Seg Neutrophils # 4.2 K/mm3 (1.8-7.7) 07/21/20 08:40 PT 19.2 Sec. (12.2-14.9) H 07/21/20 08:40 INR 1.58 (0.87-1.13) H 07/21/20 08:40 APTT 28.2 Sec. (24.2-36.6) 07/13/20 23:36 Sodium 136 mmol/L (137-145) L 07/21/20 08:40 Potassium 4.6 mmol/L (3.6-5.0) D 07/21/20 08:40 Chloride 96.3 mmol/L (98-107) L 07/21/20 08:40 Carbon Dioxide 26 mmol/L (22-30) 07/21/20 08:40 Anion Gap 18 mmol/L 07/21/20 08:40 BUN 52 mg/dL (7-17) H 07/21/20 08:40 Creatinine 6.4 mg/dL (0.6-1.2) H D 07/21/20 08:40 Estimated GFR 8 ml/min 07/21/20 08:40 BUN/Creatinine Ratio 8 % 07/21/20 08:40 Glucose 108 mg/dL (65-100) H 07/21/20 08:40 Calcium 9.2 mg/dL (8.4-10.2) 07/21/20 08:40 Total Creatine Kinase 81 units/L (30-135) 07/14/20 10:13 CK-MB (CK-2) 1.9 ng/mL (0.0-4.0) 07/14/20 10:13 CK-MB (CK-2) Rel Index 2.3 (0-4) 07/14/20 10:13 Troponin T 0.099 ng/mL (0.00-0.029) H 07/14/20 10:13 Triglycerides 89 mg/dL (2-149) 07/13/20 23:36 Cholesterol 152 mg/dL (50-199) 07/13/20 23:36 LDL Cholesterol Direct 84 mg/dL (50-130) 07/13/20 23:36 HDL Cholesterol 59 mg/dL (40-59) 07/13/20 23:36 Cholesterol/HDL Ratio 2.57 % 07/13/20 23:36 Coronavirus (PCR) Negative (Negative) 07/21/20 Unknown Hepatitis A IgM Ab Non-reactive (NonReactive) 07/14/20 10:13 Hep Bs Antigen Non-reactive (Negative) 07/14/20 10:13 Hep B Core IgM Ab Non-reactive (NonReactive) 07/14/20 10:13 Hepatitis C Antibody Non-reactive (NonReactive) 07/14/20 10:13 - Diagnostic Impressions Diagnostic Impressions: Echocardiogram 07/14/20 10:55 Transthoracic Echocardiogram Indication: Chest Pain BP: 137/63 HR: 79 Conclusions *The left ventricular chamber size is normal. *Mild concentric left ventricular hypertrophy is observed. *There are multiple regional wall motion abnormalities. *septal,basal inferior wall hypokinetic *The estimated ejection fraction is 35-40%. *Abnormal left ventricular diastolic filling is observed, consistent with impaired relaxation. *The left ventricular diastolic filling pattern is consistent with pseudonormalization. *The left ventricular diastolic filling pattern is consistent with elevated mean left atrial pressure. *The left atrium is mildly dilated. *The right ventricle is mild to moderately dilated. *The aortic valve leaflets are moderately thickened. *There is trace of aortic regurgitation. *There is no evidence of aortic stenosis. *There is mitral annular calcification. *There is mild to moderate mitral regurgitation. *There is mild to moderate tricuspid regurgitation. *There is no pericardial effusion. *The inferior vena cava appears normal in size. Findings Left Ventricle: The left ventricular chamber size is normal. Mild concentric left ventricular hypertrophy is observed. There are multiple regional wall motion abnormalities. Global left ventricular systolic function is mild to moderately decreased. The estimated ejection fraction is 35-40%. Abnormal left ventricular diastolic function is observed. The left ventricular diastolic filling pattern is consistent with pseudonormalization. The left ventricular diastolic filling pattern is consistent with elevated mean left atrial pressure. Left Atrium: The left atrium is mildly dilated. Right Ventricle: The right ventricle is mild to moderately dilated. The right ventricular global systolic function is normal. Right Atrium: The right atrium appears normal. The interatrial septum appears normal. 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 Aortic Valve: The aortic valve is trileaflet. The aortic valve leaflets are moderately thickened. There is trace of aortic regurgitation. There is no evidence of aortic stenosis. Mitral Valve: The mitral valve leaflets appear normal. There is mitral annular calcification. There is mild to moderate mitral regurgitation. There is no evidence of mitral stenosis. Tricuspid Valve: The tricuspid valve leaflets are normal. There is mild to moderate tricuspid regurgitation. There is no tricuspid stenosis. Pulmonic Valve: The pulmonic valve appears normal. There is trace pulmonic regurgitation. There is no pulmonic stenosis. Pericardium: There is no pericardial effusion. Aorta: There is no dilatation of the ascending aorta. There is no dilatation of the aortic arch. There is no dilatation of the descending thoracic aorta. There is no dilatation of the aortic root. Venous: The inferior vena cava appears normal in size. Measurements Chambers 2D Name Value Normal Range IVSd (2D) 1.21 cm (0.6 - 1.1) LVPWd (2D) 1.22 cm (0.6 - 1.1) LVIDd (2D) 5.61 cm (3.7 - 5.6) LVIDs (2D) 4.74 cm (2 - 3.8) LV FS (2D) 15.52 % - EF Teichholz (2D) 32.35 % - Ao root diameter (2D) 2.98 cm (2 - 3.7) Volumes/Mass Name Value Normal Range LA ESV SP 4CH (A/L) 90.79 ml - LA ESV SP 2CH (A/L) 79.53 ml - LA ESV BP (A/L) 85.37 ml - LA ESV SP 4CH (MOD) 84.6 ml - LA ESV SP 2CH (MOD) 74.61 ml - LV EDV SP 4CH (MOD) 197.38 ml - LV ESV SP 4CH (MOD) 123.93 ml - EF SP 4CH (MOD) 37.21 % - LV EDV SP 2CH (MOD) 194.2 ml - LV ESV SP 2CH (MOD) 123.7 ml - EF SP 2CH (MOD) 36.3 % - LV EDV BP 201.77 ml - LV ESV BP 131.12 ml - BP EF (MOD) 35.02 % - Diastolic/Systolic Function Name Value Normal Range MV E-wave Vmax 1.15 m/sec - MV deceleration time 133.32 msec - MV A-wave Vmax 0.78 m/sec - MV E:A ratio 1.48 ratio - Aortic Valve Name Value Normal Range AV Vmax 1.8 m/sec - AV VTI 35.01 cm - AV peak gradient 12.99 mmHg - AV mean gradient 6.54 mmHg - LVOT diameter 2.11 cm - LVOT Vmax 0.86 m/sec - LVOT VTI 17.92 cm - LVOT peak gradient 2.94 mmHg - LVOT mean gradient 1.54 mmHg - SV LVOT 62.77 ml - SKINNY (continuity Vmax) 1.67 cm2 - SKINNY (continuity VTI) 1.79 cm2 - Tricuspid Valve Name Value Normal Range TR Vmax 3.55 m/sec - TR peak gradient 50.29 mmHg - Pulmonic Valve/Qp:Qs Name Value Normal Range PV Vmax 1.09 m/sec - PV peak gradient 4.78 mmHg - UT end-diastolic Vmax 1.48 m/sec - PV acceleration time 117.98 msec - Veliz/IV: Voiding Method Bedpan IV Catheter Type [Left Hand] Peripheral IV IV Catheter Type [Left INT / Saline Lock Internal Jugular] Active Medications - Current Medications Current Medications: Generic Name Dose Route Start Last Admin Trade Name Freq PRN Reason Stop Dose Admin Acetaminophen 650 mg 07/13/20 23:07 07/14/20 21:19 Tylenol PO 650 mg Q4H PRN Administration Headache Albuterol 2.5 mg 07/16/20 18:22 07/20/20 11:25 Proventil IH 2.5 mg Q4HRT PRN Administration Shortness Of Breath Aspirin 81 mg 07/14/20 10:00 07/21/20 10:13 Halfprin Ec PO Not Given QDAY [facility] Atorvastatin Calcium 40 mg 07/14/20 22:00 07/20/20 21:13 Lipitor PO Not Given QHS [facility] Carvedilol 25 mg 07/14/20 10:00 07/21/20 10:12 Coreg PO Not Given BID [facility] Clopidogrel Bisulfate 75 mg 07/14/20 10:00 07/21/20 10:13 Plavix PO Not Given QDAY [facility] Ezetimibe 10 mg 07/14/20 10:00 07/21/20 10:13 Zetia PO Not Given QDAY [facility] Epoetin [place] 10,000 unit 07/21/20 17:17 Procrit IV CHICHI PRN hemodialysis Fluticasone Propionate 100 mcg 07/14/20 10:00 07/21/20 10:12 Flonase NS Not Given QDAY [facility] Furosemide 80 mg 07/14/20 10:00 07/21/20 10:13 Lasix PO Not Given DAILY [facility] Sodium Chloride 100 mls @ 999 mls/hr 07/14/20 13:00 Nacl 0.9% IV CHICHI PRN Hypotension Lidocaine 1 each 07/15/20 16:00 07/21/20 09:57 Lidoderm 5% TD 1 each QDAY [facility] Administration Lisinopril 5 mg 07/17/20 10:00 07/21/20 10:13 Zestril PO Not Given QDAY [facility] Loperamide HCl 2 mg 07/15/20 19:18 07/15/20 21:41 Imodium PO 2 mg Q2H PRN Administration Diarrhea Nifedipine 90 mg 07/14/20 10:00 07/21/20 09:56 Procardia Xl PO 90 mg BID JP Administration Nitroglycerin 0.5 inch 07/14/20 06:00 07/21/20 17:21 Nitro-Bid 2% TP Not Given QIDNTG [facility] Protocol Ondansetron HCl 4 mg 07/13/20 23:07 Zofran IV Q8H PRN Nausea And Vomiting Warfarin Sodium 10 mg 07/16/20 17:00 07/21/20 18:35 Coumadin PO 10 mg DAILY@1700 [facility] Administration Protocol Warfarin Sodium 2 mg 07/18/20 17:00 07/21/20 18:35 Coumadin PO 2 mg DAILY@1700 [facility] Administration Nutrition/Malnutrition Assess - Dietary Evaluation Nutrition/Malnutrition Findings: Nutrition Notes Start: 07/17/20 13:10 Freq: Status: Active Protocol: Document 07/20/20 11:27 EN (Rec: 07/20/20 11:34 EN [email or web address]) Co-Sign 07/20/20 11:27 LM Nutrition Notes Initial or Follow up Reassessment Current Diagnosis CKD (stage V CKD),Coronary Artery Disease,Diabetes, Hypertension Other Pertinent Diagnosis ESRD on HD, NSTEMI, dyslipidedema Current Diet Renal Labs/Tests 07/19: BUN 25, Cr 4.1 Pertinent Medications Reviewed Height 5 ft 3 in Weight 75.4 kg [place] Body Weight (kg) 52.27 BMI 29.4 Weight Status Overweight Subjective/Other Information F/u for intakes. Pt reports eating 100% of breakfast. Pt would like pork and fruit cups during meals. Pt reports loose stool at 10:00 this morning. Pt states that appetite is good and denies N/ V Percent of energy/protein needs met: 100%/86% Burn Absent Trauma Absent GI Symptoms Diarrhea Food Allergy Yes Current % PO Good (75-100%) Minimum of two criteria No Interpretation of Weight Loss (severe) >5% in 1 month #2 Nutrition Diagnosis Inadequate oral intake As Evidenced by Signs and Symptoms consuming 100% of meals Diagnosis Progress(for reassessment Resolved documentation) #1 Nutrition Diagnosis Food and nutrition-related knowledge deficit As Evidenced by Signs and Symptoms No further Coumadin/Vit k questions Diagnosis Progress(for reassessment Resolved documentation) Is patient on ventilator? No Is Patient Ambulatory and/or Out of Bed No REE-([facility]-confined to bed) [id number] Calculation Used for Recommendations [place] Additional Notes Protein: >1.2 g/kg (> 90g) Fluid: Urine output + 1000 ml/ day Nutrition Intervention Change Diet Order: Continue Renal Diet Goal #1 Meet 75% of energy and protein needs Anticipated Discharge Needs: Renal diet Revisit per MD consult or patient Sign Off request:
[2020-07-22] MEDS: ACETAMINOPHEN 325 MG TAB PO PRN (01:45)
[2020-07-22] MEDS: NITROGLYCERIN 2% OINT 1 GM TP SCH ×4 (05:57→17:30)
[2020-07-22 07:45] LABS: INR 1.51 (0.87-1.13)
[2020-07-22] MEDS: LISINOPRIL 5 MG TAB PO SCH (10:48)
[2020-07-22] MEDS: EZETIMIBE 10 MG TAB PO SCH (10:48)
[2020-07-22] MEDS: CLOPIDOGREL 75 MG TAB PO SCH (10:48)
[2020-07-22] MEDS: ASPIRIN EC 81 MG TAB PO SCH (10:49)
[2020-07-22] MEDS: FLUTICASONE PROPIONATE NASAL SPRAY 16 GM NS SCH (10:49)
[2020-07-22] MEDS: NIFEdipine XL 90 MG TAB PO SCH ×2 (10:53→22:29)
[2020-07-22] MEDS: carvediloL 25 MG TAB PO SCH ×2 (10:54→22:29)
[2020-07-22] MEDS: FUROSEMIDE 40 MG TAB PO SCH (10:54)
--- NOTE | 2020-07-22 15:22 | Progress Note ---
Assessment and Plan Assessment and Plan --Non-ST elevation [place], type II 07/15/2020 stress test negative for acute ischemia EF 38 %. Continue current management including aspirin and Plavix Cardiology cleared for discharge --History of coronary artery disease status post PCI Continue current cardiac medications, cardiology following --Ischemic cardiomyopathy; EF 40 to 45% 2016 Continue antifailure medications Follow echocardiogram LV function ejection fraction --End-stage renal disease; MWF On hemodialysis, nephrology following, HD per schedule Stable ,renal cleared for discharge --Hypertensive emergency; present on admission Blood pressures well controlled --History of peripheral vascular disease; Continue antiplatelets and statins --History of DVT and PE; chronic anticoagulation with Coumadin subtherapeutic INR noncompliant Coumadin resumed Target INR 2-3, Closely monitor Monitor INR and adjust as needed --History of IVC filter placement; supportive care --Type 2 diabetes mellitus; Accu-Chek sliding scale coverage ADA diet Insulin as needed --Dyslipidemia; Stable on lipid-lowering medications --Obesity; BMI 39.0 Advised weight reduction when medically stable --Possible obstructive sleep apnea; Patient may need outpatient sleep study Rule out KENY, CPAP BiPAP at night as needed --DVT prophylaxis; Patient is already on Coumadin DC planning per case management We will closely monitor the patient and adjust management as needed Plan of care reviewed with the patient and her nurse Patient is stable for discharge, awaiting placement Subjective Date of service: 07/22/20 Principal diagnosis: ESRD/HD, Acc HTN, NSTEMI 2, H/o PE/DVT (IVC filter) Interval history: 60-year-old female patient who is legally blind with significant history of coronary artery disease status post PCI, ischemic cardiomyopathy CVA end-stage renal disease on hemodialysis, history of PE IVC filter placement anticoagulation with Coumadin anemia was admitted through emergency room with chest pain Elevated troponins, evaluated by cardiology, underwent stress test which was negative for acute ischemia, patient was seen by nephrology receiving hemodialysis per schedule Patient is clinically stable for discharge, awaiting placement I have seen and examined the patient at the bedside Patient's chart and medications reviewed No new complaints, patient receiving hemodialysis per schedule Clinically stable for discharge Awaiting placement Objective - Constitutional Vitals: Vital Signs - 12hr 07/22/20 07/22/20 07/22/20 04:06 04:10 08:40 Temperature 98.5 F 98.0 F Pulse Rate 86 88 79 Respiratory 18 16 Rate Blood Pressure 138/67 142/69 O2 Sat by Pulse 98 99 Oximetry 07/22/20 12:00 Temperature Pulse Rate 79 Respiratory Rate Blood Pressure O2 Sat by Pulse Oximetry General appearance: Present: no acute distress, well-nourished - EENT Eyes: PERRL, EOM intact ENT: hearing intact, clear oral mucosa Ears: bilateral: normal - Neck Neck: supple, normal ROM - Respiratory Respiratory effort: normal Respiratory: bilateral: CTA - Breasts Breasts: normal - Cardiovascular Heart rate: 78 Rhythm: regular Heart Sounds: Present: S1 & S2. Absent: gallop, rub Extremities: pulses intact, No edema, normal color, Full ROM - Gastrointestinal General gastrointestinal: Present: soft, non-tender, non-distended, normal bowel sounds - Genitourinary Female genitourinary: normal - Integumentary Integumentary: clear, warm, dry - Musculoskeletal Musculoskeletal: 1, strength equal bilaterally - Neurologic Neurologic: moves all extremities - Psychiatric Psychiatric: memory intact, appropriate mood/affect, intact judgment & insight - Labs CBC & Chem 7: 07/21/20 08:40 07/21/20 08:40 Labs: Abnormal lab results 07/22/20 Range/Units 06:57 PT 18.4 H (12.2-14.9) Sec. INR 1.51 H (0.87-1.13) HEART Score - HEART Score Risk factors: > 3 risk factors or hx of atherosclerotic disease Troponin: Troponin T 0.099 ng/mL (0.00-0.029) H 07/14/20 10:13 Troponin: 1-3x normal limit - Critical Actions Critical Actions: 4-6 pts:12-16.6% risk of adverse cardiac event. Should be admitted (PATIENT UNDERGOING WORK UP)
[2020-07-22] MEDS: WARFARIN 2 MG TAB PO SCH (17:58)
[2020-07-22] MEDS: LIDOCAINE 5% 1 EACH PATCH TD SCH (17:58)
[2020-07-22] MEDS: WARFARIN 10 MG TAB PO SCH (17:58)
[2020-07-23] MEDS: NITROGLYCERIN 2% OINT 1 GM TP SCH ×4 (06:43→17:23)
[2020-07-23 07:49] LABS: INR 1.68 (0.87-1.13)
[2020-07-23] MEDS: carvediloL 25 MG TAB PO SCH ×2 (11:34→22:37)
[2020-07-23] MEDS: CLOPIDOGREL 75 MG TAB PO SCH (11:34)
[2020-07-23] MEDS: FUROSEMIDE 40 MG TAB PO SCH (11:35)
[2020-07-23] MEDS: ASPIRIN EC 81 MG TAB PO SCH (11:36)
[2020-07-23] MEDS: NIFEdipine XL 90 MG TAB PO SCH ×2 (11:37→22:37)
[2020-07-23] MEDS: LISINOPRIL 5 MG TAB PO SCH (11:37)
[2020-07-23] MEDS: LIDOCAINE 5% 1 EACH PATCH TD SCH (11:38)
[2020-07-23] MEDS: FLUTICASONE PROPIONATE NASAL SPRAY 16 GM NS SCH (11:38)
[2020-07-23] MEDS: EZETIMIBE 10 MG TAB PO SCH (11:39)
[2020-07-23] MEDS: WARFARIN 2 MG TAB PO SCH (17:24)
[2020-07-23] MEDS: WARFARIN 10 MG TAB PO SCH (17:24)
--- NOTE | 2020-07-23 17:41 | Progress Note ---
Assessment and Plan Assessment and Plan --Non-ST elevation [place], type II 07/15/2020 stress test negative for acute ischemia EF 38 %. Continue current management including aspirin and Plavix Cardiology cleared for discharge --History of coronary artery disease status post PCI Continue current cardiac medications, cardiology following --Ischemic cardiomyopathy; EF 40 to 45% 2016 Continue antifailure medications Follow echocardiogram LV function ejection fraction --End-stage renal disease; MWF On hemodialysis, nephrology following, HD per schedule Stable ,renal cleared for discharge --Hypertensive emergency; present on admission Blood pressures well controlled --History of peripheral vascular disease; Continue antiplatelets and statins --History of DVT and PE; chronic anticoagulation with Coumadin subtherapeutic INR noncompliant Coumadin resumed Target INR 2-3, Closely monitor Monitor INR and adjust as needed --History of IVC filter placement; supportive care --Type 2 diabetes mellitus; Accu-Chek sliding scale coverage ADA diet Insulin as needed --Dyslipidemia; Stable on lipid-lowering medications --Obesity; BMI 39.0 Advised weight reduction when medically stable --Possible obstructive sleep apnea; Patient may need outpatient sleep study Rule out KENY, CPAP BiPAP at night as needed --DVT prophylaxis; Patient is already on Coumadin DC planning per case management We will closely monitor the patient and adjust management as needed Plan of care reviewed with the patient and her nurse Patient is stable for discharge, awaiting placement Subjective Date of service: 07/23/20 Principal diagnosis: ESRD/HD, Acc HTN, NSTEMI 2, H/o PE/DVT (IVC filter) Interval history: 60-year-old female patient who is legally blind with significant history of coronary artery disease status post PCI, ischemic cardiomyopathy CVA end-stage renal disease on hemodialysis, history of PE IVC filter placement anticoagulation with Coumadin anemia was admitted through emergency room with chest pain Elevated troponins, evaluated by cardiology, underwent stress test which was negative for acute ischemia, patient was seen by nephrology receiving hemodialysis per schedule Patient is clinically stable for discharge, awaiting placement I have seen and examined the patient at the bedside Patient's chart and medications reviewed No new complaints, patient receiving hemodialysis per schedule Clinically stable for discharge Awaiting placement Objective - Constitutional Vitals: Vital Signs - 12hr 07/23/20 07/23/20 07/23/20 08:54 10:00 12:11 Temperature 97.4 F L 97.5 F L Pulse Rate 83 84 Respiratory 18 18 Rate Blood Pressure 116/95 147/57 O2 Sat by Pulse 98 98 99 Oximetry 07/23/20 17:18 Temperature 97.5 F L Pulse Rate 81 Respiratory 18 Rate Blood Pressure 159/81 O2 Sat by Pulse 100 Oximetry General appearance: Present: no acute distress, well-nourished - EENT Eyes: PERRL, EOM intact ENT: hearing intact, clear oral mucosa Ears: bilateral: normal - Neck Neck: supple, normal ROM - Respiratory Respiratory effort: normal Respiratory: bilateral: CTA - Breasts Breasts: normal - Cardiovascular Heart rate: 78 Rhythm: regular Heart Sounds: Present: S1 & S2. Absent: gallop, rub Extremities: pulses intact, No edema, normal color, Full ROM - Gastrointestinal General gastrointestinal: Present: soft, non-tender, non-distended, normal bowel sounds - Genitourinary Female genitourinary: normal - Integumentary Integumentary: clear, warm, dry - Musculoskeletal Musculoskeletal: 1, strength equal bilaterally - Neurologic Neurologic: moves all extremities - Psychiatric Psychiatric: memory intact, appropriate mood/affect, intact judgment & insight - Labs CBC & Chem 7: 07/21/20 08:40 07/21/20 08:40 Labs: Abnormal lab results 07/23/20 Range/Units 06:51 PT 20.0 H (12.2-14.9) Sec. INR 1.68 H (0.87-1.13) HEART Score - HEART Score Risk factors: > 3 risk factors or hx of atherosclerotic disease Troponin: Troponin T 0.099 ng/mL (0.00-0.029) H 07/14/20 10:13 Troponin: 1-3x normal limit - Critical Actions Critical Actions: 4-6 pts:12-16.6% risk of adverse cardiac event. Should be admitted (PATIENT UNDERGOING WORK UP)
[2020-07-24] MEDS: NITROGLYCERIN 2% OINT 1 GM TP SCH ×3 (05:26→17:38)
[2020-07-24] MEDS: NIFEdipine XL 90 MG TAB PO SCH ×2 (09:05→22:04)
[2020-07-24] MEDS: EPOETIN ALFA 10,000 UNIT/1 ML INJ IV PRN (10:32)
[2020-07-24 10:41] LABS: INR 1.66 (0.87-1.13)
--- NOTE | 2020-07-24 10:45 | Progress Note ---
Assessment and Plan Impression: * End stage renal disease * NSTEMI --MPI: fixed lateral wall defect; no significant ischemia; EF 38%. (Jul 15 2020) --TTE: mild concentric LVH; multiple regional wall abnormalities (septal, basal, inf wall hypokinetic); EF 35-40%; impaired LV relaxation (Jul 14 2020) * Ischemic cardiomyopathy * Hypertension * Anemia secondary to CKD * Secondary hyperparathyroidism Plan: * Continue hemodialysis MWF * UF as tolerated * Cardiology recommendations noted * Renal/HD diet * Discharge planning in progress - awaiting SNF placement Subjective Date of service: 07/24/20 Principal diagnosis: ESRD/HD, Acc HTN, NSTEMI 2, H/o PE/DVT (IVC filter) Interval history: resting in bed today Objective - Exam Narrative Exam: General appearance: well-developed, well-nourished EENT: ATNC Neck: other ([facility] permcath) Respiratory: Present: Clear to Ascultation Cardiology: regular, S1S2 Gastrointestinal: normal, no tenderness, no distended Integumentary: warm and dry Psychiatric: cooperative - Vital Signs Vital signs: Vital Signs - 12hr 07/23/20 07/24/20 07/24/20 23:12 00:00 03:23 Temperature 97.6 F 97.5 F L Pulse Rate 89 91 H 89 Respiratory 16 16 Rate Blood Pressure 151/76 175/83 O2 Sat by Pulse 100 98 Oximetry 07/24/20 07/24/20 07/24/20 05:26 07:43 09:00 Temperature 97.6 F Pulse Rate 89 94 H 86 Respiratory 18 18 Rate Blood Pressure 175/83 173/84 O2 Sat by Pulse 97 Oximetry - Lab 07/21/20 08:40 07/21/20 08:40 Most recent lab results Calcium 9.2 mg/dL (8.4-10.2) 07/21/20 08:40 Medications & Allergies - Medications Allergies/Adverse Reactions: Allergies apixaban [From Eliquis] Allergy (Verified 03/01/17 20:29) Itching dabigatran etexilate mesylate [From Pradaxa] Allergy (Verified 03/01/17 20:27) Itching heparin Allergy (Verified 07/14/20 05:54) Vomiting hydralazine HCl [From Apresoline] Allergy (Verified 03/01/17 13:11) Unknown morphine Allergy (Verified 02/15/14 02:23) Itching povidone-iodine [From Betadine] Allergy (Verified 03/01/17 20:26) Itching rivaroxaban [From Xarelto] Allergy (Verified 03/01/17 20:29) Itching soap [From Betadine] Allergy (Verified 03/01/17 20:26) Itching verapamil HCl [From Calan] Allergy (Verified 02/15/14 02:23) Headache Home Medications: Home Medications Medication Instructions Recorded Confirmed Last Taken Type Fluticasone Propionate [Flonase] 100 mcg NS QDAY 02/15/14 07/14/20 Unknown History Albuterol Sulfate [Albuterol 0.63% 0.63 mg IH Q4H PRN 03/01/17 07/14/20 1 Month Ago History NEBS] ~01/29/17 AtorvaSTATin [Lipitor] 40 mg PO QHS 03/01/17 07/14/20 1 Day Ago History ~02/28/17 Clopidogrel [Plavix] 75 mg PO QDAY 03/01/17 07/14/20 Unknown History Ferrous Sulfate [Feosol 325 MG tab] 325 mg PO QDAY 03/01/17 07/14/20 Unknown History Oxymetazoline 0.05% [Vicks Sinex] 1 spray NS BID 03/01/17 07/14/20 1 Day Ago History ~02/28/17 carvediloL [Coreg] 25 mg PO BID 03/01/17 07/14/20 Unknown History Aspirin EC [Halfprin EC] 81 mg PO QDAY #30 tablet. 03/05/17 07/14/20 Unknown Rx AtorvaSTATin [Lipitor] 80 mg PO QHS #30 tablet 03/05/17 07/14/20 Unknown Rx Ezetimibe [Zetia] 10 mg PO QDAY #30 tablet 03/05/17 07/14/20 Unknown Rx Furosemide [Lasix TAB] 80 mg PO QDAY #30 tablet 03/05/17 07/14/20 Unknown Rx HYDROcodone/APAP 5-325 [[place] 1 - 2 each PO Q4-6H PRN #15 tablet 03/05/17 Unknown Rx 5-325 mg TAB] Nystatin [Nystop Powder] 1 applic TP BID #15 g 03/05/17 07/14/20 Unknown Rx Warfarin [Coumadin] 10 mg PO DAILY@1700 #7 tablet 03/05/17 07/14/20 Unknown Rx Lidocaine [Lidoderm] 5 patch TRANSDERMA QDAY 07/14/20 07/14/20 Unknown History NIFEdipine XL [Procardia Xl] 90 mg PO BID 07/14/20 07/14/20 Unknown History Warfarin [Coumadin] 2 mg PO QDAY 07/14/20 07/14/20 Unknown History Warfarin [Coumadin] 10 mg PO QDAY 07/14/20 07/14/20 Unknown History oxyCODONE /ACETAMINOPHEN [Percocet 1 tab PO Q6HR PRN 07/14/20 07/14/20 Unknown History 5/325] Levothyroxine [Synthroid] 88 mcg PO QAM 07/21/20 07/21/20 Unknown History Active Medications: Generic Name Dose Route Start Last Admin Trade Name Freq PRN Reason Stop Dose Admin Acetaminophen 650 mg 07/13/20 23:07 07/22/20 01:45 Tylenol PO 650 mg Q4H PRN Administration Headache Albuterol 2.5 mg 07/16/20 18:22 07/20/20 11:25 Proventil IH 2.5 mg Q4HRT PRN Administration Shortness Of Breath Aspirin 81 mg 07/14/20 10:00 07/23/20 11:36 Halfprin Ec PO Not Given QDAY [facility] Atorvastatin Calcium 40 mg 07/14/20 22:00 07/23/20 22:37 Lipitor PO 40 mg QHS JP Administration Carvedilol 25 mg 07/14/20 10:00 07/23/20 22:37 Coreg PO 25 mg BID JP Administration Clopidogrel Bisulfate 75 mg 07/14/20 10:00 07/23/20 11:34 Plavix PO 75 mg QDAY JP Administration Ezetimibe 10 mg 07/14/20 10:00 07/23/20 11:39 Zetia PO Not Given QDAY [facility] Epoetin Mulugeta 10,000 unit 07/21/20 17:17 07/24/20 10:32 Procrit IV 10,000 unit CHICHI PRN Administration hemodialysis Fluticasone Propionate 100 mcg 07/14/20 10:00 07/23/20 11:38 Flonase NS Not Given QDAY [facility] Furosemide 80 mg 07/14/20 10:00 07/23/20 11:35 Lasix PO 80 mg DAILY JP Administration Sodium Chloride 100 mls @ 999 mls/hr 07/14/20 13:00 Nacl 0.9% IV CHICHI PRN Hypotension Lidocaine 1 each 07/15/20 16:00 07/23/20 11:38 Lidoderm 5% TD 1 each QDAY [facility] Administration Lisinopril 5 mg 07/17/20 10:00 07/23/20 11:37 Zestril PO Not Given QDAY [facility] Loperamide HCl 2 mg 07/15/20 19:18 07/15/20 21:41 Imodium PO 2 mg Q2H PRN Administration Diarrhea Nifedipine 90 mg 07/14/20 10:00 07/24/20 09:05 Procardia Xl PO 90 mg BID JP Administration Nitroglycerin 0.5 inch 07/14/20 06:00 07/24/20 05:26 Nitro-Bid 2% TP Not Given QIDNTG [facility] Protocol Ondansetron HCl 4 mg 07/13/20 23:07 Zofran IV Q8H PRN Nausea And Vomiting Warfarin Sodium 10 mg 07/16/20 17:00 07/23/20 17:24 Coumadin PO 10 mg DAILY@1700 [facility] Administration Protocol Warfarin Sodium 2 mg 07/18/20 17:00 07/23/20 17:24 Coumadin PO 2 mg DAILY@1700 [facility] Administration
[2020-07-24] MEDS: LIDOCAINE 5% 1 EACH PATCH TD SCH (13:56)
[2020-07-24] MEDS: ASPIRIN EC 81 MG TAB PO SCH (13:57)
[2020-07-24] MEDS: FLUTICASONE PROPIONATE NASAL SPRAY 16 GM NS SCH (13:57)
[2020-07-24] MEDS: FUROSEMIDE 40 MG TAB PO SCH (13:57)
[2020-07-24] MEDS: carvediloL 25 MG TAB PO SCH ×2 (13:57→22:04)
[2020-07-24] MEDS: EZETIMIBE 10 MG TAB PO SCH (13:58)
[2020-07-24] MEDS: CLOPIDOGREL 75 MG TAB PO SCH (13:58)
[2020-07-24] MEDS: LISINOPRIL 5 MG TAB PO SCH (13:58)
[2020-07-24] MEDS: WARFARIN 1 MG TAB PO SCH (17:50)
[2020-07-24] MEDS: WARFARIN 10 MG TAB PO SCH (17:50)
[2020-07-25] MEDS: NITROGLYCERIN 2% OINT 1 GM TP SCH ×4 (06:41→20:06)
--- NOTE | 2020-07-25 06:53 | Progress Note ---
Assessment and Plan Assessment and Plan --Non-ST elevation [place], type II 07/15/2020 stress test negative for acute ischemia EF 38 %. Continue current management including aspirin and Plavix Cardiology cleared for discharge --History of coronary artery disease status post PCI Continue current cardiac medications, cardiology following --Ischemic cardiomyopathy; EF 40 to 45% 2016 Continue antifailure medications Follow echocardiogram LV function ejection fraction --End-stage renal disease; MWF On hemodialysis, nephrology following, HD per schedule Stable ,renal cleared for discharge --Hypertensive emergency; present on admission Blood pressures well controlled --History of peripheral vascular disease; Continue antiplatelets and statins --History of DVT and PE; chronic anticoagulation with Coumadin subtherapeutic INR noncompliant Coumadin resumed Target INR 2-3, Closely monitor Monitor INR and adjust as needed --History of IVC filter placement; supportive care --Type 2 diabetes mellitus; Accu-Chek sliding scale coverage ADA diet Insulin as needed --Dyslipidemia; Stable on lipid-lowering medications --Obesity; BMI 39.0 Advised weight reduction when medically stable --Possible obstructive sleep apnea; Patient may need outpatient sleep study Rule out KENY, CPAP BiPAP at night as needed --DVT prophylaxis; Patient is already on Coumadin DC planning per case management We will closely monitor the patient and adjust management as needed Plan of care reviewed with the patient and her nurse Patient is stable for discharge, awaiting placement Subjective Date of service: 07/24/20 Principal diagnosis: ESRD/HD, Acc HTN, NSTEMI 2, H/o PE/DVT (IVC filter) Interval history: 60-year-old female patient who is legally blind with significant history of coronary artery disease status post PCI, ischemic cardiomyopathy CVA end-stage renal disease on hemodialysis, history of PE IVC filter placement anticoagulation with Coumadin anemia was admitted through emergency room with chest pain Elevated troponins, evaluated by cardiology, underwent stress test which was negative for acute ischemia, patient was seen by nephrology receiving hemodialysis per schedule Patient is clinically stable for discharge, awaiting placement I have seen and examined the patient at the bedside Patient's chart and medications reviewed No new complaints, patient receiving hemodialysis per schedule Clinically stable for discharge Awaiting placement Objective - Constitutional Vitals: Vital Signs - 12hr 07/24/20 07/24/20 07/24/20 19:54 22:04 23:57 Temperature 97.6 F 97.7 F Pulse Rate 86 94 H 82 Respiratory 20 20 Rate Blood Pressure 176/85 176/85 146/71 O2 Sat by Pulse 94 100 Oximetry 07/25/20 04:50 Temperature 98.3 F Pulse Rate 93 H Respiratory 18 Rate Blood Pressure 175/96 O2 Sat by Pulse 100 Oximetry General appearance: Present: no acute distress, well-nourished - EENT Eyes: PERRL, EOM intact ENT: hearing intact, clear oral mucosa Ears: bilateral: normal - Neck Neck: supple, normal ROM - Respiratory Respiratory effort: normal Respiratory: bilateral: CTA - Breasts Breasts: normal - Cardiovascular Heart rate: 78 Rhythm: regular Heart Sounds: Present: S1 & S2. Absent: gallop, rub Extremities: pulses intact, No edema, normal color, Full ROM - Gastrointestinal General gastrointestinal: Present: soft, non-tender, non-distended, normal bowel sounds - Genitourinary Female genitourinary: normal - Integumentary Integumentary: clear, warm, dry - Musculoskeletal Musculoskeletal: 1, strength equal bilaterally - Neurologic Neurologic: moves all extremities - Psychiatric Psychiatric: memory intact, appropriate mood/affect, intact judgment & insight - Labs CBC & Chem 7: 07/21/20 08:40 07/21/20 08:40 Labs: Abnormal lab results 07/24/20 Range/Units 10:07 PT 19.8 H (12.2-14.9) Sec. INR 1.66 H (0.87-1.13) HEART Score - HEART Score Risk factors: > 3 risk factors or hx of atherosclerotic disease Troponin: Troponin T 0.099 ng/mL (0.00-0.029) H 07/14/20 10:13 Troponin: 1-3x normal limit - Critical Actions Critical Actions: 4-6 pts:12-16.6% risk of adverse cardiac event. Should be admitted (PATIENT UNDERGOING WORK UP)
--- NOTE | 2020-07-25 09:33 | Progress Note ---
Assessment and Plan Impression: * End stage renal disease * NSTEMI --MPI: fixed lateral wall defect; no significant ischemia; EF 38%. (Jul 15 2020) --TTE: mild concentric LVH; multiple regional wall abnormalities (septal, basal, inf wall hypokinetic); EF 35-40%; impaired LV relaxation (Jul 14 2020) * Ischemic cardiomyopathy * Hypertension * Anemia secondary to CKD * Secondary hyperparathyroidism Plan: * Continue hemodialysis MWF * UF as tolerated * Cardiology recommendations noted * Renal/HD diet * Discharge planning in progress - awaiting SNF placement Subjective Date of service: 07/25/20 Principal diagnosis: ESRD/HD, Acc HTN, NSTEMI 2, H/o PE/DVT (IVC filter) Interval history: resting in bed today Objective - Exam Narrative Exam: General appearance: well-developed, well-nourished EENT: ATNC Neck: other ([facility] permcath) Respiratory: Present: Clear to Ascultation Cardiology: regular, S1S2 Gastrointestinal: normal, no tenderness, no distended Integumentary: warm and dry Psychiatric: cooperative - Vital Signs Vital signs: Vital Signs - 12hr 07/24/20 07/24/20 07/25/20 22:04 23:57 04:50 Temperature 97.7 F 98.3 F Pulse Rate 94 H 82 93 H Respiratory 20 18 Rate Blood Pressure 176/85 146/71 175/96 O2 Sat by Pulse 100 100 Oximetry 07/25/20 08:39 Temperature 98.0 F Pulse Rate 85 Respiratory 20 Rate Blood Pressure 193/85 O2 Sat by Pulse 93 Oximetry - Lab 07/21/20 08:40 07/21/20 08:40 Most recent lab results Calcium 9.2 mg/dL (8.4-10.2) 07/21/20 08:40 Medications & Allergies - Medications Allergies/Adverse Reactions: Allergies apixaban [From Eliquis] Allergy (Verified 03/01/17 20:29) Itching dabigatran etexilate mesylate [From Pradaxa] Allergy (Verified 03/01/17 20:27) Itching heparin Allergy (Verified 07/14/20 05:54) Vomiting hydralazine HCl [From Apresoline] Allergy (Verified 03/01/17 13:11) Unknown morphine Allergy (Verified 02/15/14 02:23) Itching povidone-iodine [From Betadine] Allergy (Verified 03/01/17 20:26) Itching rivaroxaban [From Xarelto] Allergy (Verified 03/01/17 20:29) Itching soap [From Betadine] Allergy (Verified 03/01/17 20:26) Itching verapamil HCl [From Calan] Allergy (Verified 02/15/14 02:23) Headache Home Medications: Home Medications Medication Instructions Recorded Confirmed Last Taken Type Fluticasone Propionate [Flonase] 100 mcg NS QDAY 02/15/14 07/14/20 Unknown History Albuterol Sulfate [Albuterol 0.63% 0.63 mg IH Q4H PRN 03/01/17 07/14/20 1 Month Ago History NEBS] ~01/29/17 AtorvaSTATin [Lipitor] 40 mg PO QHS 03/01/17 07/14/20 1 Day Ago History ~02/28/17 Clopidogrel [Plavix] 75 mg PO QDAY 03/01/17 07/14/20 Unknown History Ferrous Sulfate [Feosol 325 MG tab] 325 mg PO QDAY 03/01/17 07/14/20 Unknown History Oxymetazoline 0.05% [Vicks Sinex] 1 spray NS BID 03/01/17 07/14/20 1 Day Ago History ~02/28/17 carvediloL [Coreg] 25 mg PO BID 03/01/17 07/14/20 Unknown History Aspirin EC [Halfprin EC] 81 mg PO QDAY #30 tablet. 03/05/17 07/14/20 Unknown Rx AtorvaSTATin [Lipitor] 80 mg PO QHS #30 tablet 03/05/17 07/14/20 Unknown Rx Ezetimibe [Zetia] 10 mg PO QDAY #30 tablet 03/05/17 07/14/20 Unknown Rx Furosemide [Lasix TAB] 80 mg PO QDAY #30 tablet 03/05/17 07/14/20 Unknown Rx HYDROcodone/APAP 5-325 [[place] 1 - 2 each PO Q4-6H PRN #15 tablet 03/05/17 Unknown Rx 5-325 mg TAB] Nystatin [Nystop Powder] 1 applic TP BID #15 g 03/05/17 07/14/20 Unknown Rx Warfarin [Coumadin] 10 mg PO DAILY@1700 #7 tablet 03/05/17 07/14/20 Unknown Rx Lidocaine [Lidoderm] 5 patch TRANSDERMA QDAY 07/14/20 07/14/20 Unknown History NIFEdipine XL [Procardia Xl] 90 mg PO BID 07/14/20 07/14/20 Unknown History Warfarin [Coumadin] 2 mg PO QDAY 07/14/20 07/14/20 Unknown History Warfarin [Coumadin] 10 mg PO QDAY 07/14/20 07/14/20 Unknown History oxyCODONE /ACETAMINOPHEN [Percocet 1 tab PO Q6HR PRN 07/14/20 07/14/20 Unknown History 5/325] Levothyroxine [Synthroid] 88 mcg PO QAM 07/21/20 07/21/20 Unknown History Active Medications: Generic Name Dose Route Start Last Admin Trade Name Freq PRN Reason Stop Dose Admin Acetaminophen 650 mg 07/13/20 23:07 07/22/20 01:45 Tylenol PO 650 mg Q4H PRN Administration Headache Albuterol 2.5 mg 07/16/20 18:22 07/20/20 11:25 Proventil IH 2.5 mg Q4HRT PRN Administration Shortness Of Breath Aspirin 81 mg 07/14/20 10:00 07/24/20 13:57 Halfprin Ec PO Not Given QDAY [facility] Atorvastatin Calcium 40 mg 07/14/20 22:00 07/24/20 22:04 Lipitor PO Not Given QHS [facility] Carvedilol 25 mg 07/14/20 10:00 07/24/20 22:04 Coreg PO 25 mg BID JP Administration Clopidogrel Bisulfate 75 mg 07/14/20 10:00 07/24/20 13:58 Plavix PO Not Given QDAY [facility] Ezetimibe 10 mg 07/14/20 10:00 07/24/20 13:58 Zetia PO Not Given QDAY [facility] Epoetin Mulugeta 10,000 unit 07/21/20 17:17 07/24/20 10:32 Procrit IV 10,000 unit CHICHI PRN Administration hemodialysis Fluticasone Propionate 100 mcg 07/14/20 10:00 07/24/20 13:57 Flonase NS Not Given QDAY [facility] Furosemide 80 mg 07/14/20 10:00 07/24/20 13:57 Lasix PO Not Given DAILY [facility] Sodium Chloride 100 mls @ 999 mls/hr 07/14/20 13:00 Nacl 0.9% IV CHICHI PRN Hypotension Lidocaine 1 each 07/15/20 16:00 07/24/20 13:56 Lidoderm 5% TD 1 each QDAY [facility] Administration Lisinopril 5 mg 07/17/20 10:00 07/24/20 13:58 Zestril PO Not Given QDAY JP Loperamide HCl 2 mg 07/15/20 19:18 07/15/20 21:41 Imodium PO 2 mg Q2H PRN Administration Diarrhea Nifedipine 90 mg 07/14/20 10:00 07/24/20 22:04 Procardia Xl PO 90 mg BID JP Administration Nitroglycerin 0.5 inch 07/14/20 06:00 07/25/20 06:41 Nitro-Bid 2% TP Not Given QIDNTG [facility] Protocol Ondansetron HCl 4 mg 07/13/20 23:07 Zofran IV Q8H PRN Nausea And Vomiting Warfarin Sodium 10 mg 07/16/20 17:00 07/24/20 17:50 Coumadin PO 10 mg DAILY@1700 [facility] Administration Protocol Warfarin Sodium 3 mg 07/24/20 17:00 07/24/20 17:50 Coumadin PO 3 mg DAILY@1700 [facility] Administration
[2020-07-25] MEDS: carvediloL 25 MG TAB PO SCH ×2 (12:03→21:57)
[2020-07-25] MEDS: NIFEdipine XL 90 MG TAB PO SCH ×2 (12:03→21:58)
[2020-07-25] MEDS: FUROSEMIDE 40 MG TAB PO SCH (12:04)
[2020-07-25] MEDS: FLUTICASONE PROPIONATE NASAL SPRAY 16 GM NS SCH (12:05)
[2020-07-25] MEDS: ASPIRIN EC 81 MG TAB PO SCH (12:05)
[2020-07-25] MEDS: EZETIMIBE 10 MG TAB PO SCH (12:06)
[2020-07-25] MEDS: CLOPIDOGREL 75 MG TAB PO SCH (12:06)
[2020-07-25] MEDS: LISINOPRIL 5 MG TAB PO SCH (12:06)
--- NOTE | 2020-07-25 14:56 | Progress Note ---
Assessment and Plan Assessment and plan: 60-year-old female patient who is legally blind with significant history of coronary artery disease status post PCI, ischemic cardiomyopathy CVA end-stage renal disease on hemodialysis, history of PE IVC filter placement anticoagulation with Coumadin anemia was admitted through emergency room with chest pain Elevated troponins, evaluated by cardiology, underwent stress test which was negative for acute ischemia, patient was seen by nephrology receiving hemodialysis per schedule Patient is clinically stable for discharge, awaiting placement I have seen and examined the patient at the bedside Patient's chart and medications reviewed No new complaints, patient receiving hemodialysis per schedule Clinically stable for discharge Awaiting placement Problems -Non-ST elevation [place], type II 07/15/2020 stress test negative for acute ischemia EF 38 %. Continue current management including aspirin and Plavix Cardiology cleared for discharge --History of coronary artery disease status post PCI Continue current cardiac medications, cardiology following --Ischemic cardiomyopathy; EF 40 to 45% 2016 Continue antifailure medications Follow echocardiogram LV function ejection fraction --End-stage renal disease; MWF On hemodialysis, nephrology following, HD per schedule Stable ,renal cleared for discharge --Hypertensive emergency; present on admission Blood pressures well controlled --History of peripheral vascular disease; Continue antiplatelets and statins --History of DVT and PE; chronic anticoagulation with Coumadin subtherapeutic INR noncompliant Coumadin resumed Target INR 2-3, Closely monitor Monitor INR and adjust as needed --History of IVC filter placement; supportive care --Type 2 diabetes mellitus; Accu-Chek sliding scale coverage ADA diet Insulin as needed --Dyslipidemia; Stable on lipid-lowering medications --Obesity; BMI 39.0 Advised weight reduction when medically stable --Possible obstructive sleep apnea; Patient may need outpatient sleep study Rule out KENY, CPAP BiPAP at night as needed ---Chronic back pain She uses lidocaine patch and opioids at home --DVT prophylaxis; Patient is already on Coumadin DC planning per case management We will closely monitor the patient and adjust management as needed Plan of care reviewed with the patient and her nurse Patient is stable for discharge, awaiting placement t History Interval history: Patient seen and examined at bedside Has chronic back and right shoulder pain. Still awaiting placement Hospitalist Physical - Physical exam Narrative exam: VITAL SIGNS: Reviewed. GENERAL: Awake and alert on response to questions HEAD: No signs of head trauma. EYES: Pupils are equal. Extraocular motions intact. EARS: Hearing grossly intact. MOUTH: Oropharynx is normal. NECK: No adenopathy, no JVD. CHEST: Chest with diminished breath sounds bilaterally. No wheezes, rales, or rhonchi. CARDIAC: Regular rate and rhythm. S1 and S2, without murmurs, gallops, or rubs. VASCULAR: No Edema. Peripheral pulses normal and equal in all extremities. ABDOMEN: Soft, non tender and non distended. No rebound or guarding, and no masses palpated. Bowel Sounds normal. MUSCULOSKELETAL: No leg edema NEUROLOGIC EXAM: Alert and oriented x3. No focal neurologic deficits SKIN: No obvious lesions - Constitutional Vitals: Temp Pulse Resp BP Pulse Ox 97.9 F 87 20 190/90 96 07/25/20 11:47 07/25/20 11:47 07/25/20 11:47 07/25/20 11:47 07/25/20 11:47 HEART Score - HEART Score Risk factors: > 3 risk factors or hx of atherosclerotic disease Troponin: Troponin T 0.099 ng/mL (0.00-0.029) H 07/14/20 10:13 Troponin: 1-3x normal limit - Critical Actions Critical Actions: 4-6 pts:12-16.6% risk of adverse cardiac event. Should be admitted (PATIENT UNDERGOING WORK UP) Results - Labs CBC & Chem 7: 07/21/20 08:40 07/21/20 08:40 Labs: Laboratory Last Values WBC 5.5 K/mm3 (4.5-11.0) 07/21/20 08:40 RBC 2.89 M/mm3 (3.65-5.03) L 07/21/20 08:40 Hgb 9.0 gm/dl (10.1-14.3) L 07/21/20 08:40 Hct 26.4 % (30.3-42.9) L 07/21/20 08:40 MCV 92 fl (79-97) 07/21/20 08:40 MCH 31 pg (28-32) 07/21/20 08:40 MCHC 34 % (30-34) 07/21/20 08:40 RDW 16.4 % (13.2-15.2) H 07/21/20 08:40 Plt Count 162 K/mm3 (140-440) 07/21/20 08:40 Lymph % (Auto) 16.5 % (13.4-35.0) 07/21/20 08:40 [place] % (Auto) 5.0 % (0.0-7.3) 07/21/20 08:40 Eos % (Auto) 1.9 % (0.0-4.3) 07/21/20 08:40 Baso % (Auto) 0.4 % (0.0-1.8) 07/21/20 08:40 Lymph # (Auto) 0.9 K/mm3 (1.2-5.4) L 07/21/20 08:40 [place] # (Auto) 0.3 K/mm3 (0.0-0.8) 07/21/20 08:40 Eos # (Auto) 0.1 K/mm3 (0.0-0.4) 07/21/20 08:40 Baso # (Auto) 0.0 K/mm3 (0.0-0.1) 07/21/20 08:40 Seg Neutrophils % 76.2 % (40.0-70.0) H 07/21/20 08:40 Seg Neutrophils # 4.2 K/mm3 (1.8-7.7) 07/21/20 08:40 PT 19.8 Sec. (12.2-14.9) H 07/24/20 10:07 INR 1.66 (0.87-1.13) H 07/24/20 10:07 APTT 28.2 Sec. (24.2-36.6) 07/13/20 23:36 Sodium 136 mmol/L (137-145) L 07/21/20 08:40 Potassium 4.6 mmol/L (3.6-5.0) D 07/21/20 08:40 Chloride 96.3 mmol/L (98-107) L 07/21/20 08:40 Carbon Dioxide 26 mmol/L (22-30) 07/21/20 08:40 Anion Gap 18 mmol/L 07/21/20 08:40 BUN 52 mg/dL (7-17) H 07/21/20 08:40 Creatinine 6.4 mg/dL (0.6-1.2) H D 07/21/20 08:40 Estimated GFR 8 ml/min 07/21/20 08:40 BUN/Creatinine Ratio 8 % 07/21/20 08:40 Glucose 108 mg/dL (65-100) H 07/21/20 08:40 Calcium 9.2 mg/dL (8.4-10.2) 07/21/20 08:40 Total Creatine Kinase 81 units/L (30-135) 07/14/20 10:13 CK-MB (CK-2) 1.9 ng/mL (0.0-4.0) 07/14/20 10:13 CK-MB (CK-2) Rel Index 2.3 (0-4) 07/14/20 10:13 Troponin T 0.099 ng/mL (0.00-0.029) H 07/14/20 10:13 Triglycerides 89 mg/dL (2-149) 07/13/20 23:36 Cholesterol 152 mg/dL (50-199) 07/13/20 23:36 LDL Cholesterol Direct 84 mg/dL (50-130) 07/13/20 23:36 HDL Cholesterol 59 mg/dL (40-59) 07/13/20 23:36 Cholesterol/HDL Ratio 2.57 % 07/13/20 23:36 Coronavirus (PCR) Negative (Negative) 07/21/20 Unknown Hepatitis A IgM Ab Non-reactive (NonReactive) 07/14/20 10:13 Hep Bs Antigen Non-reactive (Negative) 07/14/20 10:13 Hep B Core IgM Ab Non-reactive (NonReactive) 07/14/20 10:13 Hepatitis C Antibody Non-reactive (NonReactive) 07/14/20 10:13 - Diagnostic Impressions Diagnostic Impressions: Echocardiogram 07/14/20 10:55 Transthoracic Echocardiogram Indication: Chest Pain BP: 137/63 HR: 79 Conclusions *The left ventricular chamber size is normal. *Mild concentric left ventricular hypertrophy is observed. *There are multiple regional wall motion abnormalities. *septal,basal inferior wall hypokinetic *The estimated ejection fraction is 35-40%. *Abnormal left ventricular diastolic filling is observed, consistent with impaired relaxation. *The left ventricular diastolic filling pattern is consistent with pseudonormalization. *The left ventricular diastolic filling pattern is consistent with elevated mean left atrial pressure. *The left atrium is mildly dilated. *The right ventricle is mild to moderately dilated. *The aortic valve leaflets are moderately thickened. *There is trace of aortic regurgitation. *There is no evidence of aortic stenosis. *There is mitral annular calcification. *There is mild to moderate mitral regurgitation. *There is mild to moderate tricuspid regurgitation. *There is no pericardial effusion. *The inferior vena cava appears normal in size. Findings Left Ventricle: The left ventricular chamber size is normal. Mild concentric left ventricular hypertrophy is observed. There are multiple regional wall motion abnormalities. Global left ventricular systolic function is mild to moderately decreased. The estimated ejection fraction is 35-40%. Abnormal left ventricular diastolic function is observed. The left ventricular diastolic filling pattern is consistent with pseudonormalization. The left ventricular diastolic filling pattern is consistent with elevated mean left atrial pressure. Left Atrium: The left atrium is mildly dilated. Right Ventricle: The right ventricle is mild to moderately dilated. The right ventricular global systolic function is normal. Right Atrium: The right atrium appears normal. The interatrial septum appears normal. 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 Aortic Valve: The aortic valve is trileaflet. The aortic valve leaflets are moderately thickened. There is trace of aortic regurgitation. There is no evidence of aortic stenosis. Mitral Valve: The mitral valve leaflets appear normal. There is mitral annular calcification. There is mild to moderate mitral regurgitation. There is no evidence of mitral stenosis. Tricuspid Valve: The tricuspid valve leaflets are normal. There is mild to moderate tricuspid regurgitation. There is no tricuspid stenosis. Pulmonic Valve: The pulmonic valve appears normal. There is trace pulmonic regurgitation. There is no pulmonic stenosis. Pericardium: There is no pericardial effusion. Aorta: There is no dilatation of the ascending aorta. There is no dilatation of the aortic arch. There is no dilatation of the descending thoracic aorta. There is no dilatation of the aortic root. Venous: The inferior vena cava appears normal in size. Measurements Chambers 2D Name Value Normal Range IVSd (2D) 1.21 cm (0.6 - 1.1) LVPWd (2D) 1.22 cm (0.6 - 1.1) LVIDd (2D) 5.61 cm (3.7 - 5.6) LVIDs (2D) 4.74 cm (2 - 3.8) LV FS (2D) 15.52 % - EF Teichholz (2D) 32.35 % - Ao root diameter (2D) 2.98 cm (2 - 3.7) Volumes/Mass Name Value Normal Range LA ESV SP 4CH (A/L) 90.79 ml - LA ESV SP 2CH (A/L) 79.53 ml - LA ESV BP (A/L) 85.37 ml - LA ESV SP 4CH (MOD) 84.6 ml - LA ESV SP 2CH (MOD) 74.61 ml - LV EDV SP 4CH (MOD) 197.38 ml - LV ESV SP 4CH (MOD) 123.93 ml - EF SP 4CH (MOD) 37.21 % - LV EDV SP 2CH (MOD) 194.2 ml - LV ESV SP 2CH (MOD) 123.7 ml - EF SP 2CH (MOD) 36.3 % - LV EDV BP 201.77 ml - LV ESV BP 131.12 ml - BP EF (MOD) 35.02 % - Diastolic/Systolic Function Name Value Normal Range MV E-wave Vmax 1.15 m/sec - MV deceleration time 133.32 msec - MV A-wave Vmax 0.78 m/sec - MV E:A ratio 1.48 ratio - Aortic Valve Name Value Normal Range AV Vmax 1.8 m/sec - AV VTI 35.01 cm - AV peak gradient 12.99 mmHg - AV mean gradient 6.54 mmHg - LVOT diameter 2.11 cm - LVOT Vmax 0.86 m/sec - LVOT VTI 17.92 cm - LVOT peak gradient 2.94 mmHg - LVOT mean gradient 1.54 mmHg - SV LVOT 62.77 ml - SKINNY (continuity Vmax) 1.67 cm2 - SKINNY (continuity VTI) 1.79 cm2 - Tricuspid Valve Name Value Normal Range TR Vmax 3.55 m/sec - TR peak gradient 50.29 mmHg - Pulmonic Valve/Qp:Qs Name Value Normal Range PV Vmax 1.09 m/sec - PV peak gradient 4.78 mmHg - LA end-diastolic Vmax 1.48 m/sec - PV acceleration time 117.98 msec - Veliz/IV: Voiding Method Bedpan IV Catheter Type [Left Hand] Peripheral IV IV Catheter Type [Left INT / Saline Lock Internal Jugular] Active Medications - Current Medications Current Medications: Generic Name Dose Route Start Last Admin Trade Name Freq PRN Reason Stop Dose Admin Acetaminophen 650 mg 07/13/20 23:07 07/22/20 01:45 Tylenol PO 650 mg Q4H PRN Administration Headache Albuterol 2.5 mg 07/16/20 18:22 07/20/20 11:25 Proventil IH 2.5 mg Q4HRT PRN Administration Shortness Of Breath Aspirin 81 mg 07/14/20 10:00 07/25/20 12:05 Halfprin Ec PO Not Given QDAY [facility] Atorvastatin Calcium 40 mg 07/14/20 22:00 07/24/20 22:04 Lipitor PO Not Given QHS JP Carvedilol 25 mg 07/14/20 10:00 07/25/20 12:03 Coreg PO 25 mg BID JP Administration Clopidogrel Bisulfate 75 mg 07/14/20 10:00 07/25/20 12:06 Plavix PO Not Given QDAY [facility] Ezetimibe 10 mg 07/14/20 10:00 07/25/20 12:06 Zetia PO Not Given QDAY [facility] Epoetin Mulugeta 10,000 unit 07/21/20 17:17 07/24/20 10:32 Procrit IV 10,000 unit CHICHI PRN Administration hemodialysis Fluticasone Propionate 100 mcg 07/14/20 10:00 07/25/20 12:05 Flonase NS Not Given QDAY [facility] Furosemide 80 mg 07/14/20 10:00 07/25/20 12:04 Lasix PO 80 mg DAILY JP Administration Sodium Chloride 100 mls @ 999 mls/hr 07/14/20 13:00 Nacl 0.9% IV CHICHI PRN Hypotension Lidocaine 1 each 07/15/20 16:00 07/24/20 13:56 Lidoderm 5% TD 1 each QDAY [facility] Administration Lisinopril 5 mg 07/17/20 10:00 07/25/20 12:06 Zestril PO Not Given QDAY [facility] Loperamide HCl 2 mg 07/15/20 19:18 07/15/20 21:41 Imodium PO 2 mg Q2H PRN Administration Diarrhea Nifedipine 90 mg 07/14/20 10:00 07/25/20 12:03 Procardia Xl PO 90 mg BID JP Administration Nitroglycerin 0.5 inch 07/14/20 06:00 07/25/20 12:06 Nitro-Bid 2% TP Not Given QIDNTG [facility] Protocol Ondansetron HCl 4 mg 07/13/20 23:07 Zofran IV Q8H PRN Nausea And Vomiting Warfarin Sodium 10 mg 07/16/20 17:00 07/24/20 17:50 Coumadin PO 10 mg DAILY@1700 [facility] Administration Protocol Warfarin Sodium 3 mg 07/24/20 17:00 07/24/20 17:50 Coumadin PO 3 mg DAILY@1700 [facility] Administration Nutrition/Malnutrition Assess - Dietary Evaluation Nutrition/Malnutrition Findings: Nutrition Notes Start: 07/17/20 13:10 Freq: Status: Active Protocol: Document 07/20/20 11:27 EN (Rec: 07/20/20 11:34 EN [email or web address]) Co-Sign 07/20/20 11:27 LM Nutrition Notes Initial or Follow up Reassessment Current Diagnosis CKD (stage V CKD),Coronary Artery Disease,Diabetes, Hypertension Other Pertinent Diagnosis ESRD on HD, NSTEMI, dyslipidedema Current Diet Renal Labs/Tests 07/19: BUN 25, Cr 4.1 Pertinent Medications Reviewed Height 5 ft 3 in Weight 75.4 kg [place] Body Weight (kg) 52.27 BMI 29.4 Weight Status Overweight Subjective/Other Information F/u for intakes. Pt reports eating 100% of breakfast. Pt would like pork and fruit cups during meals. Pt reports loose stool at 10:00 this morning. Pt states that appetite is good and denies N/ V Percent of energy/protein needs met: 100%/86% Burn Absent Trauma Absent GI Symptoms Diarrhea Food Allergy Yes Current % PO Good (75-100%) Minimum of two criteria No Interpretation of Weight Loss (severe) >5% in 1 month #2 Nutrition Diagnosis Inadequate oral intake As Evidenced by Signs and Symptoms consuming 100% of meals Diagnosis Progress(for reassessment Resolved documentation) #1 Nutrition Diagnosis Food and nutrition-related knowledge deficit As Evidenced by Signs and Symptoms No further Coumadin/Vit k questions Diagnosis Progress(for reassessment Resolved documentation) Is patient on ventilator? No Is Patient Ambulatory and/or Out of Bed No REE-([facility]-confined to bed) [phone] Calculation Used for Recommendations [facility] Additional Notes Protein: >1.2 g/kg (> 90g) Fluid: Urine output + 1000 ml/ day Nutrition Intervention Change Diet Order: Continue Renal Diet Goal #1 Meet 75% of energy and protein needs Anticipated Discharge Needs: Renal diet Revisit per MD consult or patient Sign Off request:
[2020-07-25] MEDS: WARFARIN 1 MG TAB PO SCH (17:32)
[2020-07-25] MEDS: WARFARIN 10 MG TAB PO SCH (17:32)
[2020-07-25] MEDS: LIDOCAINE 5% 1 EACH PATCH TD SCH (17:32)
[2020-07-26] MEDS: NITROGLYCERIN 2% OINT 1 GM TP SCH ×4 (05:20→21:57)
--- NOTE | 2020-07-26 09:51 | Progress Note ---
Assessment and Plan Impression: * End stage renal disease * NSTEMI --MPI: fixed lateral wall defect; no significant ischemia; EF 38%. (Jul 15 2020) --TTE: mild concentric LVH; multiple regional wall abnormalities (septal, basal, inf wall hypokinetic); EF 35-40%; impaired LV relaxation (Jul 14 2020) * Ischemic cardiomyopathy * Hypertension * Anemia secondary to CKD * Secondary hyperparathyroidism Plan: * Continue hemodialysis MWF * UF as tolerated * Cardiology recommendations noted * Renal/HD diet * Discharge planning in progress - awaiting SNF placement Subjective Date of service: 07/26/20 Principal diagnosis: ESRD/HD, Acc HTN, NSTEMI 2, H/o PE/DVT (IVC filter) Interval history: resting in bed today Objective - Exam Narrative Exam: General appearance: well-developed, well-nourished EENT: ATNC Neck: other ([facility] permcath) Respiratory: Present: Clear to Ascultation Cardiology: regular, S1S2 Gastrointestinal: normal, no tenderness, no distended Integumentary: warm and dry Psychiatric: cooperative - Vital Signs Vital signs: Vital Signs - 12hr 07/25/20 07/26/20 07/26/20 21:57 04:11 04:59 Temperature 97.3 F L 97.3 F L Pulse Rate 83 84 87 Respiratory 18 18 Rate Blood Pressure 201/88 186/86 Blood Pressure 172/89 [Right] O2 Sat by Pulse 96 97 Oximetry 07/26/20 05:20 Temperature Pulse Rate 84 Respiratory Rate Blood Pressure 186/86 Blood Pressure [Right] O2 Sat by Pulse Oximetry - Lab 07/21/20 08:40 07/21/20 08:40 Most recent lab results Calcium 9.2 mg/dL (8.4-10.2) 07/21/20 08:40 Medications & Allergies - Medications Allergies/Adverse Reactions: Allergies apixaban [From Eliquis] Allergy (Verified 03/01/17 20:29) Itching dabigatran etexilate mesylate [From Pradaxa] Allergy (Verified 03/01/17 20:27) Itching heparin Allergy (Verified 07/14/20 05:54) Vomiting hydralazine HCl [From Apresoline] Allergy (Verified 03/01/17 13:11) Unknown morphine Allergy (Verified 02/15/14 02:23) Itching povidone-iodine [From Betadine] Allergy (Verified 03/01/17 20:26) Itching rivaroxaban [From Xarelto] Allergy (Verified 03/01/17 20:29) Itching soap [From Betadine] Allergy (Verified 03/01/17 20:26) Itching verapamil HCl [From Calan] Allergy (Verified 02/15/14 02:23) Headache Home Medications: Home Medications Medication Instructions Recorded Confirmed Last Taken Type Fluticasone Propionate [Flonase] 100 mcg NS QDAY 02/15/14 07/14/20 Unknown History Albuterol Sulfate [Albuterol 0.63% 0.63 mg IH Q4H PRN 03/01/17 07/14/20 1 Month Ago History NEBS] ~01/29/17 AtorvaSTATin [Lipitor] 40 mg PO QHS 03/01/17 07/14/20 1 Day Ago History ~02/28/17 Clopidogrel [Plavix] 75 mg PO QDAY 03/01/17 07/14/20 Unknown History Ferrous Sulfate [Feosol 325 MG tab] 325 mg PO QDAY 03/01/17 07/14/20 Unknown History Oxymetazoline 0.05% [Vicks Sinex] 1 spray NS BID 03/01/17 07/14/20 1 Day Ago History ~02/28/17 carvediloL [Coreg] 25 mg PO BID 03/01/17 07/14/20 Unknown History Aspirin EC [Halfprin EC] 81 mg PO QDAY #30 tablet. 03/05/17 07/14/20 Unknown Rx AtorvaSTATin [Lipitor] 80 mg PO QHS #30 tablet 03/05/17 07/14/20 Unknown Rx Ezetimibe [Zetia] 10 mg PO QDAY #30 tablet 03/05/17 07/14/20 Unknown Rx Furosemide [Lasix TAB] 80 mg PO QDAY #30 tablet 03/05/17 07/14/20 Unknown Rx HYDROcodone/APAP 5-325 [Downs 1 - 2 each PO Q4-6H PRN #15 tablet 03/05/17 Unknown Rx 5-325 mg TAB] Nystatin [Nystop Powder] 1 applic TP BID #15 g 03/05/17 07/14/20 Unknown Rx Warfarin [Coumadin] 10 mg PO DAILY@1700 #7 tablet 03/05/17 07/14/20 Unknown Rx Lidocaine [Lidoderm] 5 patch TRANSDERMA QDAY 07/14/20 07/14/20 Unknown History NIFEdipine XL [Procardia Xl] 90 mg PO BID 07/14/20 07/14/20 Unknown History Warfarin [Coumadin] 2 mg PO QDAY 07/14/20 07/14/20 Unknown History Warfarin [Coumadin] 10 mg PO QDAY 07/14/20 07/14/20 Unknown History oxyCODONE /ACETAMINOPHEN [Percocet 1 tab PO Q6HR PRN 07/14/20 07/14/20 Unknown History 5/325] Levothyroxine [Synthroid] 88 mcg PO QAM 07/21/20 07/21/20 Unknown History Active Medications: Generic Name Dose Route Start Last Admin Trade Name Freq PRN Reason Stop Dose Admin Acetaminophen 650 mg 07/13/20 23:07 07/22/20 01:45 Tylenol PO 650 mg Q4H PRN Administration Headache Albuterol 2.5 mg 07/16/20 18:22 07/20/20 11:25 Proventil IH 2.5 mg Q4HRT PRN Administration Shortness Of Breath Aspirin 81 mg 07/14/20 10:00 07/25/20 12:05 Halfprin Ec PO Not Given QDAY [facility] Atorvastatin Calcium 40 mg 07/14/20 22:00 07/25/20 21:58 Lipitor PO Not Given QHS JP Carvedilol 25 mg 07/14/20 10:00 07/25/20 21:57 Coreg PO 25 mg BID JP Administration Clopidogrel Bisulfate 75 mg 07/14/20 10:00 07/25/20 12:06 Plavix PO Not Given QDAY [facility] Ezetimibe 10 mg 07/14/20 10:00 07/25/20 12:06 Zetia PO Not Given QDAY [facility] Epoetin Mulugeta 10,000 unit 07/21/20 17:17 07/24/20 10:32 Procrit IV 10,000 unit CHICHI PRN Administration hemodialysis Fluticasone Propionate 100 mcg 07/14/20 10:00 07/25/20 12:05 Flonase NS Not Given QDAY [facility] Furosemide 80 mg 07/14/20 10:00 07/25/20 12:04 Lasix PO 80 mg DAILY JP Administration Sodium Chloride 100 mls @ 999 mls/hr 07/14/20 13:00 Nacl 0.9% IV CHICHI PRN Hypotension Lidocaine 1 each 07/15/20 16:00 07/25/20 17:32 Lidoderm 5% TD 1 each QDAY [facility] Administration Lisinopril 5 mg 07/17/20 10:00 07/25/20 12:06 Zestril PO Not Given QDAY JP Loperamide HCl 2 mg 07/15/20 19:18 07/15/20 21:41 Imodium PO 2 mg Q2H PRN Administration Diarrhea Nifedipine 90 mg 07/14/20 10:00 07/25/20 21:58 Procardia Xl PO 90 mg BID JP Administration Nitroglycerin 0.5 inch 07/14/20 06:00 07/26/20 05:20 Nitro-Bid 2% TP 0.5 inch QIDNTG [facility] Administration Protocol Ondansetron HCl 4 mg 07/13/20 23:07 Zofran IV Q8H PRN Nausea And Vomiting Warfarin Sodium 10 mg 07/16/20 17:00 07/25/20 17:32 Coumadin PO 10 mg DAILY@1700 [facility] Administration Protocol Warfarin Sodium 3 mg 07/24/20 17:00 07/25/20 17:32 Coumadin PO 3 mg DAILY@1700 [facility] Administration
[2020-07-26] MEDS: NIFEdipine XL 90 MG TAB PO SCH ×2 (10:40→21:56)
[2020-07-26] MEDS: FLUTICASONE PROPIONATE NASAL SPRAY 16 GM NS SCH (10:41)
[2020-07-26] MEDS: FUROSEMIDE 40 MG TAB PO SCH (10:41)
[2020-07-26] MEDS: carvediloL 25 MG TAB PO SCH ×2 (10:41→21:56)
[2020-07-26] MEDS: CLOPIDOGREL 75 MG TAB PO SCH (10:41)
[2020-07-26] MEDS: ASPIRIN EC 81 MG TAB PO SCH (10:41)
[2020-07-26 10:56] LABS: Basophils % (Auto) 0.4 % (0.0-1.8); Eosinophils # (Auto) 0.1 K/mm3 (0.0-0.4); Eosinophils % (Auto) 2.5 % (0.0-4.3); Hematocrit 25.9 % (30.3-42.9); Hemoglobin 8.5 gm/dl (10.1-14.3); Lymphocytes # (Auto) 0.9 K/mm3 (1.2-5.4); Lymphocytes % (Auto) 16.5 % (13.4-35.0); Mean Corpuscular HGB Conc 33 % (30-34); Mean Corpuscular Volume 92 fl (79-97); Monocytes # (Auto) 0.2 K/mm3 (0.0-0.8); Monocytes % (Auto) 3.8 % (0.0-7.3); Platelet Count 169 K/mm3 (140-440); Red Blood Count 2.83 M/mm3 (3.65-5.03); Red Cell Distribution Width 16.5 % (13.2-15.2)
[2020-07-26 11:06] LABS: INR 1.63 (0.87-1.13)
[2020-07-26 11:16] LABS: Calcium 9.2 mg/dL (8.4-10.2)
[2020-07-26] MEDS: LIDOCAINE 5% 1 EACH PATCH TD SCH (13:31)
[2020-07-26] MEDS: LISINOPRIL 5 MG TAB PO SCH (13:32)
[2020-07-26] MEDS: EZETIMIBE 10 MG TAB PO SCH (13:33)
--- NOTE | 2020-07-26 16:00 | Progress Note ---
Assessment and Plan Assessment and plan: 60-year-old female patient who is legally blind with significant history of coronary artery disease status post PCI, ischemic cardiomyopathy CVA end-stage renal disease on hemodialysis, history of PE IVC filter placement anticoagulation with Coumadin anemia was admitted through emergency room with chest pain Elevated troponins, evaluated by cardiology, underwent stress test which was negative for acute ischemia, patient was seen by nephrology receiving hemodialysis per schedule Patient is clinically stable for discharge, awaiting placement 07/25. I have seen and examined the patient at the bedside Patient's chart and medications reviewed No new complaints, patient receiving hemodialysis per schedule Clinically stable for discharge Awaiting placement 07/16. No change in medical condition. Vitals remain stable. Awaiting placement Problems -Non-ST elevation IL, type II 07/15/2020 stress test negative for acute ischemia EF 38 %. Continue current management including aspirin and Plavix Cardiology cleared for discharge --History of coronary artery disease status post PCI Continue current cardiac medications, cardiology following --Ischemic cardiomyopathy; EF 40 to 45% 2016 Continue antifailure medications Follow echocardiogram LV function ejection fraction --End-stage renal disease; MWF On hemodialysis, nephrology following, HD per schedule Stable ,renal cleared for discharge --Hypertensive emergency; present on admission Blood pressures well controlled --History of peripheral vascular disease; Continue antiplatelets and statins --History of DVT and PE; chronic anticoagulation with Coumadin subtherapeutic INR noncompliant Coumadin resumed Target INR 2-3, Closely monitor Monitor INR and adjust as needed --History of IVC filter placement; supportive care --Type 2 diabetes mellitus; Accu-Chek sliding scale coverage ADA diet Insulin as needed --Dyslipidemia; Stable on lipid-lowering medications --Obesity; BMI 39.0 Advised weight reduction when medically stable --Possible obstructive sleep apnea; Patient may need outpatient sleep study Rule out KENY, CPAP BiPAP at night as needed ---Chronic back pain She uses lidocaine patch and opioids at home --DVT prophylaxis; Patient is already on Coumadin DC planning per case management We will closely monitor the patient and adjust management as needed Plan of care reviewed with the patient and her nurse Patient is stable for discharge, awaiting placement t History Interval history: Patient seen and examined at bedside Has chronic back and right shoulder pain. Still awaiting placement Hospitalist Physical - Physical exam Narrative exam: VITAL SIGNS: Reviewed. GENERAL: Awake and alert on response to questions HEAD: No signs of head trauma. EYES: Pupils are equal. Extraocular motions intact. EARS: Hearing grossly intact. MOUTH: Oropharynx is normal. NECK: No adenopathy, no JVD. CHEST: Chest with diminished breath sounds bilaterally. No wheezes, rales, or rhonchi. CARDIAC: Regular rate and rhythm. S1 and S2, without murmurs, gallops, or rubs. VASCULAR: No Edema. Peripheral pulses normal and equal in all extremities. ABDOMEN: Soft, non tender and non distended. No rebound or guarding, and no masses palpated. Bowel Sounds normal. MUSCULOSKELETAL: No leg edema NEUROLOGIC EXAM: Alert and oriented x3. No focal neurologic deficits SKIN: No obvious lesions - Constitutional Vitals: Temp Pulse Resp BP Pulse Ox 98.6 F 96 H 18 185/92 98 07/26/20 08:41 07/26/20 08:41 07/26/20 08:41 07/26/20 08:41 07/26/20 08:41 HEART Score - HEART Score Risk factors: > 3 risk factors or hx of atherosclerotic disease Troponin: Troponin T 0.099 ng/mL (0.00-0.029) H 07/14/20 10:13 Troponin: 1-3x normal limit - Critical Actions Critical Actions: 4-6 pts:12-16.6% risk of adverse cardiac event. Should be admitted (PATIENT UNDERGOING WORK UP) Results - Labs CBC & Chem 7: 07/26/20 10:18 07/26/20 10:18 Labs: Laboratory Last Values WBC 5.3 K/mm3 (4.5-11.0) 07/26/20 10:18 RBC 2.83 M/mm3 (3.65-5.03) L 07/26/20 10:18 Hgb 8.5 gm/dl (10.1-14.3) L 07/26/20 10:18 Hct 25.9 % (30.3-42.9) L 07/26/20 10:18 MCV 92 fl (79-97) 07/26/20 10:18 MCH 30 pg (28-32) 07/26/20 10:18 MCHC 33 % (30-34) 07/26/20 10:18 RDW 16.5 % (13.2-15.2) H 07/26/20 10:18 Plt Count 169 K/mm3 (140-440) 07/26/20 10:18 Lymph % (Auto) 16.5 % (13.4-35.0) 07/26/20 10:18 [place] % (Auto) 3.8 % (0.0-7.3) 07/26/20 10:18 Eos % (Auto) 2.5 % (0.0-4.3) 07/26/20 10:18 Baso % (Auto) 0.4 % (0.0-1.8) 07/26/20 10:18 Lymph # (Auto) 0.9 K/mm3 (1.2-5.4) L 07/26/20 10:18 [place] # (Auto) 0.2 K/mm3 (0.0-0.8) 07/26/20 10:18 Eos # (Auto) 0.1 K/mm3 (0.0-0.4) 07/26/20 10:18 Baso # (Auto) 0.0 K/mm3 (0.0-0.1) 07/26/20 10:18 Seg Neutrophils % 76.8 % (40.0-70.0) H 07/26/20 10:18 Seg Neutrophils # 4.1 K/mm3 (1.8-7.7) 07/26/20 10:18 PT 19.5 Sec. (12.2-14.9) H 07/26/20 10:18 INR 1.63 (0.87-1.13) H 07/26/20 10:18 APTT 28.2 Sec. (24.2-36.6) 07/13/20 23:36 Sodium 135 mmol/L (137-145) L 07/26/20 10:18 Potassium 4.4 mmol/L (3.6-5.0) 07/26/20 10:18 Chloride 94.3 mmol/L (98-107) L 07/26/20 10:18 Carbon Dioxide 26 mmol/L (22-30) 07/26/20 10:18 Anion Gap 19 mmol/L 07/26/20 10:18 BUN 51 mg/dL (7-17) H 07/26/20 10:18 Creatinine 6.6 mg/dL (0.6-1.2) H 07/26/20 10:18 Estimated GFR 8 ml/min 07/26/20 10:18 BUN/Creatinine Ratio 8 % 07/26/20 10:18 Glucose 157 mg/dL (65-100) H 07/26/20 10:18 Calcium 9.2 mg/dL (8.4-10.2) 07/26/20 10:18 Total Creatine Kinase 81 units/L (30-135) 07/14/20 10:13 CK-MB (CK-2) 1.9 ng/mL (0.0-4.0) 07/14/20 10:13 CK-MB (CK-2) Rel Index 2.3 (0-4) 07/14/20 10:13 Troponin T 0.099 ng/mL (0.00-0.029) H 07/14/20 10:13 Triglycerides 89 mg/dL (2-149) 07/13/20 23:36 Cholesterol 152 mg/dL (50-199) 07/13/20 23:36 LDL Cholesterol Direct 84 mg/dL (50-130) 07/13/20 23:36 HDL Cholesterol 59 mg/dL (40-59) 07/13/20 23:36 Cholesterol/HDL Ratio 2.57 % 07/13/20 23:36 Coronavirus (PCR) Negative (Negative) 07/21/20 Unknown Hepatitis A IgM Ab Non-reactive (NonReactive) 07/14/20 10:13 Hep Bs Antigen Non-reactive (Negative) 07/14/20 10:13 Hep B Core IgM Ab Non-reactive (NonReactive) 07/14/20 10:13 Hepatitis C Antibody Non-reactive (NonReactive) 07/14/20 10:13 - Diagnostic Impressions Diagnostic Impressions: Echocardiogram 07/14/20 10:55 Transthoracic Echocardiogram Indication: Chest Pain BP: 137/63 HR: 79 Conclusions *The left ventricular chamber size is normal. *Mild concentric left ventricular hypertrophy is observed. *There are multiple regional wall motion abnormalities. *septal,basal inferior wall hypokinetic *The estimated ejection fraction is 35-40%. *Abnormal left ventricular diastolic filling is observed, consistent with impaired relaxation. *The left ventricular diastolic filling pattern is consistent with pseudonormalization. *The left ventricular diastolic filling pattern is consistent with elevated mean left atrial pressure. *The left atrium is mildly dilated. *The right ventricle is mild to moderately dilated. *The aortic valve leaflets are moderately thickened. *There is trace of aortic regurgitation. *There is no evidence of aortic stenosis. *There is mitral annular calcification. *There is mild to moderate mitral regurgitation. *There is mild to moderate tricuspid regurgitation. *There is no pericardial effusion. *The inferior vena cava appears normal in size. Findings Left Ventricle: The left ventricular chamber size is normal. Mild concentric left ventricular hypertrophy is observed. There are multiple regional wall motion abnormalities. Global left ventricular systolic function is mild to moderately decreased. The estimated ejection fraction is 35-40%. Abnormal left ventricular diastolic function is observed. The left ventricular diastolic filling pattern is consistent with pseudonormalization. The left ventricular diastolic filling pattern is consistent with elevated mean left atrial pressure. Left Atrium: The left atrium is mildly dilated. Right Ventricle: The right ventricle is mild to moderately dilated. The right ventricular global systolic function is normal. Right Atrium: The right atrium appears normal. The interatrial septum appears normal. 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 Aortic Valve: The aortic valve is trileaflet. The aortic valve leaflets are moderately thickened. There is trace of aortic regurgitation. There is no evidence of aortic stenosis. Mitral Valve: The mitral valve leaflets appear normal. There is mitral annular calcification. There is mild to moderate mitral regurgitation. There is no evidence of mitral stenosis. Tricuspid Valve: The tricuspid valve leaflets are normal. There is mild to moderate tricuspid regurgitation. There is no tricuspid stenosis. Pulmonic Valve: The pulmonic valve appears normal. There is trace pulmonic regurgitation. There is no pulmonic stenosis. Pericardium: There is no pericardial effusion. Aorta: There is no dilatation of the ascending aorta. There is no dilatation of the aortic arch. There is no dilatation of the descending thoracic aorta. There is no dilatation of the aortic root. Venous: The inferior vena cava appears normal in size. Measurements Chambers 2D Name Value Normal Range IVSd (2D) 1.21 cm (0.6 - 1.1) LVPWd (2D) 1.22 cm (0.6 - 1.1) LVIDd (2D) 5.61 cm (3.7 - 5.6) LVIDs (2D) 4.74 cm (2 - 3.8) LV FS (2D) 15.52 % - EF Teichholz (2D) 32.35 % - Ao root diameter (2D) 2.98 cm (2 - 3.7) Volumes/Mass Name Value Normal Range LA ESV SP 4CH (A/L) 90.79 ml - LA ESV SP 2CH (A/L) 79.53 ml - LA ESV BP (A/L) 85.37 ml - LA ESV SP 4CH (MOD) 84.6 ml - LA ESV SP 2CH (MOD) 74.61 ml - LV EDV SP 4CH (MOD) 197.38 ml - LV ESV SP 4CH (MOD) 123.93 ml - EF SP 4CH (MOD) 37.21 % - LV EDV SP 2CH (MOD) 194.2 ml - LV ESV SP 2CH (MOD) 123.7 ml - EF SP 2CH (MOD) 36.3 % - LV EDV BP 201.77 ml - LV ESV BP 131.12 ml - BP EF (MOD) 35.02 % - Diastolic/Systolic Function Name Value Normal Range MV E-wave Vmax 1.15 m/sec - MV deceleration time 133.32 msec - MV A-wave Vmax 0.78 m/sec - MV E:A ratio 1.48 ratio - Aortic Valve Name Value Normal Range AV Vmax 1.8 m/sec - AV VTI 35.01 cm - AV peak gradient 12.99 mmHg - AV mean gradient 6.54 mmHg - LVOT diameter 2.11 cm - LVOT Vmax 0.86 m/sec - LVOT VTI 17.92 cm - LVOT peak gradient 2.94 mmHg - LVOT mean gradient 1.54 mmHg - SV LVOT 62.77 ml - SKINNY (continuity Vmax) 1.67 cm2 - SKINNY (continuity VTI) 1.79 cm2 - Tricuspid Valve Name Value Normal Range TR Vmax 3.55 m/sec - TR peak gradient 50.29 mmHg - Pulmonic Valve/Qp:Qs Name Value Normal Range PV Vmax 1.09 m/sec - PV peak gradient 4.78 mmHg - DE end-diastolic Vmax 1.48 m/sec - PV acceleration time 117.98 msec - Veliz/IV: Voiding Method Bedpan IV Catheter Type [Left Hand] Peripheral IV IV Catheter Type [Left INT / Saline Lock Internal Jugular] Active Medications - Current Medications Current Medications: Generic Name Dose Route Start Last Admin Trade Name Freq PRN Reason Stop Dose Admin Acetaminophen 650 mg 07/13/20 23:07 07/22/20 01:45 Tylenol PO 650 mg Q4H PRN Administration Headache Albuterol 2.5 mg 07/16/20 18:22 07/20/20 11:25 Proventil IH 2.5 mg Q4HRT PRN Administration Shortness Of Breath Aspirin 81 mg 07/14/20 10:00 07/26/20 10:41 Halfprin Ec PO Not Given QDAY [facility] Atorvastatin Calcium 40 mg 07/14/20 22:00 07/25/20 21:58 Lipitor PO Not Given QHS [facility] Carvedilol 25 mg 07/14/20 10:00 07/26/20 10:41 Coreg PO Not Given BID [facility] Clopidogrel Bisulfate 75 mg 07/14/20 10:00 07/26/20 10:41 Plavix PO Not Given QDAY [facility] Ezetimibe 10 mg 07/14/20 10:00 07/26/20 13:33 Zetia PO Not Given QDAY [facility] Epoetin Mulugeta 10,000 unit 07/21/20 17:17 07/24/20 10:32 Procrit IV 10,000 unit CHICHI PRN Administration hemodialysis Fluticasone Propionate 100 mcg 07/14/20 10:00 07/26/20 10:41 Flonase NS Not Given QDAY [facility] Furosemide 80 mg 07/14/20 10:00 07/26/20 10:41 Lasix PO Not Given DAILY [facility] Sodium Chloride 100 mls @ 999 mls/hr 07/14/20 13:00 Nacl 0.9% IV CHICHI PRN Hypotension Lidocaine 1 each 07/15/20 16:00 07/26/20 13:31 Lidoderm 5% TD 1 each QDAY [facility] Administration Lisinopril 5 mg 07/17/20 10:00 07/26/20 13:32 Zestril PO Not Given QDAY [facility] Loperamide HCl 2 mg 07/15/20 19:18 07/15/20 21:41 Imodium PO 2 mg Q2H PRN Administration Diarrhea Nifedipine 90 mg 07/14/20 10:00 07/26/20 10:40 Procardia Xl PO 90 mg BID JP Administration Nitroglycerin 0.5 inch 07/14/20 06:00 07/26/20 14:17 Nitro-Bid 2% TP Not Given QIDNTG [facility] Protocol Ondansetron HCl 4 mg 07/13/20 23:07 Zofran IV Q8H PRN Nausea And Vomiting Warfarin Sodium 10 mg 07/16/20 17:00 07/25/20 17:32 Coumadin PO 10 mg DAILY@1700 [facility] Administration Protocol Warfarin Sodium 3 mg 07/24/20 17:00 07/25/20 17:32 Coumadin PO 3 mg DAILY@1700 [facility] Administration Nutrition/Malnutrition Assess - Dietary Evaluation Nutrition/Malnutrition Findings: Nutrition Notes Start: 07/17/20 13:10 Freq: Status: Active Protocol: Document 07/20/20 11:27 EN (Rec: 07/20/20 11:34 EN [email or web address]) Co-Sign 07/20/20 11:27 LM Nutrition Notes Initial or Follow up Reassessment Current Diagnosis CKD (stage V CKD),Coronary Artery Disease,Diabetes, Hypertension Other Pertinent Diagnosis ESRD on HD, NSTEMI, dyslipidedema Current Diet Renal Labs/Tests 07/19: BUN 25, Cr 4.1 Pertinent Medications Reviewed Height 5 ft 3 in Weight 75.4 kg [place] Body Weight (kg) 52.27 BMI 29.4 Weight Status Overweight Subjective/Other Information F/u for intakes. Pt reports eating 100% of breakfast. Pt would like pork and fruit cups during meals. Pt reports loose stool at 10:00 this morning. Pt states that appetite is good and denies N/ V Percent of energy/protein needs met: 100%/86% Burn Absent Trauma Absent GI Symptoms Diarrhea Food Allergy Yes Current % PO Good (75-100%) Minimum of two criteria No Interpretation of Weight Loss (severe) >5% in 1 month #2 Nutrition Diagnosis Inadequate oral intake As Evidenced by Signs and Symptoms consuming 100% of meals Diagnosis Progress(for reassessment Resolved documentation) #1 Nutrition Diagnosis Food and nutrition-related knowledge deficit As Evidenced by Signs and Symptoms No further Coumadin/Vit k questions Diagnosis Progress(for reassessment Resolved documentation) Is patient on ventilator? No Is Patient Ambulatory and/or Out of Bed No REE-([facility]-confined to bed) 4616.268 Calculation Used for Recommendations [facility] Additional Notes Protein: >1.2 g/kg (> 90g) Fluid: Urine output + 1000 ml/ day Nutrition Intervention Change Diet Order: Continue Renal Diet Goal #1 Meet 75% of energy and protein needs Anticipated Discharge Needs: Renal diet Revisit per MD consult or patient Sign Off request:
[2020-07-26] MEDS: WARFARIN 1 MG TAB PO SCH (21:55)
[2020-07-26] MEDS: WARFARIN 10 MG TAB PO SCH (21:56)
[2020-07-27] MEDS: cloNIDine 0.2 MG TAB PO PRN (01:36)
[2020-07-27] MEDS: NITROGLYCERIN 2% OINT 1 GM TP SCH ×4 (05:21→18:36)
[2020-07-27] MEDS ORDERED: LISINOPRIL 5 MG TAB PO SCH (07:16)
--- NOTE | 2020-07-27 09:22 | Progress Note ---
Assessment and Plan Impression: * End stage renal disease * NSTEMI --MPI: fixed lateral wall defect; no significant ischemia; EF 38%. (Jul 15 2020) --TTE: mild concentric LVH; multiple regional wall abnormalities (septal, basal, inf wall hypokinetic); EF 35-40%; impaired LV relaxation (Jul 14 2020) * Ischemic cardiomyopathy * Hypertension * Anemia secondary to CKD * Secondary hyperparathyroidism Plan: * Continue hemodialysis MWF * UF as tolerated * Cardiology recommendations noted * Renal/HD diet * Discharge planning in progress - awaiting SNF placement Subjective Date of service: 07/27/20 Principal diagnosis: ESRD/HD, Acc HTN, NSTEMI 2, H/o PE/DVT (IVC filter) Interval history: resting in bed today Objective - Exam Narrative Exam: General appearance: well-developed, well-nourished EENT: ATNC Neck: other ([facility] permcath) Respiratory: Present: Clear to Ascultation Cardiology: regular, S1S2 Gastrointestinal: normal, no tenderness, no distended Integumentary: warm and dry Psychiatric: cooperative - Vital Signs Vital signs: Vital Signs - 12hr 07/26/20 07/26/20 07/26/20 21:56 21:57 22:00 Temperature Pulse Rate 89 89 Respiratory 16 Rate Blood Pressure 182/114 182/114 O2 Sat by Pulse 93 Oximetry 07/26/20 07/27/20 07/27/20 23:23 01:36 05:21 Temperature 99.3 F Pulse Rate 86 86 74 Respiratory 16 Rate Blood Pressure 204/87 204/87 149/78 O2 Sat by Pulse 93 Oximetry - Lab 07/26/20 10:18 07/26/20 10:18 Most recent lab results Calcium 9.2 mg/dL (8.4-10.2) 07/26/20 10:18 Medications & Allergies - Medications Allergies/Adverse Reactions: Allergies apixaban [From Eliquis] Allergy (Verified 03/01/17 20:29) Itching dabigatran etexilate mesylate [From Pradaxa] Allergy (Verified 03/01/17 20:27) Itching heparin Allergy (Verified 07/14/20 05:54) Vomiting hydralazine HCl [From Apresoline] Allergy (Verified 03/01/17 13:11) Unknown morphine Allergy (Verified 02/15/14 02:23) Itching povidone-iodine [From Betadine] Allergy (Verified 03/01/17 20:26) Itching rivaroxaban [From Xarelto] Allergy (Verified 03/01/17 20:29) Itching soap [From Betadine] Allergy (Verified 03/01/17 20:26) Itching verapamil HCl [From Calan] Allergy (Verified 02/15/14 02:23) Headache Home Medications: Home Medications Medication Instructions Recorded Confirmed Last Taken Type Fluticasone Propionate [Flonase] 100 mcg NS QDAY 02/15/14 07/14/20 Unknown History Albuterol Sulfate [Albuterol 0.63% 0.63 mg IH Q4H PRN 03/01/17 07/14/20 1 Month Ago History NEBS] ~01/29/17 AtorvaSTATin [Lipitor] 40 mg PO QHS 03/01/17 07/14/20 1 Day Ago History ~02/28/17 Clopidogrel [Plavix] 75 mg PO QDAY 03/01/17 07/14/20 Unknown History Ferrous Sulfate [Feosol 325 MG tab] 325 mg PO QDAY 03/01/17 07/14/20 Unknown History Oxymetazoline 0.05% [Vicks Sinex] 1 spray NS BID 03/01/17 07/14/20 1 Day Ago History ~02/28/17 carvediloL [Coreg] 25 mg PO BID 03/01/17 07/14/20 Unknown History Aspirin EC [Halfprin EC] 81 mg PO QDAY #30 tablet. 03/05/17 07/14/20 Unknown Rx AtorvaSTATin [Lipitor] 80 mg PO QHS #30 tablet 03/05/17 07/14/20 Unknown Rx Ezetimibe [Zetia] 10 mg PO QDAY #30 tablet 03/05/17 07/14/20 Unknown Rx Furosemide [Lasix TAB] 80 mg PO QDAY #30 tablet 03/05/17 07/14/20 Unknown Rx HYDROcodone/APAP 5-325 [[place] 1 - 2 each PO Q4-6H PRN #15 tablet 03/05/17 Unknown Rx 5-325 mg TAB] Nystatin [Nystop Powder] 1 applic TP BID #15 g 03/05/17 07/14/20 Unknown Rx Warfarin [Coumadin] 10 mg PO DAILY@1700 #7 tablet 03/05/17 07/14/20 Unknown Rx Lidocaine [Lidoderm] 5 patch TRANSDERMA QDAY 07/14/20 07/14/20 Unknown History NIFEdipine XL [Procardia Xl] 90 mg PO BID 07/14/20 07/14/20 Unknown History Warfarin [Coumadin] 2 mg PO QDAY 07/14/20 07/14/20 Unknown History Warfarin [Coumadin] 10 mg PO QDAY 07/14/20 07/14/20 Unknown History oxyCODONE /ACETAMINOPHEN [Percocet 1 tab PO Q6HR PRN 07/14/20 07/14/20 Unknown History 5/325] Levothyroxine [Synthroid] 88 mcg PO QAM 07/21/20 07/21/20 Unknown History Active Medications: Generic Name Dose Route Start Last Admin Trade Name Freq PRN Reason Stop Dose Admin Acetaminophen 650 mg 07/13/20 23:07 07/22/20 01:45 Tylenol PO 650 mg Q4H PRN Administration Headache Albuterol 2.5 mg 07/16/20 18:22 07/20/20 11:25 Proventil IH 2.5 mg Q4HRT PRN Administration Shortness Of Breath Aspirin 81 mg 07/14/20 10:00 07/26/20 10:41 Halfprin Ec PO Not Given QDAY [facility] Atorvastatin Calcium 40 mg 07/14/20 22:00 07/27/20 00:04 Lipitor PO Not Given QHS [facility] Carvedilol 25 mg 07/14/20 10:00 07/26/20 21:56 Coreg PO 25 mg BID JP Administration Clonidine HCl 0.2 mg 07/27/20 01:28 07/27/20 01:36 Catapres PO 0.2 mg Q4H PRN Administration Hypertension Clopidogrel Bisulfate 75 mg 07/14/20 10:00 07/26/20 10:41 Plavix PO Not Given QDAY [facility] Ezetimibe 10 mg 07/14/20 10:00 07/26/20 13:33 Zetia PO Not Given QDAY [facility] Epoetin Mulugeta 10,000 unit 07/21/20 17:17 07/24/20 10:32 Procrit IV 10,000 unit CHICHI PRN Administration hemodialysis Fluticasone Propionate 100 mcg 07/14/20 10:00 07/26/20 10:41 Flonase NS Not Given QDAY [facility] Furosemide 80 mg 07/14/20 10:00 07/26/20 10:41 Lasix PO Not Given DAILY [facility] Sodium Chloride 100 mls @ 999 mls/hr 07/14/20 13:00 Nacl 0.9% IV CHICHI PRN Hypotension Lidocaine 1 each 07/15/20 16:00 07/26/20 13:31 Lidoderm 5% TD 1 each QDAY [facility] Administration Lisinopril 20 mg 07/27/20 10:00 Zestril PO QDAY [facility] Loperamide HCl 2 mg 07/15/20 19:18 07/15/20 21:41 Imodium PO 2 mg Q2H PRN Administration Diarrhea Nifedipine 90 mg 07/14/20 10:00 07/26/20 21:56 Procardia Xl PO 90 mg BID [facility] Administration Nitroglycerin 0.5 inch 07/14/20 06:00 07/27/20 05:21 Nitro-Bid 2% TP 0.5 inch QIDNTG [facility] Administration Protocol Ondansetron HCl 4 mg 07/13/20 23:07 Zofran IV Q8H PRN Nausea And Vomiting Warfarin Sodium 10 mg 07/16/20 17:00 07/26/20 21:56 Coumadin PO 10 mg DAILY@1700 [facility] Administration Protocol Warfarin Sodium 3 mg 07/24/20 17:00 07/26/20 21:55 Coumadin PO 3 mg DAILY@1700 [facility] Administration
--- NOTE | 2020-07-27 11:24 | Progress Note ---
Assessment and Plan Assessment and plan: 60-year-old female patient who is legally blind with significant history of coronary artery disease status post PCI, ischemic cardiomyopathy CVA end-stage renal disease on hemodialysis, history of PE IVC filter placement anticoagulation with Coumadin anemia was admitted through emergency room with chest pain Elevated troponins, evaluated by cardiology, underwent stress test which was negative for acute ischemia, patient was seen by nephrology receiving hemodialysis per schedule Patient is clinically stable for discharge, awaiting placement 07/25. I have seen and examined the patient at the bedside Patient's chart and medications reviewed No new complaints, patient receiving hemodialysis per schedule Clinically stable for discharge Awaiting placement 07/16. No change in medical condition. Vitals remain stable. Awaiting placement Problems -Non-ST elevation SC, type II 07/15/2020 stress test negative for acute ischemia EF 38 %. Continue current management including aspirin and Plavix Cardiology cleared for discharge --History of coronary artery disease status post PCI Continue current cardiac medications, cardiology following --Ischemic cardiomyopathy; EF 40 to 45% 2016 Continue antifailure medications --End-stage renal disease; MWF On hemodialysis, nephrology following, HD per schedule Stable ,renal cleared for discharge --Hypertensive emergency; present on admission Blood pressures well controlled --History of peripheral vascular disease; Continue antiplatelets and statins --History of DVT and PE; chronic anticoagulation with Coumadin subtherapeutic INR noncompliant Coumadin resumed Target INR 2-3, Closely monitor Monitor INR and adjust as needed --History of IVC filter placement; supportive care --Type 2 diabetes mellitus; Accu-Chek sliding scale coverage ADA diet Insulin as needed --Dyslipidemia; Stable on lipid-lowering medications --Obesity; BMI 39.0 Advised weight reduction when medically stable --Possible obstructive sleep apnea; Patient may need outpatient sleep study Rule out KENY, CPAP BiPAP at night as needed ---Chronic back pain She uses 2 lidocaine patchs and opioids at home --DVT prophylaxis; Patient is already on Coumadin DC planning per case management We will closely monitor the patient and adjust management as needed Plan of care reviewed with the patient and her nurse Patient is stable for discharge, awaiting placement t History Interval history: Patient seen and examined at bedside She is requesting for additional lidocaine for her back pain which she uses at home Has watery discharge. Ordered eye drops Awaiting placement Hospitalist Physical - Physical exam Narrative exam: VITAL SIGNS: Reviewed. GENERAL: Awake and alert on response to questions HEAD: No signs of head trauma. EYES: Pupils are equal. Extraocular motions intact. EARS: Hearing grossly intact. MOUTH: Oropharynx is normal. NECK: No adenopathy, no JVD. CHEST: Chest with diminished breath sounds bilaterally. No wheezes, rales, or rhonchi. CARDIAC: Regular rate and rhythm. S1 and S2, without murmurs, gallops, or rubs. VASCULAR: No Edema. Peripheral pulses normal and equal in all extremities. ABDOMEN: Soft, non tender and non distended. No rebound or guarding, and no masses palpated. Bowel Sounds normal. MUSCULOSKELETAL: No leg edema NEUROLOGIC EXAM: Alert and oriented x3. No focal neurologic deficits SKIN: No obvious lesions - Constitutional Vitals: Temp Pulse Resp BP Pulse Ox 99.3 F 74 16 149/78 93 07/26/20 23:23 07/27/20 05:21 07/26/20 23:23 07/27/20 05:21 07/26/20 23:23 HEART Score - HEART Score Risk factors: > 3 risk factors or hx of atherosclerotic disease Troponin: Troponin T 0.099 ng/mL (0.00-0.029) H 07/14/20 10:13 Troponin: 1-3x normal limit - Critical Actions Critical Actions: 4-6 pts:12-16.6% risk of adverse cardiac event. Should be admitted (PATIENT UNDERGOING WORK UP) Results - Labs CBC & Chem 7: 07/26/20 10:18 07/26/20 10:18 Labs: Laboratory Last Values WBC 5.3 K/mm3 (4.5-11.0) 07/26/20 10:18 RBC 2.83 M/mm3 (3.65-5.03) L 07/26/20 10:18 Hgb 8.5 gm/dl (10.1-14.3) L 07/26/20 10:18 Hct 25.9 % (30.3-42.9) L 07/26/20 10:18 MCV 92 fl (79-97) 07/26/20 10:18 MCH 30 pg (28-32) 07/26/20 10:18 MCHC 33 % (30-34) 07/26/20 10:18 RDW 16.5 % (13.2-15.2) H 07/26/20 10:18 Plt Count 169 K/mm3 (140-440) 07/26/20 10:18 Lymph % (Auto) 16.5 % (13.4-35.0) 07/26/20 10:18 Love % (Auto) 3.8 % (0.0-7.3) 07/26/20 10:18 Eos % (Auto) 2.5 % (0.0-4.3) 07/26/20 10:18 Baso % (Auto) 0.4 % (0.0-1.8) 07/26/20 10:18 Lymph # (Auto) 0.9 K/mm3 (1.2-5.4) L 07/26/20 10:18 Love # (Auto) 0.2 K/mm3 (0.0-0.8) 07/26/20 10:18 Eos # (Auto) 0.1 K/mm3 (0.0-0.4) 07/26/20 10:18 Baso # (Auto) 0.0 K/mm3 (0.0-0.1) 07/26/20 10:18 Seg Neutrophils % 76.8 % (40.0-70.0) H 07/26/20 10:18 Seg Neutrophils # 4.1 K/mm3 (1.8-7.7) 07/26/20 10:18 PT 19.5 Sec. (12.2-14.9) H 07/26/20 10:18 INR 1.63 (0.87-1.13) H 07/26/20 10:18 APTT 28.2 Sec. (24.2-36.6) 07/13/20 23:36 Sodium 135 mmol/L (137-145) L 07/26/20 10:18 Potassium 4.4 mmol/L (3.6-5.0) 07/26/20 10:18 Chloride 94.3 mmol/L (98-107) L 07/26/20 10:18 Carbon Dioxide 26 mmol/L (22-30) 07/26/20 10:18 Anion Gap 19 mmol/L 07/26/20 10:18 BUN 51 mg/dL (7-17) H 07/26/20 10:18 Creatinine 6.6 mg/dL (0.6-1.2) H 07/26/20 10:18 Estimated GFR 8 ml/min 07/26/20 10:18 BUN/Creatinine Ratio 8 % 07/26/20 10:18 Glucose 157 mg/dL (65-100) H 07/26/20 10:18 Calcium 9.2 mg/dL (8.4-10.2) 07/26/20 10:18 Total Creatine Kinase 81 units/L (30-135) 07/14/20 10:13 CK-MB (CK-2) 1.9 ng/mL (0.0-4.0) 07/14/20 10:13 CK-MB (CK-2) Rel Index 2.3 (0-4) 07/14/20 10:13 Troponin T 0.099 ng/mL (0.00-0.029) H 07/14/20 10:13 Triglycerides 89 mg/dL (2-149) 07/13/20 23:36 Cholesterol 152 mg/dL (50-199) 07/13/20 23:36 LDL Cholesterol Direct 84 mg/dL (50-130) 07/13/20 23:36 HDL Cholesterol 59 mg/dL (40-59) 07/13/20 23:36 Cholesterol/HDL Ratio 2.57 % 07/13/20 23:36 Coronavirus (PCR) Negative (Negative) 07/21/20 Unknown Hepatitis A IgM Ab Non-reactive (NonReactive) 07/14/20 10:13 Hep Bs Antigen Non-reactive (Negative) 07/14/20 10:13 Hep B Core IgM Ab Non-reactive (NonReactive) 07/14/20 10:13 Hepatitis C Antibody Non-reactive (NonReactive) 07/14/20 10:13 - Diagnostic Impressions Diagnostic Impressions: Echocardiogram 07/14/20 10:55 Transthoracic Echocardiogram Indication: Chest Pain BP: 137/63 HR: 79 Conclusions *The left ventricular chamber size is normal. *Mild concentric left ventricular hypertrophy is observed. *There are multiple regional wall motion abnormalities. *septal,basal inferior wall hypokinetic *The estimated ejection fraction is 35-40%. *Abnormal left ventricular diastolic filling is observed, consistent with impaired relaxation. *The left ventricular diastolic filling pattern is consistent with pseudonormalization. *The left ventricular diastolic filling pattern is consistent with elevated mean left atrial pressure. *The left atrium is mildly dilated. *The right ventricle is mild to moderately dilated. *The aortic valve leaflets are moderately thickened. *There is trace of aortic regurgitation. *There is no evidence of aortic stenosis. *There is mitral annular calcification. *There is mild to moderate mitral regurgitation. *There is mild to moderate tricuspid regurgitation. *There is no pericardial effusion. *The inferior vena cava appears normal in size. Findings Left Ventricle: The left ventricular chamber size is normal. Mild concentric left ventricular hypertrophy is observed. There are multiple regional wall motion abnormalities. Global left ventricular systolic function is mild to moderately decreased. The estimated ejection fraction is 35-40%. Abnormal left ventricular diastolic function is observed. The left ventricular diastolic filling pattern is consistent with pseudonormalization. The left ventricular diastolic filling pattern is consistent with elevated mean left atrial pressure. Left Atrium: The left atrium is mildly dilated. Right Ventricle: The right ventricle is mild to moderately dilated. The right ventricular global systolic function is normal. Right Atrium: The right atrium appears normal. The interatrial septum appears normal. 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 Aortic Valve: The aortic valve is trileaflet. The aortic valve leaflets are moderately thickened. There is trace of aortic regurgitation. There is no evidence of aortic stenosis. Mitral Valve: The mitral valve leaflets appear normal. There is mitral annular calcification. There is mild to moderate mitral regurgitation. There is no evidence of mitral stenosis. Tricuspid Valve: The tricuspid valve leaflets are normal. There is mild to moderate tricuspid regurgitation. There is no tricuspid stenosis. Pulmonic Valve: The pulmonic valve appears normal. There is trace pulmonic regurgitation. There is no pulmonic stenosis. Pericardium: There is no pericardial effusion. Aorta: There is no dilatation of the ascending aorta. There is no dilatation of the aortic arch. There is no dilatation of the descending thoracic aorta. There is no dilatation of the aortic root. Venous: The inferior vena cava appears normal in size. Measurements Chambers 2D Name Value Normal Range IVSd (2D) 1.21 cm (0.6 - 1.1) LVPWd (2D) 1.22 cm (0.6 - 1.1) LVIDd (2D) 5.61 cm (3.7 - 5.6) LVIDs (2D) 4.74 cm (2 - 3.8) LV FS (2D) 15.52 % - EF Teichholz (2D) 32.35 % - Ao root diameter (2D) 2.98 cm (2 - 3.7) Volumes/Mass Name Value Normal Range LA ESV SP 4CH (A/L) 90.79 ml - LA ESV SP 2CH (A/L) 79.53 ml - LA ESV BP (A/L) 85.37 ml - LA ESV SP 4CH (MOD) 84.6 ml - LA ESV SP 2CH (MOD) 74.61 ml - LV EDV SP 4CH (MOD) 197.38 ml - LV ESV SP 4CH (MOD) 123.93 ml - EF SP 4CH (MOD) 37.21 % - LV EDV SP 2CH (MOD) 194.2 ml - LV ESV SP 2CH (MOD) 123.7 ml - EF SP 2CH (MOD) 36.3 % - LV EDV BP 201.77 ml - LV ESV BP 131.12 ml - BP EF (MOD) 35.02 % - Diastolic/Systolic Function Name Value Normal Range MV E-wave Vmax 1.15 m/sec - MV deceleration time 133.32 msec - MV A-wave Vmax 0.78 m/sec - MV E:A ratio 1.48 ratio - Aortic Valve Name Value Normal Range AV Vmax 1.8 m/sec - AV VTI 35.01 cm - AV peak gradient 12.99 mmHg - AV mean gradient 6.54 mmHg - LVOT diameter 2.11 cm - LVOT Vmax 0.86 m/sec - LVOT VTI 17.92 cm - LVOT peak gradient 2.94 mmHg - LVOT mean gradient 1.54 mmHg - SV LVOT 62.77 ml - SKINNY (continuity Vmax) 1.67 cm2 - SKINNY (continuity VTI) 1.79 cm2 - Tricuspid Valve Name Value Normal Range TR Vmax 3.55 m/sec - TR peak gradient 50.29 mmHg - Pulmonic Valve/Qp:Qs Name Value Normal Range PV Vmax 1.09 m/sec - PV peak gradient 4.78 mmHg - MI end-diastolic Vmax 1.48 m/sec - PV acceleration time 117.98 msec - Veliz/IV: Voiding Method Bedpan IV Catheter Type [Left Hand] Peripheral IV IV Catheter Type [Left INT / Saline Lock Internal Jugular] Active Medications - Current Medications Current Medications: Generic Name Dose Route Start Last Admin Trade Name Freq PRN Reason Stop Dose Admin Acetaminophen 650 mg 07/13/20 23:07 07/22/20 01:45 Tylenol PO 650 mg Q4H PRN Administration Headache Albuterol 2.5 mg 07/16/20 18:22 07/20/20 11:25 Proventil IH 2.5 mg Q4HRT PRN Administration Shortness Of Breath Aspirin 81 mg 07/14/20 10:00 07/26/20 10:41 Halfprin Ec PO Not Given QDAY [facility] Atorvastatin Calcium 40 mg 07/14/20 22:00 07/27/20 00:04 Lipitor PO Not Given QHS [facility] Carvedilol 25 mg 07/14/20 10:00 07/26/20 21:56 Coreg PO 25 mg BID [facility] Administration Clonidine HCl 0.2 mg 07/27/20 01:28 07/27/20 01:36 Catapres PO 0.2 mg Q4H PRN Administration Hypertension Clopidogrel Bisulfate 75 mg 07/14/20 10:00 07/26/20 10:41 Plavix PO Not Given QDAY [facility] Ezetimibe 10 mg 07/14/20 10:00 07/26/20 13:33 Zetia PO Not Given QDAY [facility] Epoetin Mulugeta 10,000 unit 07/21/20 17:17 07/24/20 10:32 Procrit IV 10,000 unit CHICHI PRN Administration hemodialysis Fluticasone Propionate 100 mcg 07/14/20 10:00 07/26/20 10:41 Flonase NS Not Given [facility] Furosemide 80 mg 07/14/20 10:00 07/26/20 10:41 Lasix PO Not Given DAILY [facility] Sodium Chloride 100 mls @ 999 mls/hr 07/14/20 13:00 Nacl 0.9% IV CHICHI PRN Hypotension Lidocaine 1 each 07/15/20 16:00 07/26/20 13:31 Lidoderm 5% TD 1 each [facility] Administration Lisinopril 20 mg 07/27/20 10:00 Zestril PO QDAY [facility] Loperamide HCl 2 mg 07/15/20 19:18 07/15/20 21:41 Imodium PO 2 mg Q2H PRN Administration Diarrhea Nifedipine 90 mg 07/14/20 10:00 07/26/20 21:56 Procardia Xl PO 90 mg BID [facility] Administration Nitroglycerin 0.5 inch 07/14/20 06:00 07/27/20 05:21 Nitro-Bid 2% TP 0.5 inch QIDNTG [facility] Administration Protocol Ondansetron HCl 4 mg 07/13/20 23:07 Zofran IV Q8H PRN Nausea And Vomiting Warfarin Sodium 10 mg 07/16/20 17:00 07/26/20 21:56 Coumadin PO 10 mg DAILY@1700 [facility] Administration Protocol Warfarin Sodium 3 mg 07/24/20 17:00 07/26/20 21:55 Coumadin PO 3 mg DAILY@1700 [facility] Administration Nutrition/Malnutrition Assess - Dietary Evaluation Nutrition/Malnutrition Findings: Nutrition Notes Start: 07/17/20 13:10 Freq: Status: Active Protocol: Document 07/20/20 11:27 EN (Rec: 07/20/20 11:34 EN [email or web address]) Co-Sign 07/20/20 11:27 LM Nutrition Notes Initial or Follow up Reassessment Current Diagnosis CKD (stage V CKD),Coronary Artery Disease,Diabetes, Hypertension Other Pertinent Diagnosis ESRD on HD, NSTEMI, dyslipidedema Current Diet Renal Labs/Tests 07/19: BUN 25, Cr 4.1 Pertinent Medications Reviewed Height 5 ft 3 in Weight 75.[address] [place] Body Weight (kg) 52.27 BMI 29.4 Weight Status Overweight Subjective/Other Information F/u for intakes. Pt reports eating 100% of breakfast. Pt would like pork and fruit cups during meals. Pt reports loose stool at 10:00 this morning. Pt states that appetite is good and denies N/ V Percent of energy/protein needs met: 100%/86% Burn Absent Trauma Absent GI Symptoms Diarrhea Food Allergy Yes Current % PO Good (75-100%) Minimum of two criteria No Interpretation of Weight Loss (severe) >5% in 1 month #2 Nutrition Diagnosis Inadequate oral intake As Evidenced by Signs and Symptoms consuming 100% of meals Diagnosis Progress(for reassessment Resolved documentation) #1 Nutrition Diagnosis Food and nutrition-related knowledge deficit As Evidenced by Signs and Symptoms No further Coumadin/Vit k questions Diagnosis Progress(for reassessment Resolved documentation) Is patient on ventilator? No Is Patient Ambulatory and/or Out of Bed No REE-([facility]-confined to bed) [phone] Calculation Used for Recommendations [place] Additional Notes Protein: >1.2 g/kg (> 90g) Fluid: Urine output + 1000 ml/ day Nutrition Intervention Change Diet Order: Continue Renal Diet Goal #1 Meet 75% of energy and protein needs Anticipated Discharge Needs: Renal diet Revisit per MD consult or patient Sign Off request:
[2020-07-27] MEDS ORDERED: NAPHAZOLINE/PHENIRAMINE 0.025/0.3% OPHTH SOLN 15 ML OU PRN (11:27)
[2020-07-27] MEDS: carvediloL 25 MG TAB PO SCH ×2 (12:01→22:26)
[2020-07-27] MEDS: NIFEdipine XL 90 MG TAB PO SCH ×2 (12:01→22:26)
[2020-07-27] MEDS: FLUTICASONE PROPIONATE NASAL SPRAY 16 GM NS SCH (12:02)
[2020-07-27] MEDS: ASPIRIN EC 81 MG TAB PO SCH (12:02)
[2020-07-27] MEDS: CLOPIDOGREL 75 MG TAB PO SCH (12:02)
[2020-07-27] MEDS: LISINOPRIL 20 MG TAB PO SCH (12:02)
[2020-07-27] MEDS: EZETIMIBE 10 MG TAB PO SCH (12:02)
[2020-07-27] MEDS: FUROSEMIDE 40 MG TAB PO SCH (12:02)
[2020-07-27] MEDS: LIDOCAINE 5% 1 EACH PATCH TD SCH ×3 (12:12→13:01)
[2020-07-27 16:15] LABS: INR 1.56 (0.87-1.13)
[2020-07-27] MEDS: WARFARIN 1 MG TAB PO SCH (18:37)
[2020-07-27] MEDS: WARFARIN 10 MG TAB PO SCH (18:37)
[2020-07-28] MEDS: NITROGLYCERIN 2% OINT 1 GM TP SCH ×4 (06:35→21:59)
[2020-07-28 07:40] LABS: INR 1.68 (0.87-1.13)
[2020-07-28] MEDS: NIFEdipine XL 90 MG TAB PO SCH ×2 (08:59→21:41)
--- NOTE | 2020-07-28 12:57 | Progress Note ---
Assessment and Plan Impression: * End stage renal disease * NSTEMI --MPI: fixed lateral wall defect; no significant ischemia; EF 38%. (Jul 15 2020) --TTE: mild concentric LVH; multiple regional wall abnormalities (septal, basal, inf wall hypokinetic); EF 35-40%; impaired LV relaxation (Jul 14 2020) * Ischemic cardiomyopathy * Hypertension * Anemia secondary to CKD * Secondary hyperparathyroidism Plan: * Continue hemodialysis MWF * UF as tolerated * Cardiology recommendations noted * Renal/HD diet * Discharge planning in progress - awaiting SNF placement Subjective Date of service: 07/28/20 Principal diagnosis: ESRD/HD, Acc HTN, NSTEMI 2, H/o PE/DVT (IVC filter) Interval history: resting in bed today Objective - Exam Narrative Exam: General appearance: well-developed, well-nourished EENT: ATNC Neck: other ([facility] permcath) Respiratory: Present: Clear to Ascultation Cardiology: regular, S1S2 Gastrointestinal: normal, no tenderness, no distended Integumentary: warm and dry Psychiatric: cooperative - Vital Signs Vital signs: Vital Signs - 12hr 07/28/20 07/28/20 07/28/20 05:45 06:35 07:58 Temperature 97.4 F L 97.6 F Pulse Rate 89 89 77 Respiratory 20 18 Rate Blood Pressure 181/89 181/89 160/85 O2 Sat by Pulse 98 100 Oximetry 07/28/20 07/28/20 07/28/20 09:55 10:00 10:15 Temperature 98.2 F Pulse Rate 89 86 90 Respiratory 20 Rate Blood Pressure 166/82 156/76 148/79 O2 Sat by Pulse Oximetry - Lab 07/26/20 10:18 07/26/20 10:18 Most recent lab results Calcium 9.2 mg/dL (8.4-10.2) 07/26/20 10:18 Medications & Allergies - Medications Allergies/Adverse Reactions: Allergies apixaban [From Eliquis] Allergy (Verified 03/01/17 20:29) Itching dabigatran etexilate mesylate [From Pradaxa] Allergy (Verified 03/01/17 20:27) Itching heparin Allergy (Verified 07/14/20 05:54) Vomiting hydralazine HCl [From Apresoline] Allergy (Verified 03/01/17 13:11) Unknown morphine Allergy (Verified 02/15/14 02:23) Itching povidone-iodine [From Betadine] Allergy (Verified 03/01/17 20:26) Itching rivaroxaban [From Xarelto] Allergy (Verified 03/01/17 20:29) Itching soap [From Betadine] Allergy (Verified 03/01/17 20:26) Itching verapamil HCl [From Calan] Allergy (Verified 02/15/14 02:23) Headache Home Medications: Home Medications Medication Instructions Recorded Confirmed Last Taken Type Fluticasone Propionate [Flonase] 100 mcg NS QDAY 02/15/14 07/14/20 Unknown History Albuterol Sulfate [Albuterol 0.63% 0.63 mg IH Q4H PRN 03/01/17 07/14/20 1 Month Ago History NEBS] ~01/29/17 AtorvaSTATin [Lipitor] 40 mg PO QHS 03/01/17 07/14/20 1 Day Ago History ~02/28/17 Clopidogrel [Plavix] 75 mg PO QDAY 03/01/17 07/14/20 Unknown History Ferrous Sulfate [Feosol 325 MG tab] 325 mg PO QDAY 03/01/17 07/14/20 Unknown H istory Oxymetazoline 0.05% [Vicks Sinex] 1 spray NS BID 03/01/17 07/14/20 1 Day Ago History ~02/28/17 carvediloL [Coreg] 25 mg PO BID 03/01/17 07/14/20 Unknown History Aspirin EC [Halfprin EC] 81 mg PO QDAY #30 tablet. 03/05/17 07/14/20 Unknown Rx AtorvaSTATin [Lipitor] 80 mg PO QHS #30 tablet 03/05/17 07/14/20 Unknown Rx Ezetimibe [Zetia] 10 mg PO QDAY #30 tablet 03/05/17 07/14/20 Unknown Rx Furosemide [Lasix TAB] 80 mg PO QDAY #30 tablet 03/05/17 07/14/20 Unknown Rx Nystatin [Nystop Powder] 1 applic TP BID #15 g 03/05/17 07/14/20 Unknown Rx Warfarin [Coumadin] 10 mg PO DAILY@1700 #7 tablet 03/05/17 07/14/20 Unknown Rx Lidocaine [Lidoderm] 5 patch TRANSDERMA QDAY 07/14/20 07/14/20 Unknown History NIFEdipine XL [Procardia Xl] 90 mg PO BID 07/14/20 07/14/20 Unknown History Warfarin [Coumadin] 2 mg PO QDAY 07/14/20 07/14/20 Unknown History Warfarin [Coumadin] 10 mg PO QDAY 07/14/20 07/14/20 Unknown History oxyCODONE /ACETAMINOPHEN [Percocet 1 tab PO Q6HR PRN 07/14/20 07/14/20 Unknown History 5/325] Levothyroxine [Synthroid] 88 mcg PO QAM 07/21/20 07/21/20 Unknown History Active Medications: Generic Name Dose Route Start Last Admin Trade Name Freq PRN Reason Stop Dose Admin Acetaminophen 650 mg 07/13/20 23:07 07/22/20 01:45 Tylenol PO 650 mg Q4H PRN Administration Headache Albuterol 2.5 mg 07/16/20 18:22 07/20/20 11:25 Proventil IH 2.5 mg Q4HRT PRN Administration Shortness Of Breath Aspirin 81 mg 07/14/20 10:00 07/27/20 12:02 Halfprin Ec PO Not Given QDAY [facility] Atorvastatin Calcium 40 mg 07/14/20 22:00 07/27/20 22:28 Lipitor PO Not Given QHS [facility] Carvedilol 25 mg 07/14/20 10:00 07/27/20 22:26 Coreg PO 25 mg BID JP Administration Clonidine HCl 0.2 mg 07/27/20 01:28 07/27/20 01:36 Catapres PO 0.2 mg Q4H PRN Administration Hypertension Clopidogrel Bisulfate 75 mg 07/14/20 10:00 07/27/20 12:02 Plavix PO Not Given QDAY [facility] Ezetimibe 10 mg 07/14/20 10:00 07/27/20 12:02 Zetia PO Not Given QDAY [facility] Epoetin Mulugeta 10,000 unit 07/21/20 17:17 07/24/20 10:32 Procrit IV 10,000 unit CHICHI PRN Administration hemodialysis Fluticasone Propionate 100 mcg 07/14/20 10:00 07/27/20 12:02 Flonase NS Not Given QDAY [facility] Furosemide 80 mg 07/14/20 10:00 07/27/20 12:02 Lasix PO 80 mg DAILY [facility] Administration Sodium Chloride 100 mls @ 999 mls/hr 07/14/20 13:00 Nacl 0.9% IV CHICHI PRN Hypotension Lidocaine 1 each 07/27/20 14:00 07/27/20 13:01 Lidoderm 5% TD Not Given QDAY [facility] Lisinopril 20 mg 07/27/20 10:00 07/27/20 12:02 Zestril PO Not Given QDAY [facility] Loperamide HCl 2 mg 07/15/20 19:18 07/15/20 21:41 Imodium PO 2 mg Q2H PRN Administration Diarrhea Naphazoline HCl/Pheniramine Maleate 2 drops 07/27/20 11:27 Visine-A OU Q6H PRN Allergy Symptoms Nifedipine 90 mg 07/14/20 10:00 07/28/20 08:59 Procardia Xl PO 90 mg BID JP Administration Nitroglycerin 0.5 inch 07/14/20 06:00 07/28/20 06:35 Nitro-Bid 2% TP 0.5 inch QIDNTG [facility] Administration Protocol Ondansetron HCl 4 mg 07/13/20 23:07 Zofran IV Q8H PRN Nausea And Vomiting Warfarin Sodium 10 mg 07/16/20 17:00 07/27/20 18:37 Coumadin PO 10 mg DAILY@1700 [facility] Administration Protocol Warfarin Sodium 3 mg 07/24/20 17:00 07/27/20 18:37 Coumadin PO 3 mg DAILY@1700 [facility] Administration
[2020-07-28] MEDS: LIDOCAINE 5% 1 EACH PATCH TD SCH (14:23)
[2020-07-28] MEDS: FUROSEMIDE 40 MG TAB PO SCH (14:23)
[2020-07-28] MEDS: carvediloL 25 MG TAB PO SCH ×2 (14:33→21:41)
[2020-07-28] MEDS: CLOPIDOGREL 75 MG TAB PO SCH (14:34)
[2020-07-28] MEDS: LISINOPRIL 20 MG TAB PO SCH (14:34)
[2020-07-28] MEDS: ASPIRIN EC 81 MG TAB PO SCH (14:34)
[2020-07-28] MEDS: EZETIMIBE 10 MG TAB PO SCH (14:34)
--- NOTE | 2020-07-28 15:07 | Progress Note ---
Assessment and Plan Assessment and plan: 60-year-old female patient who is legally blind with significant history of coronary artery disease status post PCI, ischemic cardiomyopathy CVA end-stage renal disease on hemodialysis, history of PE IVC filter placement anticoagulation with Coumadin anemia was admitted through emergency room with chest pain Elevated troponins, evaluated by cardiology, underwent stress test which was negative for acute ischemia, patient was seen by nephrology receiving hemodialysis per schedule Patient is clinically stable for discharge, awaiting placement 07/25. I have seen and examined the patient at the bedside Patient's chart and medications reviewed No new complaints, patient receiving hemodialysis per schedule Clinically stable for discharge Awaiting placement 07/26. No change in medical condition. Vitals remain stable. Awaiting placement 07/27. Has itchy left eye. Prescribed eye drops. Stable for DC 07/28. Stable for DC. No new complaints Problems -Non-ST elevation NC, type II 07/15/2020 stress test negative for acute ischemia EF 38 %. Continue current management including aspirin and Plavix Cardiology cleared for discharge --History of coronary artery disease status post PCI Continue current cardiac medications, cardiology following --Ischemic cardiomyopathy; EF 40 to 45% 2016 Continue antifailure medications --End-stage renal disease; MWF On hemodialysis, nephrology following, HD per schedule Stable ,renal cleared for discharge --Hypertensive emergency; present on admission Blood pressures well controlled --History of peripheral vascular disease; Continue antiplatelets and statins --History of DVT and PE; chronic anticoagulation with Coumadin subtherapeutic INR noncompliant Coumadin resumed Target INR 2-3, Closely monitor Monitor INR and adjust as needed --History of IVC filter placement; supportive care --Type 2 diabetes mellitus; Accu-Chek sliding scale coverage ADA diet Insulin as needed --Dyslipidemia; Stable on lipid-lowering medications --Obesity; BMI 39.0 Advised weight reduction when medically stable --Possible obstructive sleep apnea; Patient may need outpatient sleep study Rule out KENY, CPAP BiPAP at night as needed ---Chronic back pain She uses 2 lidocaine patchs and opioids at home ---Eye irritation Eyedrops --DVT prophylaxis; Patient is already on Coumadin DC planning per case management Plan of care reviewed with the patient and her nurse Patient is stable for discharge t History Interval history: Patient seen and examined at bedside No complaints Medically stable for discharge Hospitalist Physical - Physical exam Narrative exam: VITAL SIGNS: Reviewed. GENERAL: Awake and alert on response to questions HEAD: No signs of head trauma. EYES: Pupils are equal. Extraocular motions intact. EARS: Hearing grossly intact. MOUTH: Oropharynx is normal. NECK: No adenopathy, no JVD. CHEST: Chest with diminished breath sounds bilaterally. No wheezes, rales, or rhonchi. CARDIAC: Regular rate and rhythm. S1 and S2, without murmurs, gallops, or rubs. VASCULAR: No Edema. Peripheral pulses normal and equal in all extremities. ABDOMEN: Soft, non tender and non distended. No rebound or guarding, and no masses palpated. Bowel Sounds normal. MUSCULOSKELETAL: No leg edema NEUROLOGIC EXAM: Alert and oriented x3. No focal neurologic deficits SKIN: No obvious lesions - Constitutional Vitals: Temp Pulse Resp BP Pulse Ox 98.2 F 77 20 148/79 100 07/28/20 09:55 07/28/20 13:54 07/28/20 09:55 07/28/20 10:15 07/28/20 07:58 HEART Score - HEART Score Risk factors: > 3 risk factors or hx of atherosclerotic disease Troponin: Troponin T 0.099 ng/mL (0.00-0.029) H 07/14/20 10:13 Troponin: 1-3x normal limit - Critical Actions Critical Actions: 4-6 pts:12-16.6% risk of adverse cardiac event. Should be admitted (PATIENT UNDERGOING WORK UP) Results - Labs CBC & Chem 7: 07/26/20 10:18 07/26/20 10:18 Labs: Laboratory Last Values WBC 5.3 K/mm3 (4.5-11.0) 07/26/20 10:18 RBC 2.83 M/mm3 (3.65-5.03) L 07/26/20 10:18 Hgb 8.5 gm/dl (10.1-14.3) L 07/26/20 10:18 Hct 25.9 % (30.3-42.9) L 07/26/20 10:18 MCV 92 fl (79-97) 07/26/20 10:18 MCH 30 pg (28-32) 07/26/20 10:18 MCHC 33 % (30-34) 07/26/20 10:18 RDW 16.5 % (13.2-15.2) H 07/26/20 10:18 Plt Count 169 K/mm3 (140-440) 07/26/20 10:18 Lymph % (Auto) 16.5 % (13.4-35.0) 07/26/20 10:18 George % (Auto) 3.8 % (0.0-7.3) 07/26/20 10:18 Eos % (Auto) 2.5 % (0.0-4.3) 07/26/20 10:18 Baso % (Auto) 0.4 % (0.0-1.8) 07/26/20 10:18 Lymph # (Auto) 0.9 K/mm3 (1.2-5.4) L 07/26/20 10:18 George # (Auto) 0.2 K/mm3 (0.0-0.8) 07/26/20 10:18 Eos # (Auto) 0.1 K/mm3 (0.0-0.4) 07/26/20 10:18 Baso # (Auto) 0.0 K/mm3 (0.0-0.1) 07/26/20 10:18 Seg Neutrophils % 76.8 % (40.0-70.0) H 07/26/20 10:18 Seg Neutrophils # 4.1 K/mm3 (1.8-7.7) 07/26/20 10:18 PT 19.8 Sec. (12.2-14.9) H 07/28/20 07:10 INR 1.68 (0.87-1.13) H 07/28/20 07:10 APTT 28.2 Sec. (24.2-36.6) 07/13/20 23:36 Sodium 135 mmol/L (137-145) L 07/26/20 10:18 Potassium 4.4 mmol/L (3.6-5.0) 07/26/20 10:18 Chloride 94.3 mmol/L (98-107) L 07/26/20 10:18 Carbon Dioxide 26 mmol/L (22-30) 07/26/20 10:18 Anion Gap 19 mmol/L 07/26/20 10:18 BUN 51 mg/dL (7-17) H 07/26/20 10:18 Creatinine 6.6 mg/dL (0.6-1.2) H 07/26/20 10:18 Estimated GFR 8 ml/min 07/26/20 10:18 BUN/Creatinine Ratio 8 % 07/26/20 10:18 Glucose 157 mg/dL (65-100) H 07/26/20 10:18 Calcium 9.2 mg/dL (8.4-10.2) 07/26/20 10:18 Total Creatine Kinase 81 units/L (30-135) 07/14/20 10:13 CK-MB (CK-2) 1.9 ng/mL (0.0-4.0) 07/14/20 10:13 CK-MB (CK-2) Rel Index 2.3 (0-4) 07/14/20 10:13 Troponin T 0.099 ng/mL (0.00-0.029) H 07/14/20 10:13 Triglycerides 89 mg/dL (2-149) 07/13/20 23:36 Cholesterol 152 mg/dL (50-199) 07/13/20 23:36 LDL Cholesterol Direct 84 mg/dL (50-130) 07/13/20 23:36 HDL Cholesterol 59 mg/dL (40-59) 07/13/20 23:36 Cholesterol/HDL Ratio 2.57 % 07/13/20 23:36 Coronavirus (PCR) Negative (Negative) 07/21/20 Unknown Hepatitis A IgM Ab Non-reactive (NonReactive) 07/14/20 10:13 Hep Bs Antigen Non-reactive (Negative) 07/14/20 10:13 Hep B Core IgM Ab Non-reactive (NonReactive) 07/14/20 10:13 Hepatitis C Antibody Non-reactive (NonReactive) 07/14/20 10:13 - Diagnostic Impressions Diagnostic Impressions: Echocardiogram 07/14/20 10:55 Transthoracic Echocardiogram Indication: Chest Pain BP: 137/63 HR: 79 Conclusions *The left ventricular chamber size is normal. *Mild concentric left ventricular hypertrophy is observed. *There are multiple regional wall motion abnormalities. *septal,basal inferior wall hypokinetic *The estimated ejection fraction is 35-40%. *Abnormal left ventricular diastolic filling is observed, consistent with impaired relaxation. *The left ventricular diastolic filling pattern is consistent with pseudonormalization. *The left ventricular diastolic filling pattern is consistent with elevated mean left atrial pressure. *The left atrium is mildly dilated. *The right ventricle is mild to moderately dilated. *The aortic valve leaflets are moderately thickened. *There is trace of aortic regurgitation. *There is no evidence of aortic stenosis. *There is mitral annular calcification. *There is mild to moderate mitral regurgitation. *There is mild to moderate tricuspid regurgitation. *There is no pericardial effusion. *The inferior vena cava appears normal in size. Findings Left Ventricle: The left ventricular chamber size is normal. Mild concentric left ventricular hypertrophy is observed. There are multiple regional wall motion abnormalities. Global left ventricular systolic function is mild to moderately decreased. The estimated ejection fraction is 35-40%. Abnormal left ventricular diastolic function is observed. The left ventricular diastolic filling pattern is consistent with pseudonormalization. The left ventricular diastolic filling pattern is consistent with elevated mean left atrial pressure. Left Atrium: The left atrium is mildly dilated. Right Ventricle: The right ventricle is mild to moderately dilated. The right ventricular global systolic function is normal. Right Atrium: The right atrium appears normal. The interatrial septum appears normal. 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 Aortic Valve: The aortic valve is trileaflet. The aortic valve leaflets are moderately thickened. There is trace of aortic regurgitation. There is no evidence of aortic stenosis. Mitral Valve: The mitral valve leaflets appear normal. There is mitral annular calcification. There is mild to moderate mitral regurgitation. There is no evidence of mitral stenosis. Tricuspid Valve: The tricuspid valve leaflets are normal. There is mild to moderate tricuspid regurgitation. There is no tricuspid stenosis. Pulmonic Valve: The pulmonic valve appears normal. There is trace pulmonic regurgitation. There is no pulmonic stenosis. Pericardium: There is no pericardial effusion. Aorta: There is no dilatation of the ascending aorta. There is no dilatation of the aortic arch. There is no dilatation of the descending thoracic aorta. There is no dilatation of the aortic root. Venous: The inferior vena cava appears normal in size. Measurements Chambers 2D Name Value Normal Range IVSd (2D) 1.21 cm (0.6 - 1.1) LVPWd (2D) 1.22 cm (0.6 - 1.1) LVIDd (2D) 5.61 cm (3.7 - 5.6) LVIDs (2D) 4.74 cm (2 - 3.8) LV FS (2D) 15.52 % - EF Teichholz (2D) 32.35 % - Ao root diameter (2D) 2.98 cm (2 - 3.7) Volumes/Mass Name Value Normal Range LA ESV SP 4CH (A/L) 90.79 ml - LA ESV SP 2CH (A/L) 79.53 ml - LA ESV BP (A/L) 85.37 ml - LA ESV SP 4CH (MOD) 84.6 ml - LA ESV SP 2CH (MOD) 74.61 ml - LV EDV SP 4CH (MOD) 197.38 ml - LV ESV SP 4CH (MOD) 123.93 ml - EF SP 4CH (MOD) 37.21 % - LV EDV SP 2CH (MOD) 194.2 ml - LV ESV SP 2CH (MOD) 123.7 ml - EF SP 2CH (MOD) 36.3 % - LV EDV BP 201.77 ml - LV ESV BP 131.12 ml - BP EF (MOD) 35.02 % - Diastolic/Systolic Function Name Value Normal Range MV E-wave Vmax 1.15 m/sec - MV deceleration time 133.32 msec - MV A-wave Vmax 0.78 m/sec - MV E:A ratio 1.48 ratio - Aortic Valve Name Value Normal Range AV Vmax 1.8 m/sec - AV VTI 35.01 cm - AV peak gradient 12.99 mmHg - AV mean gradient 6.54 mmHg - LVOT diameter 2.11 cm - LVOT Vmax 0.86 m/sec - LVOT VTI 17.92 cm - LVOT peak gradient 2.94 mmHg - LVOT mean gradient 1.54 mmHg - SV LVOT 62.77 ml - SKINNY (continuity Vmax) 1.67 cm2 - SKINNY (continuity VTI) 1.79 cm2 - Tricuspid Valve Name Value Normal Range TR Vmax 3.55 m/sec - TR peak gradient 50.29 mmHg - Pulmonic Valve/Qp:Qs Name Value Normal Range PV Vmax 1.09 m/sec - PV peak gradient 4.78 mmHg - CO end-diastolic Vmax 1.48 m/sec - PV acceleration time 117.98 msec - Veliz/IV: Voiding Method Bedpan IV Catheter Type [Left Hand] Peripheral IV IV Catheter Type [Left INT / Saline Lock Internal Jugular] Active Medications - Current Medications Current Medications: Generic Name Dose Route Start Last Admin Trade Name Freq PRN Reason Stop Dose Admin Acetaminophen 650 mg 07/13/20 23:07 07/22/20 01:45 Tylenol PO 650 mg Q4H PRN Administration Headache Albuterol 2.5 mg 07/16/20 18:22 07/20/20 11:25 Proventil IH 2.5 mg Q4HRT PRN Administration Shortness Of Breath Aspirin 81 mg 07/14/20 10:00 07/28/20 14:34 Halfprin Ec PO Not Given QDAY [facility] Atorvastatin Calcium 40 mg 07/14/20 22:00 07/27/20 22:28 Lipitor PO Not Given QHS [facility] Carvedilol 25 mg 07/14/20 10:00 07/28/20 14:33 Coreg PO Not Given BID [facility] Clonidine HCl 0.2 mg 07/27/20 01:28 07/27/20 01:36 Catapres PO 0.2 mg Q4H PRN Administration Hypertension Clopidogrel Bisulfate 75 mg 07/14/20 10:00 07/28/20 14:34 Plavix PO Not Given QDAY [facility] Ezetimibe 10 mg 07/14/20 10:00 07/28/20 14:34 Zetia PO Not Given QDAY [facility] Epoetin Mulugeta 10,000 unit 07/21/20 17:17 07/24/20 10:32 Procrit IV 10,000 unit CHICHI PRN Administration hemodialysis Fluticasone Propionate 100 mcg 07/14/20 10:00 07/27/20 12:02 Flonase NS Not Given QDAY [facility] Furosemide 80 mg 07/14/20 10:00 07/28/20 14:23 Lasix PO 80 mg DAILY [facility] Administration Sodium Chloride 100 mls @ 999 mls/hr 07/14/20 13:00 Nacl 0.9% IV CHICHI PRN Hypotension Lidocaine 1 each 07/27/20 14:00 07/28/20 14:23 Lidoderm 5% TD 1 each QDAY [facility] Administration Lisinopril 20 mg 07/27/20 10:00 07/28/20 14:34 Zestril PO Not Given QDAY [facility] Loperamide HCl 2 mg 07/15/20 19:18 07/15/20 21:41 Imodium PO 2 mg Q2H PRN Administration Diarrhea Naphazoline HCl/Pheniramine Maleate 2 drops 07/27/20 11:27 Visine-A OU Q6H PRN Allergy Symptoms Nifedipine 90 mg 07/14/20 10:00 07/28/20 08:59 Procardia Xl PO 90 mg BID JP Administration Nitroglycerin 0.5 inch 07/14/20 06:00 07/28/20 14:35 Nitro-Bid 2% TP Not Given QIDNTG [facility] Protocol Ondansetron HCl 4 mg 07/13/20 23:07 Zofran IV Q8H PRN Nausea And Vomiting Warfarin Sodium 10 mg 07/16/20 17:00 07/27/20 18:37 Coumadin PO 10 mg DAILY@1700 [facility] Administration Protocol Warfarin Sodium 3 mg 07/24/20 17:00 07/27/20 18:37 Coumadin PO 3 mg DAILY@1700 [facility] Administration Nutrition/Malnutrition Assess - Dietary Evaluation Nutrition/Malnutrition Findings: Nutrition Notes Start: 07/17/20 13:10 Freq: Status: Active Protocol: Document 07/20/20 11:27 EN (Rec: 07/20/20 11:34 EN [email or web address]) Co-Sign 07/20/20 11:27 LM Nutrition Notes Initial or Follow up Reassessment Current Diagnosis CKD (stage V CKD),Coronary Artery Disease,Diabetes, Hypertension Other Pertinent Diagnosis ESRD on HD, NSTEMI, dyslipidedema Current Diet Renal Labs/Tests 07/19: BUN 25, Cr 4.1 Pertinent Medications Reviewed Height 5 ft 3 in Weight 75.4 kg [place] Body Weight (kg) 52.27 BMI 29.4 Weight Status Overweight Subjective/Other Information F/u for intakes. Pt reports eating 100% of breakfast. Pt would like pork and fruit cups during meals. Pt reports loose stool at 10:00 this morning. Pt states that appetite is good and denies N/ V Percent of energy/protein needs met: 100%/86% Burn Absent Trauma Absent GI Symptoms Diarrhea Food Allergy Yes Current % PO Good (75-100%) Minimum of two criteria No Interpretation of Weight Loss (severe) >5% in 1 month #2 Nutrition Diagnosis Inadequate oral intake As Evidenced by Signs and Symptoms consuming 100% of meals Diagnosis Progress(for reassessment Resolved documentation) #1 Nutrition Diagnosis Food and nutrition-related knowledge deficit As Evidenced by Signs and Symptoms No further Coumadin/Vit k questions Diagnosis Progress(for reassessment Resolved documentation) Is patient on ventilator? No Is Patient Ambulatory and/or Out of Bed No REE-([facility]-confined to bed) 0828.775 Calculation Used for Recommendations [facility] Additional Notes Protein: >1.2 g/kg (> 90g) Fluid: Urine output + 1000 ml/ day Nutrition Intervention Change Diet Order: Continue Renal Diet Goal #1 Meet 75% of energy and protein needs Anticipated Discharge Needs: Renal diet Revisit per MD consult or patient Sign Off request:
[2020-07-28] MEDS: WARFARIN 1 MG TAB PO SCH (21:43)
[2020-07-28] MEDS: WARFARIN 10 MG TAB PO SCH (21:44)
[2020-07-28] MEDS: FLUTICASONE PROPIONATE NASAL SPRAY 16 GM NS SCH (21:56)
[2020-07-29] MEDS: cloNIDine 0.2 MG TAB PO PRN ×2 (02:46→08:31)
[2020-07-29] MEDS: NITROGLYCERIN 2% OINT 1 GM TP SCH ×4 (06:07→17:32)
[2020-07-29] MEDS: ACETAMINOPHEN 325 MG TAB PO PRN (08:31)
--- NOTE | 2020-07-29 08:40 | Progress Note ---
Assessment and Plan Impression: * End stage renal disease * NSTEMI --MPI: fixed lateral wall defect; no significant ischemia; EF 38%. (Jul 15 2020) --TTE: mild concentric LVH; multiple regional wall abnormalities (septal, basal, inf wall hypokinetic); EF 35-40%; impaired LV relaxation (Jul 14 2020) * Ischemic cardiomyopathy * Hypertension * Anemia secondary to CKD * Secondary hyperparathyroidism Plan: * Continue hemodialysis MWF * UF as tolerated * Cardiology recommendations noted * Renal/HD diet * Discharge planning in progress - awaiting SNF placement * ok to dc from renal standpoint Subjective Date of service: 07/29/20 Principal diagnosis: ESRD/HD, Acc HTN, NSTEMI 2, H/o PE/DVT (IVC filter) Interval history: resting in bed today Objective - Exam Narrative Exam: General appearance: well-developed, well-nourished EENT: ATNC Neck: other ([facility] permcath) Respiratory: Present: Clear to Ascultation Cardiology: regular, S1S2 Gastrointestinal: normal, no tenderness, no distended Integumentary: warm and dry Psychiatric: cooperative - Vital Signs Vital signs: Vital Signs - 12hr 07/28/20 07/28/20 07/29/20 21:06 21:41 01:00 Temperature 97.2 F L Pulse Rate 93 H 93 H Pulse Rate [ 72 Apical] Respiratory 18 18 Rate Blood Pressure 201/98 201/98 O2 Sat by Pulse 100 96 Oximetry 07/29/20 07/29/20 07/29/20 02:38 02:46 04:54 Temperature 97.3 F L Pulse Rate 83 83 83 Pulse Rate [ Apical] Respiratory 20 Rate Blood Pressure 170/78 170/78 182/83 O2 Sat by Pulse 98 98 Oximetry 07/29/20 07/29/20 06:07 08:31 Temperature Pulse Rate 78 Pulse Rate [ Apical] Respiratory Rate Blood Pressure 184/93 192/84 O2 Sat by Pulse Oximetry - Lab 07/26/20 10:18 07/26/20 10:18 Most recent lab results Calcium 9.2 mg/dL (8.4-10.2) 07/26/20 10:18 Medications & Allergies - Medications Allergies/Adverse Reactions: Allergies apixaban [From Eliquis] Allergy (Verified 03/01/17 20:29) Itching dabigatran etexilate mesylate [From Pradaxa] Allergy (Verified 03/01/17 20:27) Itching heparin Allergy (Verified 07/14/20 05:54) Vomiting hydralazine HCl [From Apresoline] Allergy (Verified 03/01/17 13:11) Unknown morphine Allergy (Verified 02/15/14 02:23) Itching povidone-iodine [From Betadine] Allergy (Verified 03/01/17 20:26) Itching rivaroxaban [From Xarelto] Allergy (Verified 03/01/17 20:29) Itching soap [From Betadine] Allergy (Verified 03/01/17 20:26) Itching verapamil HCl [From Calan] Allergy (Verified 02/15/14 02:23) Headache Home Medications: Home Medications Medication Instructions Recorded Confirmed Last Taken Type Fluticasone Propionate [Flonase] 100 mcg NS QDAY 02/15/14 07/14/20 Unknown History Albuterol Sulfate [Albuterol 0.63% 0.63 mg IH Q4H PRN 03/01/17 07/14/20 1 Month Ago History NEBS] ~01/29/17 AtorvaSTATin [Lipitor] 40 mg PO QHS 03/01/17 07/14/20 1 Day Ago History ~02/28/17 Clopidogrel [Plavix] 75 mg PO QDAY 03/01/17 07/14/20 Unknown History Ferrous Sulfate [Feosol 325 MG tab] 325 mg PO QDAY 03/01/17 07/14/20 Unknown History Oxymetazoline 0.05% [Vicks Sinex] 1 spray NS BID 03/01/17 07/14/20 1 Day Ago History ~02/28/17 carvediloL [Coreg] 25 mg PO BID 03/01/17 07/14/20 Unknown History Aspirin EC [Halfprin EC] 81 mg PO QDAY #30 tablet. 03/05/17 07/14/20 Unknown Rx AtorvaSTATin [Lipitor] 80 mg PO QHS #30 tablet 03/05/17 07/14/20 Unknown Rx Ezetimibe [Zetia] 10 mg PO QDAY #30 tablet 03/05/17 07/14/20 Unknown Rx Furosemide [Lasix TAB] 80 mg PO QDAY #30 tablet 03/05/17 07/14/20 Unknown Rx Nystatin [Nystop Powder] 1 applic TP BID #15 g 03/05/17 07/14/20 Unknown Rx Warfarin [Coumadin] 10 mg PO DAILY@1700 #7 tablet 03/05/17 07/14/20 Unknown Rx Lidocaine [Lidoderm] 5 patch TRANSDERMA QDAY 07/14/20 07/14/20 Unknown History NIFEdipine XL [Procardia Xl] 90 mg PO BID 07/14/20 07/14/20 Unknown History Warfarin [Coumadin] 2 mg PO QDAY 07/14/20 07/14/20 Unknown History Warfarin [Coumadin] 10 mg PO QDAY 07/14/20 07/14/20 Unknown History oxyCODONE /ACETAMINOPHEN [Percocet 1 tab PO Q6HR PRN 07/14/20 07/14/20 Unknown History 5/325] Levothyroxine [Synthroid] 88 mcg PO QAM 07/21/20 07/21/20 Unknown History Active Medications: Generic Name Dose Route Start Last Admin Trade Name Freq PRN Reason Stop Dose Admin Acetaminophen 650 mg 07/13/20 23:07 07/29/20 08:31 Tylenol PO 650 mg Q4H PRN Administration Headache Albuterol 2.5 mg 07/16/20 18:22 07/20/20 11:25 Proventil IH 2.5 mg Q4HRT PRN Administration Shortness Of Breath Aspirin 81 mg 07/14/20 10:00 07/28/20 14:34 Halfprin Ec PO Not Given QDAY [facility] Atorvastatin Calcium 40 mg 07/14/20 22:00 07/28/20 21:41 Lipitor PO Not Given QHS JP Carvedilol 25 mg 07/14/20 10:00 07/28/20 21:41 Coreg PO 25 mg BID JP Administration Clonidine HCl 0.2 mg 07/27/20 01:28 07/29/20 08:31 Catapres PO 0.2 mg Q4H PRN Administration Hypertension Clonidine HCl 0.1 mg 07/29/20 09:00 Catapres PO Q8HR [facility] Clopidogrel Bisulfate 75 mg 07/14/20 10:00 07/28/20 14:34 Plavix PO Not Given QDAY [facility] Ezetimibe 10 mg 07/14/20 10:00 07/28/20 14:34 Zetia PO Not Given QDAY [facility] Epoetin Mulugeta 10,000 unit 07/21/20 17:17 07/24/20 10:32 Procrit IV 10,000 unit CHICHI PRN Administration hemodialysis Fluticasone Propionate 100 mcg 07/14/20 10:00 07/28/20 21:56 Flonase NS Not Given QDAY [facility] Furosemide 80 mg 07/14/20 10:00 07/28/20 14:23 Lasix PO 80 mg DAILY JP Administration Sodium Chloride 100 mls @ 999 mls/hr 07/14/20 13:00 Nacl 0.9% IV CHICHI PRN Hypotension Lidocaine 1 each 07/27/20 14:00 07/28/20 14:23 Lidoderm 5% TD 1 each QDAY [facility] Administration Lisinopril 20 mg 07/27/20 10:00 07/28/20 14:34 Zestril PO Not Given QDAY [facility] Loperamide HCl 2 mg 07/15/20 19:18 07/15/20 21:41 Imodium PO 2 mg Q2H PRN Administration Diarrhea Naphazoline HCl/Pheniramine Maleate 2 drops 07/27/20 11:27 Visine-A OU Q6H PRN Allergy Symptoms Nifedipine 90 mg 07/14/20 10:00 07/28/20 21:41 Procardia Xl PO 90 mg BID JP Administration Nitroglycerin 0.5 inch 07/14/20 06:00 07/29/20 06:07 Nitro-Bid 2% TP 0.5 inch QIDNTG [facility] Administration Protocol Ondansetron HCl 4 mg 07/13/20 23:07 Zofran IV Q8H PRN Nausea And Vomiting Warfarin Sodium 10 mg 07/16/20 17:00 07/28/20 21:44 Coumadin PO 10 mg DAILY@1700 [facility] Administration Protocol Warfarin Sodium 3 mg 07/24/20 17:00 07/28/20 21:43 Coumadin PO 3 mg DAILY@1700 [facility] Administration
[2020-07-29 09:32] LABS: INR 1.5 (0.87-1.13)
[2020-07-29] MEDS: ASPIRIN EC 81 MG TAB PO SCH (11:01)
[2020-07-29] MEDS: FUROSEMIDE 40 MG TAB PO SCH (11:01)
[2020-07-29] MEDS: cloNIDine 0.1 MG TAB PO SCH ×3 (11:01→22:26)
[2020-07-29] MEDS: LISINOPRIL 20 MG TAB PO SCH (11:02)
[2020-07-29] MEDS: EZETIMIBE 10 MG TAB PO SCH (11:02)
[2020-07-29] MEDS: CLOPIDOGREL 75 MG TAB PO SCH (11:02)
[2020-07-29] MEDS: NIFEdipine XL 90 MG TAB PO SCH ×2 (11:02→22:16)
[2020-07-29] MEDS: carvediloL 25 MG TAB PO SCH ×3 (11:02→22:16)
[2020-07-29] MEDS: LIDOCAINE 5% 1 EACH PATCH TD SCH (11:04)
[2020-07-29] MEDS: FLUTICASONE PROPIONATE NASAL SPRAY 16 GM NS SCH (11:05)
--- NOTE | 2020-07-29 12:18 | Progress Note ---
Assessment and Plan Assessment and plan: 60-year-old female patient who is legally blind with significant history of coronary artery disease status post PCI, ischemic cardiomyopathy CVA end-stage renal disease on hemodialysis, history of PE IVC filter placement anticoagulation with Coumadin anemia was admitted through emergency room with chest pain Elevated troponins, evaluated by cardiology, underwent stress test which was negative for acute ischemia, patient was seen by nephrology receiving hemodialysis per schedule Patient is clinically stable for discharge, awaiting placement 07/25. I have seen and examined the patient at the bedside Patient's chart and medications reviewed No new complaints, patient receiving hemodialysis per schedule Clinically stable for discharge Awaiting placement 07/26. No change in medical condition. Vitals remain stable. Awaiting placement 07/27. Has itchy left eye. Prescribed eye drops. Stable for DC 07/28. Stable for DC. No new complaints 07/29. Medically stable for DC. BP elevated today. Added clonidine Problems -Non-ST elevation CO, type II 07/15/2020 stress test negative for acute ischemia EF 38 %. Continue current management including aspirin and Plavix Cardiology cleared for discharge --History of coronary artery disease status post PCI Continue current cardiac medications, cardiology following --Ischemic cardiomyopathy; EF 40 to 45% 2016 Continue antifailure medications --End-stage renal disease; MWF On hemodialysis, nephrology following, HD per schedule Stable ,renal cleared for discharge --Hypertensive emergency; present on admission Added clonidine. Monitor BP --History of peripheral vascular disease; Continue antiplatelets and statins --History of DVT and PE; chronic anticoagulation with Coumadin subtherapeutic INR noncompliant Coumadin resumed Target INR 2-3, Closely monitor Monitor INR and adjust as needed --History of IVC filter placement; supportive care --Type 2 diabetes mellitus; Accu-Chek sliding scale coverage ADA diet Insulin as needed --Dyslipidemia; Stable on lipid-lowering medications --Obesity; BMI 39.0 Advised weight reduction when medically stable --Possible obstructive sleep apnea; Patient may need outpatient sleep study Rule out KENY, CPAP BiPAP at night as needed ---Chronic back pain She uses 2 lidocaine patchs and opioids at home ---Eye irritation Antihistamine eyedrops --DVT prophylaxis; Patient is already on Coumadin DC planning per case management Plan of care reviewed with the patient and her nurse Patient is stable for discharge t History Interval history: Patient seen and examined at bedside Has no complaints Medically stable for discharge Hospitalist Physical - Physical exam Narrative exam: VITAL SIGNS: Reviewed. GENERAL: Awake and alert on response to questions HEAD: No signs of head trauma. EYES: Pupils are equal. Extraocular motions intact. EARS: Hearing grossly intact. MOUTH: Oropharynx is normal. NECK: No adenopathy, no JVD. CHEST: Chest with diminished breath sounds bilaterally. No wheezes, rales, or rhonchi. CARDIAC: Regular rate and rhythm. S1 and S2, without murmurs, gallops, or rubs. VASCULAR: No Edema. Peripheral pulses normal and equal in all extremities. ABDOMEN: Soft, non tender and non distended. No rebound or guarding, and no masses palpated. Bowel Sounds normal. MUSCULOSKELETAL: No leg edema NEUROLOGIC EXAM: Alert and oriented x3. No focal neurologic deficits SKIN: No obvious lesions - Constitutional Vitals: Temp Pulse Resp BP Pulse Ox 97.3 F L 78 20 192/84 98 07/29/20 04:54 07/29/20 06:07 07/29/20 04:54 07/29/20 08:31 07/29/20 04:54 HEART Score - HEART Score Risk factors: > 3 risk factors or hx of atherosclerotic disease Troponin: Troponin T 0.099 ng/mL (0.00-0.029) H 07/14/20 10:13 Troponin: 1-3x normal limit - Critical Actions Critical Actions: 4-6 pts:12-16.6% risk of adverse cardiac event. Should be admitted (PATIENT UNDERGOING WORK UP) Results - Labs CBC & Chem 7: 07/26/20 10:18 07/26/20 10:18 Labs: Laboratory Last Values WBC 5.3 K/mm3 (4.5-11.0) 07/26/20 10:18 RBC 2.83 M/mm3 (3.65-5.03) L 07/26/20 10:18 Hgb 8.5 gm/dl (10.1-14.3) L 07/26/20 10:18 Hct 25.9 % (30.3-42.9) L 07/26/20 10:18 MCV 92 fl (79-97) 07/26/20 10:18 MCH 30 pg (28-32) 07/26/20 10:18 MCHC 33 % (30-34) 07/26/20 10:18 RDW 16.5 % (13.2-15.2) H 07/26/20 10:18 Plt Count 169 K/mm3 (140-440) 07/26/20 10:18 Lymph % (Auto) 16.5 % (13.4-35.0) 07/26/20 10:18 [place] % (Auto) 3.8 % (0.0-7.3) 07/26/20 10:18 Eos % (Auto) 2.5 % (0.0-4.3) 07/26/20 10:18 Baso % (Auto) 0.4 % (0.0-1.8) 07/26/20 10:18 Lymph # (Auto) 0.9 K/mm3 (1.2-5.4) L 07/26/20 10:18 [place] # (Auto) 0.2 K/mm3 (0.0-0.8) 07/26/20 10:18 Eos # (Auto) 0.1 K/mm3 (0.0-0.4) 07/26/20 10:18 Baso # (Auto) 0.0 K/mm3 (0.0-0.1) 07/26/20 10:18 Seg Neutrophils % 76.8 % (40.0-70.0) H 07/26/20 10:18 Seg Neutrophils # 4.1 K/mm3 (1.8-7.7) 07/26/20 10:18 PT 18.1 Sec. (12.2-14.9) H 07/29/20 08:00 INR 1.50 (0.87-1.13) H 07/29/20 08:00 APTT 28.2 Sec. (24.2-36.6) 07/13/20 23:36 Sodium 135 mmol/L (137-145) L 07/26/20 10:18 Potassium 4.4 mmol/L (3.6-5.0) 07/26/20 10:18 Chloride 94.3 mmol/L (98-107) L 07/26/20 10:18 Carbon Dioxide 26 mmol/L (22-30) 07/26/20 10:18 Anion Gap 19 mmol/L 07/26/20 10:18 BUN 51 mg/dL (7-17) H 07/26/20 10:18 Creatinine 6.6 mg/dL (0.6-1.2) H 07/26/20 10:18 Estimated GFR 8 ml/min 07/26/20 10:18 BUN/Creatinine Ratio 8 % 07/26/20 10:18 Glucose 157 mg/dL (65-100) H 07/26/20 10:18 Calcium 9.2 mg/dL (8.4-10.2) 07/26/20 10:18 Total Creatine Kinase 81 units/L (30-135) 07/14/20 10:13 CK-MB (CK-2) 1.9 ng/mL (0.0-4.0) 07/14/20 10:13 CK-MB (CK-2) Rel Index 2.3 (0-4) 07/14/20 10:13 Troponin T 0.099 ng/mL (0.00-0.029) H 07/14/20 10:13 Triglycerides 89 mg/dL (2-149) 07/13/20 23:36 Cholesterol 152 mg/dL (50-199) 07/13/20 23:36 LDL Cholesterol Direct 84 mg/dL (50-130) 07/13/20 23:36 HDL Cholesterol 59 mg/dL (40-59) 07/13/20 23:36 Cholesterol/HDL Ratio 2.57 % 07/13/20 23:36 Coronavirus (PCR) Negative (Negative) 07/21/20 Unknown Hepatitis A IgM Ab Non-reactive (NonReactive) 07/14/20 10:13 Hep Bs Antigen Non-reactive (Negative) 07/14/20 10:13 Hep B Core IgM Ab Non-reactive (NonReactive) 07/14/20 10:13 Hepatitis C Antibody Non-reactive (NonReactive) 07/14/20 10:13 - Diagnostic Impressions Diagnostic Impressions: Echocardiogram 07/14/20 10:55 Transthoracic Echocardiogram Indication: Chest Pain BP: 137/63 HR: 79 Conclusions *The left ventricular chamber size is normal. *Mild concentric left ventricular hypertrophy is observed. *There are multiple regional wall motion abnormalities. *septal,basal inferior wall hypokinetic *The estimated ejection fraction is 35-40%. *Abnormal left ventricular diastolic filling is observed, consistent with impaired relaxation. *The left ventricular diastolic filling pattern is consistent with pseudonormalization. *The left ventricular diastolic filling pattern is consistent with elevated mean left atrial pressure. *The left atrium is mildly dilated. *The right ventricle is mild to moderately dilated. *The aortic valve leaflets are moderately thickened. *There is trace of aortic regurgitation. *There is no evidence of aortic stenosis. *There is mitral annular calcification. *There is mild to moderate mitral regurgitation. *There is mild to moderate tricuspid regurgitation. *There is no pericardial effusion. *The inferior vena cava appears normal in size. Findings Left Ventricle: The left ventricular chamber size is normal. Mild concentric left ventricular hypertrophy is observed. There are multiple regional wall motion abnormalities. Global left ventricular systolic function is mild to moderately decreased. The estimated ejection fraction is 35-40%. Abnormal left ventricular diastolic function is observed. The left ventricular diastolic filling pattern is consistent with pseudonormalization. The left ventricular diastolic filling pattern is consistent with elevated mean left atrial pressure. Left Atrium: The left atrium is mildly dilated. Right Ventricle: The right ventricle is mild to moderately dilated. The right ventricular global systolic function is normal. Right Atrium: The right atrium appears normal. The interatrial septum appears normal. 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 Aortic Valve: The aortic valve is trileaflet. The aortic valve leaflets are moderately thickened. There is trace of aortic regurgitation. There is no evidence of aortic stenosis. Mitral Valve: The mitral valve leaflets appear normal. There is mitral annular calcification. There is mild to moderate mitral regurgitation. There is no evidence of mitral stenosis. Tricuspid Valve: The tricuspid valve leaflets are normal. There is mild to moderate tricuspid regurgitation. There is no tricuspid stenosis. Pulmonic Valve: The pulmonic valve appears normal. There is trace pulmonic regurgitation. There is no pulmonic stenosis. Pericardium: There is no pericardial effusion. Aorta: There is no dilatation of the ascending aorta. There is no dilatation of the aortic arch. There is no dilatation of the descending thoracic aorta. There is no dilatation of the aortic root. Venous: The inferior vena cava appears normal in size. Measurements Chambers 2D Name Value Normal Range IVSd (2D) 1.21 cm (0.6 - 1.1) LVPWd (2D) 1.22 cm (0.6 - 1.1) LVIDd (2D) 5.61 cm (3.7 - 5.6) LVIDs (2D) 4.74 cm (2 - 3.8) LV FS (2D) 15.52 % - EF Teichholz (2D) 32.35 % - Ao root diameter (2D) 2.98 cm (2 - 3.7) Volumes/Mass Name Value Normal Range LA ESV SP 4CH (A/L) 90.79 ml - LA ESV SP 2CH (A/L) 79.53 ml - LA ESV BP (A/L) 85.37 ml - LA ESV SP 4CH (MOD) 84.6 ml - LA ESV SP 2CH (MOD) 74.61 ml - LV EDV SP 4CH (MOD) 197.38 ml - LV ESV SP 4CH (MOD) 123.93 ml - EF SP 4CH (MOD) 37.21 % - LV EDV SP 2CH (MOD) 194.2 ml - LV ESV SP 2CH (MOD) 123.7 ml - EF SP 2CH (MOD) 36.3 % - LV EDV BP 201.77 ml - LV ESV BP 131.12 ml - BP EF (MOD) 35.02 % - Diastolic/Systolic Function Name Value Normal Range MV E-wave Vmax 1.15 m/sec - MV deceleration time 133.32 msec - MV A-wave Vmax 0.78 m/sec - MV E:A ratio 1.48 ratio - Aortic Valve Name Value Normal Range AV Vmax 1.8 m/sec - AV VTI 35.01 cm - AV peak gradient 12.99 mmHg - AV mean gradient 6.54 mmHg - LVOT diameter 2.11 cm - LVOT Vmax 0.86 m/sec - LVOT VTI 17.92 cm - LVOT peak gradient 2.94 mmHg - LVOT mean gradient 1.54 mmHg - SV LVOT 62.77 ml - SKINNY (continuity Vmax) 1.67 cm2 - SKINNY (continuity VTI) 1.79 cm2 - Tricuspid Valve Name Value Normal Range TR Vmax 3.55 m/sec - TR peak gradient 50.29 mmHg - Pulmonic Valve/Qp:Qs Name Value Normal Range PV Vmax 1.09 m/sec - PV peak gradient 4.78 mmHg - DC end-diastolic Vmax 1.48 m/sec - PV acceleration time 117.98 msec - Veliz/IV: Voiding Method Bedpan IV Catheter Type [Left Hand] Peripheral IV IV Catheter Type [Left INT / Saline Lock Internal Jugular] Active Medications - Current Medications Current Medications: Generic Name Dose Route Start Last Admin Trade Name Freq PRN Reason Stop Dose Admin Acetaminophen 650 mg 07/13/20 23:07 07/29/20 08:31 Tylenol PO 650 mg Q4H PRN Administration Headache Albuterol 2.5 mg 07/16/20 18:22 07/20/20 11:25 Proventil IH 2.5 mg Q4HRT PRN Administration Shortness Of Breath Aspirin 81 mg 07/14/20 10:00 07/29/20 11:01 Halfprin Ec PO 81 mg QDAY JP Administration Atorvastatin Calcium 40 mg 07/14/20 22:00 07/28/20 21:41 Lipitor PO Not Given QHS JP Carvedilol 25 mg 07/14/20 10:00 07/29/20 11:02 Coreg PO 25 mg BID JP Administration Clonidine HCl 0.2 mg 07/27/20 01:28 07/29/20 08:31 Catapres PO 0.2 mg Q4H PRN Administration Hypertension Clonidine HCl 0.1 mg 07/29/20 09:00 07/29/20 11:01 Catapres PO 0.1 mg Q8HR JP Administration Clopidogrel Bisulfate 75 mg 07/14/20 10:00 07/29/20 11:02 Plavix PO 75 mg QDAY JP Administration Ezetimibe 10 mg 07/14/20 10:00 07/29/20 11:02 Zetia PO 10 mg QDAY JP Administration Epoetin [place] 10,000 unit 07/21/20 17:17 07/24/20 10:32 Procrit IV 10,000 unit CHICHI PRN Administration hemodialysis Fluticasone Propionate 100 mcg 07/14/20 10:00 07/29/20 11:05 Flonase NS 100 mcg QDAY JP Administration Furosemide 80 mg 07/14/20 10:00 07/29/20 11:01 Lasix PO 80 mg DAILY JP Administration Sodium Chloride 100 mls @ 999 mls/hr 07/14/20 13:00 Nacl 0.9% IV CHICHI PRN Hypotension Lidocaine 1 each 07/27/20 14:00 07/29/20 11:04 Lidoderm 5% TD 1 each QDAY JP Administration Lisinopril 20 mg 07/27/20 10:00 07/29/20 11:02 Zestril PO 20 mg QDAY JP Administration Loperamide HCl 2 mg 07/15/20 19:18 07/15/20 21:41 Imodium PO 2 mg Q2H PRN Administration Diarrhea Naphazoline HCl/Pheniramine Maleate 2 drops 07/27/20 11:27 Visine-A OU Q6H PRN Allergy Symptoms Nifedipine 90 mg 07/14/20 10:00 07/29/20 11:02 Procardia Xl PO 90 mg BID JP Administration Nitroglycerin 0.5 inch 07/14/20 06:00 07/29/20 11:02 Nitro-Bid 2% TP Not Given QIDNTG [facility] Protocol Ondansetron HCl 4 mg 07/13/20 23:07 Zofran IV Q8H PRN Nausea And Vomiting Warfarin Sodium 10 mg 07/16/20 17:00 07/28/20 21:44 Coumadin PO 10 mg DAILY@1700 [facility] Administration Protocol Warfarin Sodium 3 mg 07/24/20 17:00 07/28/20 21:43 Coumadin PO 3 mg DAILY@1700 [facility] Administration Nutrition/Malnutrition Assess - Dietary Evaluation Nutrition/Malnutrition Findings: Nutrition Notes Start: 07/17/20 13:10 Freq: Status: Active Protocol: Document 07/20/20 11:27 EN (Rec: 07/20/20 11:34 EN [email or web address]) Co-Sign 07/20/20 11:27 LM Nutrition Notes Initial or Follow up Reassessment Current Diagnosis CKD (stage V CKD),Coronary Artery Disease,Diabetes, Hypertension Other Pertinent Diagnosis ESRD on HD, NSTEMI, dyslipidedema Current Diet Renal Labs/Tests 07/19: BUN 25, Cr 4.1 Pertinent Medications Reviewed Height 5 ft 3 in Weight 75.4 kg [place] Body Weight (kg) 52.27 BMI 29.4 Weight Status Overweight Subjective/Other Information F/u for intakes. Pt reports eating 100% of breakfast. Pt would like pork and fruit cups during meals. Pt reports loose stool at 10:00 this morning. Pt states that appetite is good and denies N/ V Percent of energy/protein needs met: 100%/86% Burn Absent Trauma Absent GI Symptoms Diarrhea Food Allergy Yes Current % PO Good (75-100%) Minimum of two criteria No Interpretation of Weight Loss (severe) >5% in 1 month #2 Nutrition Diagnosis Inadequate oral intake As Evidenced by Signs and Symptoms consuming 100% of meals Diagnosis Progress(for reassessment Resolved documentation) #1 Nutrition Diagnosis Food and nutrition-related knowledge deficit As Evidenced by Signs and Symptoms No further Coumadin/Vit k questions Diagnosis Progress(for reassessment Resolved documentation) Is patient on ventilator? No Is Patient Ambulatory and/or Out of Bed No REE-([facility]-confined to bed) 9860.580 Calculation Used for Recommendations [facility] Additional Notes Protein: >1.2 g/kg (> 90g) Fluid: Urine output + 1000 ml/ day Nutrition Intervention Change Diet Order: Continue Renal Diet Goal #1 Meet 75% of energy and protein needs Anticipated Discharge Needs: Renal diet Revisit per MD consult or patient Sign Off request:
[2020-07-29] MEDS: ALBUTEROL 2.5 MG/3 ML NEBU IH PRN (15:24)
[2020-07-29] MEDS: WARFARIN 5 MG TAB PO SCH (17:14)
[2020-07-29] MEDS: WARFARIN 10 MG TAB PO SCH (17:14)
[2020-07-30] MEDS: cloNIDine 0.1 MG TAB PO SCH ×4 (06:39→22:07)
[2020-07-30] MEDS: NITROGLYCERIN 2% OINT 1 GM TP SCH ×4 (06:40→17:47)
[2020-07-30] MEDS: NIFEdipine XL 90 MG TAB PO SCH ×2 (09:33→21:43)
[2020-07-30] MEDS: FUROSEMIDE 40 MG TAB PO SCH (09:33)
[2020-07-30] MEDS: EZETIMIBE 10 MG TAB PO SCH (09:33)
[2020-07-30] MEDS: ASPIRIN EC 81 MG TAB PO SCH (09:33)
[2020-07-30] MEDS: CLOPIDOGREL 75 MG TAB PO SCH (09:33)
[2020-07-30] MEDS: carvediloL 25 MG TAB PO SCH ×2 (09:34→21:44)
[2020-07-30] MEDS: LISINOPRIL 20 MG TAB PO SCH (09:34)
[2020-07-30] MEDS: FLUTICASONE PROPIONATE NASAL SPRAY 16 GM NS SCH (09:35)
[2020-07-30] MEDS: LIDOCAINE 5% 1 EACH PATCH TD SCH (09:35)
--- NOTE | 2020-07-30 12:15 | Progress Note ---
Assessment and Plan Impression: * End stage renal disease * NSTEMI --MPI: fixed lateral wall defect; no significant ischemia; EF 38%. (Jul 15 2020) --TTE: mild concentric LVH; multiple regional wall abnormalities (septal, basal, inf wall hypokinetic); EF 35-40%; impaired LV relaxation (Jul 14 2020) * Ischemic cardiomyopathy * Hypertension * Anemia secondary to CKD * Secondary hyperparathyroidism Plan: * Continue hemodialysis MWF * UF as tolerated * Cardiology recommendations noted * Renal/HD diet * Discharge planning in progress - awaiting SNF placement * ok to dc from renal standpoint Subjective Date of service: 07/30/20 Principal diagnosis: ESRD/HD, Acc HTN, NSTEMI 2, H/o PE/DVT (IVC filter) Interval history: resting in bed today Objective - Exam Narrative Exam: General appearance: well-developed, well-nourished EENT: ATNC Neck: other ([facility] permcath) Respiratory: Present: Clear to Ascultation Cardiology: regular, S1S2 Gastrointestinal: normal, no tenderness, no distended Integumentary: warm and dry Psychiatric: cooperative - Vital Signs Vital signs: Vital Signs - 12hr 07/30/20 07/30/20 07/30/20 01:00 05:22 06:39 Temperature 98.3 F 97.3 F L Pulse Rate 76 84 84 Respiratory 18 18 Rate Blood Pressure 133/82 133/82 Blood Pressure 162/78 [Right] O2 Sat by Pulse 95 100 Oximetry 07/30/20 07/30/20 07/30/20 06:40 08:53 09:31 Temperature 97.9 F Pulse Rate 84 88 80 Respiratory 20 Rate Blood Pressure 133/82 177/90 187/75 Blood Pressure [Right] O2 Sat by Pulse 99 95 Oximetry 07/30/20 07/30/20 09:34 11:47 Temperature Pulse Rate 81 73 Respiratory Rate Blood Pressure 187/75 141/63 Blood Pressure [Right] O2 Sat by Pulse 77 L Oximetry - Lab 07/26/20 10:18 07/26/20 10:18 Most recent lab results Calcium 9.2 mg/dL (8.4-10.2) 07/26/20 10:18 Medications & Allergies - Medications Allergies/Adverse Reactions: Allergies apixaban [From Eliquis] Allergy (Verified 03/01/17 20:29) Itching dabigatran etexilate mesylate [From Pradaxa] Allergy (Verified 03/01/17 20:27) Itching heparin Allergy (Verified 07/14/20 05:54) Vomiting hydralazine HCl [From Apresoline] Allergy (Verified 03/01/17 13:11) Unknown morphine Allergy (Verified 02/15/14 02:23) Itching povidone-iodine [From Betadine] Allergy (Verified 03/01/17 20:26) Itching rivaroxaban [From Xarelto] Allergy (Verified 03/01/17 20:29) Itching soap [From Betadine] Allergy (Verified 03/01/17 20:26) Itching verapamil HCl [From Calan] Allergy (Verified 02/15/14 02:23) Headache Home Medications: Home Medications Medication Instructions Recorded Confirmed Last Taken Type Fluticasone Propionate [Flonase] 100 mcg NS QDAY 02/15/14 07/14/20 Unknown History Albuterol Sulfate [Albuterol 0.63% 0.63 mg IH Q4H PRN 03/01/17 07/14/20 1 Month Ago History NEBS] ~01/29/17 AtorvaSTATin [Lipitor] 40 mg PO QHS 03/01/17 07/14/20 1 Day Ago History ~02/28/17 Clopidogrel [Plavix] 75 mg PO QDAY 03/01/17 07/14/20 Unknown History Ferrous Sulfate [Feosol 325 MG tab] 325 mg PO QDAY 03/01/17 07/14/20 Unknown History Oxymetazoline 0.05% [Vicks Sinex] 1 spray NS BID 03/01/17 07/14/20 1 Day Ago History ~02/28/17 carvediloL [Coreg] 25 mg PO BID 03/01/17 07/14/20 Unknown History Aspirin EC [Halfprin EC] 81 mg PO QDAY #30 tablet. 03/05/17 07/14/20 Unknown Rx AtorvaSTATin [Lipitor] 80 mg PO QHS #30 tablet 03/05/17 07/14/20 Unknown Rx Ezetimibe [Zetia] 10 mg PO QDAY #30 tablet 03/05/17 07/14/20 Unknown Rx Furosemide [Lasix TAB] 80 mg PO QDAY #30 tablet 03/05/17 07/14/20 Unknown Rx Nystatin [Nystop Powder] 1 applic TP BID #15 g 03/05/17 07/14/20 Unknown Rx Warfarin [Coumadin] 10 mg PO DAILY@1700 #7 tablet 03/05/17 07/14/20 Unknown Rx Lidocaine [Lidoderm] 5 patch TRANSDERMA QDAY 07/14/20 07/14/20 Unknown History NIFEdipine XL [Procardia Xl] 90 mg PO BID 07/14/20 07/14/20 Unknown History Warfarin [Coumadin] 2 mg PO QDAY 07/14/20 07/14/20 Unknown History Warfarin [Coumadin] 10 mg PO QDAY 07/14/20 07/14/20 Unknown History oxyCODONE /ACETAMINOPHEN [Percocet 1 tab PO Q6HR PRN 07/14/20 07/14/20 Unknown History 5/325] Levothyroxine [Synthroid] 88 mcg PO QAM 07/21/20 07/21/20 Unknown History Active Medications: Generic Name Dose Route Start Last Admin Trade Name Freq PRN Reason Stop Dose Admin Acetaminophen 650 mg 07/13/20 23:07 07/29/20 08:31 Tylenol PO 650 mg Q4H PRN Administration Headache Albuterol 2.5 mg 07/16/20 18:22 07/29/20 15:24 Proventil IH 2.5 mg Q4HRT PRN Administration Shortness Of Breath Aspirin 81 mg 07/14/20 10:00 07/30/20 09:33 Halfprin Ec PO 81 mg QDAY JP Administration Atorvastatin Calcium 40 mg 07/14/20 22:00 07/29/20 22:26 Lipitor PO 40 mg QHS JP Administration Carvedilol 25 mg 07/14/20 10:00 07/30/20 09:34 Coreg PO 25 mg BID JP Administration Clonidine HCl 0.2 mg 07/27/20 01:28 07/29/20 08:31 Catapres PO 0.2 mg Q4H PRN Administration Hypertension Clonidine HCl 0.1 mg 07/29/20 09:00 07/30/20 06:39 Catapres PO Not Given Q8HR JP Clopidogrel Bisulfate 75 mg 07/14/20 10:00 07/30/20 09:33 Plavix PO 75 mg QDAY JP Administration Ezetimibe 10 mg 07/14/20 10:00 07/30/20 09:33 Zetia PO 10 mg QDAY JP Administration Epoetin Mulugeta 10,000 unit 07/21/20 17:17 07/24/20 10:32 Procrit IV 10,000 unit CHICHI PRN Administration hemodialysis Fluticasone Propionate 100 mcg 07/14/20 10:00 07/30/20 09:35 Flonase NS 100 mcg QDAY JP Administration Furosemide 80 mg 07/14/20 10:00 07/30/20 09:33 Lasix PO 80 mg DAILY JP Administration Sodium Chloride 100 mls @ 999 mls/hr 07/14/20 13:00 Nacl 0.9% IV CHICHI PRN Hypotension Lidocaine 1 each 07/27/20 14:00 07/30/20 09:35 Lidoderm 5% TD 1 each QDAY [facility] Administration Lisinopril 20 mg 07/27/20 10:00 07/30/20 09:34 Zestril PO 20 mg QDAY [facility] Administration Loperamide HCl 2 mg 07/15/20 19:18 07/15/20 21:41 Imodium PO 2 mg Q2H PRN Administration Diarrhea Naphazoline HCl/Pheniramine Maleate 2 drops 07/27/20 11:27 Visine-A OU Q6H PRN Allergy Symptoms Nifedipine 90 mg 07/14/20 10:00 07/30/20 09:33 Procardia Xl PO 90 mg BID JP Administration Nitroglycerin 0.5 inch 07/14/20 06:00 07/30/20 09:34 Nitro-Bid 2% TP Not Given QIDNTG [facility] Protocol Ondansetron HCl 4 mg 07/13/20 23:07 Zofran IV Q8H PRN Nausea And Vomiting Warfarin Sodium 10 mg 07/16/20 17:00 07/29/20 17:14 Coumadin PO 10 mg DAILY@1700 [facility] Administration Protocol Warfarin Sodium 5 mg 07/29/20 17:00 07/29/20 17:14 Coumadin PO 5 mg DAILY@1700 [facility] Administration
--- NOTE | 2020-07-30 15:04 | Progress Note ---
Assessment and Plan Assessment and plan: 60-year-old female patient who is legally blind with significant history of coronary artery disease status post PCI, ischemic cardiomyopathy CVA end-stage renal disease on hemodialysis, history of PE IVC filter placement anticoagulation with Coumadin anemia was admitted through emergency room with chest pain Elevated troponins, evaluated by cardiology, underwent stress test which was negative for acute ischemia, patient was seen by nephrology receiving hemodialysis per schedule Patient is clinically stable for discharge, awaiting placement 07/25. I have seen and examined the patient at the bedside Patient's chart and medications reviewed No new complaints, patient receiving hemodialysis per schedule Clinically stable for discharge Awaiting placement 07/26. No change in medical condition. Vitals remain stable. Awaiting placement 07/27. Has itchy left eye. Prescribed eye drops. Stable for DC 07/28. Stable for DC. No new complaints 07/29. Medically stable for DC. BP elevated today. Added clonidine Problems -Non-ST elevation MA, type II 07/15/2020 stress test negative for acute ischemia EF 38 %. Continue current management including aspirin and Plavix Cardiology cleared for discharge --History of coronary artery disease status post PCI Continue current cardiac medications, cardiology following --Ischemic cardiomyopathy; EF 40 to 45% 2016 Continue antifailure medications --End-stage renal disease; MWF On hemodialysis, nephrology following, HD per schedule Stable ,renal cleared for discharge --Hypertensive emergency; present on admission Added clonidine. Monitor BP --History of peripheral vascular disease; Continue antiplatelets and statins --History of DVT and PE; chronic anticoagulation with Coumadin subtherapeutic INR noncompliant Coumadin resumed Target INR 2-3, Closely monitor Monitor INR and adjust as needed --History of IVC filter placement; supportive care --Type 2 diabetes mellitus; Accu-Chek sliding scale coverage ADA diet Insulin as needed --Dyslipidemia; Stable on lipid-lowering medications --Obesity; BMI 39.0 Advised weight reduction when medically stable --Possible obstructive sleep apnea; Patient may need outpatient sleep study Rule out KENY, CPAP BiPAP at night as needed ---Chronic back pain She uses 2 lidocaine patchs and opioids at home ---Eye irritation Antihistamine eyedrops --DVT prophylaxis; Patient is already on Coumadin DC planning per case management Plan of care reviewed with the patient and her nurse Patient is stable for discharge t History Interval history: Patient seen and examined at bedside Sleeping but easily awakened. Has no complaints Medically stable for discharge Hospitalist Physical - Physical exam Narrative exam: VITAL SIGNS: Reviewed. GENERAL: Awake and alert on response to questions HEAD: No signs of head trauma. EYES: Pupils are equal. Extraocular motions intact. EARS: Hearing grossly intact. MOUTH: Oropharynx is normal. NECK: No adenopathy, no JVD. CHEST: Chest with diminished breath sounds bilaterally. No wheezes, rales, or rhonchi. CARDIAC: Regular rate and rhythm. S1 and S2, without murmurs, gallops, or rubs. VASCULAR: No Edema. Peripheral pulses normal and equal in all extremities. ABDOMEN: Soft, non tender and non distended. No rebound or guarding, and no masses palpated. Bowel Sounds normal. MUSCULOSKELETAL: No leg edema NEUROLOGIC EXAM: Alert and oriented x3. No focal neurologic deficits SKIN: No obvious lesions - Constitutional Vitals: Temp Pulse Resp BP Pulse Ox 97.9 F 73 19 141/63 77 L 07/30/20 08:53 07/30/20 11:47 07/30/20 10:00 07/30/20 11:47 07/30/20 11:47 General appearance: Present: no acute distress, well-nourished HEART Score - HEART Score Risk factors: > 3 risk factors or hx of atherosclerotic disease Troponin: Troponin T 0.099 ng/mL (0.00-0.029) H 07/14/20 10:13 Troponin: 1-3x normal limit - Critical Actions Critical Actions: 4-6 pts:12-16.6% risk of adverse cardiac event. Should be admitted (PATIENT UNDERGOING WORK UP) Results - Labs CBC & Chem 7: 07/26/20 10:18 07/26/20 10:18 Labs: Laboratory Last Values WBC 5.3 K/mm3 (4.5-11.0) 07/26/20 10:18 RBC 2.83 M/mm3 (3.65-5.03) L 07/26/20 10:18 Hgb 8.5 gm/dl (10.1-14.3) L 07/26/20 10:18 Hct 25.9 % (30.3-42.9) L 07/26/20 10:18 MCV 92 fl (79-97) 07/26/20 10:18 MCH 30 pg (28-32) 07/26/20 10:18 MCHC 33 % (30-34) 07/26/20 10:18 RDW 16.5 % (13.2-15.2) H 07/26/20 10:18 Plt Count 169 K/mm3 (140-440) 07/26/20 10:18 Lymph % (Auto) 16.5 % (13.4-35.0) 07/26/20 10:18 [place] % (Auto) 3.8 % (0.0-7.3) 07/26/20 10:18 Eos % (Auto) 2.5 % (0.0-4.3) 07/26/20 10:18 Baso % (Auto) 0.4 % (0.0-1.8) 07/26/20 10:18 Lymph # (Auto) 0.9 K/mm3 (1.2-5.4) L 07/26/20 10:18 [place] # (Auto) 0.2 K/mm3 (0.0-0.8) 07/26/20 10:18 Eos # (Auto) 0.1 K/mm3 (0.0-0.4) 07/26/20 10:18 Baso # (Auto) 0.0 K/mm3 (0.0-0.1) 07/26/20 10:18 Seg Neutrophils % 76.8 % (40.0-70.0) H 07/26/20 10:18 Seg Neutrophils # 4.1 K/mm3 (1.8-7.7) 07/26/20 10:18 PT 18.1 Sec. (12.2-14.9) H 07/29/20 08:00 INR 1.50 (0.87-1.13) H 07/29/20 08:00 APTT 28.2 Sec. (24.2-36.6) 07/13/20 23:36 Sodium 135 mmol/L (137-145) L 07/26/20 10:18 Potassium 4.4 mmol/L (3.6-5.0) 07/26/20 10:18 Chloride 94.3 mmol/L (98-107) L 07/26/20 10:18 Carbon Dioxide 26 mmol/L (22-30) 07/26/20 10:18 Anion Gap 19 mmol/L 07/26/20 10:18 BUN 51 mg/dL (7-17) H 07/26/20 10:18 Creatinine 6.6 mg/dL (0.6-1.2) H 07/26/20 10:18 Estimated GFR 8 ml/min 07/26/20 10:18 BUN/Creatinine Ratio 8 % 07/26/20 10:18 Glucose 157 mg/dL (65-100) H 07/26/20 10:18 Calcium 9.2 mg/dL (8.4-10.2) 07/26/20 10:18 Total Creatine Kinase 81 units/L (30-135) 07/14/20 10:13 CK-MB (CK-2) 1.9 ng/mL (0.0-4.0) 07/14/20 10:13 CK-MB (CK-2) Rel Index 2.3 (0-4) 07/14/20 10:13 Troponin T 0.099 ng/mL (0.00-0.029) H 07/14/20 10:13 Triglycerides 89 mg/dL (2-149) 07/13/20 23:36 Cholesterol 152 mg/dL (50-199) 07/13/20 23:36 LDL Cholesterol Direct 84 mg/dL (50-130) 07/13/20 23:36 HDL Cholesterol 59 mg/dL (40-59) 07/13/20 23:36 Cholesterol/HDL Ratio 2.57 % 07/13/20 23:36 Coronavirus (PCR) Negative (Negative) 07/21/20 Unknown Hepatitis A IgM Ab Non-reactive (NonReactive) 07/14/20 10:13 Hep Bs Antigen Non-reactive (Negative) 07/14/20 10:13 Hep B Core IgM Ab Non-reactive (NonReactive) 07/14/20 10:13 Hepatitis C Antibody Non-reactive (NonReactive) 07/14/20 10:13 - Diagnostic Impressions Diagnostic Impressions: Echocardiogram 07/14/20 10:55 Transthoracic Echocardiogram Indication: Chest Pain BP: 137/63 HR: 79 Conclusions *The left ventricular chamber size is normal. *Mild concentric left ventricular hypertrophy is observed. *There are multiple regional wall motion abnormalities. *septal,basal inferior wall hypokinetic *The estimated ejection fraction is 35-40%. *Abnormal left ventricular diastolic filling is observed, consistent with impaired relaxation. *The left ventricular diastolic filling pattern is consistent with pseudonormalization. *The left ventricular diastolic filling pattern is consistent with elevated mean left atrial pressure. *The left atrium is mildly dilated. *The right ventricle is mild to moderately dilated. *The aortic valve leaflets are moderately thickened. *There is trace of aortic regurgitation. *There is no evidence of aortic stenosis. *There is mitral annular calcification. *There is mild to moderate mitral regurgitation. *There is mild to moderate tricuspid regurgitation. *There is no pericardial effusion. *The inferior vena cava appears normal in size. Findings Left Ventricle: The left ventricular chamber size is normal. Mild concentric left ventricular hypertrophy is observed. There are multiple regional wall motion abnormalities. Global left ventricular systolic function is mild to moderately decreased. The estimated ejection fraction is 35-40%. Abnormal left ventricular diastolic function is observed. The left ventricular diastolic filling pattern is consistent with pseudonormalization. The left ventricular diastolic filling pattern is consistent with elevated mean left atrial pressure. Left Atrium: The left atrium is mildly dilated. Right Ventricle: The right ventricle is mild to moderately dilated. The right ventricular global systolic function is normal. Right Atrium: The right atrium appears normal. The interatrial septum appears normal. 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 Aortic Valve: The aortic valve is trileaflet. The aortic valve leaflets are moderately thickened. There is trace of aortic regurgitation. There is no evidence of aortic stenosis. Mitral Valve: The mitral valve leaflets appear normal. There is mitral annular calcification. There is mild to moderate mitral regurgitation. There is no evidence of mitral stenosis. Tricuspid Valve: The tricuspid valve leaflets are normal. There is mild to moderate tricuspid regurgitation. There is no tricuspid stenosis. Pulmonic Valve: The pulmonic valve appears normal. There is trace pulmonic regurgitation. There is no pulmonic stenosis. Pericardium: There is no pericardial effusion. Aorta: There is no dilatation of the ascending aorta. There is no dilatation of the aortic arch. There is no dilatation of the descending thoracic aorta. There is no dilatation of the aortic root. Venous: The inferior vena cava appears normal in size. Measurements Chambers 2D Name Value Normal Range IVSd (2D) 1.21 cm (0.6 - 1.1) LVPWd (2D) 1.22 cm (0.6 - 1.1) LVIDd (2D) 5.61 cm (3.7 - 5.6) LVIDs (2D) 4.74 cm (2 - 3.8) LV FS (2D) 15.52 % - EF Teichholz (2D) 32.35 % - Ao root diameter (2D) 2.98 cm (2 - 3.7) Volumes/Mass Name Value Normal Range LA ESV SP 4CH (A/L) 90.79 ml - LA ESV SP 2CH (A/L) 79.53 ml - LA ESV BP (A/L) 85.37 ml - LA ESV SP 4CH (MOD) 84.6 ml - LA ESV SP 2CH (MOD) 74.61 ml - LV EDV SP 4CH (MOD) 197.38 ml - LV ESV SP 4CH (MOD) 123.93 ml - EF SP 4CH (MOD) 37.21 % - LV EDV SP 2CH (MOD) 194.2 ml - LV ESV SP 2CH (MOD) 123.7 ml - EF SP 2CH (MOD) 36.3 % - LV EDV BP 201.77 ml - LV ESV BP 131.12 ml - BP EF (MOD) 35.02 % - Diastolic/Systolic Function Name Value Normal Range MV E-wave Vmax 1.15 m/sec - MV deceleration time 133.32 msec - MV A-wave Vmax 0.78 m/sec - MV E:A ratio 1.48 ratio - Aortic Valve Name Value Normal Range AV Vmax 1.8 m/sec - AV VTI 35.01 cm - AV peak gradient 12.99 mmHg - AV mean gradient 6.54 mmHg - LVOT diameter 2.11 cm - LVOT Vmax 0.86 m/sec - LVOT VTI 17.92 cm - LVOT peak gradient 2.94 mmHg - LVOT mean gradient 1.54 mmHg - SV LVOT 62.77 ml - SKINNY (continuity Vmax) 1.67 cm2 - SKINNY (continuity VTI) 1.79 cm2 - Tricuspid Valve Name Value Normal Range TR Vmax 3.55 m/sec - TR peak gradient 50.29 mmHg - Pulmonic Valve/Qp:Qs Name Value Normal Range PV Vmax 1.09 m/sec - PV peak gradient 4.78 mmHg - WV end-diastolic Vmax 1.48 m/sec - PV acceleration time 117.98 msec - Veliz/IV: Voiding Method Bedpan IV Catheter Type [Left Hand] Peripheral IV IV Catheter Type [Left INT / Saline Lock Internal Jugular] Active Medications - Current Medications Current Medications: Generic Name Dose Route Start Last Admin Trade Name Freq PRN Reason Stop Dose Admin Acetaminophen 650 mg 07/13/20 23:07 07/29/20 08:31 Tylenol PO 650 mg Q4H PRN Administration Headache Albuterol 2.5 mg 07/16/20 18:22 07/29/20 15:24 Proventil IH 2.5 mg Q4HRT PRN Administration Shortness Of Breath Aspirin 81 mg 07/14/20 10:00 07/30/20 09:33 Halfprin Ec PO 81 mg QDAY JP Administration Atorvastatin Calcium 40 mg 07/14/20 22:00 07/29/20 22:26 Lipitor PO 40 mg QHS JP Administration Carvedilol 25 mg 07/14/20 10:00 07/30/20 09:34 Coreg PO 25 mg BID JP Administration Clonidine HCl 0.2 mg 07/27/20 01:28 07/29/20 08:31 Catapres PO 0.2 mg Q4H PRN Administration Hypertension Clonidine HCl 0.1 mg 07/29/20 09:00 07/30/20 14:28 Catapres PO Not Given Q8HR JP Clopidogrel Bisulfate 75 mg 07/14/20 10:00 07/30/20 09:33 Plavix PO 75 mg QDAY JP Administration Ezetimibe 10 mg 07/14/20 10:00 07/30/20 09:33 Zetia PO 10 mg QDAY JP Administration Epoetin [place] 10,000 unit 07/21/20 17:17 07/24/20 10:32 Procrit IV 10,000 unit CHICHI PRN Administration hemodialysis Fluticasone Propionate 100 mcg 07/14/20 10:00 07/30/20 09:35 Flonase NS 100 mcg QDAY JP Administration Furosemide 80 mg 07/14/20 10:00 07/30/20 09:33 Lasix PO 80 mg DAILY JP Administration Sodium Chloride 100 mls @ 999 mls/hr 07/14/20 13:00 Nacl 0.9% IV CHICHI PRN Hypotension Lidocaine 1 each 07/27/20 14:00 07/30/20 09:35 Lidoderm 5% TD 1 each QDAY JP Administration Lisinopril 20 mg 07/27/20 10:00 07/30/20 09:34 Zestril PO 20 mg QDAY JP Administration Loperamide HCl 2 mg 07/15/20 19:18 07/15/20 21:41 Imodium PO 2 mg Q2H PRN Administration Diarrhea Naphazoline HCl/Pheniramine Maleate 2 drops 07/27/20 11:27 Visine-A OU Q6H PRN Allergy Symptoms Nifedipine 90 mg 07/14/20 10:00 07/30/20 09:33 Procardia Xl PO 90 mg BID JP Administration Nitroglycerin 0.5 inch 07/14/20 06:00 07/30/20 14:29 Nitro-Bid 2% TP Not Given QIDNTG [facility] Protocol Ondansetron HCl 4 mg 07/13/20 23:07 Zofran IV Q8H PRN Nausea And Vomiting Warfarin Sodium 10 mg 07/16/20 17:00 07/29/20 17:14 Coumadin PO 10 mg DAILY@1700 [facility] Administration Protocol Warfarin Sodium 5 mg 07/29/20 17:00 07/29/20 17:14 Coumadin PO 5 mg DAILY@1700 [facility] Administration Nutrition/Malnutrition Assess - Dietary Evaluation Nutrition/Malnutrition Findings: Nutrition Notes Start: 07/17/20 13:10 Freq: Status: Active Protocol: Document 07/20/20 11:27 EN (Rec: 07/20/20 11:34 EN [email or web address]) Co-Sign 07/20/20 11:27 LM Nutrition Notes Initial or Follow up Reassessment Current Diagnosis CKD (stage V CKD),Coronary Artery Disease,Diabetes, Hypertension Other Pertinent Diagnosis ESRD on HD, NSTEMI, dyslipidedema Current Diet Renal Labs/Tests 07/19: BUN 25, Cr 4.1 Pertinent Medications Reviewed Height 5 ft 3 in Weight 75.4 kg [place] Body Weight (kg) 52.27 BMI 29.4 Weight Status Overweight Subjective/Other Information F/u for intakes. Pt reports eating 100% of breakfast. Pt would like pork and fruit cups during meals. Pt reports loose stool at 10:00 this morning. Pt states that appetite is good and denies N/ V Percent of energy/protein needs met: 100%/86% Burn Absent Trauma Absent GI Symptoms Diarrhea Food Allergy Yes Current % PO Good (75-100%) Minimum of two criteria No Interpretation of Weight Loss (severe) >5% in 1 month #2 Nutrition Diagnosis Inadequate oral intake As Evidenced by Signs and Symptoms consuming 100% of meals Diagnosis Progress(for reassessment Resolved documentation) #1 Nutrition Diagnosis Food and nutrition-related knowledge deficit As Evidenced by Signs and Symptoms No further Coumadin/Vit k questions Diagnosis Progress(for reassessment Resolved documentation) Is patient on ventilator? No Is Patient Ambulatory and/or Out of Bed No REE-([facility]-confined to bed) [phone] Calculation Used for Recommendations [facility] Additional Notes Protein: >1.2 g/kg (> 90g) Fluid: Urine output + 1000 ml/ day Nutrition Intervention Change Diet Order: Continue Renal Diet Goal #1 Meet 75% of energy and protein needs Anticipated Discharge Needs: Renal diet Revisit per MD consult or patient Sign Off request:
[2020-07-30] MEDS: WARFARIN 5 MG TAB PO SCH (17:16)
[2020-07-30] MEDS: WARFARIN 10 MG TAB PO SCH (17:17)
[2020-07-31] MEDS: cloNIDine 0.1 MG TAB PO SCH ×4 (05:14→22:53)
[2020-07-31] MEDS: NITROGLYCERIN 2% OINT 1 GM TP SCH ×4 (05:29→18:41)
[2020-07-31] MEDS: NIFEdipine XL 90 MG TAB PO SCH ×2 (09:03→22:43)
[2020-07-31] MEDS: CLOPIDOGREL 75 MG TAB PO SCH (10:00)
[2020-07-31] MEDS: FLUTICASONE PROPIONATE NASAL SPRAY 16 GM NS SCH (10:00)
[2020-07-31] MEDS: carvediloL 25 MG TAB PO SCH ×2 (10:00→22:43)
[2020-07-31] MEDS: LISINOPRIL 20 MG TAB PO SCH (10:00)
[2020-07-31] MEDS: ASPIRIN EC 81 MG TAB PO SCH (10:00)
[2020-07-31] MEDS: LIDOCAINE 5% 1 EACH PATCH TD SCH (10:00)
[2020-07-31] MEDS: EZETIMIBE 10 MG TAB PO SCH (10:00)
[2020-07-31] MEDS: FUROSEMIDE 40 MG TAB PO SCH (10:00)
[2020-07-31] MEDS ORDERED: EPOETIN ALFA 10,000 UNIT/1 ML INJ ONE (10:57)
[2020-07-31] MEDS: EPOETIN ALFA 10,000 UNIT/1 ML INJ IV PRN (11:02)
[2020-07-31 11:16] LABS: INR 2.34 (0.87-1.13)
--- NOTE | 2020-07-31 12:13 | Progress Note ---
Assessment and Plan Impression: * End stage renal disease * NSTEMI --MPI: fixed lateral wall defect; no significant ischemia; EF 38%. (Jul 15 2020) --TTE: mild concentric LVH; multiple regional wall abnormalities (septal, basal, inf wall hypokinetic); EF 35-40%; impaired LV relaxation (Jul 14 2020) * Ischemic cardiomyopathy * Hypertension * Anemia secondary to CKD * Secondary hyperparathyroidism Plan: * Continue hemodialysis MWF, due today * UF as tolerated * Cardiology recommendations noted * Renal/HD diet * Discharge planning in progress - awaiting SNF placement * ok to dc from renal standpoint Subjective Date of service: 07/31/20 Principal diagnosis: ESRD/HD, Acc HTN, NSTEMI 2, H/o PE/DVT (IVC filter) Interval history: No acute issues noted. Objective - Exam Narrative Exam: General appearance: well-developed, well-nourished EENT: ATNC Neck: other ([facility] permcath) Respiratory: Present: Clear to Auscultation Cardiology: regular, S1S2 Gastrointestinal: normal, no tenderness, no distended Integumentary: warm and dry Psychiatric: cooperative - Vital Signs Vital signs: Vital Signs - 12hr 07/31/20 07/31/20 07/31/20 04:43 05:14 10:20 Temperature 98.1 F 98.7 F Pulse Rate 80 80 89 Respiratory 20 18 Rate Blood Pressure 194/94 194/94 138/78 O2 Sat by Pulse 100 Oximetry 07/31/20 07/31/20 07/31/20 10:30 10:45 11:00 Temperature Pulse Rate 85 84 82 Respiratory Rate Blood Pressure 143/70 140/68 134/68 O2 Sat by Pulse Oximetry 07/31/20 07/31/20 07/31/20 11:15 11:30 11:31 Temperature Pulse Rate 53 L 79 72 Respiratory Rate Blood Pressure 121/69 132/66 118/62 O2 Sat by Pulse Oximetry - Lab 07/26/20 10:18 07/26/20 10:18 Most recent lab results Calcium 9.2 mg/dL (8.4-10.2) 07/26/20 10:18 Medications & Allergies - Medications Allergies/Adverse Reactions: Allergies apixaban [From Eliquis] Allergy (Verified 03/01/17 20:29) Itching dabigatran etexilate mesylate [From Pradaxa] Allergy (Verified 03/01/17 20:27) Itching heparin Allergy (Verified 07/14/20 05:54) Vomiting hydralazine HCl [From Apresoline] Allergy (Verified 03/01/17 13:11) Unknown morphine Allergy (Verified 02/15/14 02:23) Itching povidone-iodine [From Betadine] Allergy (Verified 03/01/17 20:26) Itching rivaroxaban [From Xarelto] Allergy (Verified 03/01/17 20:29) Itching soap [From Betadine] Allergy (Verified 03/01/17 20:26) Itching verapamil HCl [From Calan] Allergy (Verified 02/15/14 02:23) Headache Home Medications: Home Medications Medication Instructions Recorded Confirmed Last Taken Type Fluticasone Propionate [Flonase] 100 mcg NS QDAY 02/15/14 07/14/20 Unknown History Albuterol Sulfate [Albuterol 0.63% 0.63 mg IH Q4H PRN 03/01/17 07/14/20 1 Month Ago History NEBS] ~01/29/17 AtorvaSTATin [Lipitor] 40 mg PO QHS 03/01/17 07/14/20 1 Day Ago History ~02/28/17 Clopidogrel [Plavix] 75 mg PO QDAY 03/01/17 07/14/20 Unknown History Ferrous Sulfate [Feosol 325 MG tab] 325 mg PO QDAY 03/01/17 07/14/20 Unknown History Oxymetazoline 0.05% [Vicks Sinex] 1 spray NS BID 03/01/17 07/14/20 1 Day Ago Hi story ~02/28/17 carvediloL [Coreg] 25 mg PO BID 03/01/17 07/14/20 Unknown History Aspirin EC [Halfprin EC] 81 mg PO QDAY #30 tablet. 03/05/17 07/14/20 Unknown Rx AtorvaSTATin [Lipitor] 80 mg PO QHS #30 tablet 03/05/17 07/14/20 Unknown Rx Ezetimibe [Zetia] 10 mg PO QDAY #30 tablet 03/05/17 07/14/20 Unknown Rx Furosemide [Lasix TAB] 80 mg PO QDAY #30 tablet 03/05/17 07/14/20 Unknown Rx Nystatin [Nystop Powder] 1 applic TP BID #15 g 03/05/17 07/14/20 Unknown Rx Warfarin [Coumadin] 10 mg PO DAILY@1700 #7 tablet 03/05/17 07/14/20 Unknown Rx Lidocaine [Lidoderm] 5 patch TRANSDERMA QDAY 07/14/20 07/14/20 Unknown History NIFEdipine XL [Procardia Xl] 90 mg PO BID 07/14/20 07/14/20 Unknown History Warfarin [Coumadin] 2 mg PO QDAY 07/14/20 07/14/20 Unknown History Warfarin [Coumadin] 10 mg PO QDAY 07/14/20 07/14/20 Unknown History oxyCODONE /ACETAMINOPHEN [Percocet 1 tab PO Q6HR PRN 07/14/20 07/14/20 Unknown History 5/325] Levothyroxine [Synthroid] 88 mcg PO QAM 07/21/20 07/21/20 Unknown History Active Medications: Generic Name Dose Route Start Last Admin Trade Name Freq PRN Reason Stop Dose Admin Acetaminophen 650 mg 07/13/20 23:07 07/29/20 08:31 Tylenol PO 650 mg Q4H PRN Administration Headache Albuterol 2.5 mg 07/16/20 18:22 07/29/20 15:24 Proventil IH 2.5 mg Q4HRT PRN Administration Shortness Of Breath Aspirin 81 mg 07/14/20 10:00 07/30/20 09:33 Halfprin Ec PO 81 mg QDAY JP Administration Atorvastatin Calcium 40 mg 07/14/20 22:00 07/30/20 22:07 Lipitor PO Not Given QHS JP Carvedilol 25 mg 07/14/20 10:00 07/30/20 21:44 Coreg PO 25 mg BID JP Administration Clonidine HCl 0.2 mg 07/27/20 01:28 07/29/20 08:31 Catapres PO 0.2 mg Q4H PRN Administration Hypertension Clonidine HCl 0.2 mg 07/31/20 08:30 Catapres PO Q8HR JP Clopidogrel Bisulfate 75 mg 07/14/20 10:00 07/30/20 09:33 Plavix PO 75 mg QDAY JP Administration Ezetimibe 10 mg 07/14/20 10:00 07/30/20 09:33 Zetia PO 10 mg QDAY JP Administration Epoetin Mulugeta 10,000 unit 07/21/20 17:17 07/31/20 11:02 Procrit IV 10,000 unit CHICHI PRN Administration hemodialysis Fluticasone Propionate 100 mcg 07/14/20 10:00 07/30/20 09:35 Flonase NS 100 mcg QDAY JP Administration Furosemide 80 mg 07/14/20 10:00 07/30/20 09:33 Lasix PO 80 mg DAILY JP Administration Sodium Chloride 100 mls @ 999 mls/hr 07/14/20 13:00 Nacl 0.9% IV CHICHI PRN Hypotension Lidocaine 1 each 07/27/20 14:00 07/30/20 09:35 Lidoderm 5% TD 1 each QDAY JP Administration Lisinopril 20 mg 07/27/20 10:00 07/30/20 09:34 Zestril PO 20 mg QDAY JP Administration Loperamide HCl 2 mg 07/15/20 19:18 07/15/20 21:41 Imodium PO 2 mg Q2H PRN Administration Diarrhea Naphazoline HCl/Pheniramine Maleate 2 drops 07/27/20 11:27 Visine-A OU Q6H PRN Allergy Symptoms Nifedipine 90 mg 07/14/20 10:00 07/31/20 09:03 Procardia Xl PO 90 mg BID JP Administration Nitroglycerin 0.5 inch 07/14/20 06:00 07/31/20 05:29 Nitro-Bid 2% TP Not Given QIDNTG [facility] Protocol Ondansetron HCl 4 mg 07/13/20 23:07 Zofran IV Q8H PRN Nausea And Vomiting Warfarin Sodium 10 mg 07/16/20 17:00 07/30/20 17:17 Coumadin PO 10 mg DAILY@1700 JP Administration Protocol Warfarin Sodium 5 mg 07/29/20 17:00 07/30/20 17:16 Coumadin PO 5 mg DAILY@1700 [facility] Administration
--- NOTE | 2020-07-31 16:11 | Progress Note ---
Assessment and Plan Assessment and plan: 60-year-old female patient who is legally blind with significant history of coronary artery disease status post PCI, ischemic cardiomyopathy CVA end-stage renal disease on hemodialysis, history of PE IVC filter placement anticoagulation with Coumadin anemia was admitted through emergency room with chest pain Elevated troponins, evaluated by cardiology, underwent stress test which was negative for acute ischemia, patient was seen by nephrology receiving hemodialysis per schedule Patient is clinically stable for discharge, awaiting placement 07/25. I have seen and examined the patient at the bedside Patient's chart and medications reviewed No new complaints, patient receiving hemodialysis per schedule Clinically stable for discharge Awaiting placement 07/26. No change in medical condition. Vitals remain stable. Awaiting placement 07/27. Has itchy left eye. Prescribed eye drops. Stable for DC 07/28. Stable for DC. No new complaints 07/29. Medically stable for DC. BP elevated today. Added clonidine 07/30-. Medically stable for discharge. Blood pressure significantly improved. Try to call daughter on phone number provided by patient but no answer so I left a voice message. sr. manager marketing trying to get placement for patient-patients daughter has not been available to provide documents required prior to placement. Problems -Non-ST elevation IN, type II 07/15/2020 stress test negative for acute ischemia EF 38 %. Continue current management including aspirin and Plavix Cardiology cleared for discharge --History of coronary artery disease status post PCI Continue current cardiac medications, cardiology following --Ischemic cardiomyopathy; EF 40 to 45% 2016 Continue antifailure medications --End-stage renal disease; MWF On hemodialysis, nephrology following, HD per schedule Stable ,renal cleared for discharge --Hypertensive emergency; present on admission Added clonidine. Monitor BP --History of peripheral vascular disease; Continue antiplatelets and statins --History of DVT and PE; chronic anticoagulation with Coumadin subtherapeutic INR noncompliant Coumadin resumed Target INR 2-3, Closely monitor Monitor INR and adjust as needed --History of IVC filter placement; supportive care --Type 2 diabetes mellitus; Accu-Chek sliding scale coverage ADA diet Insulin as needed --Dyslipidemia; Stable on lipid-lowering medications --Obesity; BMI 39.0 Advised weight reduction when medically stable --Possible obstructive sleep apnea; Patient may need outpatient sleep study Rule out KENY, CPAP BiPAP at night as needed ---Chronic back pain She uses 2 lidocaine patchs and opioids at home ---Eye irritation Antihistamine eyedrops --DVT prophylaxis; Patient is already on Coumadin DC planning per case management Patient is medically stable for discharge however still need to be discharged to facility but this has not been possible. sr. manager marketing currently trying to see the patient in place-options include placement to a facility versus personal long term [which patient does not want] Tried to call patient's daughter on [phone] provided by patient] but no response so I left a voice message. t History Interval history: Patient seen and examined at bedside She has no complaints Try to call daughter on [phone] but no response I left a voice message. Medically stable for discharge. Hospitalist Physical - Physical exam Narrative exam: VITAL SIGNS: Reviewed. GENERAL: Awake and alert on response to questions HEAD: No signs of head trauma. EYES: Pupils are equal. Extraocular motions intact. EARS: Hearing grossly intact. MOUTH: Oropharynx is normal. NECK: No adenopathy, no JVD. CHEST: Chest with diminished breath sounds bilaterally. No wheezes, rales, or rhonchi. CARDIAC: Regular rate and rhythm. S1 and S2, without murmurs, gallops, or rubs. VASCULAR: No Edema. Peripheral pulses normal and equal in all extremities. ABDOMEN: Soft, non tender and non distended. No rebound or guarding, and no masses palpated. Bowel Sounds normal. MUSCULOSKELETAL: No leg edema NEUROLOGIC EXAM: Alert and oriented x3. No focal neurologic deficits SKIN: No obvious lesions - Constitutional Vitals: Temp Pulse Resp BP Pulse Ox 98.7 F 64 18 106/54 100 07/31/20 10:20 07/31/20 13:42 07/31/20 13:42 07/31/20 13:42 07/31/20 04:43 HEART Score - HEART Score Risk factors: > 3 risk factors or hx of atherosclerotic disease Troponin: Troponin T 0.099 ng/mL (0.00-0.029) H 07/14/20 10:13 Troponin: 1-3x normal limit - Critical Actions Critical Actions: 4-6 pts:12-16.6% risk of adverse cardiac event. Should be admitted (PATIENT UNDERGOING WORK UP) Results - Labs CBC & Chem 7: 07/26/20 10:18 07/26/20 10:18 Labs: Laboratory Last Values WBC 5.3 K/mm3 (4.5-11.0) 07/26/20 10:18 RBC 2.83 M/mm3 (3.65-5.03) L 07/26/20 10:18 Hgb 8.5 gm/dl (10.1-14.3) L 07/26/20 10:18 Hct 25.9 % (30.3-42.9) L 07/26/20 10:18 MCV 92 fl (79-97) 07/26/20 10:18 MCH 30 pg (28-32) 07/26/20 10:18 MCHC 33 % (30-34) 07/26/20 10:18 RDW 16.5 % (13.2-15.2) H 07/26/20 10:18 Plt Count 169 K/mm3 (140-440) 07/26/20 10:18 Lymph % (Auto) 16.5 % (13.4-35.0) 07/26/20 10:18 Isabella % (Auto) 3.8 % (0.0-7.3) 07/26/20 10:18 Eos % (Auto) 2.5 % (0.0-4.3) 07/26/20 10:18 Baso % (Auto) 0.4 % (0.0-1.8) 07/26/20 10:18 Lymph # (Auto) 0.9 K/mm3 (1.2-5.4) L 07/26/20 10:18 Isabella # (Auto) 0.2 K/mm3 (0.0-0.8) 07/26/20 10:18 Eos # (Auto) 0.1 K/mm3 (0.0-0.4) 07/26/20 10:18 Baso # (Auto) 0.0 K/mm3 (0.0-0.1) 07/26/20 10:18 Seg Neutrophils % 76.8 % (40.0-70.0) H 07/26/20 10:18 Seg Neutrophils # 4.1 K/mm3 (1.8-7.7) 07/26/20 10:18 PT 25.9 Sec. (12.2-14.9) H 07/31/20 10:33 INR 2.34 (0.87-1.13) H 07/31/20 10:33 APTT 28.2 Sec. (24.2-36.6) 07/13/20 23:36 Sodium 135 mmol/L (137-145) L 07/26/20 10:18 Potassium 4.4 mmol/L (3.6-5.0) 07/26/20 10:18 Chloride 94.3 mmol/L (98-107) L 07/26/20 10:18 Carbon Dioxide 26 mmol/L (22-30) 07/26/20 10:18 Anion Gap 19 mmol/L 07/26/20 10:18 BUN 51 mg/dL (7-17) H 07/26/20 10:18 Creatinine 6.6 mg/dL (0.6-1.2) H 07/26/20 10:18 Estimated GFR 8 ml/min 07/26/20 10:18 BUN/Creatinine Ratio 8 % 07/26/20 10:18 Glucose 157 mg/dL (65-100) H 07/26/20 10:18 Calcium 9.2 mg/dL (8.4-10.2) 07/26/20 10:18 Total Creatine Kinase 81 units/L (30-135) 07/14/20 10:13 CK-MB (CK-2) 1.9 ng/mL (0.0-4.0) 07/14/20 10:13 CK-MB (CK-2) Rel Index 2.3 (0-4) 07/14/20 10:13 Troponin T 0.099 ng/mL (0.00-0.029) H 07/14/20 10:13 Triglycerides 89 mg/dL (2-149) 07/13/20 23:36 Cholesterol 152 mg/dL (50-199) 07/13/20 23:36 LDL Cholesterol Direct 84 mg/dL (50-130) 07/13/20 23:36 HDL Cholesterol 59 mg/dL (40-59) 07/13/20 23:36 Cholesterol/HDL Ratio 2.57 % 07/13/20 23:36 Coronavirus (PCR) Negative (Negative) 07/21/20 Unknown Hepatitis A IgM Ab Non-reactive (NonReactive) 07/14/20 10:13 Hep Bs Antigen Non-reactive (Negative) 07/14/20 10:13 Hep B Core IgM Ab Non-reactive (NonReactive) 07/14/20 10:13 Hepatitis C Antibody Non-reactive (NonReactive) 07/14/20 10:13 - Diagnostic Impressions Diagnostic Impressions: Echocardiogram 07/14/20 10:55 Transthoracic Echocardiogram Indication: Chest Pain BP: 137/63 HR: 79 Conclusions *The left ventricular chamber size is normal. *Mild concentric left ventricular hypertrophy is observed. *There are multiple regional wall motion abnormalities. *septal,basal inferior wall hypokinetic *The estimated ejection fraction is 35-40%. *Abnormal left ventricular diastolic filling is observed, consistent with impaired relaxation. *The left ventricular diastolic filling pattern is consistent with pseudonormalization. *The left ventricular diastolic filling pattern is consistent with elevated mean left atrial pressure. *The left atrium is mildly dilated. *The right ventricle is mild to moderately dilated. *The aortic valve leaflets are moderately thickened. *There is trace of aortic regurgitation. *There is no evidence of aortic stenosis. *There is mitral annular calcification. *There is mild to moderate mitral regurgitation. *There is mild to moderate tricuspid regurgitation. *There is no pericardial effusion. *The inferior vena cava appears normal in size. Findings Left Ventricle: The left ventricular chamber size is normal. Mild concentric left ventricular hypertrophy is observed. There are multiple regional wall motion abnormalities. Global left ventricular systolic function is mild to moderately decreased. The estimated ejection fraction is 35-40%. Abnormal left ventricular diastolic function is observed. The left ventricular diastolic filling pattern is consistent with pseudonormalization. The left ventricular diastolic filling pattern is consistent with elevated mean left atrial pressure. Left Atrium: The left atrium is mildly dilated. Right Ventricle: The right ventricle is mild to moderately dilated. The right ventricular global systolic function is normal. Right Atrium: The right atrium appears normal. The interatrial septum appears normal. 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 Aortic Valve: The aortic valve is trileaflet. The aortic valve leaflets are moderately thickened. There is trace of aortic regurgitation. There is no evidence of aortic stenosis. Mitral Valve: The mitral valve leaflets appear normal. There is mitral annular calcification. There is mild to moderate mitral regurgitation. There is no evidence of mitral stenosis. Tricuspid Valve: The tricuspid valve leaflets are normal. There is mild to moderate tricuspid regurgitation. There is no tricuspid stenosis. Pulmonic Valve: The pulmonic valve appears normal. There is trace pulmonic regurgitation. There is no pulmonic stenosis. Pericardium: There is no pericardial effusion. Aorta: There is no dilatation of the ascending aorta. There is no dilatation of the aortic arch. There is no dilatation of the descending thoracic aorta. There is no dilatation of the aortic root. Venous: The inferior vena cava appears normal in size. Measurements Chambers 2D Name Value Normal Range IVSd (2D) 1.21 cm (0.6 - 1.1) LVPWd (2D) 1.22 cm (0.6 - 1.1) LVIDd (2D) 5.61 cm (3.7 - 5.6) LVIDs (2D) 4.74 cm (2 - 3.8) LV FS (2D) 15.52 % - EF Teichholz (2D) 32.35 % - Ao root diameter (2D) 2.98 cm (2 - 3.7) Volumes/Mass Name Value Normal Range LA ESV SP 4CH (A/L) 90.79 ml - LA ESV SP 2CH (A/L) 79.53 ml - LA ESV BP (A/L) 85.37 ml - LA ESV SP 4CH (MOD) 84.6 ml - LA ESV SP 2CH (MOD) 74.61 ml - LV EDV SP 4CH (MOD) 197.38 ml - LV ESV SP 4CH (MOD) 123.93 ml - EF SP 4CH (MOD) 37.21 % - LV EDV SP 2CH (MOD) 194.2 ml - LV ESV SP 2CH (MOD) 123.7 ml - EF SP 2CH (MOD) 36.3 % - LV EDV BP 201.77 ml - LV ESV BP 131.12 ml - BP EF (MOD) 35.02 % - Diastolic/Systolic Function Name Value Normal Range MV E-wave Vmax 1.15 m/sec - MV deceleration time 133.32 msec - MV A-wave Vmax 0.78 m/sec - MV E:A ratio 1.48 ratio - Aortic Valve Name Value Normal Range AV Vmax 1.8 m/sec - AV VTI 35.01 cm - AV peak gradient 12.99 mmHg - AV mean gradient 6.54 mmHg - LVOT diameter 2.11 cm - LVOT Vmax 0.86 m/sec - LVOT VTI 17.92 cm - LVOT peak gradient 2.94 mmHg - LVOT mean gradient 1.54 mmHg - SV LVOT 62.77 ml - SKINNY (continuity Vmax) 1.67 cm2 - SKINNY (continuity VTI) 1.79 cm2 - Tricuspid Valve Name Value Normal Range TR Vmax 3.55 m/sec - TR peak gradient 50.29 mmHg - Pulmonic Valve/Qp:Qs Name Value Normal Range PV Vmax 1.09 m/sec - PV peak gradient 4.78 mmHg - SC end-diastolic Vmax 1.48 m/sec - PV acceleration time 117.98 msec - Veliz/IV: Voiding Method Bedpan IV Catheter Type [Left Hand] Peripheral IV IV Catheter Type [Left INT / Saline Lock Internal Jugular] Active Medications - Current Medications Current Medications: Generic Name Dose Route Start Last Admin Trade Name Freq PRN Reason Stop Dose Admin Acetaminophen 650 mg 07/13/20 23:07 07/29/20 08:31 Tylenol PO 650 mg Q4H PRN Administration Headache Albuterol 2.5 mg 07/16/20 18:22 07/29/20 15:24 Proventil IH 2.5 mg Q4HRT PRN Administration Shortness Of Breath Aspirin 81 mg 07/14/20 10:00 07/30/20 09:33 Halfprin Ec PO 81 mg QDAY JP Administration Atorvastatin Calcium 40 mg 07/14/20 22:00 07/30/20 22:07 Lipitor PO Not Given QHS JP Carvedilol 25 mg 07/14/20 10:00 07/30/20 21:44 Coreg PO 25 mg BID JP Administration Clonidine HCl 0.2 mg 07/27/20 01:28 07/29/20 08:31 Catapres PO 0.2 mg Q4H PRN Administration Hypertension Clonidine HCl 0.2 mg 07/31/20 08:30 Catapres PO Q8HR JP Clopidogrel Bisulfate 75 mg 07/14/20 10:00 07/30/20 09:33 Plavix PO 75 mg QDAY JP Administration Ezetimibe 10 mg 07/14/20 10:00 07/30/20 09:33 Zetia PO 10 mg QDAY JP Administration Epoetin Mulugeta 10,000 unit 07/21/20 17:17 07/31/20 11:02 Procrit IV 10,000 unit CHICHI PRN Administration hemodialysis Fluticasone Propionate 100 mcg 07/14/20 10:00 07/30/20 09:35 Flonase NS 100 mcg QDAY JP Administration Furosemide 80 mg 07/14/20 10:00 07/30/20 09:33 Lasix PO 80 mg DAILY JP Administration Sodium Chloride 100 mls @ 999 mls/hr 07/14/20 13:00 Nacl 0.9% IV CHICHI PRN Hypotension Lidocaine 1 each 07/27/20 14:00 07/30/20 09:35 Lidoderm 5% TD 1 each QDAY JP Administration Lisinopril 20 mg 07/27/20 10:00 07/30/20 09:34 Zestril PO 20 mg QDAY JP Administration Loperamide HCl 2 mg 07/15/20 19:18 07/15/20 21:41 Imodium PO 2 mg Q2H PRN Administration Diarrhea Naphazoline HCl/Pheniramine Maleate 2 drops 07/27/20 11:27 Visine-A OU Q6H PRN Allergy Symptoms Nifedipine 90 mg 07/14/20 10:00 07/31/20 09:03 Procardia Xl PO 90 mg BID JP Administration Nitroglycerin 0.5 inch 07/14/20 06:00 07/31/20 05:29 Nitro-Bid 2% TP Not Given QIDNTG [facility] Protocol Ondansetron HCl 4 mg 07/13/20 23:07 Zofran IV Q8H PRN Nausea And Vomiting Warfarin Sodium 10 mg 07/16/20 17:00 07/30/20 17:17 Coumadin PO 10 mg DAILY@1700 [facility] Administration Protocol Warfarin Sodium 5 mg 07/29/20 17:00 07/30/20 17:16 Coumadin PO 5 mg DAILY@1700 JP Administration Nutrition/Malnutrition Assess - Dietary Evaluation Nutrition/Malnutrition Findings: Nutrition Notes Start: 07/17/20 13:10 Freq: Status: Active Protocol: Document 07/20/20 11:27 EN (Rec: 07/20/20 11:34 EN [email or web address]) Co-Sign 07/20/20 11:27 LM Nutrition Notes Initial or Follow up Reassessment Current Diagnosis CKD (stage V CKD),Coronary Artery Disease,Diabetes, Hypertension Other Pertinent Diagnosis ESRD on HD, NSTEMI, dyslipidedema Current Diet Renal Labs/Tests 07/19: BUN 25, Cr 4.1 Pertinent Medications Reviewed Height 5 ft 3 in Weight 75.4 kg [place] Body Weight (kg) 52.27 BMI 29.4 Weight Status Overweight Subjective/Other Information F/u for intakes. Pt reports eating 100% of breakfast. Pt would like pork and fruit cups during meals. Pt reports loose stool at 10:00 this morning. Pt states that appetite is good and denies N/ V Percent of energy/protein needs met: 100%/86% Burn Absent Trauma Absent GI Symptoms Diarrhea Food Allergy Yes Current % PO Good (75-100%) Minimum of two criteria No Interpretation of Weight Loss (severe) >5% in 1 month #2 Nutrition Diagnosis Inadequate oral intake As Evidenced by Signs and Symptoms consuming 100% of meals Diagnosis Progress(for reassessment Resolved documentation) #1 Nutrition Diagnosis Food and nutrition-related knowledge deficit As Evidenced by Signs and Symptoms No further Coumadin/Vit k questions Diagnosis Progress(for reassessment Resolved documentation) Is patient on ventilator? No Is Patient Ambulatory and/or Out of Bed No REE-([facility]-confined to bed) 6845.028 Calculation Used for Recommendations [facility] Additional Notes Protein: >1.2 g/kg (> 90g) Fluid: Urine output + 1000 ml/ day Nutrition Intervention Change Diet Order: Continue Renal Diet Goal #1 Meet 75% of energy and protein needs Anticipated Discharge Needs: Renal diet Revisit per MD consult or patient Sign Off request:
[2020-07-31] MEDS: WARFARIN 10 MG TAB PO SCH (18:41)
[2020-07-31] MEDS: WARFARIN 5 MG TAB PO SCH (18:41)
[2020-08-01] MEDS: cloNIDine 0.1 MG TAB PO SCH ×4 (06:54→22:01)
[2020-08-01] MEDS: NITROGLYCERIN 2% OINT 1 GM TP SCH ×4 (06:56→17:56)
[2020-08-01] MEDS: FUROSEMIDE 40 MG TAB PO SCH (10:58)
[2020-08-01] MEDS: LIDOCAINE 5% 1 EACH PATCH TD SCH (10:58)
[2020-08-01] MEDS: carvediloL 25 MG TAB PO SCH ×2 (10:58→22:00)
[2020-08-01] MEDS: CLOPIDOGREL 75 MG TAB PO SCH (10:59)
[2020-08-01] MEDS: ASPIRIN EC 81 MG TAB PO SCH (11:00)
[2020-08-01] MEDS: FLUTICASONE PROPIONATE NASAL SPRAY 16 GM NS SCH (11:04)
[2020-08-01] MEDS: EZETIMIBE 10 MG TAB PO SCH (12:38)
[2020-08-01] MEDS: NIFEdipine XL 90 MG TAB PO SCH ×2 (12:38→22:02)
[2020-08-01] MEDS: LISINOPRIL 20 MG TAB PO SCH (12:39)
--- NOTE | 2020-08-01 15:59 | Progress Note ---
Assessment and Plan Assessment and plan: -Non-ST elevation ID, type II 07/15/2020 stress test negative for acute ischemia EF 38 %. Continue current management including aspirin and Plavix Cardiology cleared for discharge --History of coronary artery disease status post PCI Continue current cardiac medications, cardiology following --Ischemic cardiomyopathy; EF 40 to 45% 2016 Continue antifailure medications --End-stage renal disease; MWF On hemodialysis, nephrology following, HD per schedule Stable ,renal cleared for discharge --Hypertensive emergency; present on admission Added clonidine. Monitor BP --History of peripheral vascular disease; Continue antiplatelets and statins --History of DVT and PE; chronic anticoagulation with Coumadin subtherapeutic INR noncompliant Coumadin resumed Target INR 2-3, Closely monitor Monitor INR and adjust as needed --History of IVC filter placement; supportive care --Type 2 diabetes mellitus; Accu-Chek sliding scale coverage ADA diet Insulin as needed --Dyslipidemia; Stable on lipid-lowering medications --Obesity; BMI 39.0 Advised weight reduction when medically stable --Possible obstructive sleep apnea; Patient may need outpatient sleep study Rule out KENY, CPAP BiPAP at night as needed ---Chronic back pain She uses 2 lidocaine patchs and opioids at home ---Eye irritation Antihistamine eyedrops --DVT prophylaxis; Patient is already on Coumadin DC planning per case management Patient is medically stable for discharge however still need to be discharged to facility but this has not been possible. housing assistant property manager currently trying to see the patient in place-options include placement to a facility versus personal assisted [which patient does not want] patient's daughter # [phone] provided by patient 07/25. I have seen and examined the patient at the bedside Patient's chart and medications reviewed No new complaints, patient receiving hemodialysis per schedule Clinically stable for discharge Awaiting placement 07/26. No change in medical condition. Vitals remain stable. Awaiting placement 07/27. Has itchy left eye. Prescribed eye drops. Stable for DC 07/28. Stable for DC. No new complaints 07/29. Medically stable for DC. BP elevated today. Added clonidine 07/30-. Medically stable for discharge. Blood pressure significantly improved. Try to call daughter on phone number provided by patient but no answer so I left a voice message. housing assistant property manager trying to get placement for patient-patients daughter has not been available to provide documents required prior to placement. 08/01. Awaiting placement History Interval history: 60-year-old female patient who is legally blind with significant history of coronary artery disease status post PCI, ischemic cardiomyopathy CVA end-stage renal disease on hemodialysis, history of PE IVC filter placement anticoagulation with Coumadin anemia was admitted through emergency room with chest pain Elevated troponins, evaluated by cardiology, underwent stress test which was negative for acute ischemia, patient was seen by nephrology receiving hemodialysis per schedule Patient is clinically stable for discharge, awaiting placement Hospitalist Physical - Constitutional Vitals: Temp Pulse Resp BP Pulse Ox 97.8 F 87 18 184/93 99 08/01/20 11:52 08/01/20 14:56 08/01/20 11:52 08/01/20 14:56 08/01/20 11:52 General appearance: Present: no acute distress, well-nourished - EENT Eyes: Present: PERRL, EOM intact ENT: hearing intact, clear oral mucosa, dentition normal - Neck Neck: Present: supple, normal ROM - Respiratory Respiratory effort: normal Respiratory: bilateral: CTA - Cardiovascular Rhythm: regular Heart Sounds: Present: S1 & S2. Absent: gallop, rub - Extremities Extremities: no ischemia, No edema, Full ROM - Abdominal General gastrointestinal: soft, non-tender, non-distended, normal bowel sounds - Integumentary Integumentary: Present: clear, warm, dry - Neurologic Neurologic: CNII-XII intact, moves all extremities HEART Score - HEART Score Risk factors: > 3 risk factors or hx of atherosclerotic disease Troponin: Troponin T 0.099 ng/mL (0.00-0.029) H 07/14/20 10:13 Troponin: 1-3x normal limit - Critical Actions Critical Actions: 4-6 pts:12-16.6% risk of adverse cardiac event. Should be admitted (PATIENT UNDERGOING WORK UP) Results - Labs CBC & Chem 7: 07/26/20 10:18 07/26/20 10:18 Labs: Laboratory Last Values WBC 5.3 K/mm3 (4.5-11.0) 07/26/20 10:18 RBC 2.83 M/mm3 (3.65-5.03) L 07/26/20 10:18 Hgb 8.5 gm/dl (10.1-14.3) L 07/26/20 10:18 Hct 25.9 % (30.3-42.9) L 07/26/20 10:18 MCV 92 fl (79-97) 07/26/20 10:18 MCH 30 pg (28-32) 07/26/20 10:18 MCHC 33 % (30-34) 07/26/20 10:18 RDW 16.5 % (13.2-15.2) H 07/26/20 10:18 Plt Count 169 K/mm3 (140-440) 07/26/20 10:18 Lymph % (Auto) 16.5 % (13.4-35.0) 07/26/20 10:18 [place] % (Auto) 3.8 % (0.0-7.3) 07/26/20 10:18 Eos % (Auto) 2.5 % (0.0-4.3) 07/26/20 10:18 Baso % (Auto) 0.4 % (0.0-1.8) 07/26/20 10:18 Lymph # (Auto) 0.9 K/mm3 (1.2-5.4) L 07/26/20 10:18 [place] # (Auto) 0.2 K/mm3 (0.0-0.8) 07/26/20 10:18 Eos # (Auto) 0.1 K/mm3 (0.0-0.4) 07/26/20 10:18 Baso # (Auto) 0.0 K/mm3 (0.0-0.1) 07/26/20 10:18 Seg Neutrophils % 76.8 % (40.0-70.0) H 07/26/20 10:18 Seg Neutrophils # 4.1 K/mm3 (1.8-7.7) 07/26/20 10:18 PT 25.9 Sec. (12.2-14.9) H 07/31/20 10:33 INR 2.34 (0.87-1.13) H 07/31/20 10:33 APTT 28.2 Sec. (24.2-36.6) 07/13/20 23:36 Sodium 135 mmol/L (137-145) L 07/26/20 10:18 Potassium 4.4 mmol/L (3.6-5.0) 07/26/20 10:18 Chloride 94.3 mmol/L (98-107) L 07/26/20 10:18 Carbon Dioxide 26 mmol/L (22-30) 07/26/20 10:18 Anion Gap 19 mmol/L 07/26/20 10:18 BUN 51 mg/dL (7-17) H 07/26/20 10:18 Creatinine 6.6 mg/dL (0.6-1.2) H 07/26/20 10:18 Estimated GFR 8 ml/min 07/26/20 10:18 BUN/Creatinine Ratio 8 % 07/26/20 10:18 Glucose 157 mg/dL (65-100) H 07/26/20 10:18 Calcium 9.2 mg/dL (8.4-10.2) 07/26/20 10:18 Total Creatine Kinase 81 units/L (30-135) 07/14/20 10:13 CK-MB (CK-2) 1.9 ng/mL (0.0-4.0) 07/14/20 10:13 CK-MB (CK-2) Rel Index 2.3 (0-4) 07/14/20 10:13 Troponin T 0.099 ng/mL (0.00-0.029) H 07/14/20 10:13 Triglycerides 89 mg/dL (2-149) 07/13/20 23:36 Cholesterol 152 mg/dL (50-199) 07/13/20 23:36 LDL Cholesterol Direct 84 mg/dL (50-130) 07/13/20 23:36 HDL Cholesterol 59 mg/dL (40-59) 07/13/20 23:36 Cholesterol/HDL Ratio 2.57 % 07/13/20 23:36 Coronavirus (PCR) Negative (Negative) 07/21/20 Unknown Hepatitis A IgM Ab Non-reactive (NonReactive) 07/14/20 10:13 Hep Bs Antigen Non-reactive (Negative) 07/14/20 10:13 Hep B Core IgM Ab Non-reactive (NonReactive) 07/14/20 10:13 Hepatitis C Antibody Non-reactive (NonReactive) 07/14/20 10:13 - Diagnostic Impressions Diagnostic Impressions: Echocardiogram 07/14/20 10:55 Transthoracic Echocardiogram Indication: Chest Pain BP: 137/63 HR: 79 Conclusions *The left ventricular chamber size is normal. *Mild concentric left ventricular hypertrophy is observed. *There are multiple regional wall motion abnormalities. *septal,basal inferior wall hypokinetic *The estimated ejection fraction is 35-40%. *Abnormal left ventricular diastolic filling is observed, consistent with impaired relaxation. *The left ventricular diastolic filling pattern is consistent with pseudonormalization. *The left ventricular diastolic filling pattern is consistent with elevated mean left atrial pressure. *The left atrium is mildly dilated. *The right ventricle is mild to moderately dilated. *The aortic valve leaflets are moderately thickened. *There is trace of aortic regurgitation. *There is no evidence of aortic stenosis. *There is mitral annular calcification. *There is mild to moderate mitral regurgitation. *There is mild to moderate tricuspid regurgitation. *There is no pericardial effusion. *The inferior vena cava appears normal in size. Findings Left Ventricle: The left ventricular chamber size is normal. Mild concentric left ventricular hypertrophy is observed. There are multiple regional wall motion abnormalities. Global left ventricular systolic function is mild to moderately decreased. The estimated ejection fraction is 35-40%. Abnormal left ventricular diastolic function is observed. The left ventricular diastolic filling pattern is consistent with pseudonormalization. The left ventricular diastolic filling pattern is consistent with elevated mean left atrial pressure. Left Atrium: The left atrium is mildly dilated. Right Ventricle: The right ventricle is mild to moderately dilated. The right ventricular global systolic function is normal. Right Atrium: The right atrium appears normal. The interatrial septum appears normal. 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 Aortic Valve: The aortic valve is trileaflet. The aortic valve leaflets are moderately thickened. There is trace of aortic regurgitation. There is no evidence of aortic stenosis. Mitral Valve: The mitral valve leaflets appear normal. There is mitral annular calcification. There is mild to moderate mitral regurgitation. There is no evidence of mitral stenosis. Tricuspid Valve: The tricuspid valve leaflets are normal. There is mild to moderate tricuspid regurgitation. There is no tricuspid stenosis. Pulmonic Valve: The pulmonic valve appears normal. There is trace pulmonic regurgitation. There is no pulmonic stenosis. Pericardium: There is no pericardial effusion. Aorta: There is no dilatation of the ascending aorta. There is no dilatation of the aortic arch. There is no dilatation of the descending thoracic aorta. There is no dilatation of the aortic root. Venous: The inferior vena cava appears normal in size. Measurements Chambers 2D Name Value Normal Range IVSd (2D) 1.21 cm (0.6 - 1.1) LVPWd (2D) 1.22 cm (0.6 - 1.1) LVIDd (2D) 5.61 cm (3.7 - 5.6) LVIDs (2D) 4.74 cm (2 - 3.8) LV FS (2D) 15.52 % - EF Teichholz (2D) 32.35 % - Ao root diameter (2D) 2.98 cm (2 - 3.7) Volumes/Mass Name Value Normal Range LA ESV SP 4CH (A/L) 90.79 ml - LA ESV SP 2CH (A/L) 79.53 ml - LA ESV BP (A/L) 85.37 ml - LA ESV SP 4CH (MOD) 84.6 ml - LA ESV SP 2CH (MOD) 74.61 ml - LV EDV SP 4CH (MOD) 197.38 ml - LV ESV SP 4CH (MOD) 123.93 ml - EF SP 4CH (MOD) 37.21 % - LV EDV SP 2CH (MOD) 194.2 ml - LV ESV SP 2CH (MOD) 123.7 ml - EF SP 2CH (MOD) 36.3 % - LV EDV BP 201.77 ml - LV ESV BP 131.12 ml - BP EF (MOD) 35.02 % - Diastolic/Systolic Function Name Value Normal Range MV E-wave Vmax 1.15 m/sec - MV deceleration time 133.32 msec - MV A-wave Vmax 0.78 m/sec - MV E:A ratio 1.48 ratio - Aortic Valve Name Value Normal Range AV Vmax 1.8 m/sec - AV VTI 35.01 cm - AV peak gradient 12.99 mmHg - AV mean gradient 6.54 mmHg - LVOT diameter 2.11 cm - LVOT Vmax 0.86 m/sec - LVOT VTI 17.92 cm - LVOT peak gradient 2.94 mmHg - LVOT mean gradient 1.54 mmHg - SV LVOT 62.77 ml - SKINNY (continuity Vmax) 1.67 cm2 - SKINNY (continuity VTI) 1.79 cm2 - Tricuspid Valve Name Value Normal Range TR Vmax 3.55 m/sec - TR peak gradient 50.29 mmHg - Pulmonic Valve/Qp:Qs Name Value Normal Range PV Vmax 1.09 m/sec - PV peak gradient 4.78 mmHg - UT end-diastolic Vmax 1.48 m/sec - PV acceleration time 117.98 msec - Veliz/IV: Voiding Method Bedpan IV Catheter Type [Left Hand] Peripheral IV IV Catheter Type [Left INT / Saline Lock Internal Jugular] Active Medications - Current Medications Current Medications: Generic Name Dose Route Start Last Admin Trade Name Freq PRN Reason Stop Dose Admin Acetaminophen 650 mg 07/13/20 23:07 07/29/20 08:31 Tylenol PO 650 mg Q4H PRN Administration Headache Albuterol 2.5 mg 07/16/20 18:22 07/29/20 15:24 Proventil IH 2.5 mg Q4HRT PRN Administration Shortness Of Breath Aspirin 81 mg 07/14/20 10:00 08/01/20 11:00 Halfprin Ec PO 81 mg QDAY JP Administration Atorvastatin Calcium 40 mg 07/14/20 22:00 07/31/20 22:53 Lipitor PO Not Given QHS JP Carvedilol 25 mg 07/14/20 10:00 08/01/20 10:58 Coreg PO 25 mg BID JP Administration Clonidine HCl 0.2 mg 07/27/20 01:28 07/29/20 08:31 Catapres PO 0.2 mg Q4H PRN Administration Hypertension Clonidine HCl 0.2 mg 07/31/20 08:30 08/01/20 14:55 Catapres PO Not Given Q8HR JP Clopidogrel Bisulfate 75 mg 07/14/20 10:00 08/01/20 10:59 Plavix PO 75 mg QDAY JP Administration Ezetimibe 10 mg 07/14/20 10:00 08/01/20 12:38 Zetia PO 10 mg QDAY JP Administration Epoetin Mulugeta 10,000 unit 07/21/20 17:17 07/31/20 11:02 Procrit IV 10,000 unit CHICHI PRN Administration hemodialysis Fluticasone Propionate 100 mcg 07/14/20 10:00 08/01/20 11:04 Flonase NS 100 mcg QDAY JP Administration Furosemide 80 mg 07/14/20 10:00 08/01/20 10:58 Lasix PO 80 mg DAILY JP Administration Sodium Chloride 100 mls @ 999 mls/hr 07/14/20 13:00 Nacl 0.9% IV CHICHI PRN Hypotension Lidocaine 1 each 07/27/20 14:00 08/01/20 10:58 Lidoderm 5% TD 1 each QDAY [facility] Administration Lisinopril 20 mg 07/27/20 10:00 08/01/20 12:39 Zestril PO Not Given QDAY [facility] Loperamide HCl 2 mg 07/15/20 19:18 07/15/20 21:41 Imodium PO 2 mg Q2H PRN Administration Diarrhea Naphazoline HCl/Pheniramine Maleate 2 drops 07/27/20 11:27 Visine-A OU Q6H PRN Allergy Symptoms Nifedipine 90 mg 07/14/20 10:00 08/01/20 12:38 Procardia Xl PO 90 mg BID [facility] Administration Nitroglycerin 0.5 inch 07/14/20 06:00 08/01/20 14:56 Nitro-Bid 2% TP Not Given QIDNTG [facility] Protocol Ondansetron HCl 4 mg 07/13/20 23:07 Zofran IV Q8H PRN Nausea And Vomiting Warfarin Sodium 10 mg 07/16/20 17:00 07/31/20 18:41 Coumadin PO Not Given DAILY@1700 [facility] Protocol Warfarin Sodium 5 mg 07/29/20 17:00 07/31/20 18:41 Coumadin PO Not Given DAILY@1700 [facility] Nutrition/Malnutrition Assess - Dietary Evaluation Nutrition/Malnutrition Findings: Nutrition Notes Start: 07/17/20 13:10 Freq: Status: Active Protocol: Document 07/20/20 11:27 EN (Rec: 07/20/20 11:34 EN [email or web address]) Co-Sign 07/20/20 11:27 LM Nutrition Notes Initial or Follow up Reassessment Current Diagnosis CKD (stage V CKD),Coronary Artery Disease,Diabetes, Hypertension Other Pertinent Diagnosis ESRD on HD, NSTEMI, dyslipidedema Current Diet Renal Labs/Tests 07/19: BUN 25, Cr 4.1 Pertinent Medications Reviewed Height 5 ft 3 in Weight 75.4 kg [place] Body Weight (kg) 52.27 BMI 29.4 Weight Status Overweight Subjective/Other Information F/u for intakes. Pt reports eating 100% of breakfast. Pt would like pork and fruit cups during meals. Pt reports loose stool at 10:00 this morning. Pt states that appetite is good and denies N/ V Percent of energy/protein needs met: 100%/86% Burn Absent Trauma Absent GI Symptoms Diarrhea Food Allergy Yes Current % PO Good (75-100%) Minimum of two criteria No Interpretation of Weight Loss (severe) >5% in 1 month #2 Nutrition Diagnosis Inadequate oral intake As Evidenced by Signs and Symptoms consuming 100% of meals Diagnosis Progress(for reassessment Resolved documentation) #1 Nutrition Diagnosis Food and nutrition-related knowledge deficit As Evidenced by Signs and Symptoms No further Coumadin/Vit k questions Diagnosis Progress(for reassessment Resolved documentation) Is patient on ventilator? No Is Patient Ambulatory and/or Out of Bed No REE-([facility]-confined to bed) [phone] Calculation Used for Recommendations [facility] Additional Notes Protein: >1.2 g/kg (> 90g) Fluid: Urine output + 1000 ml/ day Nutrition Intervention Change Diet Order: Continue Renal Diet Goal #1 Meet 75% of energy and protein needs Anticipated Discharge Needs: Renal diet Revisit per MD consult or patient Sign Off request:
[2020-08-01 17:41] LABS: INR 2.7 (0.87-1.13)
[2020-08-01] MEDS: WARFARIN 5 MG TAB PO SCH (17:56)
[2020-08-01] MEDS: WARFARIN 10 MG TAB PO SCH (17:56)
[2020-08-02] MEDS: cloNIDine 0.1 MG TAB PO SCH ×3 (06:31→21:48)
[2020-08-02] MEDS: NITROGLYCERIN 2% OINT 1 GM TP SCH ×4 (06:40→18:46)
[2020-08-02] MEDS: NIFEdipine XL 90 MG TAB PO SCH ×2 (09:09→21:47)
[2020-08-02 10:10] LABS: INR 2.61 (0.87-1.13)
[2020-08-02] MEDS: EPOETIN ALFA 10,000 UNIT/1 ML INJ IV PRN (10:38)
--- NOTE | 2020-08-02 12:36 | Discharge Summary ---
Providers - Providers Date of Admission: 07/13/20 22:55 Date of discharge: 08/02/20 Attending physician: JADEN MURDOCK 07/14/20 06:00 Consult to Physician [CONS] Routine Comment: Consulting Provider: CANDIDO LEIGH Physician Instructions: Reason For Exam: ESRD ON DIALYSIS 07/18/20 19:34 Physical Therapy Evaluation and Treat [CONS] Routine Comment: Reason For Exam: General debility/DC needs 07/19/20 11:53 Occupational Therapy Evaluate and Treat [CONS] Routine Comment: Reason For Exam: debility Primary care physician: CHRONIC CONDITION NURSE Hospitalization Reason for admission: cp Condition: Stable Hospital course: 60-year-old female patient who is legally blind with significant history of coronary artery disease status post PCI, ischemic cardiomyopathy CVA end-stage renal disease on hemodialysis, history of PE IVC filter placement anticoagulation with Coumadin anemia was admitted through emergency room with chest pain Elevated troponins, evaluated by cardiology, underwent stress test which was negative for acute ischemia, patient was seen by nephrology receiving hemodialysis per schedule Patient is clinically stable for discharge, awaiting placement 07/25. I have seen and examined the patient at the bedside Patient's chart and medications reviewed No new complaints, patient receiving hemodialysis per schedule Clinically stable for discharge Awaiting placement 07/26. No change in medical condition. Vitals remain stable. Awaiting placement 07/27. Has itchy left eye. Prescribed eye drops. Stable for DC 07/28. Stable for DC. No new complaints 07/29. Medically stable for DC. BP elevated today. Added clonidine 07/30-. Medically stable for discharge. Blood pressure significantly improved. Try to call daughter on phone number provided by patient but no answer so I left a voice message. corporate recycling manager trying to get placement for patient-patients daughter has not been available to provide documents required prior to placement. 08/01/2020. pet crematory worker worked through home/family dynamics.---Urology Physician Assistant spoke to patient at bedside regarding discharge plan and lack of communication from family. Patient stated that her daughter was sick and in the hospital and she is now better. Patient stated that she is going to SNF and her daughter will pay for the 4 days she was at [facility] LUIS informed patient that her daughter needs to assist with the discharge planning process because she is controlling the finances and if she does not then there is a concern for neglect and financial gain. SW urged patient to have daughter work with social work case manager to create a safe discharge plan or the only discharge option is to a correction. corporate recycling manager informed of conversation. I was informed of the dynamics in this conversation today. Director of Case management reports that patient can be discharged to correction today. Dedicated discharge time 35 minutes Problems -Non-ST elevation RI, type II 07/15/2020 stress test negative for acute ischemia EF 38 %. Continue current management including aspirin and Plavix Cardiology cleared for discharge --History of coronary artery disease status post PCI Continue current cardiac medications, cardiology following --Ischemic cardiomyopathy; EF 40 to 45% 2016 Continue antifailure medications --End-stage renal disease; MWF On hemodialysis, nephrology following, HD per schedule Stable ,renal cleared for discharge --Hypertensive emergency; present on admission Added clonidine. Monitor BP --History of peripheral vascular disease; Continue antiplatelets and statins --History of DVT and PE; chronic anticoagulation with Coumadin subtherapeutic INR noncompliant Coumadin resumed Target INR 2-3, Closely monitor Monitor INR and adjust as needed --History of IVC filter placement; supportive care --Type 2 diabetes mellitus; Accu-Chek sliding scale coverage ADA diet Insulin as needed --Dyslipidemia; Stable on lipid-lowering medications --Obesity; BMI 39.0 Advised weight reduction when medically stable --Possible obstructive sleep apnea; Patient may need outpatient sleep study Rule out KENY, CPAP BiPAP at night as needed ---Chronic back pain She uses 2 lidocaine patchs and opioids at home ---Eye irritation Antihistamine eyedrops --DVT prophylaxis; Patient is already on Coumadin Disposition: DC-01 TO HOME OR SELFCARE Time spent for discharge: 35 min - Discharge Diagnoses (1) NSTEMI (non-ST elevated myocardial infarction) Status: Acute (2) Accelerated hypertension Status: Chronic (3) Anemia Status: Chronic (4) CAD (coronary artery disease) Status: Chronic (5) DM2 (diabetes mellitus, type 2) Status: Chronic (6) End stage renal disease on dialysis Status: Chronic (7) History of CVA (cerebrovascular accident) Status: Chronic (8) History of DVT (deep vein thrombosis) Status: Chronic (9) History of pulmonary embolism Status: Chronic (10) Hyperlipidemia Status: Chronic (11) Ischemic cardiomyopathy Status: Chronic (12) PVD (peripheral vascular disease) Status: Chronic (13) Presence of IVC filter Status: Chronic (14) KENY (obstructive sleep apnea) Status: Suspected (15) Chest pain Status: Resolved Core Measure Documentation - Palliative Care Palliative Care/ Comfort Measures: Not Applicable - Core Measures Any of the following diagnoses?: acute RI - Acute RI Discharge Requirements Aspirin at discharge: Yes OTTO/ARB for LVSD if EF <40%: Yes Beta marie at discharge: Yes Statin for LDL = or >100 mg/dl on DC: Yes Exam - Constitutional Vitals: Temp Pulse Resp BP Pulse Ox 97.8 F 87 18 172/81 100 08/02/20 09:30 08/02/20 10:02 08/02/20 09:30 08/02/20 10:02 08/02/20 09:06 General appearance: Present: no acute distress, well-nourished - EENT Eyes: Present: PERRL ENT: hearing intact, clear oral mucosa - Neck Neck: Present: supple, normal ROM - Respiratory Respiratory effort: normal Respiratory: bilateral: CTA - Cardiovascular Heart Sounds: Present: S1 & S2. Absent: rub, click - Extremities Extremities: pulses symmetrical, No edema Peripheral Pulses: within normal limits - Abdominal General gastrointestinal: Present: soft, non-tender, non-distended, normal bowel sounds Female genitourinary: Present: normal - Integumentary Integumentary: Present: clear, warm, dry - Musculoskeletal Musculoskeletal: gait normal, strength equal bilaterally - Psychiatric Psychiatric: appropriate mood/affect, intact judgment & insight - Neurologic Neurologic: CNII-XII intact, moves all extremities Plan Activity: advance as tolerated Weight Bearing Status: Weight Bear as Tolerated Diet: low fat, low cholesterol, low salt, diabetic Follow up with: PRIMARY CARE, [Primary Care Provider] - 3-5 Days Forms: Warfarin Discharge Instruction Prescriptions: Albuterol Sulfate [Albuterol 0.63% NEBS] 0.63 mg IH Q4H PRN 30 Days PRN Reason: Wheezing cloNIDine [Catapres] 0.2 mg PO Q8HR #30 tablet carvediloL [Coreg] 25 mg PO BID #60 Warfarin [Coumadin] 10 mg PO DAILY@1700 #7 tablet Warfarin [Coumadin] 5 mg PO DAILY@1700 30 Days #30 tablet Ferrous Sulfate [Feosol 325 MG tab] 325 mg PO QDAY 30 Days Fluticasone [Flonase] 100 mcg NS QDAY 30 Days bottle Aspirin EC [Halfprin EC] 81 mg PO QDAY #30 tablet. Furosemide [Lasix TAB] 80 mg PO DAILY #30 tablet AtorvaSTATin [Lipitor] 40 mg PO QHS #30 AtorvaSTATin [Lipitor] 80 mg PO QHS #30 tablet Clopidogrel [Plavix] 75 mg PO QDAY #30 NIFEdipine XL [Procardia Xl] 90 mg PO BID #60 tablet Levothyroxine [Synthroid] 88 mcg PO QAM 30 Days lisinopriL [Zestril TAB] 20 mg PO QDAY #30 tablet
[2020-08-02] MEDS: CLOPIDOGREL 75 MG TAB PO SCH (13:44)
[2020-08-02] MEDS: LISINOPRIL 20 MG TAB PO SCH (13:44)
[2020-08-02] MEDS: ASPIRIN EC 81 MG TAB PO SCH (13:45)
[2020-08-02] MEDS: LIDOCAINE 5% 1 EACH PATCH TD SCH (14:26)
[2020-08-02] MEDS: carvediloL 25 MG TAB PO SCH ×2 (14:27→21:47)
[2020-08-02] MEDS: FUROSEMIDE 40 MG TAB PO SCH (14:36)
[2020-08-02] MEDS: EZETIMIBE 10 MG TAB PO SCH (15:19)
[2020-08-02] MEDS: WARFARIN 5 MG TAB PO SCH (18:45)
[2020-08-02] MEDS: WARFARIN 10 MG TAB PO SCH (18:45)
[2020-08-03] MEDS: cloNIDine 0.1 MG TAB PO SCH ×3 (06:02→22:46)
[2020-08-03] MEDS: NITROGLYCERIN 2% OINT 1 GM TP SCH ×4 (06:07→17:22)
[2020-08-03] MEDS: FLUTICASONE PROPIONATE NASAL SPRAY 16 GM NS SCH ×2 (07:20→10:59)
--- NOTE | 2020-08-03 08:09 | Progress Note ---
Subjective Principal diagnosis: ESRD/HD, Acc HTN, NSTEMI 2, H/o PE/DVT (IVC filter) Interval history: Patient was seen today for follow-up of multiple renal related issues, around 1040 in the morning No complaints of any chest pain pressure or shortness of breath Interdisciplinary notes that also reviewed Events of 24 hours vitals labs intake output medications were reviewed Past medical history: Reviewed Family history: Reviewed Social history: Reviewed Allergies: Reviewed Physical examination: Vitals: Reviewed HEENT: No pallor or icterus oral mucosa moist Neck: Supple no JVD no thyromegaly Chest: Bilateral clear to auscultation anteriorly Heart: Regular rate and rhythm S1-S2 heard no S3-S4 Abdomen: Soft nontender no voluntary guarding rigidity rebound Extremity: Dry skin less than 1+ peripheral edema Psychiatric: No evidence of agitation and aggression noted Dermatology: No petechial rashes Labs and x-rays: Reviewed from today Assessment and plan #End-stage renal disease: Patient is currently on maintenance hemodialysis on , Friday and Friday schedule Will monitor dialysis-related labs periodically. Hemodialysis nurse to ultrafiltrate as tolerated, systolic blood pressure must be kept above 100, heart rate below 100 Pending custodial placement #Electrolyte and volume: To monitor and follow #Dialysis Access: Working well no issues per patient #Anemia in end-stage renal disease to monitor hemoglobin and hematocrit periodically erythropoietin as needed, #Bone mineral disorder and secondary hyperparathyroidism: Monitor phosphorus and PTH level periodically, #Diet and nutrition: Patient advised to maintain 1200 cc fluid restriction needs to be on protein: 1.5 g/kg body weight daily, supplement should be considered Patient was adequately counseled and educated regarding all the renal related issues Laboratory studies, have been explained to the patient All questions were answered and simple Hebrew We'll continue to follow and make recommendation for renal standpoint Objective - Vital Signs Vital signs: Vital Signs - 12hr 08/02/20 08/02/20 08/02/20 20:35 21:47 23:53 Temperature 97.8 F 97.8 F Pulse Rate 77 77 81 Respiratory 18 16 Rate Blood Pressure 174/83 174/83 135/74 Blood Pressure [Right] O2 Sat by Pulse 100 95 Oximetry 08/03/20 08/03/20 08/03/20 03:42 06:02 06:07 Temperature 97.2 F L Pulse Rate 80 80 80 Respiratory 16 Rate Blood Pressure 170/79 170/79 170/79 Blood Pressure [Right] O2 Sat by Pulse 96 Oximetry 08/03/20 07:45 Temperature 97.9 F Pulse Rate 94 H Respiratory 18 Rate Blood Pressure Blood Pressure 169/78 [Right] O2 Sat by Pulse 95 Oximetry - Lab 07/26/20 10:18 07/26/20 10:18 Most recent lab results Calcium 9.2 mg/dL (8.4-10.2) 07/26/20 10:18 Medications & Allergies - Medications Allergies/Adverse Reactions: Allergies apixaban [From Eliquis] Allergy (Verified 03/01/17 20:29) Itching dabigatran etexilate mesylate [From Pradaxa] Allergy (Verified 03/01/17 20:27) Itching heparin Allergy (Verified 07/14/20 05:54) Vomiting hydralazine HCl [From Apresoline] Allergy (Verified 03/01/17 13:11) Unknown morphine Allergy (Verified 02/15/14 02:23) Itching povidone-iodine [From Betadine] Allergy (Verified 03/01/17 20:26) Itching rivaroxaban [From Xarelto] Allergy (Verified 03/01/17 20:29) Itching soap [From Betadine] Allergy (Verified 03/01/17 20:26) Itching verapamil HCl [From Calan] Allergy (Verified 02/15/14 02:23) Headache Home Medications: Home Medications Medication Instructions Recorded Confirmed Last Taken Type Oxymetazoline 0.05% [Vicks Sinex] 1 spray NS BID 03/01/17 07/14/20 1 Day Ago History ~02/28/17 Furosemide [Lasix TAB] 80 mg PO QDAY #30 tablet 03/05/17 07/14/20 Unknown Rx Nystatin [Nystop Powder] 1 applic TP BID #15 g 03/05/17 07/14/20 Unknown Rx Lidocaine [Lidoderm] 5 patch TRANSDERMA QDAY 07/14/20 07/14/20 Unknown History NIFEdipine XL [Procardia Xl] 90 mg PO BID 07/14/20 07/14/20 Unknown History Warfarin [Coumadin] 10 mg PO QDAY 07/14/20 07/14/20 Unknown History Albuterol Sulfate [Albuterol 0.63% 0.63 mg IH Q4H PRN 30 Days 08/02/20 Unknown Rx NEBS] Aspirin EC [Halfprin EC] 81 mg PO QDAY #30 tablet. 08/02/20 Unknown Rx AtorvaSTATin [Lipitor] 40 mg PO QHS #30 08/02/20 Unknown Rx AtorvaSTATin [Lipitor] 80 mg PO QHS #30 tablet 08/02/20 Unknown Rx Clopidogrel [Plavix] 75 mg PO QDAY #30 08/02/20 Unknown Rx Ezetimibe [Zetia] 10 mg PO QDAY tablet 08/02/20 Unknown Rx Ferrous Sulfate [Feosol 325 MG tab] 325 mg PO QDAY 30 Days 08/02/20 Unknown Rx Fluticasone [Flonase] 100 mcg NS QDAY 30 Days bottle 08/02/20 Unknown Rx Furosemide [Lasix TAB] 80 mg PO DAILY #30 tablet 08/02/20 Unknown Rx Levothyroxine [Synthroid] 88 mcg PO QAM 30 Days 08/02/20 Unknown Rx NIFEdipine XL [Procardia Xl] 90 mg PO BID #60 tablet 08/02/20 Unknown Rx Naphazoline/Phenira 0.025/0.3% 2 drops OU Q6H PRN bottle 08/02/20 Unknown Rx [Visine-A] Warfarin [Coumadin] 5 mg PO DAILY@1700 30 Days #30 08/02/20 Unknown Rx tablet Warfarin [Coumadin] 10 mg PO DAILY@1700 #7 tablet 08/02/20 Unknown Rx carvediloL [Coreg] 25 mg PO BID #60 08/02/20 Unknown Rx cloNIDine [Catapres] 0.2 mg PO Q8HR #30 tablet 08/02/20 Unknown Rx lisinopriL [Zestril TAB] 20 mg PO QDAY #30 tablet 08/02/20 Unknown Rx Active Medications: Generic Name Dose Route Start Last Admin Trade Name Freq PRN Reason Stop Dose Admin Acetaminophen 650 mg 07/13/20 23:07 07/29/20 08:31 Tylenol PO 650 mg Q4H PRN Administration Headache Albuterol 2.5 mg 07/16/20 18:22 07/29/20 15:24 Proventil IH 2.5 mg Q4HRT PRN Administration Shortness Of Breath Aspirin 81 mg 07/14/20 10:00 08/02/20 13:45 Halfprin Ec PO Not Given QDAY JP Atorvastatin Calcium 40 mg 07/14/20 22:00 08/02/20 21:48 Lipitor PO Not Given QHS JP Carvedilol 25 mg 07/14/20 10:00 08/02/20 21:47 Coreg PO 25 mg BID JP Administration Clonidine HCl 0.2 mg 07/27/20 01:28 07/29/20 08:31 Catapres PO 0.2 mg Q4H PRN Administration Hypertension Clonidine HCl 0.2 mg 07/31/20 08:30 08/03/20 06:02 Catapres PO Not Given Q8HR [facility] Clopidogrel Bisulfate 75 mg 07/14/20 10:00 08/02/20 13:44 Plavix PO Not Given QDAY [facility] Ezetimibe 10 mg 07/14/20 10:00 08/02/20 15:19 Zetia PO Not Given QDAY [facility] Epoetin Mulugeta 10,000 unit 07/21/20 17:17 08/02/20 10:38 Procrit IV 10,000 unit CHICHI PRN Administration hemodialysis Fluticasone Propionate 100 mcg 07/14/20 10:00 08/03/20 07:20 Flonase NS Not Given QDAY [facility] Furosemide 80 mg 07/14/20 10:00 08/02/20 14:36 Lasix PO Not Given DAILY [facility] Sodium Chloride 100 mls @ 999 mls/hr 07/14/20 13:00 Nacl 0.9% IV CHICHI PRN Hypotension Lidocaine 1 each 07/27/20 14:00 08/02/20 14:26 Lidoderm 5% TD 1 each QDAY [facility] Administration Lisinopril 20 mg 07/27/20 10:00 08/02/20 13:44 Zestril PO Not Given QDAY [facility] Loperamide HCl 2 mg 07/15/20 19:18 07/15/20 21:41 Imodium PO 2 mg Q2H PRN Administration Diarrhea Naphazoline HCl/Pheniramine Maleate 2 drops 07/27/20 11:27 Visine-A OU Q6H PRN Allergy Symptoms Nifedipine 90 mg 07/14/20 10:00 08/02/20 21:47 Procardia Xl PO 90 mg BID JP Administration Nitroglycerin 0.5 inch 07/14/20 06:00 08/03/20 06:07 Nitro-Bid 2% TP 0.5 inch QIDNTG JP Administration Protocol Ondansetron HCl 4 mg 07/13/20 23:07 08/02/20 10:38 Zofran IV 4 mg Q8H PRN Administration Nausea And Vomiting Warfarin Sodium 10 mg 07/16/20 17:00 08/02/20 18:45 Coumadin PO 10 mg DAILY@1700 JP Administration Protocol Warfarin Sodium 5 mg 07/29/20 17:00 08/02/20 18:45 Coumadin PO 5 mg DAILY@1700 JP Administration
[2020-08-03 08:11] LABS: INR 2.03 (0.87-1.13)
[2020-08-03] MEDS: NIFEdipine XL 90 MG TAB PO SCH ×2 (10:58→22:46)
[2020-08-03] MEDS: EZETIMIBE 10 MG TAB PO SCH (10:58)
[2020-08-03] MEDS: LISINOPRIL 20 MG TAB PO SCH (10:59)
[2020-08-03] MEDS: CLOPIDOGREL 75 MG TAB PO SCH (10:59)
[2020-08-03] MEDS: FUROSEMIDE 40 MG TAB PO SCH (10:59)
[2020-08-03] MEDS: ASPIRIN EC 81 MG TAB PO SCH (10:59)
[2020-08-03] MEDS: carvediloL 25 MG TAB PO SCH ×2 (10:59→22:46)
[2020-08-03] MEDS: LIDOCAINE 5% 1 EACH PATCH TD SCH (11:00)
--- NOTE | 2020-08-03 11:42 | Progress Note ---
Assessment and Plan Assessment and plan: -Non-ST elevation [place], type II 07/15/2020 stress test negative for acute ischemia EF 38 %. Continue current management including aspirin and Plavix Cardiology cleared for discharge --History of coronary artery disease status post PCI Continue current cardiac medications, cardiology following --Ischemic cardiomyopathy; EF 40 to 45% 2016 Continue antifailure medications --End-stage renal disease; MWF On hemodialysis, nephrology following, HD per schedule Stable ,renal cleared for discharge --Hypertensive emergency; present on admission Added clonidine. Monitor BP --History of peripheral vascular disease; Continue antiplatelets and statins --History of DVT and PE; chronic anticoagulation with Coumadin subtherapeutic INR noncompliant Coumadin resumed Target INR 2-3, Closely monitor Monitor INR and adjust as needed --History of IVC filter placement; supportive care --Type 2 diabetes mellitus; Accu-Chek sliding scale coverage ADA diet Insulin as needed --Dyslipidemia; Stable on lipid-lowering medications --Obesity; BMI 39.0 Advised weight reduction when medically stable --Possible obstructive sleep apnea; Patient may need outpatient sleep study Rule out KENY, CPAP BiPAP at night as needed ---Chronic back pain She uses 2 lidocaine patchs and opioids at home ---Eye irritation Antihistamine eyedrops --DVT prophylaxis; Patient is already on Coumadin DC planning per case management Patient is medically stable for discharge however still need to be discharged to facility but this has not been possible. casino duty manager currently trying to see the patient in place-options include placement to a facility versus personal alf [which patient does not want] patient's daughter # [phone] provided by patient 07/25. I have seen and examined the patient at the bedside Patient's chart and medications reviewed No new complaints, patient receiving hemodialysis per schedule Clinically stable for discharge Awaiting placement 07/26. No change in medical condition. Vitals remain stable. Awaiting placement 07/27. Has itchy left eye. Prescribed eye drops. Stable for DC 07/28. Stable for DC. No new complaints 07/29. Medically stable for DC. BP elevated today. Added clonidine 07/30-. Medically stable for discharge. Blood pressure significantly improved. Try to call daughter on phone number provided by patient but no answer so I left a voice message. casino duty manager trying to get placement for patient-patients daughter has not been available to provide documents required prior to placement. 08/01. Awaiting placement 08/02/2020. Patient was set for discharge to a group home however this was discontinued. After further review, patient was deemed to be unsafe for discharge to a group home given the fact patient is on Coumadin and is blind with difficulty walking. Case management is aware and attempting to arrange for safe discharge. - Patient Problems (1) NSTEMI (non-ST elevated myocardial infarction) Current Visit: Yes Status: Acute (2) Accelerated hypertension Current Visit: Yes Status: Chronic (3) Anemia Current Visit: Yes Status: Chronic (4) CAD (coronary artery disease) Current Visit: Yes Status: Chronic (5) DM2 (diabetes mellitus, type 2) Current Visit: Yes Status: Chronic (6) End stage renal disease on dialysis Current Visit: Yes Status: Chronic (7) History of CVA (cerebrovascular accident) Current Visit: Yes Status: Chronic (8) History of DVT (deep vein thrombosis) Current Visit: Yes Status: Chronic (9) History of pulmonary embolism Current Visit: Yes Status: Chronic (10) Hyperlipidemia Current Visit: Yes Status: Chronic (11) Ischemic cardiomyopathy Current Visit: Yes Status: Chronic (12) PVD (peripheral vascular disease) Current Visit: Yes Status: Chronic (13) Presence of IVC filter Current Visit: Yes Status: Chronic (14) KENY (obstructive sleep apnea) Current Visit: Yes Status: Suspected (15) Chest pain Current Visit: Yes Status: Resolved History Interval history: 60-year-old female patient who is legally blind with significant history of coronary artery disease status post PCI, ischemic cardiomyopathy CVA end-stage renal disease on hemodialysis, history of PE IVC filter placement anticoagulation with Coumadin anemia was admitted through emergency room with chest pain Elevated troponins, evaluated by cardiology, underwent stress test which was negative for acute ischemia, patient was seen by nephrology receiving hemodialysis per schedule Patient is clinically stable for discharge, awaiting placement Hospitalist Physical - Constitutional Vitals: Temp Pulse Resp BP Pulse Ox 97.9 F 94 H 18 169/78 95 08/03/20 07:45 08/03/20 07:45 08/03/20 07:45 08/03/20 07:45 08/03/20 07:45 General appearance: Present: no acute distress, well-nourished - EENT Eyes: Present: PERRL, EOM intact ENT: hearing intact, clear oral mucosa, dentition normal - Neck Neck: Present: supple, normal ROM - Respiratory Respiratory effort: normal Respiratory: bilateral: CTA - Cardiovascular Rhythm: regular Heart Sounds: Present: S1 & S2. Absent: gallop, rub - Extremities Extremities: no ischemia, No edema, Full ROM - Abdominal General gastrointestinal: soft, non-tender, non-distended, normal bowel sounds - Integumentary Integumentary: Present: clear, warm, dry - Neurologic Neurologic: CNII-XII intact, moves all extremities HEART Score - HEART Score Risk factors: > 3 risk factors or hx of atherosclerotic disease Troponin: Troponin T 0.099 ng/mL (0.00-0.029) H 07/14/20 10:13 Troponin: 1-3x normal limit - Critical Actions Critical Actions: 4-6 pts:12-16.6% risk of adverse cardiac event. Should be admitted (PATIENT UNDERGOING WORK UP) Results - Labs CBC & Chem 7: 07/26/20 10:18 07/26/20 10:18 Labs: Laboratory Last Values WBC 5.3 K/mm3 (4.5-11.0) 07/26/20 10:18 RBC 2.83 M/mm3 (3.65-5.03) L 07/26/20 10:18 Hgb 8.5 gm/dl (10.1-14.3) L 07/26/20 10:18 Hct 25.9 % (30.3-42.9) L 07/26/20 10:18 MCV 92 fl (79-97) 07/26/20 10:18 MCH 30 pg (28-32) 07/26/20 10:18 MCHC 33 % (30-34) 07/26/20 10:18 RDW 16.5 % (13.2-15.2) H 07/26/20 10:18 Plt Count 169 K/mm3 (140-440) 07/26/20 10:18 Lymph % (Auto) 16.5 % (13.4-35.0) 07/26/20 10:18 [place] % (Auto) 3.8 % (0.0-7.3) 07/26/20 10:18 Eos % (Auto) 2.5 % (0.0-4.3) 07/26/20 10:18 Baso % (Auto) 0.4 % (0.0-1.8) 07/26/20 10:18 Lymph # (Auto) 0.9 K/mm3 (1.2-5.4) L 07/26/20 10:18 [place] # (Auto) 0.2 K/mm3 (0.0-0.8) 07/26/20 10:18 Eos # (Auto) 0.1 K/mm3 (0.0-0.4) 07/26/20 10:18 Baso # (Auto) 0.0 K/mm3 (0.0-0.1) 07/26/20 10:18 Seg Neutrophils % 76.8 % (40.0-70.0) H 07/26/20 10:18 Seg Neutrophils # 4.1 K/mm3 (1.8-7.7) 07/26/20 10:18 PT 23.1 Sec. (12.2-14.9) H 08/03/20 07:40 INR 2.03 (0.87-1.13) H 08/03/20 07:40 APTT 28.2 Sec. (24.2-36.6) 07/13/20 23:36 Sodium 135 mmol/L (137-145) L 07/26/20 10:18 Potassium 4.4 mmol/L (3.6-5.0) 07/26/20 10:18 Chloride 94.3 mmol/L (98-107) L 07/26/20 10:18 Carbon Dioxide 26 mmol/L (22-30) 07/26/20 10:18 Anion Gap 19 mmol/L 07/26/20 10:18 BUN 51 mg/dL (7-17) H 07/26/20 10:18 Creatinine 6.6 mg/dL (0.6-1.2) H 07/26/20 10:18 Estimated GFR 8 ml/min 07/26/20 10:18 BUN/Creatinine Ratio 8 % 07/26/20 10:18 Glucose 157 mg/dL (65-100) H 07/26/20 10:18 Calcium 9.2 mg/dL (8.4-10.2) 07/26/20 10:18 Total Creatine Kinase 81 units/L (30-135) 07/14/20 10:13 CK-MB (CK-2) 1.9 ng/mL (0.0-4.0) 07/14/20 10:13 CK-MB (CK-2) Rel Index 2.3 (0-4) 07/14/20 10:13 Troponin T 0.099 ng/mL (0.00-0.029) H 07/14/20 10:13 Triglycerides 89 mg/dL (2-149) 07/13/20 23:36 Cholesterol 152 mg/dL (50-199) 07/13/20 23:36 LDL Cholesterol Direct 84 mg/dL (50-130) 07/13/20 23:36 HDL Cholesterol 59 mg/dL (40-59) 07/13/20 23:36 Cholesterol/HDL Ratio 2.57 % 07/13/20 23:36 Coronavirus (PCR) Negative (Negative) 07/21/20 Unknown Hepatitis A IgM Ab Non-reactive (NonReactive) 07/14/20 10:13 Hep Bs Antigen Non-reactive (Negative) 07/14/20 10:13 Hep B Core IgM Ab Non-reactive (NonReactive) 07/14/20 10:13 Hepatitis C Antibody Non-reactive (NonReactive) 07/14/20 10:13 - Diagnostic Impressions Diagnostic Impressions: Echocardiogram 07/14/20 10:55 Transthoracic Echocardiogram Indication: Chest Pain BP: 137/63 HR: 79 Conclusions *The left ventricular chamber size is normal. *Mild concentric left ventricular hypertrophy is observed. *There are multiple regional wall motion abnormalities. *septal,basal inferior wall hypokinetic *The estimated ejection fraction is 35-40%. *Abnormal left ventricular diastolic filling is observed, consistent with impaired relaxation. *The left ventricular diastolic filling pattern is consistent with pseudonormalization. *The left ventricular diastolic filling pattern is consistent with elevated mean left atrial pressure. *The left atrium is mildly dilated. *The right ventricle is mild to moderately dilated. *The aortic valve leaflets are moderately thickened. *There is trace of aortic regurgitation. *There is no evidence of aortic stenosis. *There is mitral annular calcification. *There is mild to moderate mitral regurgitation. *There is mild to moderate tricuspid regurgitation. *There is no pericardial effusion. *The inferior vena cava appears normal in size. Findings Left Ventricle: The left ventricular chamber size is normal. Mild concentric left ventricular hypertrophy is observed. There are multiple regional wall motion abnormalities. Global left ventricular systolic function is mild to moderately decreased. The estimated ejection fraction is 35-40%. Abnormal left ventricular diastolic function is observed. The left ventricular diastolic filling pattern is consistent with pseudonormalization. The left ventricular diastolic filling pattern is consistent with elevated mean left atrial pressure. Left Atrium: The left atrium is mildly dilated. Right Ventricle: The right ventricle is mild to moderately dilated. The right ventricular global systolic function is normal. Right Atrium: The right atrium appears normal. The interatrial septum appears normal. 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 Aortic Valve: The aortic valve is trileaflet. The aortic valve leaflets are moderately thickened. There is trace of aortic regurgitation. There is no evidence of aortic stenosis. Mitral Valve: The mitral valve leaflets appear normal. There is mitral annular calcification. There is mild to moderate mitral regurgitation. There is no evidence of mitral stenosis. Tricuspid Valve: The tricuspid valve leaflets are normal. There is mild to moderate tricuspid regurgitation. There is no tricuspid stenosis. Pulmonic Valve: The pulmonic valve appears normal. There is trace pulmonic regurgitation. There is no pulmonic stenosis. Pericardium: There is no pericardial effusion. Aorta: There is no dilatation of the ascending aorta. There is no dilatation of the aortic arch. There is no dilatation of the descending thoracic aorta. There is no dilatation of the aortic root. Venous: The inferior vena cava appears normal in size. Measurements Chambers 2D Name Value Normal Range IVSd (2D) 1.21 cm (0.6 - 1.1) LVPWd (2D) 1.22 cm (0.6 - 1.1) LVIDd (2D) 5.61 cm (3.7 - 5.6) LVIDs (2D) 4.74 cm (2 - 3.8) LV FS (2D) 15.52 % - EF Teichholz (2D) 32.35 % - Ao root diameter (2D) 2.98 cm (2 - 3.7) Volumes/Mass Name Value Normal Range LA ESV SP 4CH (A/L) 90.79 ml - LA ESV SP 2CH (A/L) 79.53 ml - LA ESV BP (A/L) 85.37 ml - LA ESV SP 4CH (MOD) 84.6 ml - LA ESV SP 2CH (MOD) 74.61 ml - LV EDV SP 4CH (MOD) 197.38 ml - LV ESV SP 4CH (MOD) 123.93 ml - EF SP 4CH (MOD) 37.21 % - LV EDV SP 2CH (MOD) 194.2 ml - LV ESV SP 2CH (MOD) 123.7 ml - EF SP 2CH (MOD) 36.3 % - LV EDV BP 201.77 ml - LV ESV BP 131.12 ml - BP EF (MOD) 35.02 % - Diastolic/Systolic Function Name Value Normal Range MV E-wave Vmax 1.15 m/sec - MV deceleration time 133.32 msec - MV A-wave Vmax 0.78 m/sec - MV E:A ratio 1.48 ratio - Aortic Valve Name Value Normal Range AV Vmax 1.8 m/sec - AV VTI 35.01 cm - AV peak gradient 12.99 mmHg - AV mean gradient 6.54 mmHg - LVOT diameter 2.11 cm - LVOT Vmax 0.86 m/sec - LVOT VTI 17.92 cm - LVOT peak gradient 2.94 mmHg - LVOT mean gradient 1.54 mmHg - SV LVOT 62.77 ml - SKINNY (continuity Vmax) 1.67 cm2 - SKINNY (continuity VTI) 1.79 cm2 - Tricuspid Valve Name Value Normal Range TR Vmax 3.55 m/sec - TR peak gradient 50.29 mmHg - Pulmonic Valve/Qp:Qs Name Value Normal Range PV Vmax 1.09 m/sec - PV peak gradient 4.78 mmHg - AK end-diastolic Vmax 1.48 m/sec - PV acceleration time 117.98 msec - Veliz/IV: Voiding Method Bedpan IV Catheter Type [Left Hand] Peripheral IV IV Catheter Type [Left INT / Saline Lock Internal Jugular] Active Medications - Current Medications Current Medications: Generic Name Dose Route Start Last Admin Trade Name Freq PRN Reason Stop Dose Admin Acetaminophen 650 mg 07/13/20 23:07 07/29/20 08:31 Tylenol PO 650 mg Q4H PRN Administration Headache Albuterol 2.5 mg 07/16/20 18:22 07/29/20 15:24 Proventil IH 2.5 mg Q4HRT PRN Administration Shortness Of Breath Aspirin 81 mg 07/14/20 10:00 08/03/20 10:59 Halfprin Ec PO 81 mg QDAY JP Administration Atorvastatin Calcium 40 mg 07/14/20 22:00 08/02/20 21:48 Lipitor PO Not Given QHS JP Carvedilol 25 mg 07/14/20 10:00 08/03/20 10:59 Coreg PO 25 mg BID JP Administration Clonidine HCl 0.2 mg 07/27/20 01:28 07/29/20 08:31 Catapres PO 0.2 mg Q4H PRN Administration Hypertension Clonidine HCl 0.2 mg 07/31/20 08:30 08/03/20 06:02 Catapres PO Not Given Q8HR JP Clopidogrel Bisulfate 75 mg 07/14/20 10:00 08/03/20 10:59 Plavix PO Not Given QDAY JP Ezetimibe 10 mg 07/14/20 10:00 08/03/20 10:58 Zetia PO 10 mg QDAY JP Administration Epoetin Mulugeta 10,000 unit 07/21/20 17:17 08/02/20 10:38 Procrit IV 10,000 unit CHICHI PRN Administration hemodialysis Fluticasone Propionate 100 mcg 07/14/20 10:00 08/03/20 10:59 Flonase NS Not Given QDAY [facility] Furosemide 80 mg 07/14/20 10:00 08/03/20 10:59 Lasix PO 80 mg DAILY JP Administration Sodium Chloride 100 mls @ 999 mls/hr 07/14/20 13:00 Nacl 0.9% IV CHICHI PRN Hypotension Lidocaine 1 each 07/27/20 14:00 08/03/20 11:00 Lidoderm 5% TD 1 each QDAY JP Administration Lisinopril 20 mg 07/27/20 10:00 08/03/20 10:59 Zestril PO Not Given QDAY [facility] Loperamide HCl 2 mg 07/15/20 19:18 07/15/20 21:41 Imodium PO 2 mg Q2H PRN Administration Diarrhea Naphazoline HCl/Pheniramine Maleate 2 drops 07/27/20 11:27 Visine-A OU Q6H PRN Allergy Symptoms Nifedipine 90 mg 07/14/20 10:00 08/03/20 10:58 Procardia Xl PO 90 mg BID JP Administration Nitroglycerin 0.5 inch 07/14/20 06:00 08/03/20 11:00 Nitro-Bid 2% TP Not Given QIDNTG [facility] Protocol Ondansetron HCl 4 mg 07/13/20 23:07 08/02/20 10:38 Zofran IV 4 mg Q8H PRN Administration Nausea And Vomiting Warfarin Sodium 10 mg 07/16/20 17:00 08/02/20 18:45 Coumadin PO 10 mg DAILY@1700 [facility] Administration Protocol Warfarin Sodium 5 mg 07/29/20 17:00 08/02/20 18:45 Coumadin PO 5 mg DAILY@1700 [facility] Administration Nutrition/Malnutrition Assess - Dietary Evaluation Nutrition/Malnutrition Findings: Nutrition Notes Start: 07/17/20 13:1 0 Freq: Status: Active Protocol: Document 07/20/20 11:27 EN (Rec: 07/20/20 11:34 EN [email or web address]) Co-Sign 07/20/20 11:27 LM Nutrition Notes Initial or Follow up Reassessment Current Diagnosis CKD (stage V CKD),Coronary Artery Disease,Diabetes, Hypertension Other Pertinent Diagnosis ESRD on HD, NSTEMI, dyslipidedema Current Diet Renal Labs/Tests 07/19: BUN 25, Cr 4.1 Pertinent Medications Reviewed Height 5 ft 3 in Weight 75.4 kg [place] Body Weight (kg) 52.27 BMI 29.4 Weight Status Overweight Subjective/Other Information F/u for intakes. Pt reports eating 100% of breakfast. Pt would like pork and fruit cups during meals. Pt reports loose stool at 10:00 this morning. Pt states that appetite is good and denies N/ V Percent of energy/protein needs met: 100%/86% Burn Absent Trauma Absent GI Symptoms Diarrhea Food Allergy Yes Current % PO Good (75-100%) Minimum of two criteria No Interpretation of Weight Loss (severe) >5% in 1 month #2 Nutrition Diagnosis Inadequate oral intake As Evidenced by Signs and Symptoms consuming 100% of meals Diagnosis Progress(for reassessment Resolved documentation) #1 Nutrition Diagnosis Food and nutrition-related knowledge deficit As Evidenced by Signs and Symptoms No further Coumadin/Vit k questions Diagnosis Progress(for reassessment Resolved documentation) Is patient on ventilator? No Is Patient Ambulatory and/or Out of Bed No REE-([facility]-confined to bed) [phone] Calculation Used for Recommendations [facility] Additional Notes Protein: >1.2 g/kg (> 90g) Fluid: Urine output + 1000 ml/ day Nutrition Intervention Change Diet Order: Continue Renal Diet Goal #1 Meet 75% of energy and protein needs Anticipated Discharge Needs: Renal diet Revisit per MD consult or patient Sign Off request:
[2020-08-03] MEDS: WARFARIN 10 MG TAB PO SCH (17:22)
[2020-08-03] MEDS: WARFARIN 5 MG TAB PO SCH (17:22)
[2020-08-04] MEDS: NITROGLYCERIN 2% OINT 1 GM TP SCH ×4 (06:00→18:18)
[2020-08-04] MEDS: cloNIDine 0.1 MG TAB PO SCH ×3 (06:00→21:18)
--- NOTE | 2020-08-04 09:42 | Progress Note ---
Assessment and Plan Assessment and plan: -Non-ST elevation FL, type II 07/15/2020 stress test negative for acute ischemia EF 38 %. Continue current management including aspirin and Plavix Cardiology cleared for discharge --History of coronary artery disease status post PCI Continue current cardiac medications, cardiology following --Ischemic cardiomyopathy; EF 40 to 45% 2016 Continue antifailure medications --End-stage renal disease; MWF On hemodialysis, nephrology following, HD per schedule Stable ,renal cleared for discharge --Hypertensive emergency; present on admission Added clonidine. Monitor BP --History of peripheral vascular disease; Continue antiplatelets and statins --History of DVT and PE; chronic anticoagulation with Coumadin subtherapeutic INR noncompliant Coumadin resumed Target INR 2-3, Closely monitor Monitor INR and adjust as needed --History of IVC filter placement; supportive care --Type 2 diabetes mellitus; Accu-Chek sliding scale coverage ADA diet Insulin as needed --Dyslipidemia; Stable on lipid-lowering medications --Obesity; BMI 39.0 Advised weight reduction when medically stable --Possible obstructive sleep apnea; Patient may need outpatient sleep study Rule out KENY, CPAP BiPAP at night as needed ---Chronic back pain She uses 2 lidocaine patchs and opioids at home ---Eye irritation Antihistamine eyedrops --DVT prophylaxis; Patient is already on Coumadin DC planning per case management Patient is medically stable for discharge however still need to be discharged to facility but this has not been possible. outpatient case manager currently trying to see the patient in place-options include placement to a facility versus personal group home [which patient does not want] patient's daughter # [phone] provided by patient 07/25. I have seen and examined the patient at the bedside Patient's chart and medications reviewed No new complaints, patient receiving hemodialysis per schedule Clinically stable for discharge Awaiting placement 07/26. No change in medical condition. Vitals remain stable. Awaiting placement 07/27. Has itchy left eye. Prescribed eye drops. Stable for DC 07/28. Stable for DC. No new complaints 07/29. Medically stable for DC. BP elevated today. Added clonidine 07/30-. Medically stable for discharge. Blood pressure significantly improved. Try to call daughter on phone number provided by patient but no answer so I left a voice message. outpatient case manager trying to get placement for patient-patients daughter has not been available to provide documents required prior to placement. 08/01. Awaiting placement 08/02/2020. Patient was set for discharge to a care home however this was discontinued. After further review, patient was deemed to be unsafe for discharge to a care home given the fact patient is on Coumadin and is blind with difficulty walking. Case management is aware and attempting to arrange for safe discharge. 08/03/2020. Awaiting placement. - Patient Problems (1) NSTEMI (non-ST elevated myocardial infarction) Current Visit: Yes Status: Acute (2) Accelerated hypertension Current Visit: Yes Status: Chronic (3) Anemia Current Visit: Yes Status: Chronic (4) CAD (coronary artery disease) Current Visit: Yes Status: Chronic (5) DM2 (diabetes mellitus, type 2) Current Visit: Yes Status: Chronic (6) End stage renal disease on dialysis Current Visit: Yes Status: Chronic (7) History of CVA (cerebrovascular accident) Current Visit: Yes Status: Chronic (8) History of DVT (deep vein thrombosis) Current Visit: Yes Status: Chronic (9) History of pulmonary embolism Current Visit: Yes Status: Chronic (10) Hyperlipidemia Current Visit: Yes Status: Chronic (11) Ischemic cardiomyopathy Current Visit: Yes Status: Chronic (12) PVD (peripheral vascular disease) Current Visit: Yes Status: Chronic (13) Presence of IVC filter Current Visit: Yes Status: Chronic (14) KENY (obstructive sleep apnea) Current Visit: Yes Status: Suspected (15) Chest pain Current Visit: Yes Status: Resolved History Interval history: 60-year-old female patient who is legally blind with significant history of coronary artery disease status post PCI, ischemic cardiomyopathy CVA end-stage renal disease on hemodialysis, history of PE IVC filter placement anticoagulation with Coumadin anemia was admitted through emergency room with chest pain Elevated troponins, evaluated by cardiology, underwent stress test which was negative for acute ischemia, patient was seen by nephrology receiving hemodialysis per schedule Patient is clinically stable for discharge, awaiting placement Hospitalist Physical - Constitutional Vitals: Temp Pulse Resp BP Pulse Ox 97.6 F 67 20 157/75 97 08/04/20 00:26 08/04/20 00:32 08/04/20 00:26 08/04/20 00:26 08/04/20 00:32 General appearance: Present: no acute distress, well-nourished - EENT Eyes: Present: PERRL, EOM intact ENT: hearing intact, clear oral mucosa, dentition normal - Neck Neck: Present: supple, normal ROM - Respiratory Respiratory effort: normal Respiratory: bilateral: CTA - Cardiovascular Rhythm: regular Heart Sounds: Present: S1 & S2. Absent: gallop, rub - Extremities Extremities: no ischemia, No edema, Full ROM - Abdominal General gastrointestinal: soft, non-tender, non-distended, normal bowel sounds - Integumentary Integumentary: Present: clear, warm, dry - Neurologic Neurologic: CNII-XII intact, moves all extremities HEART Score - HEART Score Risk factors: > 3 risk factors or hx of atherosclerotic disease Troponin: Troponin T 0.099 ng/mL (0.00-0.029) H 07/14/20 10:13 Troponin: 1-3x normal limit - Critical Actions Critical Actions: 4-6 pts:12-16.6% risk of adverse cardiac event. Should be admitted (PATIENT UNDERGOING WORK UP) Results - Labs CBC & Chem 7: 07/26/20 10:18 07/26/20 10:18 Labs: Laboratory Last Values WBC 5.3 K/mm3 (4.5-11.0) 07/26/20 10:18 RBC 2.83 M/mm3 (3.65-5.03) L 07/26/20 10:18 Hgb 8.5 gm/dl (10.1-14.3) L 07/26/20 10:18 Hct 25.9 % (30.3-42.9) L 07/26/20 10:18 MCV 92 fl (79-97) 07/26/20 10:18 MCH 30 pg (28-32) 07/26/20 10:18 MCHC 33 % (30-34) 07/26/20 10:18 RDW 16.5 % (13.2-15.2) H 07/26/20 10:18 Plt Count 169 K/mm3 (140-440) 07/26/20 10:18 Lymph % (Auto) 16.5 % (13.4-35.0) 07/26/20 10:18 Parmer % (Auto) 3.8 % (0.0-7.3) 07/26/20 10:18 Eos % (Auto) 2.5 % (0.0-4.3) 07/26/20 10:18 Baso % (Auto) 0.4 % (0.0-1.8) 07/26/20 10:18 Lymph # (Auto) 0.9 K/mm3 (1.2-5.4) L 07/26/20 10:18 Parmer # (Auto) 0.2 K/mm3 (0.0-0.8) 07/26/20 10:18 Eos # (Auto) 0.1 K/mm3 (0.0-0.4) 07/26/20 10:18 Baso # (Auto) 0.0 K/mm3 (0.0-0.1) 07/26/20 10:18 Seg Neutrophils % 76.8 % (40.0-70.0) H 07/26/20 10:18 Seg Neutrophils # 4.1 K/mm3 (1.8-7.7) 07/26/20 10:18 PT 23.1 Sec. (12.2-14.9) H 08/03/20 07:40 INR 2.03 (0.87-1.13) H 08/03/20 07:40 APTT 28.2 Sec. (24.2-36.6) 07/13/20 23:36 Sodium 135 mmol/L (137-145) L 07/26/20 10:18 Potassium 4.4 mmol/L (3.6-5.0) 07/26/20 10:18 Chloride 94.3 mmol/L (98-107) L 07/26/20 10:18 Carbon Dioxide 26 mmol/L (22-30) 07/26/20 10:18 Anion Gap 19 mmol/L 07/26/20 10:18 BUN 51 mg/dL (7-17) H 07/26/20 10:18 Creatinine 6.6 mg/dL (0.6-1.2) H 07/26/20 10:18 Estimated GFR 8 ml/min 07/26/20 10:18 BUN/Creatinine Ratio 8 % 07/26/20 10:18 Glucose 157 mg/dL (65-100) H 07/26/20 10:18 Calcium 9.2 mg/dL (8.4-10.2) 07/26/20 10:18 Total Creatine Kinase 81 units/L (30-135) 07/14/20 10:13 CK-MB (CK-2) 1.9 ng/mL (0.0-4.0) 07/14/20 10:13 CK-MB (CK-2) Rel Index 2.3 (0-4) 07/14/20 10:13 Troponin T 0.099 ng/mL (0.00-0.029) H 07/14/20 10:13 Triglycerides 89 mg/dL (2-149) 07/13/20 23:36 Cholesterol 152 mg/dL (50-199) 07/13/20 23:36 LDL Cholesterol Direct 84 mg/dL (50-130) 07/13/20 23:36 HDL Cholesterol 59 mg/dL (40-59) 07/13/20 23:36 Cholesterol/HDL Ratio 2.57 % 07/13/20 23:36 Coronavirus (PCR) Negative (Negative) 07/21/20 Unknown Hepatitis A IgM Ab Non-reactive (NonReactive) 07/14/20 10:13 Hep Bs Antigen Non-reactive (Negative) 07/14/20 10:13 Hep B Core IgM Ab Non-reactive (NonReactive) 07/14/20 10:13 Hepatitis C Antibody Non-reactive (NonReactive) 07/14/20 10:13 - Diagnostic Impressions Diagnostic Impressions: Echocardiogram 07/14/20 10:55 Transthoracic Echocardiogram Indication: Chest Pain BP: 137/63 HR: 79 Conclusions *The left ventricular chamber size is normal. *Mild concentric left ventricular hypertrophy is observed. *There are multiple regional wall motion abnormalities. *septal,basal inferior wall hypokinetic *The estimated ejection fraction is 35-40%. *Abnormal left ventricular diastolic filling is observed, consistent with impaired relaxation. *The left ventricular diastolic filling pattern is consistent with pseudonormalization. *The left ventricular diastolic filling pattern is consistent with elevated mean left atrial pressure. *The left atrium is mildly dilated. *The right ventricle is mild to moderately dilated. *The aortic valve leaflets are moderately thickened. *There is trace of aortic regurgitation. *There is no evidence of aortic stenosis. *There is mitral annular calcification. *There is mild to moderate mitral regurgitation. *There is mild to moderate tricuspid regurgitation. *There is no pericardial effusion. *The inferior vena cava appears normal in size. Findings Left Ventricle: The left ventricular chamber size is normal. Mild concentric left ventricular hypertrophy is observed. There are multiple regional wall motion abnormalities. Global left ventricular systolic function is mild to moderately decreased. The estimated ejection fraction is 35-40%. Abnormal left ventricular diastolic function is observed. The left ventricular diastolic filling pattern is consistent with pseudonormalization. The left ventricular diastolic filling pattern is consistent with elevated mean left atrial pressure. Left Atrium: The left atrium is mildly dilated. Right Ventricle: The right ventricle is mild to moderately dilated. The right ventricular global systolic function is normal. Right Atrium: The right atrium appears normal. The interatrial septum appears normal. 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 Aortic Valve: The aortic valve is trileaflet. The aortic valve leaflets are moderately thickened. There is trace of aortic regurgitation. There is no evidence of aortic stenosis. Mitral Valve: The mitral valve leaflets appear normal. There is mitral annular calcification. There is mild to moderate mitral regurgitation. There is no evidence of mitral stenosis. Tricuspid Valve: The tricuspid valve leaflets are normal. There is mild to moderate tricuspid regurgitation. There is no tricuspid stenosis. Pulmonic Valve: The pulmonic valve appears normal. There is trace pulmonic regurgitation. There is no pulmonic stenosis. Pericardium: There is no pericardial effusion. Aorta: There is no dilatation of the ascending aorta. There is no dilatation of the aortic arch. There is no dilatation of the descending thoracic aorta. There is no dilatation of the aortic root. Venous: The inferior vena cava appears normal in size. Measurements Chambers 2D Name Value Normal Range IVSd (2D) 1.21 cm (0.6 - 1.1) LVPWd (2D) 1.22 cm (0.6 - 1.1) LVIDd (2D) 5.61 cm (3.7 - 5.6) LVIDs (2D) 4.74 cm (2 - 3.8) LV FS (2D) 15.52 % - EF Teichholz (2D) 32.35 % - Ao root diameter (2D) 2.98 cm (2 - 3.7) Volumes/Mass Name Value Normal Range LA ESV SP 4CH (A/L) 90.79 ml - LA ESV SP 2CH (A/L) 79.53 ml - LA ESV BP (A/L) 85.37 ml - LA ESV SP 4CH (MOD) 84.6 ml - LA ESV SP 2CH (MOD) 74.61 ml - LV EDV SP 4CH (MOD) 197.38 ml - LV ESV SP 4CH (MOD) 123.93 ml - EF SP 4CH (MOD) 37.21 % - LV EDV SP 2CH (MOD) 194.2 ml - LV ESV SP 2CH (MOD) 123.7 ml - EF SP 2CH (MOD) 36.3 % - LV EDV BP 201.77 ml - LV ESV BP 131.12 ml - BP EF (MOD) 35.02 % - Diastolic/Systolic Function Name Value Normal Range MV E-wave Vmax 1.15 m/sec - MV deceleration time 133.32 msec - MV A-wave Vmax 0.78 m/sec - MV E:A ratio 1.48 ratio - Aortic Valve Name Value Normal Range AV Vmax 1.8 m/sec - AV VTI 35.01 cm - AV peak gradient 12.99 mmHg - AV mean gradient 6.54 mmHg - LVOT diameter 2.11 cm - LVOT Vmax 0.86 m/sec - LVOT VTI 17.92 cm - LVOT peak gradient 2.94 mmHg - LVOT mean gradient 1.54 mmHg - SV LVOT 62.77 ml - SKINNY (continuity Vmax) 1.67 cm2 - SKINNY (continuity VTI) 1.79 cm2 - Tricuspid Valve Name Value Normal Range TR Vmax 3.55 m/sec - TR peak gradient 50.29 mmHg - Pulmonic Valve/Qp:Qs Name Value Normal Range PV Vmax 1.09 m/sec - PV peak gradient 4.78 mmHg - MO end-diastolic Vmax 1.48 m/sec - PV acceleration time 117.98 msec - Veliz/IV: Voiding Method Bedpan IV Catheter Type [Left Hand] Peripheral IV IV Catheter Type [Left INT / Saline Lock Internal Jugular] Active Medications - Current Medications Current Medications: Generic Name Dose Route Start Last Admin Trade Name Freq PRN Reason Stop Dose Admin Acetaminophen 650 mg 07/13/20 23:07 07/29/20 08:31 Tylenol PO 650 mg Q4H PRN Administration Headache Albuterol 2.5 mg 07/16/20 18:22 07/29/20 15:24 Proventil IH 2.5 mg Q4HRT PRN Administration Shortness Of Breath Aspirin 81 mg 07/14/20 10:00 08/03/20 10:59 Halfprin Ec PO 81 mg QDAY JP Administration Atorvastatin Calcium 40 mg 07/14/20 22:00 08/03/20 22:52 Lipitor PO Not Given QHS JP Carvedilol 25 mg 07/14/20 10:00 08/03/20 22:46 Coreg PO 25 mg BID JP Administration Clonidine HCl 0.2 mg 07/27/20 01:28 07/29/20 08:31 Catapres PO 0.2 mg Q4H PRN Administration Hypertension Clonidine HCl 0.2 mg 07/31/20 08:30 08/04/20 06:00 Catapres PO Not Given Q8HR JP Clopidogrel Bisulfate 75 mg 07/14/20 10:00 08/03/20 10:59 Plavix PO Not Given QDAY JP Ezetimibe 10 mg 07/14/20 10:00 08/03/20 10:58 Zetia PO 10 mg QDAY JP Administration Epoetin Mulugeta 10,000 unit 07/21/20 17:17 08/02/20 10:38 Procrit IV 10,000 unit CHICHI PRN Administration hemodialysis Fluticasone Propionate 100 mcg 07/14/20 10:00 08/03/20 10:59 Flonase NS Not Given QDAY [facility] Furosemide 80 mg 07/14/20 10:00 08/03/20 10:59 Lasix PO 80 mg DAILY JP Administration Sodium Chloride 100 mls @ 999 mls/hr 07/14/20 13:00 Nacl 0.9% IV CHICHI PRN Hypotension Lidocaine 1 each 07/27/20 14:00 08/03/20 11:00 Lidoderm 5% TD 1 each QDAY JP Administration Lisinopril 20 mg 07/27/20 10:00 08/03/20 10:59 Zestril PO Not Given QDAY JP Loperamide HCl 2 mg 07/15/20 19:18 07/15/20 21:41 Imodium PO 2 mg Q2H PRN Administration Diarrhea Naphazoline HCl/Pheniramine Maleate 2 drops 07/27/20 11:27 Visine-A OU Q6H PRN Allergy Symptoms Nifedipine 90 mg 07/14/20 10:00 08/03/20 22:46 Procardia Xl PO 90 mg BID JP Administration Nitroglycerin 0.5 inch 07/14/20 06:00 08/04/20 06:00 Nitro-Bid 2% TP Not Given QIDNTG [facility] Protocol Ondansetron HCl 4 mg 07/13/20 23:07 08/02/20 10:38 Zofran IV 4 mg Q8H PRN Administration Nausea And Vomiting Warfarin Sodium 10 mg 07/16/20 17:00 08/03/20 17:22 Coumadin PO 10 mg DAILY@1700 [facility] Administration Protocol Warfarin Sodium 5 mg 07/29/20 17:00 08/03/20 17:22 Coumadin PO 5 mg DAILY@1700 [facility] Administration Nutrition/Malnutrition Assess - Dietary Evaluation Nutrition/Malnutrition Findings: Nutrition Notes Start: 07/17/20 13:10 Freq: Status: Active Protocol: Document 07/20/20 11:27 EN (Rec: 07/20/20 11:34 EN [email or web address]) Co-Sign 07/20/20 11:27 LM Nutrition Notes Initial or Follow up Reassessment Current Diagnosis CKD (stage V CKD),Coronary Artery Disease,Diabetes, Hypertension Other Pertinent Diagnosis ESRD on HD, NSTEMI, dyslipidedema Current Diet Renal Labs/Tests 07/19: BUN 25, Cr 4.1 Pertinent Medications Reviewed Height 5 ft 3 in Weight 75.4 kg [place] Body Weight (kg) 52.27 BMI 29.4 Weight Status Overweight Subjective/Other Information F/u for intakes. Pt reports eating 100% of breakfast. Pt would like pork and fruit cups during meals. Pt reports loose stool at 10:00 this morning. Pt states that appetite is good and denies N/ V Percent of energy/protein needs met: 100%/86% Burn Absent Trauma Absent GI Symptoms Diarrhea Food Allergy Yes Current % PO Good (75-100%) Minimum of two criteria No Interpretation of Weight Loss (severe) >5% in 1 month #2 Nutrition Diagnosis Inadequate oral intake As Evidenced by Signs and Symptoms consuming 100% of meals Diagnosis Progress(for reassessment Resolved documentation) #1 Nutrition Diagnosis Food and nutrition-related knowledge deficit As Evidenced by Signs and Symptoms No further Coumadin/Vit k questions Diagnosis Progress(for reassessment Resolved documentation) Is patient on ventilator? No Is Patient Ambulatory and/or Out of Bed No REE-([facility]-confined to bed) 4931.740 Calculation Used for Recommendations [facility] Additional Notes Protein: >1.2 g/kg (> 90g) Fluid: Urine output + 1000 ml/ day Nutrition Intervention Change Diet Order: Continue Renal Diet Goal #1 Meet 75% of energy and protein needs Anticipated Discharge Needs: Renal diet Revisit per MD consult or patient Sign Off request:
--- NOTE | 2020-08-04 09:44 | Progress Note ---
Assessment and Plan Assessment and plan: -Non-ST elevation UT, type II 07/15/2020 stress test negative for acute ischemia EF 38 %. Continue current management including aspirin and Plavix Cardiology cleared for discharge --History of coronary artery disease status post PCI Continue current cardiac medications, cardiology following --Ischemic cardiomyopathy; EF 40 to 45% 2016 Continue antifailure medications --End-stage renal disease; MWF On hemodialysis, nephrology following, HD per schedule Stable ,renal cleared for discharge --Hypertensive emergency; present on admission Added clonidine. Monitor BP --History of peripheral vascular disease; Continue antiplatelets and statins --History of DVT and PE; chronic anticoagulation with Coumadin subtherapeutic INR noncompliant Coumadin resumed Target INR 2-3, Closely monitor Monitor INR and adjust as needed --History of IVC filter placement; supportive care --Type 2 diabetes mellitus; Accu-Chek sliding scale coverage ADA diet Insulin as needed --Dyslipidemia; Stable on lipid-lowering medications --Obesity; BMI 39.0 Advised weight reduction when medically stable --Possible obstructive sleep apnea; Patient may need outpatient sleep study Rule out KENY, CPAP BiPAP at night as needed ---Chronic back pain She uses 2 lidocaine patchs and opioids at home ---Eye irritation Antihistamine eyedrops --DVT prophylaxis; Patient is already on Coumadin DC planning per case management Patient is medically stable for discharge however still need to be discharged to facility but this has not been possible. manager cancer currently trying to see the patient in place-options include placement to a facility versus personal usp [which patient does not want] patient's daughter # [phone] provided by patient 07/25. I have seen and examined the patient at the bedside Patient's chart and medications reviewed No new complaints, patient receiving hemodialysis per schedule Clinically stable for discharge Awaiting placement 07/26. No change in medical condition. Vitals remain stable. Awaiting placement 07/27. Has itchy left eye. Prescribed eye drops. Stable for DC 07/28. Stable for DC. No new complaints 07/29. Medically stable for DC. BP elevated today. Added clonidine 07/30-. Medically stable for discharge. Blood pressure significantly improved. Try to call daughter on phone number provided by patient but no answer so I left a voice message. manager cancer trying to get placement for patient-patients daughter has not been available to provide documents required prior to placement. 08/01. Awaiting placement 08/02/2020. Patient was set for discharge to a assisted however this was discontinued. After further review, patient was deemed to be unsafe for discharge to a assisted given the fact patient is on Coumadin and is blind with difficulty walking. Case management is aware and attempting to arrange for safe discharge. 08/03/2020. Awaiting placement. 08/04/2020. Multiple challenges including family dynamics, APS intervention and lack of funding makes the discharge difficult. Please see case management/social work notes. Continue to work with case management/social work with regards to discharge planning. Patient is medically stable for discharge. - Patient Problems (1) NSTEMI (non-ST elevated myocardial infarction) Current Visit: Yes Status: Acute (2) Accelerated hypertension Current Visit: Yes Status: Chronic (3) Anemia Current Visit: Yes Status: Chronic (4) CAD (coronary artery disease) Current Visit: Yes Status: Chronic (5) DM2 (diabetes mellitus, type 2) Current Visit: Yes Status: Chronic (6) End stage renal disease on dialysis Current Visit: Yes Status: Chronic (7) History of CVA (cerebrovascular accident) Current Visit: Yes Status: Chronic (8) History of DVT (deep vein thrombosis) Current Visit: Yes Status: Chronic (9) History of pulmonary embolism Current Visit: Yes Status: Chronic (10) Hyperlipidemia Current Visit: Yes Status: Chronic (11) Ischemic cardiomyopathy Current Visit: Yes Status: Chronic (12) PVD (peripheral vascular disease) Current Visit: Yes Status: Chronic (13) Presence of IVC filter Current Visit: Yes Status: Chronic (14) KENY (obstructive sleep apnea) Current Visit: Yes Status: Suspected (15) Chest pain Current Visit: Yes Status: Resolved History Interval history: 60-year-old female patient who is legally blind with significant history of coronary artery disease status post PCI, ischemic cardiomyopathy CVA end-stage renal disease on hemodialysis, history of PE IVC filter placement anticoagulation with Coumadin anemia was admitted through emergency room with chest pain Elevated troponins, evaluated by cardiology, underwent stress test which was negative for acute ischemia, patient was seen by nephrology receiving hemodialysis per schedule Patient is clinically stable for discharge, awaiting placement Hospitalist Physical - Constitutional Vitals: Temp Pulse Resp BP Pulse Ox 97.6 F 67 20 157/75 97 08/04/20 00:26 08/04/20 00:32 08/04/20 00:26 08/04/20 00:26 08/04/20 00:32 General appearance: Present: no acute distress, well-nourished - EENT Eyes: Present: PERRL, EOM intact ENT: hearing intact, clear oral mucosa, dentition normal - Neck Neck: Present: supple, normal ROM - Respiratory Respiratory effort: normal Respiratory: bilateral: CTA - Cardiovascular Rhythm: regular Heart Sounds: Present: S1 & S2. Absent: gallop, rub - Extremities Extremities: no ischemia, No edema, Full ROM - Abdominal General gastrointestinal: soft, non-tender, non-distended, normal bowel sounds - Integumentary Integumentary: Present: clear, warm, dry - Neurologic Neurologic: CNII-XII intact, moves all extremities HEART Score - HEART Score Risk factors: > 3 risk factors or hx of atherosclerotic disease Troponin: Troponin T 0.099 ng/mL (0.00-0.029) H 07/14/20 10:13 Troponin: 1-3x normal limit - Critical Actions Critical Actions: 4-6 pts:12-16.6% risk of adverse cardiac event. Should be admitted (PATIENT UNDERGOING WORK UP) Results - Labs CBC & Chem 7: 07/26/20 10:18 07/26/20 10:18 Labs: Laboratory Last Values WBC 5.3 K/mm3 (4.5-11.0) 07/26/20 10:18 RBC 2.83 M/mm3 (3.65-5.03) L 07/26/20 10:18 Hgb 8.5 gm/dl (10.1-14.3) L 07/26/20 10:18 Hct 25.9 % (30.3-42.9) L 07/26/20 10:18 MCV 92 fl (79-97) 07/26/20 10:18 MCH 30 pg (28-32) 07/26/20 10:18 MCHC 33 % (30-34) 07/26/20 10:18 RDW 16.5 % (13.2-15.2) H 07/26/20 10:18 Plt Count 169 K/mm3 (140-440) 07/26/20 10:18 Lymph % (Auto) 16.5 % (13.4-35.0) 07/26/20 10:18 [place] % (Auto) 3.8 % (0.0-7.3) 07/26/20 10:18 Eos % (Auto) 2.5 % (0.0-4.3) 07/26/20 10:18 Baso % (Auto) 0.4 % (0.0-1.8) 07/26/20 10:18 Lymph # (Auto) 0.9 K/mm3 (1.2-5.4) L 07/26/20 10:18 [place] # (Auto) 0.2 K/mm3 (0.0-0.8) 07/26/20 10:18 Eos # (Auto) 0.1 K/mm3 (0.0-0.4) 07/26/20 10:18 Baso # (Auto) 0.0 K/mm3 (0.0-0.1) 07/26/20 10:18 Seg Neutrophils % 76.8 % (40.0-70.0) H 07/26/20 10:18 Seg Neutrophils # 4.1 K/mm3 (1.8-7.7) 07/26/20 10:18 PT 23.1 Sec. (12.2-14.9) H 08/03/20 07:40 INR 2.03 (0.87-1.13) H 08/03/20 07:40 APTT 28.2 Sec. (24.2-36.6) 07/13/20 23:36 Sodium 135 mmol/L (137-145) L 07/26/20 10:18 Potassium 4.4 mmol/L (3.6-5.0) 07/26/20 10:18 Chloride 94.3 mmol/L (98-107) L 07/26/20 10:18 Carbon Dioxide 26 mmol/L (22-30) 07/26/20 10:18 Anion Gap 19 mmol/L 07/26/20 10:18 BUN 51 mg/dL (7-17) H 07/26/20 10:18 Creatinine 6.6 mg/dL (0.6-1.2) H 07/26/20 10:18 Estimated GFR 8 ml/min 07/26/20 10:18 BUN/Creatinine Ratio 8 % 07/26/20 10:18 Glucose 157 mg/dL (65-100) H 07/26/20 10:18 Calcium 9.2 mg/dL (8.4-10.2) 07/26/20 10:18 Total Creatine Kinase 81 units/L (30-135) 07/14/20 10:13 CK-MB (CK-2) 1.9 ng/mL (0.0-4.0) 07/14/20 10:13 CK-MB (CK-2) Rel Index 2.3 (0-4) 07/14/20 10:13 Troponin T 0.099 ng/mL (0.00-0.029) H 07/14/20 10:13 Triglycerides 89 mg/dL (2-149) 07/13/20 23:36 Cholesterol 152 mg/dL (50-199) 07/13/20 23:36 LDL Cholesterol Direct 84 mg/dL (50-130) 07/13/20 23:36 HDL Cholesterol 59 mg/dL (40-59) 07/13/20 23:36 Cholesterol/HDL Ratio 2.57 % 07/13/20 23:36 Coronavirus (PCR) Negative (Negative) 07/21/20 Unknown Hepatitis A IgM Ab Non-reactive (NonReactive) 07/14/20 10:13 Hep Bs Antigen Non-reactive (Negative) 07/14/20 10:13 Hep B Core IgM Ab Non-reactive (NonReactive) 07/14/20 10:13 Hepatitis C Antibody Non-reactive (NonReactive) 07/14/20 10:13 - Diagnostic Impressions Diagnostic Impressions: Echocardiogram 07/14/20 10:55 Transthoracic Echocardiogram Indication: Chest Pain BP: 137/63 HR: 79 Conclusions *The left ventricular chamber size is normal. *Mild concentric left ventricular hypertrophy is observed. *There are multiple regional wall motion abnormalities. *septal,basal inferior wall hypokinetic *The estimated ejection fraction is 35-40%. *Abnormal left ventricular diastolic filling is observed, consistent with impaired relaxation. *The left ventricular diastolic filling pattern is consistent with pseudonormalization. *The left ventricular diastolic filling pattern is consistent with elevated mean left atrial pressure. *The left atrium is mildly dilated. *The right ventricle is mild to moderately dilated. *The aortic valve leaflets are moderately thickened. *There is trace of aortic regurgitation. *There is no evidence of aortic stenosis. *There is mitral annular calcification. *There is mild to moderate mitral regurgitation. *There is mild to moderate tricuspid regurgitation. *There is no pericardial effusion. *The inferior vena cava appears normal in size. Findings Left Ventricle: The left ventricular chamber size is normal. Mild concentric left ventricular hypertrophy is observed. There are multiple regional wall motion abnormalities. Global left ventricular systolic function is mild to moderately decreased. The estimated ejection fraction is 35-40%. Abnormal left ventricular diastolic function is observed. The left ventricular diastolic filling pattern is consistent with pseudonormalization. The left ventricular diastolic filling pattern is consistent with elevated mean left atrial pressure. Left Atrium: The left atrium is mildly dilated. Right Ventricle: The right ventricle is mild to moderately dilated. The right ventricular global systolic function is normal. Right Atrium: The right atrium appears normal. The interatrial septum appears normal. 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 Aortic Valve: The aortic valve is trileaflet. The aortic valve leaflets are moderately thickened. There is trace of aortic regurgitation. There is no evidence of aortic stenosis. Mitral Valve: The mitral valve leaflets appear normal. There is mitral annular calcification. There is mild to moderate mitral regurgitation. There is no evidence of mitral stenosis. Tricuspid Valve: The tricuspid valve leaflets are normal. There is mild to moderate tricuspid regurgitation. There is no tricuspid stenosis. Pulmonic Valve: The pulmonic valve appears normal. There is trace pulmonic regurgitation. There is no pulmonic stenosis. Pericardium: There is no pericardial effusion. Aorta: There is no dilatation of the ascending aorta. There is no dilatation of the aortic arch. There is no dilatation of the descending thoracic aorta. There is no dilatation of the aortic root. Venous: The inferior vena cava appears normal in size. Measurements Chambers 2D Name Value Normal Range IVSd (2D) 1.21 cm (0.6 - 1.1) LVPWd (2D) 1.22 cm (0.6 - 1.1) LVIDd (2D) 5.61 cm (3.7 - 5.6) LVIDs (2D) 4.74 cm (2 - 3.8) LV FS (2D) 15.52 % - EF Teichholz (2D) 32.35 % - Ao root diameter (2D) 2.98 cm (2 - 3.7) Volumes/Mass Name Value Normal Range LA ESV SP 4CH (A/L) 90.79 ml - LA ESV SP 2CH (A/L) 79.53 ml - LA ESV BP (A/L) 85.37 ml - LA ESV SP 4CH (MOD) 84.6 ml - LA ESV SP 2CH (MOD) 74.61 ml - LV EDV SP 4CH (MOD) 197.38 ml - LV ESV SP 4CH (MOD) 123.93 ml - EF SP 4CH (MOD) 37.21 % - LV EDV SP 2CH (MOD) 194.2 ml - LV ESV SP 2CH (MOD) 123.7 ml - EF SP 2CH (MOD) 36.3 % - LV EDV BP 201.77 ml - LV ESV BP 131.12 ml - BP EF (MOD) 35.02 % - Diastolic/Systolic Function Name Value Normal Range MV E-wave Vmax 1.15 m/sec - MV deceleration time 133.32 msec - MV A-wave Vmax 0.78 m/sec - MV E:A ratio 1.48 ratio - Aortic Valve Name Value Normal Range AV Vmax 1.8 m/sec - AV VTI 35.01 cm - AV peak gradient 12.99 mmHg - AV mean gradient 6.54 mmHg - LVOT diameter 2.11 cm - LVOT Vmax 0.86 m/sec - LVOT VTI 17.92 cm - LVOT peak gradient 2.94 mmHg - LVOT mean gradient 1.54 mmHg - SV LVOT 62.77 ml - SKINNY (continuity Vmax) 1.67 cm2 - SKINNY (continuity VTI) 1.79 cm2 - Tricuspid Valve Name Value Normal Range TR Vmax 3.55 m/sec - TR peak gradient 50.29 mmHg - Pulmonic Valve/Qp:Qs Name Value Normal Range PV Vmax 1.09 m/sec - PV peak gradient 4.78 mmHg - DE end-diastolic Vmax 1.48 m/sec - PV acceleration time 117.98 msec - Veliz/IV: Voiding Method Bedpan IV Catheter Type [Left Hand] Peripheral IV IV Catheter Type [Left INT / Saline Lock Internal Jugular] Active Medications - Current Medications Current Medications: Generic Name Dose Route Start Last Admin Trade Name Freq PRN Reason Stop Dose Admin Acetaminophen 650 mg 07/13/20 23:07 07/29/20 08:31 Tylenol PO 650 mg Q4H PRN Administration Headache Albuterol 2.5 mg 07/16/20 18:22 07/29/20 15:24 Proventil IH 2.5 mg Q4HRT PRN Administration Shortness Of Breath Aspirin 81 mg 07/14/20 10:00 08/03/20 10:59 Halfprin Ec PO 81 mg QDAY JP Administration Atorvastatin Calcium 40 mg 07/14/20 22:00 08/03/20 22:52 Lipitor PO Not Given QHS JP Carvedilol 25 mg 07/14/20 10:00 08/03/20 22:46 Coreg PO 25 mg BID JP Administration Clonidine HCl 0.2 mg 07/27/20 01:28 07/29/20 08:31 Catapres PO 0.2 mg Q4H PRN Administration Hypertension Clonidine HCl 0.2 mg 07/31/20 08:30 08/04/20 06:00 Catapres PO Not Given Q8HR ON LICENSE OF [facility] Clopidogrel Bisulfate 75 mg 07/14/20 10:00 08/03/20 10:59 Plavix PO Not Given QDAY ON LICENSE OF [facility] Ezetimibe 10 mg 07/14/20 10:00 08/03/20 10:58 Zetia PO 10 mg QDAY ON LICENSE OF [facility] Administration Epoetin Mulugeta 10,000 unit 07/21/20 17:17 08/02/20 10:38 Procrit IV 10,000 unit CHICHI PRN Administration hemodialysis Fluticasone Propionate 100 mcg 07/14/20 10:00 08/03/20 10:59 Flonase NS Not Given QDAY ON LICENSE OF [facility] Furosemide 80 mg 07/14/20 10:00 08/03/20 10:59 Lasix PO 80 mg DAILY JP Administration Sodium Chloride 100 mls @ 999 mls/hr 07/14/20 13:00 Nacl 0.9% IV CHICHI PRN Hypotension Lidocaine 1 each 07/27/20 14:00 08/03/20 11:00 Lidoderm 5% TD 1 each QDAY ON LICENSE OF [facility] Administration Lisinopril 20 mg 07/27/20 10:00 08/03/20 10:59 Zestril PO Not Given QDAY ON LICENSE OF [facility] Loperamide HCl 2 mg 07/15/20 19:18 07/15/20 21:41 Imodium PO 2 mg Q2H PRN Administration Diarrhea Naphazoline HCl/Pheniramine Maleate 2 drops 07/27/20 11:27 Visine-A OU Q6H PRN Allergy Symptoms Nifedipine 90 mg 07/14/20 10:00 08/03/20 22:46 Procardia Xl PO 90 mg BID JP Administration Nitroglycerin 0.5 inch 07/14/20 06:00 08/04/20 06:00 Nitro-Bid 2% TP Not Given QIDNTG ON LICENSE OF [facility] Protocol Ondansetron HCl 4 mg 07/13/20 23:07 08/02/20 10:38 Zofran IV 4 mg Q8H PRN Administration Nausea And Vomiting Warfarin Sodium 10 mg 07/16/20 17:00 08/03/20 17:22 Coumadin PO 10 mg DAILY@1700 ON LICENSE OF [facility] Administration Protocol Warfarin Sodium 5 mg 07/29/20 17:00 08/03/20 17:22 Coumadin PO 5 mg DAILY@1700 ON LICENSE OF [facility] Administration Nutrition/Malnutrition Assess - Dietary Evaluation Nutrition/Malnutrition Findings: Nutrition Notes Start: 07/17/20 13:10 Freq: Status: Active Protocol: Document 07/20/20 11:27 EN (Rec: 07/20/20 11:34 EN [email or web address]) Co-Sign 07/20/20 11:27 LM Nutrition Notes Initial or Follow up Reassessment Current Diagnosis CKD (stage V CKD),Coronary Artery Disease,Diabetes, Hypertension Other Pertinent Diagnosis ESRD on HD, NSTEMI, dyslipidedema Current Diet Renal Labs/Tests 07/19: BUN 25, Cr 4.1 Pertinent Medications Reviewed Height 5 ft 3 in Weight 75.4 kg [place] Body Weight (kg) 52.27 BMI 29.4 Weight Status Overweight Subjective/Other Information F/u for intakes. Pt reports eating 100% of breakfast. Pt would like pork and fruit cups during meals. Pt reports loose stool at 10:00 this morning. Pt states that appetite is good and denies N/ V Percent of energy/protein needs met: 100%/86% Burn Absent Trauma Absent GI Symptoms Diarrhea Food Allergy Yes Current % PO Good (75-100%) Minimum of two criteria No Interpretation of Weight Loss (severe) >5% in 1 month #2 Nutrition Diagnosis Inadequate oral intake As Evidenced by Signs and Symptoms consuming 100% of meals Diagnosis Progress(for reassessment Resolved documentation) #1 Nutrition Diagnosis Food and nutrition-related knowledge deficit As Evidenced by Signs and Symptoms No further Coumadin/Vit k questions Diagnosis Progress(for reassessment Resolved documentation) Is patient on ventilator? No Is Patient Ambulatory and/or Out of Bed No REE-([facility]conf[facility] to bed) [phone] Calculation Used for Recommendations [facility] Additional Notes Protein: >1.2 g/kg (> 90g) Fluid: Urine output + 1000 ml/ day Nutrition Intervention Change Diet Order: Continue Renal Diet Goal #1 Meet 75% of energy and protein needs Anticipated Discharge Needs: Renal diet Revisit per MD consult or patient Sign Off request:
[2020-08-04] MEDS: NIFEdipine XL 90 MG TAB PO SCH ×2 (10:34→21:16)
[2020-08-04] MEDS: LIDOCAINE 5% 1 EACH PATCH TD SCH (10:35)
[2020-08-04 11:06] LABS: INR 1.61 (0.87-1.13)
[2020-08-04] MEDS: LISINOPRIL 20 MG TAB PO SCH (11:39)
[2020-08-04] MEDS: CLOPIDOGREL 75 MG TAB PO SCH (11:39)
[2020-08-04] MEDS: FUROSEMIDE 40 MG TAB PO SCH (11:39)
[2020-08-04] MEDS: carvediloL 25 MG TAB PO SCH ×2 (11:39→21:16)
[2020-08-04] MEDS: FLUTICASONE PROPIONATE NASAL SPRAY 16 GM NS SCH (11:39)
[2020-08-04] MEDS: ASPIRIN EC 81 MG TAB PO SCH (11:39)
[2020-08-04] MEDS: EZETIMIBE 10 MG TAB PO SCH (11:39)
--- NOTE | 2020-08-04 15:44 | Progress Note ---
Subjective Principal diagnosis: ESRD/HD, Acc HTN, NSTEMI 2, H/o PE/DVT (IVC filter) Interval history: Patient was seen today for follow-up of multiple renal related issues, around 11 10 in the morning No complaints of any chest pain pressure or shortness of breath Interdisciplinary notes that also reviewed currently we do not have any labs from today Events of 24 hours vitals labs intake output medications were reviewed Past medical history: Reviewed Family history: Reviewed Social history: Reviewed Allergies: Reviewed Physical examination: Vitals: Reviewed HEENT: No pallor or icterus oral mucosa moist Neck: Supple no JVD no thyromegaly Chest: Bilateral clear to auscultation anteriorly Heart: Regular rate and rhythm S1-S2 heard no S3-S4 Abdomen: Soft nontender no voluntary guarding rigidity rebound Extremity: Dry skin less than 1+ peripheral edema Psychiatric: No evidence of agitation and aggression noted Dermatology: No petechial rashes Labs and x-rays: Reviewed from today Assessment and plan #ESRD currently on maintenance hemodialysis continue with him a dialysis treatment 3 times a week Will order for basic labs including basic metabolic profile as well as CBC and phosphorus level #Hypertension or volume appears to be stable at this time #Patient history and high protein diet Overall stable from renal standpoint Patient was adequately counseled and educated regarding all the renal related issues Laboratory studies, have been explained to the patient All questions were answered and simple [place] We'll continue to follow and make recommendation for renal standpoint Objective - Vital Signs Vital signs: Vital Signs - 12hr 08/04/20 08/04/20 08/04/20 09:48 10:00 11:53 Temperature 97.4 F L 97.4 F L Pulse Rate 88 89 Respiratory 18 18 18 Rate Blood Pressure 178/80 150/71 O2 Sat by Pulse 100 100 Oximetry - Lab 07/26/20 10:18 07/26/20 10:18 Most recent lab results Calcium 9.2 mg/dL (8.4-10.2) 07/26/20 10:18 Medications & Allergies - Medications Allergies/Adverse Reactions: Allergies apixaban [From Eliquis] Allergy (Verified 03/01/17 20:29) Itching dabigatran etexilate mesylate [From Pradaxa] Allergy (Verified 03/01/17 20:27) Itching heparin Allergy (Verified 07/14/20 05:54) Vomiting hydralazine HCl [From Apresoline] Allergy (Verified 03/01/17 13:11) Unknown morphine Allergy (Verified 02/15/14 02:23) Itching povidone-iodine [From Betadine] Allergy (Verified 03/01/17 20:26) Itching rivaroxaban [From Xarelto] Allergy (Verified 03/01/17 20:29) Itching soap [From Betadine] Allergy (Verified 03/01/17 20:26) Itching verapamil HCl [From Calan] Allergy (Verified 02/15/14 02:23) Headache Home Medications: Home Medications Medication Instructions Recorded Confirmed Last Taken Type Oxymetazoline 0.05% [Vicks Sinex] 1 spray NS BID 03/01/17 07/14/20 1 Day Ago History ~02/28/17 Furosemide [Lasix TAB] 80 mg PO QDAY #30 tablet 03/05/17 07/14/20 Unknown Rx Nystatin [Nystop Powder] 1 applic TP BID #15 g 03/05/17 07/14/20 Unknown Rx Lidocaine [Lidoderm] 5 patch TRANSDERMA QDAY 07/14/20 07/14/20 Unknown History NIFEdipine XL [Procardia Xl] 90 mg PO BID 07/14/20 07/14/20 Unknown History Warfarin [Coumadin] 10 mg PO QDAY 07/14/20 07/14/20 Unknown History Albuterol Sulfate [Albuterol 0.63% 0.63 mg IH Q4H PRN 30 Days 08/02/20 Unknown Rx NEBS] Aspirin EC [Halfprin EC] 81 mg PO QDAY #30 tablet 08/02/20 Unknown Rx AtorvaSTATin [Lipitor] 40 mg PO QHS #30 08/02/20 Unknown Rx AtorvaSTATin [Lipitor] 80 mg PO QHS #30 tablet 08/02/20 Unknown Rx Clopidogrel [Plavix] 75 mg PO QDAY #30 08/02/20 Unknown Rx Ezetimibe [Zetia] 10 mg PO QDAY tablet 08/02/20 Unknown Rx Ferrous Sulfate [Feosol 325 MG tab] 325 mg PO QDAY 30 Days 08/02/20 Unknown Rx Fluticasone [Flonase] 100 mcg NS QDAY 30 Days bottle 08/02/20 Unknown Rx Furosemide [Lasix TAB] 80 mg PO DAILY #30 tablet 08/02/20 Unknown Rx Levothyroxine [Synthroid] 88 mcg PO QAM 30 Days 08/02/20 Unknown Rx NIFEdipine XL [Procardia Xl] 90 mg PO BID #60 tablet 08/02/20 Unknown Rx Naphazoline/Phenira 0.025/0.3% 2 drops OU Q6H PRN bottle 08/02/20 Unknown Rx [Visine-A] Warfarin [Coumadin] 5 mg PO DAILY@1700 30 Days #30 08/02/20 Unknown Rx tablet Warfarin [Coumadin] 10 mg PO DAILY@1700 #7 tablet 08/02/20 Unknown Rx carvediloL [Coreg] 25 mg PO BID #60 08/02/20 Unknown Rx cloNIDine [Catapres] 0.2 mg PO Q8HR #30 tablet 08/02/20 Unknown Rx lisinopriL [Zestril TAB] 20 mg PO QDAY #30 tablet 08/02/20 Unknown Rx Active Medications: Generic Name Dose Route Start Last Admin Trade Name Freq PRN Reason Stop Dose Admin Acetaminophen 650 mg 07/13/20 23:07 07/29/20 08:31 Tylenol PO 650 mg Q4H PRN Administration Headache Albuterol 2.5 mg 07/16/20 18:22 07/29/20 15:24 Proventil IH 2.5 mg Q4HRT PRN Administration Shortness Of Breath Aspirin 81 mg 07/14/20 10:00 08/04/20 11:39 Halfprin Ec PO Not Given QDAY [facility] Atorvastatin Calcium 40 mg 07/14/20 22:00 08/03/20 22:52 Lipitor PO Not Given QHS [facility] Carvedilol 25 mg 07/14/20 10:00 08/04/20 11:39 Coreg PO Not Given BID JP Clonidine HCl 0.2 mg 07/27/20 01:28 07/29/20 08:31 Catapres PO 0.2 mg Q4H PRN Administration Hypertension Clonidine HCl 0.2 mg 07/31/20 08:30 08/04/20 13:58 Catapres PO Not Given Q8HR [facility] Clopidogrel Bisulfate 75 mg 07/14/20 10:00 08/04/20 11:39 Plavix PO Not Given QDAY [facility] Ezetimibe 10 mg 07/14/20 10:00 08/04/20 11:39 Zetia PO Not Given QDAY [facility] Epoetin Mulugeta 10,000 unit 07/21/20 17:17 08/02/20 10:38 Procrit IV 10,000 unit CHICHI PRN Administration hemodialysis Fluticasone Propionate 100 mcg 07/14/20 10:00 08/04/20 11:39 Flonase NS Not Given QDAY [facility] Furosemide 80 mg 07/14/20 10:00 08/04/20 11:39 Lasix PO Not Given DAILY [facility] Sodium Chloride 100 mls @ 999 mls/hr 07/14/20 13:00 Nacl 0.9% IV CHICHI PRN Hypotension Lidocaine 1 each 07/27/20 14:00 08/04/20 10:35 Lidoderm 5% TD 1 each QDAY [facility] Administration Lisinopril 20 mg 07/27/20 10:00 08/04/20 11:39 Zestril PO Not Given QDAY [facility] Loperamide HCl 2 mg 07/15/20 19:18 07/15/20 21:41 Imodium PO 2 mg Q2H PRN Administration Diarrhea Naphazoline HCl/Pheniramine Maleate 2 drops 07/27/20 11:27 Visine-A OU Q6H PRN Allergy Symptoms Nifedipine 90 mg 07/14/20 10:00 08/04/20 10:34 Procardia Xl PO 90 mg BID [facility] Administration Nitroglycerin 0.5 inch 07/14/20 06:00 08/04/20 13:58 Nitro-Bid 2% TP Not Given QIDNTG [facility] Protocol Ondansetron HCl 4 mg 07/13/20 23:07 08/02/20 10:38 Zofran IV 4 mg Q8H PRN Administration Nausea And Vomiting Warfarin Sodium 7.5 mg 08/04/20 17:00 Coumadin PO 08/04/20 22:00 DAILY@1700 [facility] Warfarin Sodium 10 mg 08/04/20 17:00 Coumadin PO 08/04/20 22:00 DAILY@1700 [facility] Warfarin Sodium 15 mg 08/05/20 17:00 Coumadin PO DAILY@1700 [facility]
[2020-08-04] MEDS ORDERED: WARFARIN 7.5 MG TAB PO SCH (17:00)
[2020-08-04] MEDS ORDERED: WARFARIN 10 MG TAB PO SCH (17:00)
[2020-08-05] MEDS: cloNIDine 0.1 MG TAB PO SCH ×3 (06:39→22:13)
[2020-08-05] MEDS: NITROGLYCERIN 2% OINT 1 GM TP SCH ×4 (06:41→18:00)
[2020-08-05 07:18] LABS: Basophils # (Auto) 0.1 K/mm3 (0.0-0.1); Basophils % (Auto) 1.9 % (0.0-1.8); Eosinophils # (Auto) 0.2 K/mm3 (0.0-0.4); Eosinophils % (Auto) 3.8 % (0.0-4.3); Hematocrit 32.6 % (30.3-42.9); Hemoglobin 10.8 gm/dl (10.1-14.3); Lymphocytes # (Auto) 1.1 K/mm3 (1.2-5.4); Lymphocytes % (Auto) 21.7 % (13.4-35.0); Mean Corpuscular HGB Conc 33 % (30-34); Mean Corpuscular Volume 91 fl (79-97); Monocytes # (Auto) 0.3 K/mm3 (0.0-0.8); Monocytes % (Auto) 5.1 % (0.0-7.3); Platelet Count 216 K/mm3 (140-440); Red Blood Count 3.57 M/mm3 (3.65-5.03); Red Cell Distribution Width 16.2 % (13.2-15.2)
[2020-08-05 07:24] LABS: INR 1.65 (0.87-1.13)
[2020-08-05 07:32] LABS: Calcium 9.5 mg/dL (8.4-10.2)
--- NOTE | 2020-08-05 09:16 | Progress Note ---
Assessment and Plan Assessment and plan: -Non-ST elevation MO, type II 07/15/2020 stress test negative for acute ischemia EF 38 %. Continue current management including aspirin and Plavix Cardiology cleared for discharge --History of coronary artery disease status post PCI Continue current cardiac medications, cardiology following --Ischemic cardiomyopathy; EF 40 to 45% 2016 Continue antifailure medications --End-stage renal disease; MWF On hemodialysis, nephrology following, HD per schedule Stable ,renal cleared for discharge --Hypertensive emergency; present on admission Added clonidine. Monitor BP --History of peripheral vascular disease; Continue antiplatelets and statins --History of DVT and PE; chronic anticoagulation with Coumadin subtherapeutic INR noncompliant Coumadin resumed Target INR 2-3, Closely monitor Monitor INR and adjust as needed --History of IVC filter placement; supportive care --Type 2 diabetes mellitus; Accu-Chek sliding scale coverage ADA diet Insulin as needed --Dyslipidemia; Stable on lipid-lowering medications --Obesity; BMI 39.0 Advised weight reduction when medically stable --Possible obstructive sleep apnea; Patient may need outpatient sleep study Rule out KENY, CPAP BiPAP at night as needed ---Chronic back pain She uses 2 lidocaine patchs and opioids at home ---Eye irritation Antihistamine eyedrops --DVT prophylaxis; Patient is already on Coumadin DC planning per case management Patient is medically stable for discharge however still need to be discharged to facility but this has not been possible. residential sales manager currently trying to see the patient in place-options include placement to a facility versus personal [place] [facility] [which patient does not want] patient's daughter # [phone] provided by patient 07/25. I have seen and examined the patient at the bedside Patient's chart and medications reviewed No new complaints, patient receiving hemodialysis per schedule Clinically stable for discharge Awaiting placement 07/26. No change in medical condition. Vitals remain stable. Awaiting placement 07/27. Has itchy left eye. Prescribed eye drops. Stable for DC 07/28. Stable for DC. No new complaints 07/29. Medically stable for DC. BP elevated today. Added clonidine 07/30-. Medically stable for discharge. Blood pressure significantly improved. Try to call daughter on phone number provided by patient but no answer so I left a voice message. residential sales manager trying to get placement for patient-patients daughter has not been available to provide documents required prior to placement. 08/01. Awaiting placement 08/02/2020. Patient was set for discharge to a group home however this was discontinued. After further review, patient was deemed to be unsafe for discharge to a group home given the fact patient is on Coumadin and is blind with difficulty walking. Case management is aware and attempting to arrange for safe discharge. 08/03/2020. Awaiting placement. 08/04/2020. Multiple challenges including family dynamics, APS intervention and lack of funding makes the discharge difficult. Please see case management/social work notes. Continue to work with case management/social work with regards to discharge planning. Patient is medically stable for discharge. 08/05/20. Awaiting placement. - Patient Problems (1) NSTEMI (non-ST elevated myocardial infarction) Current Visit: Yes Status: Acute (2) Accelerated hypertension Current Visit: Yes Status: Chronic (3) Anemia Current Visit: Yes Status: Chronic (4) CAD (coronary artery disease) Current Visit: Yes Status: Chronic (5) DM2 (diabetes mellitus, type 2) Current Visit: Yes Status: Chronic (6) End stage renal disease on dialysis Current Visit: Yes Status: Chronic (7) History of CVA (cerebrovascular accident) Current Visit: Yes Status: Chronic (8) History of DVT (deep vein thrombosis) Current Visit: Yes Status: Chronic (9) History of pulmonary embolism Current Visit: Yes Status: Chronic (10) Hyperlipidemia Current Visit: Yes Status: Chronic (11) Ischemic cardiomyopathy Current Visit: Yes Status: Chronic (12) PVD (peripheral vascular disease) Current Visit: Yes Status: Chronic (13) Presence of IVC filter Current Visit: Yes Status: Chronic (14) KENY (obstructive sleep apnea) Current Visit: Yes Status: Suspected (15) Chest pain Current Visit: Yes Status: Resolved History Interval history: 60-year-old female patient who is legally blind with significant history of deisy nary artery disease status post PCI, ischemic cardiomyopathy CVA end-stage renal disease on hemodialysis, history of PE IVC filter placement anticoagulation with Coumadin anemia was admitted through emergency room with chest pain Elevated troponins, evaluated by cardiology, underwent stress test which was negative for acute ischemia, patient was seen by nephrology receiving hemodialysis per schedule Patient is clinically stable for discharge, awaiting placement Hospitalist Physical - Constitutional Vitals: Temp Pulse Resp BP Pulse Ox 97.5 F L 80 18 175/75 100 08/05/20 07:54 08/05/20 07:54 08/05/20 07:54 08/05/20 07:54 08/05/20 07:54 General appearance: Present: no acute distress, well-nourished - EENT Eyes: Present: PERRL, EOM intact ENT: hearing intact, clear oral mucosa, dentition normal - Neck Neck: Present: supple, normal ROM - Respiratory Respiratory effort: normal Respiratory: bilateral: CTA - Cardiovascular Rhythm: regular Heart Sounds: Present: S1 & S2. Absent: gallop, rub - Extremities Extremities: no ischemia, No edema, Full ROM - Abdominal General gastrointestinal: soft, non-tender, non-distended, normal bowel sounds - Integumentary Integumentary: Present: clear, warm, dry - Neurologic Neurologic: CNII-XII intact, moves all extremities HEART Score - HEART Score Risk factors: > 3 risk factors or hx of atherosclerotic disease Troponin: Troponin T 0.099 ng/mL (0.00-0.029) H 07/14/20 10:13 Troponin: 1-3x normal limit - Critical Actions Critical Actions: 4-6 pts:12-16.6% risk of adverse cardiac event. Should be admitted (PATIENT UNDERGOING WORK UP) Results - Labs CBC & Chem 7: 08/05/20 06:59 08/05/20 06:59 Labs: Laboratory Last Values WBC 5.0 K/mm3 (4.5-11.0) 08/05/20 06:59 RBC 3.57 M/mm3 (3.65-5.03) L 08/05/20 06:59 Hgb 10.8 gm/dl (10.1-14.3) 08/05/20 06:59 Hct 32.6 % (30.3-42.9) 08/05/20 06:59 MCV 91 fl (79-97) 08/05/20 06:59 MCH 30 pg (28-32) 08/05/20 06:59 MCHC 33 % (30-34) 08/05/20 06:59 RDW 16.2 % (13.2-15.2) H 08/05/20 06:59 Plt Count 216 K/mm3 (140-440) 08/05/20 06:59 Lymph % (Auto) 21.7 % (13.4-35.0) 08/05/20 06:59 [place] % (Auto) 5.1 % (0.0-7.3) 08/05/20 06:59 Eos % (Auto) 3.8 % (0.0-4.3) 08/05/20 06:59 Baso % (Auto) 1.9 % (0.0-1.8) H 08/05/20 06:59 Lymph # (Auto) 1.1 K/mm3 (1.2-5.4) L 08/05/20 06:59 [place] # (Auto) 0.3 K/mm3 (0.0-0.8) 08/05/20 06:59 Eos # (Auto) 0.2 K/mm3 (0.0-0.4) 08/05/20 06:59 Baso # (Auto) 0.1 K/mm3 (0.0-0.1) 08/05/20 06:59 Seg Neutrophils % 67.5 % (40.0-70.0) 08/05/20 06:59 Seg Neutrophils # 3.4 K/mm3 (1.8-7.7) 08/05/20 06:59 PT 19.4 Sec. (12.2-14.9) H 08/05/20 06:59 INR 1.65 (0.87-1.13) H 08/05/20 06:59 APTT 28.2 Sec. (24.2-36.6) 07/13/20 23:36 Sodium 136 mmol/L (137-145) L 08/05/20 06:59 Potassium 4.3 mmol/L (3.6-5.0) 08/05/20 06:59 Chloride 95.5 mmol/L (98-107) L 08/05/20 06:59 Carbon Dioxide 28 mmol/L (22-30) 08/05/20 06:59 Anion Gap 17 mmol/L 08/05/20 06:59 BUN 25 mg/dL (7-17) H 08/05/20 06:59 Creatinine 4.5 mg/dL (0.6-1.2) H 08/05/20 06:59 Estimated GFR 12 ml/min 08/05/20 06:59 BUN/Creatinine Ratio 6 % 08/05/20 06:59 Glucose 115 mg/dL (65-100) H 08/05/20 06:59 Calcium 9.5 mg/dL (8.4-10.2) 08/05/20 06:59 Phosphorus 3.50 mg/dL (2.5-4.5) 08/05/20 06:59 Total Creatine Kinase 81 units/L (30-135) 07/14/20 10:13 CK-MB (CK-2) 1.9 ng/mL (0.0-4.0) 07/14/20 10:13 CK-MB (CK-2) Rel Index 2.3 (0-4) 07/14/20 10:13 Troponin T 0.099 ng/mL (0.00-0.029) H 07/14/20 10:13 Triglycerides 89 mg/dL (2-149) 07/13/20 23:36 Cholesterol 152 mg/dL (50-199) 07/13/20 23:36 LDL Cholesterol Direct 84 mg/dL (50-130) 07/13/20 23:36 HDL Cholesterol 59 mg/dL (40-59) 07/13/20 23:36 Cholesterol/HDL Ratio 2.57 % 07/13/20 23:36 Coronavirus (PCR) Negative (Negative) 07/21/20 Unknown Hepatitis A IgM Ab Non-reactive (NonReactive) 07/14/20 10:13 Hep Bs Antigen Non-reactive (Negative) 07/14/20 10:13 Hep B Core IgM Ab Non-reactive (NonReactive) 07/14/20 10:13 Hepatitis C Antibody Non-reactive (NonReactive) 07/14/20 10:13 - Diagnostic Impressions Diagnostic Impressions: Echocardiogram 07/14/20 10:55 Transthoracic Echocardiogram Indication: Chest Pain BP: 137/63 HR: 79 Conclusions *The left ventricular chamber size is normal. *Mild concentric left ventricular hypertrophy is observed. *There are multiple regional wall motion abnormalities. *septal,basal inferior wall hypokinetic *The estimated ejection fraction is 35-40%. *Abnormal left ventricular diastolic filling is observed, consistent with impaired relaxation. *The left ventricular diastolic filling pattern is consistent with pseudonormalization. *The left ventricular diastolic filling pattern is consistent with elevated mean left atrial pressure. *The left atrium is mildly dilated. *The right ventricle is mild to moderately dilated. *The aortic valve leaflets are moderately thickened. *There is trace of aortic regurgitation. *There is no evidence of aortic stenosis. *There is mitral annular calcification. *There is mild to moderate mitral regurgitation. *There is mild to moderate tricuspid regurgitation. *There is no pericardial effusion. *The inferior vena cava appears normal in size. Findings Left Ventricle: The left ventricular chamber size is normal. Mild concentric left ventricular hypertrophy is observed. There are multiple regional wall motion abnormalities. Global left ventricular systolic function is mild to moderately decreased. The estimated ejection fraction is 35-40%. Abnormal left ventricular diastolic function is observed. The left ventricular diastolic filling pattern is consistent with pseudonormalization. The left ventricular diastolic filling pattern is consistent with elevated mean left atrial pressure. Left Atrium: The left atrium is mildly dilated. Right Ventricle: The right ventricle is mild to moderately dilated. The right ventricular global systolic function is normal. Right Atrium: The right atrium appears normal. The interatrial septum appears normal. 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 Aortic Valve: The aortic valve is trileaflet. The aortic valve leaflets are moderately thickened. There is trace of aortic regurgitation. There is no evidence of aortic stenosis. Mitral Valve: The mitral valve leaflets appear normal. There is mitral annular calcification. There is mild to moderate mitral regurgitation. There is no evidence of mitral stenosis. Tricuspid Valve: The tricuspid valve leaflets are normal. There is mild to moderate tricuspid regurgitation. There is no tricuspid stenosis. Pulmonic Valve: The pulmonic valve appears normal. There is trace pulmonic regurgitation. There is no pulmonic stenosis. Pericardium: There is no pericardial effusion. Aorta: There is no dilatation of the ascending aorta. There is no dilatation of the aortic arch. There is no dilatation of the descending thoracic aorta. There is no dilatation of the aortic root. Venous: The inferior vena cava appears normal in size. Measurements Chambers 2D Name Value Normal Range IVSd (2D) 1.21 cm (0.6 - 1.1) LVPWd (2D) 1.22 cm (0.6 - 1.1) LVIDd (2D) 5.61 cm (3.7 - 5.6) LVIDs (2D) 4.74 cm (2 - 3.8) LV FS (2D) 15.52 % - EF Teichholz (2D) 32.35 % - Ao root diameter (2D) 2.98 cm (2 - 3.7) Volumes/Mass Name Value Normal Range LA ESV SP 4CH (A/L) 90.79 ml - LA ESV SP 2CH (A/L) 79.53 ml - LA ESV BP (A/L) 85.37 ml - LA ESV SP 4CH (MOD) 84.6 ml - LA ESV SP 2CH (MOD) 74.61 ml - LV EDV SP 4CH (MOD) 197.38 ml - LV ESV SP 4CH (MOD) 123.93 ml - EF SP 4CH (MOD) 37.21 % - LV EDV SP 2CH (MOD) 194.2 ml - LV ESV SP 2CH (MOD) 123.7 ml - EF SP 2CH (MOD) 36.3 % - LV EDV BP 201.77 ml - LV ESV BP 131.12 ml - BP EF (MOD) 35.02 % - Diastolic/Systolic Function Name Value Normal Range MV E-wave Vmax 1.15 m/sec - MV deceleration time 133.32 msec - MV A-wave Vmax 0.78 m/sec - MV E:A ratio 1.48 ratio - Aortic Valve Name Value Normal Range AV Vmax 1.8 m/sec - AV VTI 35.01 cm - AV peak gradient 12.99 mmHg - AV mean gradient 6.54 mmHg - LVOT diameter 2.11 cm - LVOT Vmax 0.86 m/sec - LVOT VTI 17.92 cm - LVOT peak gradient 2.94 mmHg - LVOT mean gradient 1.54 mmHg - SV LVOT 62.77 ml - SKINNY (continuity Vmax) 1.67 cm2 - SKINNY (continuity VTI) 1.79 cm2 - Tricuspid Valve Name Value Normal Range TR Vmax 3.55 m/sec - TR peak gradient 50.29 mmHg - Pulmonic Valve/Qp:Qs Name Value Normal Range PV Vmax 1.09 m/sec - PV peak gradient 4.78 mmHg - ME end-diastolic Vmax 1.48 m/sec - PV acceleration time 117.98 msec - Veliz/IV: Voiding Method Incontinent IV Catheter Type [Left Hand] Peripheral IV IV Catheter Type [Left INT / Saline Lock Internal Jugular] Active Medications - Current Medications Current Medications: Generic Name Dose Route Start Last Admin Trade Name Freq PRN Reason Stop Dose Admin Acetaminophen 650 mg 07/13/20 23:07 07/29/20 08:31 Tylenol PO 650 mg Q4H PRN Administration Headache Albuterol 2.5 mg 07/16/20 18:22 07/29/20 15:24 Proventil IH 2.5 mg Q4HRT PRN Administration Shortness Of Breath Aspirin 81 mg 07/14/20 10:00 08/04/20 11:39 Halfprin Ec PO Not Given QDAY [facility] Atorvastatin Calcium 40 mg 07/14/20 22:00 08/04/20 21:18 Lipitor PO Not Given QHS [facility] Carvedilol 25 mg 07/14/20 10:00 08/04/20 21:16 Coreg PO 25 mg BID [facility] Administration Clonidine HCl 0.2 mg 07/27/20 01:28 07/29/20 08:31 Catapres PO 0.2 mg Q4H PRN Administration Hypertension Clonidine HCl 0.2 mg 07/31/20 08:30 08/05/20 06:39 Catapres PO Not Given Q8HR [facility] Clopidogrel Bisulfate 75 mg 07/14/20 10:00 08/04/20 11:39 Plavix PO Not Given QDAY [facility] Ezetimibe 10 mg 07/14/20 10:00 08/04/20 11:39 Zetia PO Not Given QDAY [facility] Epoetin Mulugeta 10,000 unit 07/21/20 17:17 08/02/20 10:38 Procrit IV 10,000 unit CHICHI PRN Administration hemodialysis Fluticasone Propionate 100 mcg 07/14/20 10:00 08/04/20 11:39 Flonase NS Not Given QDAY [facility] Furosemide 80 mg 07/14/20 10:00 08/04/20 11:39 Lasix PO Not Given DAILY [facility] Sodium Chloride 100 mls @ 999 mls/hr 07/14/20 13:00 Nacl 0.9% IV CHICHI PRN Hypotension Lidocaine 1 each 07/27/20 14:00 08/04/20 10:35 Lidoderm 5% TD 1 each QDAY [facility] Administration Lisinopril 20 mg 07/27/20 10:00 08/04/20 11:39 Zestril PO Not Given QDAY [facility] Loperamide HCl 2 mg 07/15/20 19:18 07/15/20 21:41 Imodium PO 2 mg Q2H PRN Administration Diarrhea Naphazoline HCl/Pheniramine Maleate 2 drops 07/27/20 11:27 Visine-A OU Q6H PRN Allergy Symptoms Nifedipine 90 mg 07/14/20 10:00 08/04/20 21:16 Procardia Xl PO 90 mg BID JP Administration Nitroglycerin 0.5 inch 07/14/20 06:00 08/05/20 06:41 Nitro-Bid 2% TP Not Given QIDNTG [facility] Protocol Ondansetron HCl 4 mg 07/13/20 23:07 08/02/20 10:38 Zofran IV 4 mg Q8H PRN Administration Nausea And Vomiting Warfarin Sodium 15 mg 08/05/20 17:00 Coumadin PO DAILY@1700 [facility] Nutrition/Malnutrition Assess - Dietary Evaluation Nutrition/Malnutrition Findings: Nutrition Notes Start: 07/17/20 13:10 Freq: Status: Active Protocol: Document 07/20/20 11:27 EN (Rec: 07/20/20 11:34 EN [email or web address]) Co-Sign 07/20/20 11:27 LM Nutrition Notes Initial or Follow up Reassessment Current Diagnosis CKD (stage V CKD),Coronary Artery Disease,Diabetes, Hypertension Other Pertinent Diagnosis ESRD on HD, NSTEMI, dyslipidedema Current Diet Renal Labs/Tests 07/19: BUN 25, Cr 4.1 Pertinent Medications Reviewed Height 5 ft 3 in Weight 75.4 kg [place] Body Weight (kg) 52.27 BMI 29.4 Weight Status Overweight Subjective/Other Information F/u for intakes. Pt reports eating 100% of breakfast. Pt would like pork and fruit cups during meals. Pt reports loose stool at 10:00 this morning. Pt states that appetite is good and denies N/ V Percent of energy/protein needs met: 100%/86% Burn Absent Trauma Absent GI Symptoms Diarrhea Food Allergy Yes Current % PO Good (75-100%) Minimum of two criteria No Interpretation of Weight Loss (severe) >5% in 1 month #2 Nutrition Diagnosis Inadequate oral intake As Evidenced by Signs and Symptoms consuming 100% of meals Diagnosis Progress(for reassessment Resolved documentation) #1 Nutrition Diagnosis Food and nutrition-related knowledge deficit As Evidenced by Signs and Symptoms No further Coumadin/Vit k questions Diagnosis Progress(for reassessment Resolved documentation) Is patient on ventilator? No Is Patient Ambulatory and/or Out of Bed No [place]-([place] [place]conf[facility]) [phone] Calculation [facility] Additional Notes Protein: >1.2 g/kg (> 90g) Fluid: Urine output + 1000 ml/ day Nutrition Intervention Change Diet Order: Continue Renal Diet Goal #1 Meet 75% of energy and protein needs Anticipated Discharge Needs: Renal diet Revisit per MD consult or patient Sign Off request:
[2020-08-05] MEDS: FUROSEMIDE 40 MG TAB PO SCH (09:58)
[2020-08-05] MEDS: carvediloL 25 MG TAB PO SCH ×2 (09:58→22:13)
[2020-08-05] MEDS: NIFEdipine XL 90 MG TAB PO SCH ×2 (09:58→22:14)
[2020-08-05] MEDS: LIDOCAINE 5% 1 EACH PATCH TD SCH (09:58)
[2020-08-05] MEDS: FLUTICASONE PROPIONATE NASAL SPRAY 16 GM NS SCH (11:24)
[2020-08-05] MEDS: LISINOPRIL 20 MG TAB PO SCH (11:25)
[2020-08-05] MEDS: EZETIMIBE 10 MG TAB PO SCH (11:25)
[2020-08-05] MEDS: CLOPIDOGREL 75 MG TAB PO SCH (11:25)
[2020-08-05] MEDS: ASPIRIN EC 81 MG TAB PO SCH (11:25)
--- NOTE | 2020-08-05 11:46 | Progress Note ---
Subjective Principal diagnosis: ESRD/HD, Acc HTN, NSTEMI 2, H/o PE/DVT (IVC filter) Interval history: Patient was seen today for follow-up of multiple renal related issues No complaints of any chest pain pressure or shortness of breath currently pending placement Interdisciplinary notes that also reviewed Events of 24 hours vitals labs intake output medications were reviewed Past medical history: Reviewed Family history: Reviewed Social history: Reviewed Allergies: Reviewed Physical examination: Vitals: Reviewed HEENT: No pallor or icterus oral mucosa moist Neck: Supple no JVD no thyromegaly Chest: Bilateral clear to auscultation anteriorly Heart: Regular rate and rhythm S1-S2 heard no S3-S4 Abdomen: Soft nontender no voluntary guarding rigidity rebound Extremity: Dry skin less than 1+ peripheral edema Psychiatric: No evidence of agitation and aggression noted Dermatology: No petechial rashes Labs and x-rays: Reviewed from today Assessment and plan #ESRD patient is currently in the intensive dialysis Friday and Friday she will continue with that #Anemia in end-stage renal disease current hemoglobin 10.8 satisfactory #Bone mineral disorder and nutrition check phosphorus PTH, high protein diet Overall stable from renal standpoint All questions were answered and simple Tamazight We'll continue to follow and make recommendation for renal standpoint Objective - Vital Signs Vital signs: Vital Signs - 12hr 08/05/20 08/05/20 08/05/20 00:26 05:20 06:39 Temperature 98.2 F 98 F Pulse Rate 68 68 68 Respiratory Rate Blood Pressure 141/68 Blood Pressure 148/68 141/68 [Right] O2 Sat by Pulse Oximetry 08/05/20 08/05/20 07:54 10:00 Temperature 97.5 F L Pulse Rate 80 Respiratory 18 18 Rate Blood Pressure 175/75 Blood Pressure [Right] O2 Sat by Pulse 100 96 Oximetry - Lab 08/05/20 06:59 08/05/20 06:59 Most recent lab results Calcium 9.5 mg/dL (8.4-10.2) 08/05/20 06:59 Phosphorus 3.50 mg/dL (2.5-4.5) 08/05/20 06:59 Medications & Allergies - Medications Allergies/Adverse Reactions: Allergies apixaban [From Eliquis] Allergy (Verified 03/01/17 20:29) Itching dabigatran etexilate mesylate [From Pradaxa] Allergy (Verified 03/01/17 20:27) Itching heparin Allergy (Verified 07/14/20 05:54) Vomiting hydralazine HCl [From Apresoline] Allergy (Verified 03/01/17 13:11) Unknown morphine Allergy (Verified 02/15/14 02:23) Itching povidone-iodine [From Betadine] Allergy (Verified 03/01/17 20:26) Itching rivaroxaban [From Xarelto] Allergy (Verified 03/01/17 20:29) Itching soap [From Betadine] Allergy (Verified 03/01/17 20:26) Itching verapamil HCl [From Calan] Allergy (Verified 02/15/14 02:23) Headache Home Medications: Home Medications Medication Instructions Recorded Confirmed Last Taken Type Oxymetazoline 0.05% [Vicks Sinex] 1 spray NS BID 03/01/17 07/14/20 1 Day Ago History ~02/28/17 Furosemide [Lasix TAB] 80 mg PO QDAY #30 tablet 03/05/17 07/14/20 Unknown Rx Nystatin [Nystop Powder] 1 applic TP BID #15 g 03/05/17 07/14/20 Unknown Rx Lidocaine [Lidoderm] 5 patch TRANSDERMA QDAY 07/14/20 07/14/20 Unknown History NIFEdipine XL [Procardia Xl] 90 mg PO BID 07/14/20 07/14/20 Unknown History Warfarin [Coumadin] 10 mg PO QDAY 07/14/20 07/14/20 Unknown History Albuterol Sulfate [Albuterol 0.63% 0.63 mg IH Q4H PRN 30 Days 08/02/20 Unknown Rx NEBS] Aspirin EC [Halfprin EC] 81 mg PO QDAY #30 tablet. 08/02/20 Unknown Rx AtorvaSTATin [Lipitor] 40 mg PO QHS #30 08/02/20 Unknown Rx AtorvaSTATin [Lipitor] 80 mg PO QHS #30 tablet 08/02/20 Unknown Rx Clopidogrel [Plavix] 75 mg PO QDAY #30 08/02/20 Unknown Rx Ezetimibe [Zetia] 10 mg PO QDAY tablet 08/02/20 Unknown Rx Ferrous Sulfate [Feosol 325 MG tab] 325 mg PO QDAY 30 Days 08/02/20 Unknown Rx Fluticasone [Flonase] 100 mcg NS QDAY 30 Days bottle 08/02/20 Unknown Rx Furosemide [Lasix TAB] 80 mg PO DAILY #30 tablet 08/02/20 Unknown Rx Levothyroxine [Synthroid] 88 mcg PO QAM 30 Days 08/02/20 Unknown Rx NIFEdipine XL [Procardia Xl] 90 mg PO BID #60 tablet 08/02/20 Unknown Rx Naphazoline/Phenira 0.025/0.3% 2 drops OU Q6H PRN bottle 08/02/20 Unknown Rx [Visine-A] Warfarin [Coumadin] 5 mg PO DAILY@1700 30 Days #30 08/02/20 Unknown Rx tablet Warfarin [Coumadin] 10 mg PO DAILY@1700 #7 tablet 08/02/20 Unknown Rx carvediloL [Coreg] 25 mg PO BID #60 08/02/20 Unknown Rx cloNIDine [Catapres] 0.2 mg PO Q8HR #30 tablet 08/02/20 Unknown Rx lisinopriL [Zestril TAB] 20 mg PO QDAY #30 tablet 08/02/20 Unknown Rx Active Medications: Generic Name Dose Route Start Last Admin Trade Name Freq PRN Reason Stop Dose Admin Acetaminophen 650 mg 07/13/20 23:07 07/29/20 08:31 Tylenol PO 650 mg Q4H PRN Administration Headache Albuterol 2.5 mg 07/16/20 18:22 07/29/20 15:24 Proventil IH 2.5 mg Q4HRT PRN Administration Shortness Of Breath Aspirin 81 mg 07/14/20 10:00 08/05/20 11:25 Halfprin Ec PO Not Given QDAY [facility] Atorvastatin Calcium 40 mg 07/14/20 22:00 08/04/20 21:18 Lipitor PO Not Given QHS [facility] Carvedilol 25 mg 07/14/20 10:00 08/05/20 09:58 Coreg PO 25 mg BID JP Administration Clonidine HCl 0.2 mg 07/27/20 01:28 07/29/20 08:31 Catapres PO 0.2 mg Q4H PRN Administration Hypertension Clonidine HCl 0.2 mg 07/31/20 08:30 08/05/20 06:39 Catapres PO Not Given Q8HR [facility] Clopidogrel Bisulfate 75 mg 07/14/20 10:00 08/05/20 11:25 Plavix PO Not Given QDAY [facility] Ezetimibe 10 mg 07/14/20 10:00 08/05/20 11:25 Zetia PO Not Given QDAY [facility] Epoetin Mulugeta 10,000 unit 07/21/20 17:17 08/02/20 10:38 Procrit IV 10,000 unit CHICHI PRN Administration hemodialysis Fluticasone Propionate 100 mcg 07/14/20 10:00 08/05/20 11:24 Flonase NS Not Given QDAY [facility] Furosemide 80 mg 07/14/20 10:00 08/05/20 09:58 Lasix PO 80 mg DAILY [facility] Administration Sodium Chloride 100 mls @ 999 mls/hr 07/14/20 13:00 Nacl 0.9% IV CHICHI PRN Hypotension Lidocaine 1 each 07/27/20 14:00 08/05/20 09:58 Lidoderm 5% TD 1 each QDAY [facility] Administration Lisinopril 20 mg 07/27/20 10:00 08/05/20 11:25 Zestril PO Not Given QDAY [facility] Loperamide HCl 2 mg 07/15/20 19:18 07/15/20 21:41 Imodium PO 2 mg Q2H PRN Administration Diarrhea Naphazoline HCl/Pheniramine Maleate 2 drops 07/27/20 11:27 Visine-A OU Q6H PRN Allergy Symptoms Nifedipine 90 mg 07/14/20 10:00 08/05/20 09:58 Procardia Xl PO 90 mg BID [facility] Administration Nitroglycerin 0.5 inch 07/14/20 06:00 08/05/20 11:25 Nitro-Bid 2% TP Not Given QIDNTG [facility] Protocol Ondansetron HCl 4 mg 07/13/20 23:07 08/02/20 10:38 Zofran IV 4 mg Q8H PRN Administration Nausea And Vomiting Warfarin Sodium 15 mg 08/05/20 17:00 Coumadin PO DAILY@1700 [facility]
[2020-08-05] MEDS ORDERED: WARFARIN 7.5 MG TAB PO SCH (17:00)
[2020-08-05] MEDS: WARFARIN 10 MG TAB PO SCH (18:33)
[2020-08-05] MEDS: WARFARIN 7.5 MG TAB PO SCH (18:33)
[2020-08-06] MEDS: NITROGLYCERIN 2% OINT 1 GM TP SCH ×3 (05:50→18:06)
[2020-08-06] MEDS: cloNIDine 0.1 MG TAB PO SCH ×3 (05:54→21:57)
--- NOTE | 2020-08-06 07:22 | Progress Note ---
Subjective Principal diagnosis: ESRD/HD, Acc HTN, NSTEMI 2, H/o PE/DVT (IVC filter) Interval history: Patient was seen today for follow-up of multiple renal related issues No complaints of any chest pain pressure or shortness of breath currently pending placement, no acute changes today Interdisciplinary notes that also reviewed Events of 24 hours vitals labs intake output medications were reviewed Past medical history: Reviewed Family history: Reviewed Social history: Reviewed Allergies: Reviewed Physical examination: Vitals: Reviewed HEENT: No pallor or icterus oral mucosa moist Neck: Supple no JVD no thyromegaly Chest: Bilateral clear to auscultation anteriorly Heart: Regular rate and rhythm S1-S2 heard no S3-S4 Abdomen: Soft nontender no voluntary guarding rigidity rebound Extremity: Dry skin minimal edema Currently does have a brace in one leg Psychiatric: No evidence of agitation and aggression noted Dermatology: No petechial rashes Labs and x-rays: Reviewed from today Assessment and plan #ESRD patient is currently in the intensive dialysis Friday and Friday she will continue with that #Anemia in end-stage renal disease current hemoglobin 10.8 satisfactory #currently on anticoagulation #Hypertension and volume to monitor and follow, usually does have loose stools #Bone mineral disorder and nutrition check phosphorus PTH, high protein diet #Cardiomyopathy ejection fraction 35-40%, ischemic in nature Overall stable from renal standpoint All questions were answered and simple [place] We'll continue to follow and make recommendation for renal standpoint Objective - Vital Signs Vital signs: Vital Signs - 12hr 08/05/20 08/05/20 08/05/20 20:49 22:00 22:13 Temperature 97.8 F Pulse Rate 86 86 Respiratory 20 20 Rate Blood Pressure 171/81 171/81 Blood Pressure [Right] O2 Sat by Pulse 95 95 Oximetry 08/05/20 08/06/20 08/06/20 23:59 05:45 05:50 Temperature 97.3 F L 98.1 F Pulse Rate 81 82 82 Respiratory 20 20 Rate Blood Pressure 169/78 171/82 Blood Pressure 171/82 [Right] O2 Sat by Pulse 96 97 Oximetry 08/06/20 05:54 Temperature Pulse Rate 82 Respiratory Rate Blood Pressure 171/82 Blood Pressure [Right] O2 Sat by Pulse Oximetry - Lab 08/05/20 06:59 08/05/20 06:59 Most recent lab results Calcium 9.5 mg/dL (8.4-10.2) 08/05/20 06:59 Phosphorus 3.50 mg/dL (2.5-4.5) 08/05/20 06:59 Medications & Allergies - Medications Allergies/Adverse Reactions: Allergies apixaban [From Eliquis] Allergy (Verified 03/01/17 20:29) Itching dabigatran etexilate mesylate [From Pradaxa] Allergy (Verified 03/01/17 20:27) Itching heparin Allergy (Verified 07/14/20 05:54) Vomiting hydralazine HCl [From Apresoline] Allergy (Verified 03/01/17 13:11) Unknown morphine Allergy (Verified 02/15/14 02:23) Itching povidone-iodine [From Betadine] Allergy (Verified 03/01/17 20:26) Itching rivaroxaban [From Xarelto] Allergy (Verified 03/01/17 20:29) Itching soap [From Betadine] Allergy (Verified 03/01/17 20:26) Itching verapamil HCl [From Calan] Allergy (Verified 02/15/14 02:23) Headache Home Medications: Home Medications Medication Instructions Recorded Confirmed Last Taken Type Oxymetazoline 0.05% [Vicks Sinex] 1 spray NS BID 03/01/17 07/14/20 1 Day Ago History ~02/28/17 Furosemide [Lasix TAB] 80 mg PO QDAY #30 tablet 03/05/17 07/14/20 Unknown Rx Nystatin [Nystop Powder] 1 applic TP BID #15 g 03/05/17 07/14/20 Unknown Rx Lidocaine [Lidoderm] 5 patch TRANSDERMA QDAY 07/14/20 07/14/20 Unknown History NIFEdipine XL [Procardia Xl] 90 mg PO BID 07/14/20 07/14/20 Unknown History Warfarin [Coumadin] 10 mg PO QDAY 07/14/20 07/14/20 Unknown History Albuterol Sulfate [Albuterol 0.63% 0.63 mg IH Q4H PRN 30 Days 08/02/20 Unknown Rx NEBS] Aspirin EC [Halfprin EC] 81 mg PO QDAY #30 tablet. 08/02/20 Unknown Rx AtorvaSTATin [Lipitor] 40 mg PO QHS #30 08/02/20 Unknown Rx AtorvaSTATin [Lipitor] 80 mg PO QHS #30 tablet 08/02/20 Unknown Rx Clopidogrel [Plavix] 75 mg PO QDAY #30 08/02/20 Unknown Rx Ezetimibe [Zetia] 10 mg PO QDAY tablet 08/02/20 Unknown Rx Ferrous Sulfate [Feosol 325 MG tab] 325 mg PO QDAY 30 Days 08/02/20 Unknown Rx Fluticasone [Flonase] 100 mcg NS QDAY 30 Days bottle 08/02/20 Unknown Rx Furosemide [Lasix TAB] 80 mg PO DAILY #30 tablet 08/02/20 Unknown Rx Levothyroxine [Synthroid] 88 mcg PO QAM 30 Days 08/02/20 Unknown Rx NIFEdipine XL [Procardia Xl] 90 mg PO BID #60 tablet 08/02/20 Unknown Rx Naphazoline/Phenira 0.025/0.3% 2 drops OU Q6H PRN bottle 08/02/20 Unknown Rx [Visine-A] Warfarin [Coumadin] 5 mg PO DAILY@1700 30 Days #30 08/02/20 Unknown Rx tablet Warfarin [Coumadin] 10 mg PO DAILY@1700 #7 tablet 08/02/20 Unknown Rx carvediloL [Coreg] 25 mg PO BID #60 08/02/20 Unknown Rx cloNIDine [Catapres] 0.2 mg PO Q8HR #30 tablet 08/02/20 Unknown Rx lisinopriL [Zestril TAB] 20 mg PO QDAY #30 tablet 08/02/20 Unknown Rx Active Medications: Generic Name Dose Route Start Last Admin Trade Name Freq PRN Reason Stop Dose Admin Acetaminophen 650 mg 07/13/20 23:07 07/29/20 08:31 Tylenol PO 650 mg Q4H PRN Administration Headache Albuterol 2.5 mg 07/16/20 18:22 07/29/20 15:24 Proventil IH 2.5 mg Q4HRT PRN Administration Shortness Of Breath Aspirin 81 mg 07/14/20 10:00 08/05/20 11:25 Halfprin Ec PO Not Given QDAY JP Atorvastatin Calcium 40 mg 07/14/20 22:00 08/05/20 22:14 Lipitor PO Not Given QHS JP Carvedilol 25 mg 07/14/20 10:00 08/05/20 22:13 Coreg PO 25 mg BID JP Administration Clonidine HCl 0.2 mg 07/27/20 01:28 07/29/20 08:31 Catapres PO 0.2 mg Q4H PRN Administration Hypertension Clonidine HCl 0.2 mg 07/31/20 08:30 08/06/20 05:54 Catapres PO Not Given Q8HR [facility] Clopidogrel Bisulfate 75 mg 07/14/20 10:00 08/05/20 11:25 Plavix PO Not Given QDAY [facility] Ezetimibe 10 mg 07/14/20 10:00 08/05/20 11:25 Zetia PO Not Given QDAY [facility] Epoetin Mulugeta 10,000 unit 07/21/20 17:17 08/02/20 10:38 Procrit IV 10,000 unit CHICHI PRN Administration hemodialysis Fluticasone Propionate 100 mcg 07/14/20 10:00 08/05/20 11:24 Flonase NS Not Given QDAY [facility] Furosemide 80 mg 07/14/20 10:00 08/05/20 09:58 Lasix PO 80 mg DAILY [facility] Administration Sodium Chloride 100 mls @ 999 mls/hr 07/14/20 13:00 Nacl 0.9% IV CHICHI PRN Hypotension Lidocaine 1 each 07/27/20 14:00 08/05/20 09:58 Lidoderm 5% TD 1 each QDAY [facility] Administration Lisinopril 20 mg 07/27/20 10:00 08/05/20 11:25 Zestril PO Not Given QDAY [facility] Loperamide HCl 2 mg 07/15/20 19:18 07/15/20 21:41 Imodium PO 2 mg Q2H PRN Administration Diarrhea Naphazoline HCl/Pheniramine Maleate 2 drops 07/27/20 11:27 Visine-A OU Q6H PRN Allergy Symptoms Nifedipine 90 mg 07/14/20 10:00 08/05/20 22:14 Procardia Xl PO 90 mg BID JP Administration Nitroglycerin 0.5 inch 07/14/20 06:00 08/06/20 05:50 Nitro-Bid 2% TP 0.5 inch QIDNTG JP Administration Protocol Ondansetron HCl 4 mg 07/13/20 23:07 08/02/20 10:38 Zofran IV 4 mg Q8H PRN Administration Nausea And Vomiting Warfarin Sodium 7.5 mg 08/05/20 17:00 08/05/20 18:33 Coumadin PO 7.5 mg DAILY@1700 JP Administration Warfarin Sodium 10 mg 08/05/20 17:00 08/05/20 18:33 Coumadin PO 10 mg DAILY@1700 [facility] Administration
--- NOTE | 2020-08-06 10:08 | Progress Note ---
Assessment and Plan Assessment and plan: -Non-ST elevation WI, type II 07/15/2020 stress test negative for acute ischemia EF 38 %. Continue current management including aspirin and Plavix Cardiology cleared for discharge --History of coronary artery disease status post PCI Continue current cardiac medications, cardiology following --Ischemic cardiomyopathy; EF 40 to 45% 2016 Continue antifailure medications --End-stage renal disease; MWF On hemodialysis, nephrology following, HD per schedule Stable ,renal cleared for discharge --Hypertensive emergency; present on admission Added clonidine. Monitor BP --History of peripheral vascular disease; Continue antiplatelets and statins --History of DVT and PE; chronic anticoagulation with Coumadin subtherapeutic INR noncompliant Coumadin resumed Target INR 2-3, Closely monitor Monitor INR and adjust as needed --History of IVC filter placement; supportive care --Type 2 diabetes mellitus; Accu-Chek sliding scale coverage ADA diet Insulin as needed --Dyslipidemia; Stable on lipid-lowering medications --Obesity; BMI 39.0 Advised weight reduction when medically stable --Possible obstructive sleep apnea; Patient may need outpatient sleep study Rule out KENY, CPAP BiPAP at night as needed ---Chronic back pain She uses 2 lidocaine patchs and opioids at home ---Eye irritation Antihistamine eyedrops --DVT prophylaxis; Patient is already on Coumadin DC planning per case management Patient is medically stable for discharge however still need to be discharged to facility but this has not been possible. surface water manager currently trying to see the patient in place-options include placement to a facility versus personal snf [which patient does not want] patient's daughter # [phone] provided by patient 07/25. I have seen and examined the patient at the bedside Patient's chart and medications reviewed No new complaints, patient receiving hemodialysis per schedule Clinically stable for discharge Awaiting placement 07/26. No change in medical condition. Vitals remain stable. Awaiting placement 07/27. Has itchy left eye. Prescribed eye drops. Stable for DC 07/28. Stable for DC. No new complaints 07/29. Medically stable for DC. BP elevated today. Added clonidine 07/30-. Medically stable for discharge. Blood pressure significantly improved. Try to call daughter on phone number provided by patient but no answer so I left a voice message. surface water manager trying to get placement for patient-patients daughter has not been available to provide documents required prior to placement. 08/01. Awaiting placement 08/02/2020. Patient was set for discharge to a long term however this was discontinued. After further review, patient was deemed to be unsafe for discharge to a long term given the fact patient is on Coumadin and is blind with difficulty walking. Case management is aware and attempting to arrange for safe discharge. 08/03/2020. Awaiting placement. 08/04/2020. Multiple challenges including family dynamics, APS intervention and lack of funding makes the discharge difficult. Please see case management/social work notes. Continue to work with case management/social work with regards to discharge planning. Patient is medically stable for discharge. 08/05/20. Awaiting placement. 08/06/2020. Patient medically stable. Still awaiting placement. Follow-up with case management/social work in the morning regarding multiple challenges with discharge planning. - Patient Problems (1) NSTEMI (non-ST elevated myocardial infarction) Current Visit: Yes Status: Acute (2) Accelerated hypertension Current Visit: Yes Status: Chronic (3) Anemia Current Visit: Yes Status: Chronic (4) CAD (coronary artery disease) Current Visit: Yes Status: Chronic (5) DM2 (diabetes mellitus, type 2) Current Visit: Yes Status: Chronic (6) End stage renal disease on dialysis Current Visit: Yes Status: Chronic (7) History of CVA (cerebrovascular accident) Current Visit: Yes Status: Chronic (8) History of DVT (deep vein thrombosis) Current Visit: Yes Status: Chronic (9) History of pulmonary embolism Current Visit: Yes Status: Chronic (10) Hyperlipidemia Current Visit: Yes Status: Chronic (11) Ischemic cardiomyopathy Current Visit: Yes Status: Chronic (12) PVD (peripheral vascular disease) Current Visit: Yes Status: Chronic (13) Presence of IVC filter Current Visit: Yes Status: Chronic (14) KENY (obstructive sleep apnea) Current Visit: Yes Status: Suspected (15) Chest pain Current Visit: Yes Status: Resolved History Interval history: 60-year-old female patient who is legally blind with significant history of coronary artery disease status post PCI, ischemic cardiomyopathy CVA end-stage renal disease on hemodialysis, history of PE IVC filter placement anticoagulation with Coumadin anemia was admitted through emergency room with chest pain Elevated troponins, evaluated by cardiology, underwent stress test which was negative for acute ischemia, patient was seen by nephrology receiving hemodialysis per schedule Patient is clinically stable for discharge, awaiting placement Hospitalist Physical - Constitutional Vitals: Temp Pulse Resp BP Pulse Ox 98.1 F 82 20 171/82 97 08/06/20 05:45 08/06/20 05:54 08/06/20 05:45 08/06/20 05:54 08/06/20 05:45 General appearance: Present: no acute distress, well-nourished - EENT Eyes: Present: PERRL, EOM intact ENT: hearing intact, clear oral mucosa, dentition normal - Neck Neck: Present: supple, normal ROM - Respiratory Respiratory effort: normal Respiratory: bilateral: CTA - Cardiovascular Rhythm: regular Heart Sounds: Present: S1 & S2. Absent: gallop, rub - Extremities Extremities: no ischemia, No edema, Full ROM - Abdominal General gastrointestinal: soft, non-tender, non-distended, normal bowel sounds - Integumentary Integumentary: Present: clear, warm, dry - Neurologic Neurologic: CNII-XII intact, moves all extremities HEART Score - HEART Score Risk factors: > 3 risk factors or hx of atherosclerotic disease Troponin: Troponin T 0.099 ng/mL (0.00-0.029) H 07/14/20 10:13 Troponin: 1-3x normal limit - Critical Actions Critical Actions: 4-6 pts:12-16.6% risk of adverse cardiac event. Should be admitted (PATIENT UNDERGOING WORK UP) Results - Labs CBC & Chem 7: 08/05/20 06:59 08/05/20 06:59 Labs: Laboratory Last Values WBC 5.0 K/mm3 (4.5-11.0) 08/05/20 06:59 RBC 3.57 M/mm3 (3.65-5.03) L 08/05/20 06:59 Hgb 10.8 gm/dl (10.1-14.3) 08/05/20 06:59 Hct 32.6 % (30.3-42.9) 08/05/20 06:59 MCV 91 fl (79-97) 08/05/20 06:59 MCH 30 pg (28-32) 08/05/20 06:59 MCHC 33 % (30-34) 08/05/20 06:59 RDW 16.2 % (13.2-15.2) H 08/05/20 06:59 Plt Count 216 K/mm3 (140-440) 08/05/20 06:59 Lymph % (Auto) 21.7 % (13.4-35.0) 08/05/20 06:59 [place] % (Auto) 5.1 % (0.0-7.3) 08/05/20 06:59 Eos % (Auto) 3.8 % (0.0-4.3) 08/05/20 06:59 Baso % (Auto) 1.9 % (0.0-1.8) H 08/05/20 06:59 Lymph # (Auto) 1.1 K/mm3 (1.2-5.4) L 08/05/20 06:59 [place] # (Auto) 0.3 K/mm3 (0.0-0.8) 08/05/20 06:59 Eos # (Auto) 0.2 K/mm3 (0.0-0.4) 08/05/20 06:59 Baso # (Auto) 0.1 K/mm3 (0.0-0.1) 08/05/20 06:59 Seg Neutrophils % 67.5 % (40.0-70.0) 08/05/20 06:59 Seg Neutrophils # 3.4 K/mm3 (1.8-7.7) 08/05/20 06:59 PT 19.4 Sec. (12.2-14.9) H 08/05/20 06:59 INR 1.65 (0.87-1.13) H 08/05/20 06:59 APTT 28.2 Sec. (24.2-36.6) 07/13/20 23:36 Sodium 136 mmol/L (137-145) L 08/05/20 06:59 Potassium 4.3 mmol/L (3.6-5.0) 08/05/20 06:59 Chloride 95.5 mmol/L (98-107) L 08/05/20 06:59 Carbon Dioxide 28 mmol/L (22-30) 08/05/20 06:59 Anion Gap 17 mmol/L 08/05/20 06:59 BUN 25 mg/dL (7-17) H 08/05/20 06:59 Creatinine 4.5 mg/dL (0.6-1.2) H 08/05/20 06:59 Estimated GFR 12 ml/min 08/05/20 06:59 BUN/Creatinine Ratio 6 % 08/05/20 06:59 Glucose 115 mg/dL (65-100) H 08/05/20 06:59 Calcium 9.5 mg/dL (8.4-10.2) 08/05/20 06:59 Phosphorus 3.50 mg/dL (2.5-4.5) 08/05/20 06:59 Total Creatine Kinase 81 units/L (30-135) 07/14/20 10:13 CK-MB (CK-2) 1.9 ng/mL (0.0-4.0) 07/14/20 10:13 CK-MB (CK-2) Rel Index 2.3 (0-4) 07/14/20 10:13 Troponin T 0.099 ng/mL (0.00-0.029) H 07/14/20 10:13 Triglycerides 89 mg/dL (2-149) 07/13/20 23:36 Cholesterol 152 mg/dL (50-199) 07/13/20 23:36 LDL Cholesterol Direct 84 mg/dL (50-130) 07/13/20 23:36 HDL Cholesterol 59 mg/dL (40-59) 07/13/20 23:36 Cholesterol/HDL Ratio 2.57 % 07/13/20 23:36 Coronavirus (PCR) Negative (Negative) 07/21/20 Unknown Hepatitis A IgM Ab Non-reactive (NonReactive) 07/14/20 10:13 Hep Bs Antigen Non-reactive (Negative) 07/14/20 10:13 Hep B Core IgM Ab Non-reactive (NonReactive) 07/14/20 10:13 Hepatitis C Antibody Non-reactive (NonReactive) 07/14/20 10:13 - Diagnostic Impressions Diagnostic Impressions: Echocardiogram 07/14/20 10:55 Transthoracic Echocardiogram Indication: Chest Pain BP: 137/63 HR: 79 Conclusions *The left ventricular chamber size is normal. *Mild concentric left ventricular hypertrophy is observed. *There are multiple regional wall motion abnormalities. *septal,basal inferior wall hypokinetic *The estimated ejection fraction is 35-40%. *Abnormal left ventricular diastolic filling is observed, consistent with impaired relaxation. *The left ventricular diastolic filling pattern is consistent with pseudonormalization. *The left ventricular diastolic filling pattern is consistent with elevated mean left atrial pressure. *The left atrium is mildly dilated. *The right ventricle is mild to moderately dilated. *The aortic valve leaflets are moderately thickened. *There is trace of aortic regurgitation. *There is no evidence of aortic stenosis. *There is mitral annular calcification. *There is mild to moderate mitral regurgitation. *There is mild to moderate tricuspid regurgitation. *There is no pericardial effusion. *The inferior vena cava appears normal in size. Findings Left Ventricle: The left ventricular chamber size is normal. Mild concentric left ventricular hypertrophy is observed. There are multiple regional wall motion abnormalities. Global left ventricular systolic function is mild to moderately decreased. The estimated ejection fraction is 35-40%. Abnormal left ventricular diastolic function is observed. The left ventricular diastolic filling pattern is consistent with pseudonormalization. The left ventricular diastolic filling pattern is consistent with elevated mean left atrial pressure. Left Atrium: The left atrium is mildly dilated. Right Ventricle: The right ventricle is mild to moderately dilated. The right ventricular global systolic function is normal. Right Atrium: The right atrium appears normal. The interatrial septum appears normal. 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 Aortic Valve: The aortic valve is trileaflet. The aortic valve leaflets are moderately thickened. There is trace of aortic regurgitation. There is no evidence of aortic stenosis. Mitral Valve: The mitral valve leaflets appear normal. There is mitral annular calcification. There is mild to moderate mitral regurgitation. There is no evidence of mitral stenosis. Tricuspid Valve: The tricuspid valve leaflets are normal. There is mild to moderate tricuspid regurgitation. There is no tricuspid stenosis. Pulmonic Valve: The pulmonic valve appears normal. There is trace pulmonic regurgitation. There is no pulmonic stenosis. Pericardium: There is no pericardial effusion. Aorta: There is no dilatation of the ascending aorta. There is no dilatation of the aortic arch. There is no dilatation of the descending thoracic aorta. There is no dilatation of the aortic root. Venous: The inferior vena cava appears normal in size. Measurements Chambers 2D Name Value Normal Range IVSd (2D) 1.21 cm (0.6 - 1.1) LVPWd (2D) 1.22 cm (0.6 - 1.1) LVIDd (2D) 5.61 cm (3.7 - 5.6) LVIDs (2D) 4.74 cm (2 - 3.8) LV FS (2D) 15.52 % - EF Teichholz (2D) 32.35 % - Ao root diameter (2D) 2.98 cm (2 - 3.7) Volumes/Mass Name Value Normal Range LA ESV SP 4CH (A/L) 90.79 ml - LA ESV SP 2CH (A/L) 79.53 ml - LA ESV BP (A/L) 85.37 ml - LA ESV SP 4CH (MOD) 84.6 ml - LA ESV SP 2CH (MOD) 74.61 ml - LV EDV SP 4CH (MOD) 197.38 ml - LV ESV SP 4CH (MOD) 123.93 ml - EF SP 4CH (MOD) 37.21 % - LV EDV SP 2CH (MOD) 194.2 ml - LV ESV SP 2CH (MOD) 123.7 ml - EF SP 2CH (MOD) 36.3 % - LV EDV BP 201.77 ml - LV ESV BP 131.12 ml - BP EF (MOD) 35.02 % - Diastolic/Systolic Function Name Value Normal Range MV E-wave Vmax 1.15 m/sec - MV deceleration time 133.32 msec - MV A-wave Vmax 0.78 m/sec - MV E:A ratio 1.48 ratio - Aortic Valve Name Value Normal Range AV Vmax 1.8 m/sec - AV VTI 35.01 cm - AV peak gradient 12.99 mmHg - AV mean gradient 6.54 mmHg - LVOT diameter 2.11 cm - LVOT Vmax 0.86 m/sec - LVOT VTI 17.92 cm - LVOT peak gradient 2.94 mmHg - LVOT mean gradient 1.54 mmHg - SV LVOT 62.77 ml - SKINNY (continuity Vmax) 1.67 cm2 - SKINNY (continuity VTI) 1.79 cm2 - Tricuspid Valve Name Value Normal Range TR Vmax 3.55 m/sec - TR peak gradient 50.29 mmHg - Pulmonic Valve/Qp:Qs Name Value Normal Range PV Vmax 1.09 m/sec - PV peak gradient 4.78 mmHg - MS end-diastolic Vmax 1.48 m/sec - PV acceleration time 117.98 msec - Veliz/IV: Voiding Method Bedpan IV Catheter Type [Left Hand] Peripheral IV IV Catheter Type [Left INT / Saline Lock Internal Jugular] Active Medications - Current Medications Current Medications: Generic Name Dose Route Start Last Admin Trade Name Freq PRN Reason Stop Dose Admin Acetaminophen 650 mg 07/13/20 23:07 07/29/20 08:31 Tylenol PO 650 mg Q4H PRN Administration Headache Albuterol 2.5 mg 07/16/20 18:22 07/29/20 15:24 Proventil IH 2.5 mg Q4HRT PRN Administration Shortness Of Breath Aspirin 81 mg 07/14/20 10:00 08/05/20 11:25 Halfprin Ec PO Not Given QDAY [facility] Atorvastatin Calcium 40 mg 07/14/20 22:00 08/05/20 22:14 Lipitor PO Not Given QHS JP Carvedilol 25 mg 07/14/20 10:00 08/05/20 22:13 Coreg PO 25 mg BID JP Administration Clonidine HCl 0.2 mg 07/27/20 01:28 07/29/20 08:31 Catapres PO 0.2 mg Q4H PRN Administration Hypertension Clonidine HCl 0.2 mg 07/31/20 08:30 08/06/20 05:54 Catapres PO Not Given Q8HR [facility] Clopidogrel Bisulfate 75 mg 07/14/20 10:00 08/05/20 11:25 Plavix PO Not Given QDAY [facility] Ezetimibe 10 mg 07/14/20 10:00 08/05/20 11:25 Zetia PO Not Given QDAY [facility] Epoetin Mulugeta 10,000 unit 07/21/20 17:17 08/02/20 10:38 Procrit IV 10,000 unit CHICHI PRN Administration hemodialysis Fluticasone Propionate 100 mcg 07/14/20 10:00 08/05/20 11:24 Flonase NS Not Given QDAY [facility] Furosemide 80 mg 07/14/20 10:00 08/05/20 09:58 Lasix PO 80 mg DAILY JP Administration Sodium Chloride 100 mls @ 999 mls/hr 07/14/20 13:00 Nacl 0.9% IV CHICHI PRN Hypotension Lidocaine 1 each 07/27/20 14:00 08/05/20 09:58 Lidoderm 5% TD 1 each QDAY [facility] Administration Lisinopril 20 mg 07/27/20 10:00 08/05/20 11:25 Zestril PO Not Given QDAY JP Loperamide HCl 2 mg 07/15/20 19:18 07/15/20 21:41 Imodium PO 2 mg Q2H PRN Administration Diarrhea Naphazoline HCl/Pheniramine Maleate 2 drops 07/27/20 11:27 Visine-A OU Q6H PRN Allergy Symptoms Nifedipine 90 mg 07/14/20 10:00 08/05/20 22:14 Procardia Xl PO 90 mg BID JP Administration Nitroglycerin 0.5 inch 07/14/20 06:00 08/06/20 05:50 Nitro-Bid 2% TP 0.5 inch QIDNTG JP Administration Protocol Ondansetron HCl 4 mg 07/13/20 23:07 08/02/20 10:38 Zofran IV 4 mg Q8H PRN Administration Nausea And Vomiting Warfarin Sodium 7.5 mg 08/05/20 17:00 08/05/20 18:33 Coumadin PO 7.5 mg DAILY@1700 JP Administration Warfarin Sodium 10 mg 08/05/20 17:00 08/05/20 18:33 Coumadin PO 10 mg DAILY@1700 JP Administration Nutrition/Malnutrition Assess - Dietary Evaluation Nutrition/Malnutrition Findings: Nutrition Notes Start: 07/17/20 13:10 Freq: Status: Active Protocol: Document 07/20/20 11:27 EN (Rec: 07/20/20 11:34 EN [email or web address]) Co-Sign 07/20/20 11:27 LM Nutrition Notes Initial or Follow up Reassessment Current Diagnosis CKD (stage V CKD),Coronary Artery Disease,Diabetes, Hypertension Other Pertinent Diagnosis ESRD on HD, NSTEMI, dyslipidedema Current Diet Renal Labs/Tests 07/19: BUN 25, Cr 4.1 Pertinent Medications Reviewed Height 5 ft 3 in Weight 75.4 kg Renovo Body Weight (kg) 52.27 BMI 29.4 Weight Status Overweight Subjective/Other Information F/u for intakes. Pt reports eating 100% of breakfast. Pt would like pork and fruit cups during meals. Pt reports loose stool at 10:00 this morning. Pt states that appetite is good and denies N/ V Percent of energy/protein needs met: 100%/86% Burn Absent Trauma Absent GI Symptoms Diarrhea Food Allergy Yes Current % PO Good (75-100%) Minimum of two criteria No Interpretation of Weight Loss (severe) >5% in 1 month #2 Nutrition Diagnosis Inadequate oral intake As Evidenced by Signs and Symptoms consuming 100% of meals Diagnosis Progress(for reassessment Resolved documentation) #1 Nutrition Diagnosis Food and nutrition-related knowledge deficit As Evidenced by Signs and Symptoms No further Coumadin/Vit k questions Diagnosis Progress(for reassessment Resolved documentation) Is patient on ventilator? No Is Patient Ambulatory and/or Out of Bed No REE-([facility]-confined to bed) [phone] Calculation Used for Recommendations [facility] Additional Notes Protein: >1.2 g/kg (> 90g) Fluid: Urine output + 1000 ml/ day Nutrition Intervention Change Diet Order: Continue Renal Diet Goal #1 Meet 75% of energy and protein needs Anticipated Discharge Needs: Renal diet Revisit per MD consult or patient Sign Off request:
[2020-08-06] MEDS: carvediloL 25 MG TAB PO SCH ×2 (11:19→21:57)
[2020-08-06] MEDS: FUROSEMIDE 40 MG TAB PO SCH (11:19)
[2020-08-06] MEDS: NIFEdipine XL 90 MG TAB PO SCH ×2 (11:19→21:57)
[2020-08-06] MEDS: CLOPIDOGREL 75 MG TAB PO SCH (11:19)
[2020-08-06] MEDS: LIDOCAINE 5% 1 EACH PATCH TD SCH (11:20)
[2020-08-06] MEDS: WARFARIN 10 MG TAB PO SCH (17:57)
[2020-08-06] MEDS: WARFARIN 7.5 MG TAB PO SCH (17:57)
[2020-08-06] MEDS: ASPIRIN EC 81 MG TAB PO SCH (18:05)
[2020-08-06] MEDS: FLUTICASONE PROPIONATE NASAL SPRAY 16 GM NS SCH (18:05)
[2020-08-06] MEDS: EZETIMIBE 10 MG TAB PO SCH (18:06)
[2020-08-06] MEDS: LISINOPRIL 20 MG TAB PO SCH (18:06)
[2020-08-06] MEDS: ACETAMINOPHEN 325 MG TAB PO PRN (21:57)
[2020-08-07] MEDS: cloNIDine 0.1 MG TAB PO SCH ×3 (05:16→21:20)
[2020-08-07] MEDS: NITROGLYCERIN 2% OINT 1 GM TP SCH ×4 (05:17→21:21)
--- NOTE | 2020-08-07 09:16 | Progress Note ---
Assessment and Plan Impression: * End stage renal disease * NSTEMI --MPI: fixed lateral wall defect; no significant ischemia; EF 38%. (Jul 15 2020) --TTE: mild concentric LVH; multiple regional wall abnormalities (septal, basal, inf wall hypokinetic); EF 35-40%; impaired LV relaxation (Jul 14 2020) * Ischemic cardiomyopathy * Hypertension * Anemia secondary to CKD * Secondary hyperparathyroidism Plan: * Continue hemodialysis MWF, due today * UF as tolerated * Cardiology recommendations noted * Renal/HD diet * Discharge planning in progress - awaiting SNF placement * ok to dc from renal standpoint Subjective Date of service: 08/07/20 Principal diagnosis: ESRD/HD, Acc HTN, NSTEMI 2, H/o PE/DVT (IVC filter) Interval history: Patient is comfortable today. Denies any shortness of breath. No nausea or vomiting. Objective - Vital Signs Vital signs: Vital Signs - 12hr 08/07/20 00:37 Temperature 98.7 F Pulse Rate 98 H Respiratory 18 Rate Blood Pressure 185/90 O2 Sat by Pulse 99 Oximetry - General Appearance General appearance: well-developed, well-nourished, appears stated age EENT: PERRL, mucous membranes moist Neck: no JVD, no thyromegaly, no carotid bruit, supple, other (Left IJ PermCath in place) Respiratory: Present: Clear to Ascultation Cardiology: regular, normal heart rate, S1S2, no murmurs Gastrointestinal: normal, normoactive bowel sounds Integumentary: no rash, warm and dry, other (Right leg in a brace) - Lab 08/05/20 06:59 08/05/20 06:59 Most recent lab results Calcium 9.5 mg/dL (8.4-10.2) 08/05/20 06:59 Phosphorus 3.50 mg/dL (2.5-4.5) 08/05/20 06:59 Medications & Allergies - Medications Allergies/Adverse Reactions: Allergies apixaban [From Eliquis] Allergy (Verified 03/01/17 20:29) Itching dabigatran etexilate mesylate [From Pradaxa] Allergy (Verified 03/01/17 20:27) Itching heparin Allergy (Verified 07/14/20 05:54) Vomiting hydralazine HCl [From Apresoline] Allergy (Verified 03/01/17 13:11) Unknown morphine Allergy (Verified 02/15/14 02:23) Itching povidone-iodine [From Betadine] Allergy (Verified 03/01/17 20:26) Itching rivaroxaban [From Xarelto] Allergy (Verified 03/01/17 20:29) Itching soap [From Betadine] Allergy (Verified 03/01/17 20:26) Itching verapamil HCl [From Calan] Allergy (Verified 02/15/14 02:23) Headache Home Medications: Home Medications Medication Instructions Recorded Confirmed Last Taken Type Oxymetazoline 0.05% [Vicks Sinex] 1 spray NS BID 03/01/17 07/14/20 1 Day Ago History ~02/28/17 Furosemide [Lasix TAB] 80 mg PO QDAY #30 tablet 03/05/17 07/14/20 Unknown Rx Nystatin [Nystop Powder] 1 applic TP BID #15 g 03/05/17 07/14/20 Unknown Rx Lidocaine [Lidoderm] 5 patch TRANSDERMA QDAY 07/14/20 07/14/20 Unknown History NIFEdipine XL [Procardia Xl] 90 mg PO BID 07/14/20 07/14/20 Unknown History Warfarin [Coumadin] 10 mg PO QDAY 07/14/20 07/14/20 Unknown History Albuterol Sulfate [Albuterol 0.63% 0.63 mg IH Q4H PRN 30 Days 08/02/20 Unknown Rx NEBS] Aspirin EC [Halfprin EC] 81 mg PO QDAY #30 tablet. 08/02/20 Unknown Rx AtorvaSTATin [Lipitor] 40 mg PO QHS #30 08/02/20 Unknown Rx AtorvaSTATin [Lipitor] 80 mg PO QHS #30 tablet 08/02/20 Unknown Rx Clopidogrel [Plavix] 75 mg PO QDAY #30 08/02/20 Unknown Rx Ezetimibe [Zetia] 10 mg PO QDAY tablet 08/02/20 Unknown Rx Ferrous Sulfate [Feosol 325 MG tab] 325 mg PO QDAY 30 Days 08/02/20 Unknown Rx Fluticasone [Flonase] 100 mcg NS QDAY 30 Days bottle 08/02/20 Unknown Rx Furosemide [Lasix TAB] 80 mg PO DAILY #30 tablet 08/02/20 Unknown Rx Levothyroxine [Synthroid] 88 mcg PO QAM 30 Days 08/02/20 Unknown Rx NIFEdipine XL [Procardia Xl] 90 mg PO BID #60 tablet 08/02/20 Unknown Rx Naphazoline/Phenira 0.025/0.3% 2 drops OU Q6H PRN bottle 08/02/20 Unknown Rx [Visine-A] Warfarin [Coumadin] 5 mg PO DAILY@1700 30 Days #30 08/02/20 Unknown Rx tablet Warfarin [Coumadin] 10 mg PO DAILY@1700 #7 tablet 08/02/20 Unknown Rx carvediloL [Coreg] 25 mg PO BID #60 08/02/20 Unknown Rx cloNIDine [Catapres] 0.2 mg PO Q8HR #30 tablet 08/02/20 Unknown Rx lisinopriL [Zestril TAB] 20 mg PO QDAY #30 tablet 08/02/20 Unknown Rx Active Medications: Generic Name Dose Route Start Last Admin Trade Name Freq PRN Reason Stop Dose Admin Acetaminophen 650 mg 07/13/20 23:07 08/06/20 21:57 Tylenol PO 650 mg Q4H PRN Administration Headache Albuterol 2.5 mg 07/16/20 18:22 07/29/20 15:24 Proventil IH 2.5 mg Q4HRT PRN Administration Shortness Of Breath Aspirin 81 mg 07/14/20 10:00 08/06/20 18:05 Halfprin Ec PO Not Given QDAY [facility] Atorvastatin Calcium 40 mg 07/14/20 22:00 08/06/20 21:57 Lipitor PO 40 mg QHS JP Administration Carvedilol 25 mg 07/14/20 10:00 08/06/20 21:57 Coreg PO 25 mg BID JP Administration Clonidine HCl 0.2 mg 07/27/20 01:28 07/29/20 08:31 Catapres PO 0.2 mg Q4H PRN Administration Hypertension Clonidine HCl 0.2 mg 07/31/20 08:30 08/07/20 05:16 Catapres PO Not Given Q8HR JP Clopidogrel Bisulfate 75 mg 07/14/20 10:00 08/06/20 11:19 Plavix PO 75 mg QDAY PJ Administration Ezetimibe 10 mg 07/14/20 10:00 08/06/20 18:06 Zetia PO Not Given QDAY [facility] Epoetin Mulugeta 10,000 unit 07/21/20 17:17 08/02/20 10:38 Procrit IV 10,000 unit CHICHI PRN Administration hemodialysis Fluticasone Propionate 100 mcg 07/14/20 10:00 08/06/20 18:05 Flonase NS Not Given QDAY [facility] Furosemide 80 mg 07/14/20 10:00 08/06/20 11:19 Lasix PO 80 mg DAILY JP Administration Sodium Chloride 100 mls @ 999 mls/hr 07/14/20 13:00 Nacl 0.9% IV CHICHI PRN Hypotension Lidocaine 1 each 07/27/20 14:00 08/06/20 11:20 Lidoderm 5% TD 1 each QDAY [facility] Administration Lisinopril 20 mg 07/27/20 10:00 08/06/20 18:06 Zestril PO Not Given QDAY [facility] Loperamide HCl 2 mg 07/15/20 19:18 07/15/20 21:41 Imodium PO 2 mg Q2H PRN Administration Diarrhea Naphazoline HCl/Pheniramine Maleate 2 drops 07/27/20 11:27 Visine-A OU Q6H PRN Allergy Symptoms Nifedipine 90 mg 07/14/20 10:00 08/06/20 21:57 Procardia Xl PO 90 mg BID [facility] Administration Nitroglycerin 0.5 inch 07/14/20 06:00 08/07/20 05:17 Nitro-Bid 2% TP Not Given QIDNTG [facility] Protocol Ondansetron HCl 4 mg 07/13/20 23:07 08/02/20 10:38 Zofran IV 4 mg Q8H PRN Administration Nausea And Vomiting Warfarin Sodium 7.5 mg 08/05/20 17:00 08/06/20 17:57 Coumadin PO 7.5 mg DAILY@1700 JP Administration Warfarin Sodium 10 mg 08/05/20 17:00 08/06/20 17:57 Coumadin PO 10 mg DAILY@1700 JP Administration
[2020-08-07] MEDS: NIFEdipine XL 90 MG TAB PO SCH ×2 (09:21→21:20)
--- NOTE | 2020-08-07 10:09 | Progress Note ---
Assessment and Plan Assessment and plan: -Non-ST elevation SD, type II 07/15/2020 stress test negative for acute ischemia EF 38 %. Continue current management including aspirin and Plavix Cardiology cleared for discharge --History of coronary artery disease status post PCI Continue current cardiac medications, cardiology following --Ischemic cardiomyopathy; EF 40 to 45% 2016 Continue antifailure medications --End-stage renal disease; MWF On hemodialysis, nephrology following, HD per schedule Stable ,renal cleared for discharge --Hypertensive emergency; present on admission Added clonidine. Monitor BP --History of peripheral vascular disease; Continue antiplatelets and statins --History of DVT and PE; chronic anticoagulation with Coumadin subtherapeutic INR noncompliant Coumadin resumed Target INR 2-3, Closely monitor Monitor INR and adjust as needed --History of IVC filter placement; supportive care --Type 2 diabetes mellitus; Accu-Chek sliding scale coverage ADA diet Insulin as needed --Dyslipidemia; Stable on lipid-lowering medications --Obesity; BMI 39.0 Advised weight reduction when medically stable --Possible obstructive sleep apnea; Patient may need outpatient sleep study Rule out KENY, CPAP BiPAP at night as needed ---Chronic back pain She uses 2 lidocaine patchs and opioids at home ---Eye irritation Antihistamine eyedrops --DVT prophylaxis; Patient is already on Coumadin DC planning per case management Patient is medically stable for discharge however still need to be discharged to facility but this has not been possible. clinical admissions manager currently trying to see the patient in place-options include placement to a facility versus personal senior living [which patient does not want] patient's daughter # [phone] provided by patient 07/25. I have seen and examined the patient at the bedside Patient's chart and medications reviewed No new complaints, patient receiving hemodialysis per schedule Clinically stable for discharge Awaiting placement 07/26. No change in medical condition. Vitals remain stable. Awaiting placement 07/27. Has itchy left eye. Prescribed eye drops. Stable for DC 07/28. Stable for DC. No new complaints 07/29. Medically stable for DC. BP elevated today. Added clonidine 07/30-. Medically stable for discharge. Blood pressure significantly improved. Try to call daughter on phone number provided by patient but no answer so I left a voice message. clinical admissions manager trying to get placement for patient-patients daughter has not been available to provide documents required prior to placement. 08/01. Awaiting placement 08/02/2020. Patient was set for discharge to a snf however this was discontinued. After further review, patient was deemed to be unsafe for discharge to a snf given the fact patient is on Coumadin and is blind with difficulty walking. Case management is aware and attempting to arrange for safe discharge. 08/03/2020. Awaiting placement. 08/04/2020. Multiple challenges including family dynamics, APS intervention and lack of funding makes the discharge difficult. Please see case management/social work notes. Continue to work with case management/social work with regards to discharge planning. Patient is medically stable for discharge. 08/05/20. Awaiting placement. 08/06/2020. Patient medically stable. Still awaiting placement. Follow-up with case management/social work in the morning regarding multiple challenges with discharge planning. 08/07/2020. Continue hemodialysis MWF, due today. Continue discharge planning as noted above. - Patient Problems (1) NSTEMI (non-ST elevated myocardial infarction) Current Visit: Yes Status: Acute (2) Accelerated hypertension Current Visit: Yes Status: Chronic (3) Anemia Current Visit: Yes Status: Chronic (4) CAD (coronary artery disease) Current Visit: Yes Status: Chronic (5) DM2 (diabetes mellitus, type 2) Current Visit: Yes Status: Chronic (6) End stage renal disease on dialysis Current Visit: Yes Status: Chronic (7) History of CVA (cerebrovascular accident) Current Visit: Yes Status: Chronic (8) History of DVT (deep vein thrombosis) Current Visit: Yes Status: Chronic (9) History of pulmonary embolism Current Visit: Yes Status: Chronic (10) Hyperlipidemia Current Visit: Yes Status: Chronic (11) Ischemic cardiomyopathy Current Visit: Yes Status: Chronic (12) PVD (peripheral vascular disease) Current Visit: Yes Status: Chronic (13) Presence of IVC filter Current Visit: Yes Status: Chronic (14) KENY (obstructive sleep apnea) Current Visit: Yes Status: Suspected (15) Chest pain Current Visit: Yes Status: Resolved History Interval history: 60-year-old female patient who is legally blind with significant history of coronary artery disease status post PCI, ischemic cardiomyopathy CVA end-stage renal disease on hemodialysis, history of PE IVC filter placement anticoagulation with Coumadin anemia was admitted through emergency room with chest pain Elevated troponins, evaluated by cardiology, underwent stress test which was negative for acute ischemia, patient was seen by nephrology receiving hemodialysis per schedule Patient is clinically stable for discharge, awaiting placement Hospitalist Physical - Constitutional Vitals: Temp Pulse Resp BP Pulse Ox 98.7 F 100 H 18 180/83 99 08/07/20 00:37 08/07/20 10:00 08/07/20 00:37 08/07/20 10:00 08/07/20 00:37 General appearance: Present: no acute distress, well-nourished - EENT Eyes: Present: PERRL, EOM intact ENT: hearing intact, clear oral mucosa, dentition normal - Neck Neck: Present: supple, normal ROM - Respiratory Respiratory effort: normal Respiratory: bilateral: CTA - Cardiovascular Rhythm: regular Heart Sounds: Present: S1 & S2. Absent: gallop, rub - Extremities Extremities: no ischemia, No edema, Full ROM - Abdominal General gastrointestinal: soft, non-tender, non-distended, normal bowel sounds - Integumentary Integumentary: Present: clear, warm, dry - Neurologic Neurologic: CNII-XII intact, moves all extremities HEART Score - HEART Score Risk factors: > 3 risk factors or hx of atherosclerotic disease Troponin: Troponin T 0.099 ng/mL (0.00-0.029) H 07/14/20 10:13 Troponin: 1-3x normal limit - Critical Actions Critical Actions: 4-6 pts:12-16.6% risk of adverse cardiac event. Should be a dmitted (PATIENT UNDERGOING WORK UP) Results - Labs CBC & Chem 7: 08/05/20 06:59 08/05/20 06:59 Labs: Laboratory Last Values WBC 5.0 K/mm3 (4.5-11.0) 08/05/20 06:59 RBC 3.57 M/mm3 (3.65-5.03) L 08/05/20 06:59 Hgb 10.8 gm/dl (10.1-14.3) 08/05/20 06:59 Hct 32.6 % (30.3-42.9) 08/05/20 06:59 MCV 91 fl (79-97) 08/05/20 06:59 MCH 30 pg (28-32) 08/05/20 06:59 MCHC 33 % (30-34) 08/05/20 06:59 RDW 16.2 % (13.2-15.2) H 08/05/20 06:59 Plt Count 216 K/mm3 (140-440) 08/05/20 06:59 Lymph % (Auto) 21.7 % (13.4-35.0) 08/05/20 06:59 [place] % (Auto) 5.1 % (0.0-7.3) 08/05/20 06:59 Eos % (Auto) 3.8 % (0.0-4.3) 08/05/20 06:59 Baso % (Auto) 1.9 % (0.0-1.8) H 08/05/20 06:59 Lymph # (Auto) 1.1 K/mm3 (1.2-5.4) L 08/05/20 06:59 [place] # (Auto) 0.3 K/mm3 (0.0-0.8) 08/05/20 06:59 Eos # (Auto) 0.2 K/mm3 (0.0-0.4) 08/05/20 06:59 Baso # (Auto) 0.1 K/mm3 (0.0-0.1) 08/05/20 06:59 Seg Neutrophils % 67.5 % (40.0-70.0) 08/05/20 06:59 Seg Neutrophils # 3.4 K/mm3 (1.8-7.7) 08/05/20 06:59 PT 19.4 Sec. (12.2-14.9) H 08/05/20 06:59 INR 1.65 (0.87-1.13) H 08/05/20 06:59 APTT 28.2 Sec. (24.2-36.6) 07/13/20 23:36 Sodium 136 mmol/L (137-145) L 08/05/20 06:59 Potassium 4.3 mmol/L (3.6-5.0) 08/05/20 06:59 Chloride 95.5 mmol/L (98-107) L 08/05/20 06:59 Carbon Dioxide 28 mmol/L (22-30) 08/05/20 06:59 Anion Gap 17 mmol/L 08/05/20 06:59 BUN 25 mg/dL (7-17) H 08/05/20 06:59 Creatinine 4.5 mg/dL (0.6-1.2) H 08/05/20 06:59 Estimated GFR 12 ml/min 08/05/20 06:59 BUN/Creatinine Ratio 6 % 08/05/20 06:59 Glucose 115 mg/dL (65-100) H 08/05/20 06:59 Calcium 9.5 mg/dL (8.4-10.2) 08/05/20 06:59 Phosphorus 3.50 mg/dL (2.5-4.5) 08/05/20 06:59 Total Creatine Kinase 81 units/L (30-135) 07/14/20 10:13 CK-MB (CK-2) 1.9 ng/mL (0.0-4.0) 07/14/20 10:13 CK-MB (CK-2) Rel Index 2.3 (0-4) 07/14/20 10:13 Troponin T 0.099 ng/mL (0.00-0.029) H 07/14/20 10:13 Triglycerides 89 mg/dL (2-149) 07/13/20 23:36 Cholesterol 152 mg/dL (50-199) 07/13/20 23:36 LDL Cholesterol Direct 84 mg/dL (50-130) 07/13/20 23:36 HDL Cholesterol 59 mg/dL (40-59) 07/13/20 23:36 Cholesterol/HDL Ratio 2.57 % 07/13/20 23:36 Coronavirus (PCR) Negative (Negative) 07/21/20 Unknown Hepatitis A IgM Ab Non-reactive (NonReactive) 07/14/20 10:13 Hep Bs Antigen Non-reactive (Negative) 07/14/20 10:13 Hep B Core IgM Ab Non-reactive (NonReactive) 07/14/20 10:13 Hepatitis C Antibody Non-reactive (NonReactive) 07/14/20 10:13 - Diagnostic Impressions Diagnostic Impressions: Echocardiogram 07/14/20 10:55 Transthoracic Echocardiogram Indication: Chest Pain BP: 137/63 HR: 79 Conclusions *The left ventricular chamber size is normal. *Mild concentric left ventricular hypertrophy is observed. *There are multiple regional wall motion abnormalities. *septal,basal inferior wall hypokinetic *The estimated ejection fraction is 35-40%. *Abnormal left ventricular diastolic filling is observed, consistent with impaired relaxation. *The left ventricular diastolic filling pattern is consistent with pseudonormalization. *The left ventricular diastolic filling pattern is consistent with elevated mean left atrial pressure. *The left atrium is mildly dilated. *The right ventricle is mild to moderately dilated. *The aortic valve leaflets are moderately thickened. *There is trace of aortic regurgitation. *There is no evidence of aortic stenosis. *There is mitral annular calcification. *There is mild to moderate mitral regurgitation. *There is mild to moderate tricuspid regurgitation. *There is no pericardial effusion. *The inferior vena cava appears normal in size. Findings Left Ventricle: The left ventricular chamber size is normal. Mild concentric left ventricular hypertrophy is observed. There are multiple regional wall motion abnormalities. Global left ventricular systolic function is mild to moderately decreased. The estimated ejection fraction is 35-40%. Abnormal left ventricular diastolic function is observed. The left ventricular diastolic filling pattern is consistent with pseudonormalization. The left ventricular diastolic filling pattern is consistent with elevated mean left atrial pressure. Left Atrium: The left atrium is mildly dilated. Right Ventricle: The right ventricle is mild to moderately dilated. The right ventricular global systolic function is normal. Right Atrium: The right atrium appears normal. The interatrial septum appears normal. 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 Aortic Valve: The aortic valve is trileaflet. The aortic valve leaflets are moderately thickened. There is trace of aortic regurgitation. There is no evidence of aortic stenosis. Mitral Valve: The mitral valve leaflets appear normal. There is mitral annular calcification. There is mild to moderate mitral regurgitation. There is no evidence of mitral stenosis. Tricuspid Valve: The tricuspid valve leaflets are normal. There is mild to moderate tricuspid regurgitation. There is no tricuspid stenosis. Pulmonic Valve: The pulmonic valve appears normal. There is trace pulmonic regurgitation. There is no pulmonic stenosis. Pericardium: There is no pericardial effusion. Aorta: There is no dilatation of the ascending aorta. There is no dilatation of the aortic arch. There is no dilatation of the descending thoracic aorta. There is no dilatation of the aortic root. Venous: The inferior vena cava appears normal in size. Measurements Chambers 2D Name Value Normal Range IVSd (2D) 1.21 cm (0.6 - 1.1) LVPWd (2D) 1.22 cm (0.6 - 1.1) LVIDd (2D) 5.61 cm (3.7 - 5.6) LVIDs (2D) 4.74 cm (2 - 3.8) LV FS (2D) 15.52 % - EF Teichholz (2D) 32.35 % - Ao root diameter (2D) 2.98 cm (2 - 3.7) Volumes/Mass Name Value Normal Range LA ESV SP 4CH (A/L) 90.79 ml - LA ESV SP 2CH (A/L) 79.53 ml - LA ESV BP (A/L) 85.37 ml - LA ESV SP 4CH (MOD) 84.6 ml - LA ESV SP 2CH (MOD) 74.61 ml - LV EDV SP 4CH (MOD) 197.38 ml - LV ESV SP 4CH (MOD) 123.93 ml - EF SP 4CH (MOD) 37.21 % - LV EDV SP 2CH (MOD) 194.2 ml - LV ESV SP 2CH (MOD) 123.7 ml - EF SP 2CH (MOD) 36.3 % - LV EDV BP 201.77 ml - LV ESV BP 131.12 ml - BP EF (MOD) 35.02 % - Diastolic/Systolic Function Name Value Normal Range MV E-wave Vmax 1.15 m/sec - MV deceleration time 133.32 msec - MV A-wave Vmax 0.78 m/sec - MV E:A ratio 1.48 ratio - Aortic Valve Name Value Normal Range AV Vmax 1.8 m/sec - AV VTI 35.01 cm - AV peak gradient 12.99 mmHg - AV mean gradient 6.54 mmHg - LVOT diameter 2.11 cm - LVOT Vmax 0.86 m/sec - LVOT VTI 17.92 cm - LVOT peak gradient 2.94 mmHg - LVOT mean gradient 1.54 mmHg - SV LVOT 62.77 ml - SKINNY (continuity Vmax) 1.67 cm2 - SKINNY (continuity VTI) 1.79 cm2 - Tricuspid Valve Name Value Normal Range TR Vmax 3.55 m/sec - TR peak gradient 50.29 mmHg - Pulmonic Valve/Qp:Qs Name Value Normal Range PV Vmax 1.09 m/sec - PV peak gradient 4.78 mmHg - TN end-diastolic Vmax 1.48 m/sec - PV acceleration time 117.98 msec - Veliz/IV: Voiding Method Bedpan IV Catheter Type [Left Hand] Peripheral IV IV Catheter Type [Left INT / Saline Lock Internal Jugular] Active Medications - Current Medications Current Medications: Generic Name Dose Route Start Last Admin Trade Name Freq PRN Reason Stop Dose Admin Acetaminophen 650 mg 07/13/20 23:07 08/06/20 21:57 Tylenol PO 650 mg Q4H PRN Administration Headache Albuterol 2.5 mg 07/16/20 18:22 07/29/20 15:24 Proventil IH 2.5 mg Q4HRT PRN Administration Shortness Of Breath Aspirin 81 mg 07/14/20 10:00 08/06/20 18:05 Halfprin Ec PO Not Given QDAY JP Atorvastatin Calcium 40 mg 07/14/20 22:00 08/06/20 21:57 Lipitor PO 40 mg QHS JP Administration Carvedilol 25 mg 07/14/20 10:00 08/06/20 21:57 Coreg PO 25 mg BID JP Administration Clonidine HCl 0.2 mg 07/27/20 01:28 07/29/20 08:31 Catapres PO 0.2 mg Q4H PRN Administration Hypertension Clonidine HCl 0.2 mg 07/31/20 08:30 08/07/20 05:16 Catapres PO Not Given Q8HR JP Clopidogrel Bisulfate 75 mg 07/14/20 10:00 08/06/20 11:19 Plavix PO 75 mg QDAY JP Administration Ezetimibe 10 mg 07/14/20 10:00 08/06/20 18:06 Zetia PO Not Given QDAY JP Epoetin [place] 10,000 unit 07/21/20 17:17 08/02/20 10:38 Procrit IV 10,000 unit CHICHI PRN Administration hemodialysis Fluticasone Propionate 100 mcg 07/14/20 10:00 08/06/20 18:05 Flonase NS Not Given QDAY JP Furosemide 80 mg 07/14/20 10:00 08/06/20 11:19 Lasix PO 80 mg DAILY JP Administration Sodium Chloride 100 mls @ 999 mls/hr 07/14/20 13:00 Nacl 0.9% IV CHICHI PRN Hypotension Lidocaine 1 each 07/27/20 14:00 08/06/20 11:20 Lidoderm 5% TD 1 each QDAY JP Administration Lisinopril 20 mg 07/27/20 10:00 08/06/20 18:06 Zestril PO Not Given QDAY JP Loperamide HCl 2 mg 07/15/20 19:18 07/15/20 21:41 Imodium PO 2 mg Q2H PRN Administration Diarrhea Naphazoline HCl/Pheniramine Maleate 2 drops 07/27/20 11:27 Visine-A OU Q6H PRN Allergy Symptoms Nifedipine 90 mg 07/14/20 10:00 08/07/20 09:21 Procardia Xl PO 90 mg BID JP Administration Nitroglycerin 0.5 inch 07/14/20 06:00 08/07/20 05:17 Nitro-Bid 2% TP Not Given QIDNTG [facility] Protocol Ondansetron HCl 4 mg 07/13/20 23:07 08/02/20 10:38 Zofran IV 4 mg Q8H PRN Administration Nausea And Vomiting Warfarin Sodium 7.5 mg 08/05/20 17:00 08/06/20 17:57 Coumadin PO 7.5 mg DAILY@1700 JP Administration Warfarin Sodium 10 mg 08/05/20 17:00 08/06/20 17:57 Coumadin PO 10 mg DAILY@1700 JP Administration Nutrition/Malnutrition Assess - Dietary Evaluation Nutrition/Malnutrition Findings: Nutrition Notes Start: 07/17/20 13:10 Freq: Status: Active Protocol: Document 07/20/20 11:27 EN (Rec: 07/20/20 11:34 EN [email or web address]) Co-Sign 07/20/20 11:27 LM Nutrition Notes Initial or Follow up Reassessment Current Diagnosis CKD (stage V CKD),Coronary Artery Disease,Diabetes, Hypertension Other Pertinent Diagnosis ESRD on HD, NSTEMI, dyslipidedema Current Diet Renal Labs/Tests 07/19: BUN 25, Cr 4.1 Pertinent Medications Reviewed Height 5 ft 3 in Weight 75.4 kg [place] Body Weight (kg) 52.27 BMI 29.4 Weight Status Overweight Subjective/Other Information F/u for intakes. Pt reports eating 100% of breakfast. Pt would like pork and fruit cups during meals. Pt reports loose stool at 10:00 this morning. Pt states that appetite is good and denies N/ V Percent of energy/protein needs met: 100%/86% Burn Absent Trauma Absent GI Symptoms Diarrhea Food Allergy Yes Current % PO Good (75-100%) Minimum of two criteria No Interpretation of Weight Loss (severe) >5% in 1 month #2 Nutrition Diagnosis Inadequate oral intake As Evidenced by Signs and Symptoms consuming 100% of meals Diagnosis Progress(for reassessment Resolved documentation) #1 Nutrition Diagnosis Food and nutrition-related knowledge deficit As Evidenced by Signs and Symptoms No further Coumadin/Vit k questions Diagnosis Progress(for reassessment Resolved documentation) Is patient on ventilator? No Is Patient Ambulatory and/or Out of Bed No REE-([place]-St. Jeor-confined to bed) [phone] Calculation Used for Recommendations [place]-St or Additional Notes Protein: >1.2 g/kg (> 90g) Fluid: Urine output + 1000 ml/ day Nutrition Intervention Change Diet Order: Continue Renal Diet Goal #1 Meet 75% of energy and protein needs Anticipated Discharge Needs: Renal diet Revisit per MD consult or patient Sign Off request:
[2020-08-07] MEDS: carvediloL 25 MG TAB PO SCH ×2 (10:39→21:20)
[2020-08-07] MEDS: FLUTICASONE PROPIONATE NASAL SPRAY 16 GM NS SCH (10:39)
[2020-08-07] MEDS: FUROSEMIDE 40 MG TAB PO SCH (10:39)
[2020-08-07] MEDS: ASPIRIN EC 81 MG TAB PO SCH (10:39)
[2020-08-07] MEDS: LIDOCAINE 5% 1 EACH PATCH TD SCH ×2 (10:40→14:09)
[2020-08-07] MEDS: LISINOPRIL 20 MG TAB PO SCH (10:42)
[2020-08-07] MEDS: CLOPIDOGREL 75 MG TAB PO SCH (10:42)
[2020-08-07] MEDS: EZETIMIBE 10 MG TAB PO SCH (10:43)
[2020-08-07] MEDS: WARFARIN 10 MG TAB PO SCH (21:21)
[2020-08-07] MEDS: WARFARIN 7.5 MG TAB PO SCH (21:21)
[2020-08-08] MEDS: NITROGLYCERIN 2% OINT 1 GM TP SCH ×4 (06:00→18:12)
[2020-08-08] MEDS: cloNIDine 0.1 MG TAB PO SCH ×3 (06:00→21:52)
--- NOTE | 2020-08-08 08:58 | Progress Note ---
Assessment and Plan Impression: * End stage renal disease * NSTEMI --MPI: fixed lateral wall defect; no significant ischemia; EF 38%. (Jul 15 2020) --TTE: mild concentric LVH; multiple regional wall abnormalities (septal, basal, inf wall hypokinetic); EF 35-40%; impaired LV relaxation (Jul 14 2020) * Ischemic cardiomyopathy * Hypertension * Anemia secondary to CKD * Secondary hyperparathyroidism Plan: * Continue hemodialysis MWF, * UF as tolerated * Cardiology recommendations noted * Renal/HD diet * Discharge planning in progress - awaiting SNF placement * ok to dc from renal standpoint Subjective Date of service: 08/08/20 Principal diagnosis: ESRD/HD, Acc HTN, NSTEMI 2, H/o PE/DVT (IVC filter) Interval history: Patient complains of back pain. Denies any shortness of breath. No nausea or vomiting. Objective - Vital Signs Vital signs: Vital Signs - 12hr 08/07/20 08/08/20 08/08/20 22:00 00:03 04:30 Temperature 98 F 98 F Pulse Rate 68 68 Respiratory Rate Blood Pressure Blood Pressure 141/68 151/78 [Right] O2 Sat by Pulse 98 Oximetry 08/08/20 07:41 Temperature 97.6 F Pulse Rate 83 Respiratory 18 Rate Blood Pressure 175/72 Blood Pressure [Right] O2 Sat by Pulse 97 Oximetry - General Appearance General appearance: well-developed, well-nourished, appears stated age EENT: PERRL, mucous membranes moist Neck: no JVD, no thyromegaly, no carotid bruit, supple, other (Left IJ PermCath in place) Respiratory: Present: Clear to Ascultation Cardiology: regular, normal heart rate, S1S2, no murmurs Gastrointestinal: normal, normoactive bowel sounds Integumentary: no rash, other (Right leg in a brace) - Lab 08/05/20 06:59 08/05/20 06:59 Most recent lab results Calcium 9.5 mg/dL (8.4-10.2) 08/05/20 06:59 Phosphorus 3.50 mg/dL (2.5-4.5) 08/05/20 06:59 Medications & Allergies - Medications Allergies/Adverse Reactions: Allergies apixaban [From Eliquis] Allergy (Verified 03/01/17 20:29) Itching dabigatran etexilate mesylate [From Pradaxa] Allergy (Verified 03/01/17 20:27) Itching heparin Allergy (Verified 07/14/20 05:54) Vomiting hydralazine HCl [From Apresoline] Allergy (Verified 03/01/17 13:11) Unknown morphine Allergy (Verified 02/15/14 02:23) Itching povidone-iodine [From Betadine] Allergy (Verified 03/01/17 20:26) Itching rivaroxaban [From Xarelto] Allergy (Verified 03/01/17 20:29) Itching soap [From Betadine] Allergy (Verified 03/01/17 20:26) Itching verapamil HCl [From Calan] Allergy (Verified 02/15/14 02:23) Headache Home Medications: Home Medications Medication Instructions Recorded Confirmed Last Taken Type Oxymetazoline 0.05% [Vicks Sinex] 1 spray NS BID 03/01/17 07/14/20 1 Day Ago History ~02/28/17 Furosemide [Lasix TAB] 80 mg PO QDAY #30 tablet 03/05/17 07/14/20 Unknown Rx Nystatin [Nystop Powder] 1 applic TP BID #15 g 03/05/17 07/14/20 Unknown Rx Lidocaine [Lidoderm] 5 patch TRANSDERMA QDAY 07/14/20 07/14/20 Unknown History NIFEdipine XL [Procardia Xl] 90 mg PO BID 07/14/20 07/14/20 Unknown History Warfarin [Coumadin] 10 mg PO QDAY 07/14/20 07/14/20 Unknown History Albuterol Sulfate [Albuterol 0.63% 0.63 mg IH Q4H PRN 30 Days 08/02/20 Unknown Rx NEBS] Aspirin EC [Halfprin EC] 81 mg PO QDAY #30 tablet. 08/02/20 Unknown Rx AtorvaSTATin [Lipitor] 40 mg PO QHS #30 08/02/20 Unknown Rx AtorvaSTATin [Lipitor] 80 mg PO QHS #30 tablet 08/02/20 Unknown Rx Clopidogrel [Plavix] 75 mg PO QDAY #30 08/02/20 Unknown Rx Ezetimibe [Zetia] 10 mg PO QDAY tablet 08/02/20 Unknown Rx Ferrous Sulfate [Feosol 325 MG tab] 325 mg PO QDAY 30 Days 08/02/20 Unknown Rx Fluticasone [Flonase] 100 mcg NS QDAY 30 Days bottle 08/02/20 Unknown Rx Furosemide [Lasix TAB] 80 mg PO DAILY #30 tablet 08/02/20 Unknown Rx Levothyroxine [Synthroid] 88 mcg PO QAM 30 Days 08/02/20 Unknown Rx NIFEdipine XL [Procardia Xl] 90 mg PO BID #60 tablet 08/02/20 Unknown Rx Naphazoline/Phenira 0.025/0.3% 2 drops OU Q6H PRN bottle 08/02/20 Unknown Rx [Visine-A] Warfarin [Coumadin] 5 mg PO DAILY@1700 30 Days #30 08/02/20 Unknown Rx tablet Warfarin [Coumadin] 10 mg PO DAILY@1700 #7 tablet 08/02/20 Unknown Rx carvediloL [Coreg] 25 mg PO BID #60 08/02/20 Unknown Rx cloNIDine [Catapres] 0.2 mg PO Q8HR #30 tablet 08/02/20 Unknown Rx lisinopriL [Zestril TAB] 20 mg PO QDAY #30 tablet 08/02/20 Unknown Rx Active Medications: Generic Name Dose Route Start Last Admin Trade Name Freq PRN Reason Stop Dose Admin Acetaminophen 650 mg 07/13/20 23:07 08/06/20 21:57 Tylenol PO 650 mg Q4H PRN Administration Headache Albuterol 2.5 mg 07/16/20 18:22 07/29/20 15:24 Proventil IH 2.5 mg Q4HRT PRN Administration Shortness Of Breath Aspirin 81 mg 07/14/20 10:00 08/07/20 10:39 Halfprin Ec PO Not Given QDAY JP Atorvastatin Calcium 40 mg 07/14/20 22:00 08/07/20 21:20 Lipitor PO 40 mg QHS JP Administration Carvedilol 25 mg 07/14/20 10:00 08/07/20 21:20 Coreg PO 25 mg BID JP Administration Clonidine HCl 0.2 mg 07/27/20 01:28 07/29/20 08:31 Catapres PO 0.2 mg Q4H PRN Administration Hypertension Clonidine HCl 0.2 mg 07/31/20 08:30 08/08/20 06:00 Catapres PO Not Given Q8HR JP Clopidogrel Bisulfate 75 mg 07/14/20 10:00 08/07/20 10:42 Plavix PO Not Given QDAY [facility] Ezetimibe 10 mg 07/14/20 10:00 08/07/20 10:43 Zetia PO Not Given QDAY [facility] Epoetin Mulugeta 10,000 unit 07/21/20 17:17 08/02/20 10:38 Procrit IV 10,000 unit CHICHI PRN Administration hemodialysis Fluticasone Propionate 100 mcg 07/14/20 10:00 08/07/20 10:39 Flonase NS Not Given QDAY [facility] Furosemide 80 mg 07/14/20 10:00 08/07/20 10:39 Lasix PO Not Given DAILY [facility] Sodium Chloride 100 mls @ 999 mls/hr 07/14/20 13:00 Nacl 0.9% IV CHICHI PRN Hypotension Lidocaine 1 each 07/27/20 14:00 08/07/20 14:09 Lidoderm 5% TD 1 each QDAY [facility] Administration Lisinopril 20 mg 07/27/20 10:00 08/07/20 10:42 Zestril PO Not Given QDAY [facility] Loperamide HCl 2 mg 07/15/20 19:18 07/15/20 21:41 Imodium PO 2 mg Q2H PRN Administration Diarrhea Naphazoline HCl/Pheniramine Maleate 2 drops 07/27/20 11:27 Visine-A OU Q6H PRN Allergy Symptoms Nifedipine 90 mg 07/14/20 10:00 08/07/20 21:20 Procardia Xl PO 90 mg BID [facility] Administration Nitroglycerin 0.5 inch 07/14/20 06:00 08/08/20 06:00 Nitro-Bid 2% [facility] Ondansetron HCl 4 mg 07/13/20 23:07 08/02/20 10:38 Zofran IV 4 mg Q8H PRN Administration Nausea And Vomiting Warfarin Sodium 7.5 mg 08/05/20 17:00 08/07/20 21:21 Coumadin PO Not Given DAILY@1700 [facility] Warfarin Sodium 10 mg 08/05/20 17:00 08/07/20 21:21 Coumadin PO Not Given DAILY@1700 [facility]
[2020-08-08] MEDS: LIDOCAINE 5% 1 EACH PATCH TD SCH (11:26)
[2020-08-08] MEDS: carvediloL 25 MG TAB PO SCH ×2 (11:27→21:52)
[2020-08-08] MEDS: FLUTICASONE PROPIONATE NASAL SPRAY 16 GM NS SCH (11:27)
[2020-08-08] MEDS: NIFEdipine XL 90 MG TAB PO SCH ×2 (11:27→21:51)
[2020-08-08] MEDS: FUROSEMIDE 40 MG TAB PO SCH (11:27)
[2020-08-08] MEDS: LISINOPRIL 20 MG TAB PO SCH (11:28)
[2020-08-08] MEDS: ASPIRIN EC 81 MG TAB PO SCH (11:28)
[2020-08-08] MEDS: CLOPIDOGREL 75 MG TAB PO SCH (11:28)
[2020-08-08] MEDS: EZETIMIBE 10 MG TAB PO SCH (11:28)
--- NOTE | 2020-08-08 14:00 | Progress Note ---
Assessment and Plan Assessment and plan: -Non-ST elevation MS, type II 07/15/2020 stress test negative for acute ischemia EF 38 %. Continue current management including aspirin and Plavix Cardiology cleared for discharge --History of coronary artery disease status post PCI Continue current cardiac medications, cardiology following --Ischemic cardiomyopathy; EF 40 to 45% 2016 Continue antifailure medications --End-stage renal disease; MWF On hemodialysis, nephrology following, HD per schedule Stable ,renal cleared for discharge --Hypertensive emergency; present on admission Added clonidine. Monitor BP --History of peripheral vascular disease; Continue antiplatelets and statins --History of DVT and PE; chronic anticoagulation with Coumadin subtherapeutic INR noncompliant Coumadin resumed Target INR 2-3, Closely monitor Monitor INR and adjust as needed --History of IVC filter placement; supportive care --Type 2 diabetes mellitus; Accu-Chek sliding scale coverage ADA diet Insulin as needed --Dyslipidemia; Stable on lipid-lowering medications --Obesity; BMI 39.0 Advised weight reduction when medically stable --Possible obstructive sleep apnea; Patient may need outpatient sleep study Rule out KENY, CPAP BiPAP at night as needed ---Chronic back pain She uses 2 lidocaine patchs and opioids at home ---Eye irritation Antihistamine eyedrops --DVT prophylaxis; Patient is already on Coumadin DC planning per case management Patient is medically stable for discharge however still need to be discharged to facility but this has not been possible. field project manager currently trying to see the patient in place-options include placement to a facility versus personal mcc [which patient does not want] patient's daughter # [phone] provided by patient 07/25. I have seen and examined the patient at the bedside Patient's chart and medications reviewed No new complaints, patient receiving hemodialysis per schedule Clinically stable for discharge Awaiting placement 07/26. No change in medical condition. Vitals remain stable. Awaiting placement 07/27. Has itchy left eye. Prescribed eye drops. Stable for DC 07/28. Stable for DC. No new complaints 07/29. Medically stable for DC. BP elevated today. Added clonidine 07/30-. Medically stable for discharge. Blood pressure significantly improved. Try to call daughter on phone number provided by patient but no answer so I left a voice message. field project manager trying to get placement for patient-patients daughter has not been available to provide documents required prior to placement. 08/01. Awaiting placement 08/02/2020. Patient was set for discharge to a mcc however this was discontinued. After further review, patient was deemed to be unsafe for discharge to a mcc given the fact patient is on Coumadin and is blind with difficulty walking. Case management is aware and attempting to arrange for safe discharge. 08/03/2020. Awaiting placement. 08/04/2020. Multiple challenges including family dynamics, APS intervention and lack of funding makes the discharge difficult. Please see case management/social work notes. Continue to work with case management/social work with regards to discharge planning. Patient is medically stable for discharge. 08/05/20. Awaiting placement. 08/06/2020. Patient medically stable. Still awaiting placement. Follow-up with case management/social work in the morning regarding multiple challenges with discharge planning. 08/07/2020. Continue hemodialysis MWF, due today. Continue discharge planning as noted above. 08/08/2020. Has no complaints today. Still awaiting placement - Patient Problems (1) NSTEMI (non-ST elevated myocardial infarction) Current Visit: Yes Status: Acute (2) Accelerated hypertension Current Visit: Yes Status: Chronic (3) Anemia Current Visit: Yes Status: Chronic (4) CAD (coronary artery disease) Current Visit: Yes Status: Chronic (5) DM2 (diabetes mellitus, type 2) Current Visit: Yes Status: Chronic (6) End stage renal disease on dialysis Current Visit: Yes Status: Chronic (7) History of CVA (cerebrovascular accident) Current Visit: Yes Status: Chronic (8) History of DVT (deep vein thrombosis) Current Visit: Yes Status: Chronic (9) History of pulmonary embolism Current Visit: Yes Status: Chronic (10) Hyperlipidemia Current Visit: Yes Status: Chronic (11) Ischemic cardiomyopathy Current Visit: Yes Status: Chronic (12) PVD (peripheral vascular disease) Current Visit: Yes Status: Chronic (13) Presence of IVC filter Current Visit: Yes Status: Chronic (14) KENY (obstructive sleep apnea) Current Visit: Yes Status: Suspected (15) Chest pain Current Visit: Yes Status: Resolved History Interval history: Has no new complaints today Awaiting placement Hospitalist Physical - Physical exam Narrative exam: VITAL SIGNS: Reviewed. GENERAL: Awake and alert on response to questions HEAD: No signs of head trauma. EYES: Pupils are equal. Extraocular motions intact. EARS: Hearing grossly intact. MOUTH: Oropharynx is normal. NECK: No adenopathy, no JVD. CHEST: Chest with diminished breath sounds bilaterally. No wheezes, rales, or rhonchi. CARDIAC: Regular rate and rhythm. S1 and S2, without murmurs, gallops, or rubs. VASCULAR: No Edema. Peripheral pulses normal and equal in all extremities. ABDOMEN: Soft, non tender and non distended. No rebound or guarding, and no masses palpated. Bowel Sounds normal. MUSCULOSKELETAL: No leg edema NEUROLOGIC EXAM: Alert and oriented x3. No focal neurologic deficits SKIN: No obvious lesions - Constitutional Vitals: Temp Pulse Resp BP Pulse Ox 98.4 F 94 H 18 167/81 99 08/08/20 12:19 08/08/20 12:19 08/08/20 12:19 08/08/20 12:19 08/08/20 12:19 HEART Score - HEART Score Risk factors: > 3 risk factors or hx of atherosclerotic disease Troponin: Troponin T 0.099 ng/mL (0.00-0.029) H 07/14/20 10:13 Troponin: 1-3x normal limit - Critical Actions Critical Actions: 4-6 pts:12-16.6% risk of adverse cardiac event. Should be admitted (PATIENT UNDERGOING WORK UP) Results - Labs CBC & Chem 7: 08/05/20 06:59 08/05/20 06:59 Labs: Laboratory Last Values WBC 5.0 K/mm3 (4.5-11.0) 08/05/20 06:59 RBC 3.57 M/mm3 (3.65-5.03) L 08/05/20 06:59 Hgb 10.8 gm/dl (10.1-14.3) 08/05/20 06:59 Hct 32.6 % (30.3-42.9) 08/05/20 06:59 MCV 91 fl (79-97) 08/05/20 06:59 MCH 30 pg (28-32) 08/05/20 06:59 MCHC 33 % (30-34) 08/05/20 06:59 RDW 16.2 % (13.2-15.2) H 08/05/20 06:59 Plt Count 216 K/mm3 (140-440) 08/05/20 06:59 Lymph % (Auto) 21.7 % (13.4-35.0) 08/05/20 06:59 [place] % (Auto) 5.1 % (0.0-7.3) 08/05/20 06:59 Eos % (Auto) 3.8 % (0.0-4.3) 08/05/20 06:59 Baso % (Auto) 1.9 % (0.0-1.8) H 08/05/20 06:59 Lymph # (Auto) 1.1 K/mm3 (1.2-5.4) L 08/05/20 06:59 [place] # (Auto) 0.3 K/mm3 (0.0-0.8) 08/05/20 06:59 Eos # (Auto) 0.2 K/mm3 (0.0-0.4) 08/05/20 06:59 Baso # (Auto) 0.1 K/mm3 (0.0-0.1) 08/05/20 06:59 Seg Neutrophils % 67.5 % (40.0-70.0) 08/05/20 06:59 Seg Neutrophils # 3.4 K/mm3 (1.8-7.7) 08/05/20 06:59 PT 19.4 Sec. (12.2-14.9) H 08/05/20 06:59 INR 1.65 (0.87-1.13) H 08/05/20 06:59 APTT 28.2 Sec. (24.2-36.6) 07/13/20 23:36 Sodium 136 mmol/L (137-145) L 08/05/20 06:59 Potassium 4.3 mmol/L (3.6-5.0) 08/05/20 06:59 Chloride 95.5 mmol/L (98-107) L 08/05/20 06:59 Carbon Dioxide 28 mmol/L (22-30) 08/05/20 06:59 Anion Gap 17 mmol/L 08/05/20 06:59 BUN 25 mg/dL (7-17) H 08/05/20 06:59 Creatinine 4.5 mg/dL (0.6-1.2) H 08/05/20 06:59 Estimated GFR 12 ml/min 08/05/20 06:59 BUN/Creatinine Ratio 6 % 08/05/20 06:59 Glucose 115 mg/dL (65-100) H 08/05/20 06:59 Calcium 9.5 mg/dL (8.4-10.2) 08/05/20 06:59 Phosphorus 3.50 mg/dL (2.5-4.5) 08/05/20 06:59 Total Creatine Kinase 81 units/L (30-135) 07/14/20 10:13 CK-MB (CK-2) 1.9 ng/mL (0.0-4.0) 07/14/20 10:13 CK-MB (CK-2) Rel Index 2.3 (0-4) 07/14/20 10:13 Troponin T 0.099 ng/mL (0.00-0.029) H 07/14/20 10:13 Triglycerides 89 mg/dL (2-149) 07/13/20 23:36 Cholesterol 152 mg/dL (50-199) 07/13/20 23:36 LDL Cholesterol Direct 84 mg/dL (50-130) 07/13/20 23:36 HDL Cholesterol 59 mg/dL (40-59) 07/13/20 23:36 Cholesterol/HDL Ratio 2.57 % 07/13/20 23:36 Coronavirus (PCR) Negative (Negative) 07/21/20 Unknown Hepatitis A IgM Ab Non-reactive (NonReactive) 07/14/20 10:13 Hep Bs Antigen Non-reactive (Negative) 07/14/20 10:13 Hep B Core IgM Ab Non-reactive (NonReactive) 07/14/20 10:13 Hepatitis C Antibody Non-reactive (NonReactive) 07/14/20 10:13 - Diagnostic Impressions Diagnostic Impressions: Echocardiogram 07/14/20 10:55 Transthoracic Echocardiogram Indication: Chest Pain BP: 137/63 HR: 79 Conclusions *The left ventricular chamber size is normal. *Mild concentric left ventricular hypertrophy is observed. *There are multiple regional wall motion abnormalities. *septal,basal inferior wall hypokinetic *The estimated ejection fraction is 35-40%. *Abnormal left ventricular diastolic filling is observed, consistent with impaired relaxation. *The left ventricular diastolic filling pattern is consistent with pseudonormalization. *The left ventricular diastolic filling pattern is consistent with elevated mean left atrial pressure. *The left atrium is mildly dilated. *The right ventricle is mild to moderately dilated. *The aortic valve leaflets are moderately thickened. *There is trace of aortic regurgitation. *There is no evidence of aortic stenosis. *There is mitral annular calcification. *There is mild to moderate mitral regurgitation. *There is mild to moderate tricuspid regurgitation. *There is no pericardial effusion. *The inferior vena cava appears normal in size. Findings Left Ventricle: The left ventricular chamber size is normal. Mild concentric left ventricular hypertrophy is observed. There are multiple regional wall motion abnormalities. Global left ventricular systolic function is mild to moderately decreased. The estimated ejection fraction is 35-40%. Abnormal left ventricular diastolic function is observed. The left ventricular diastolic filling pattern is consistent with pseudonormalization. The left ventricular diastolic filling pattern is consistent with elevated mean left atrial pressure. Left Atrium: The left atrium is mildly dilated. Right Ventricle: The right ventricle is mild to moderately dilated. The right ventricular global systolic function is normal. Right Atrium: The right atrium appears normal. The interatrial septum appears normal. 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 Aortic Valve: The aortic valve is trileaflet. The aortic valve leaflets are moderately thickened. There is trace of aortic regurgitation. There is no evidence of aortic stenosis. Mitral Valve: The mitral valve leaflets appear normal. There is mitral annular calcification. There is mild to moderate mitral regurgitation. There is no evidence of mitral stenosis. Tricuspid Valve: The tricuspid valve leaflets are normal. There is mild to moderate tricuspid regurgitation. There is no tricuspid stenosis. Pulmonic Valve: The pulmonic valve appears normal. There is trace pulmonic regurgitation. There is no pulmonic stenosis. Pericardium: There is no pericardial effusion. Aorta: There is no dilatation of the ascending aorta. There is no dilatation of the aortic arch. There is no dilatation of the descending thoracic aorta. There is no dilatation of the aortic root. Venous: The inferior vena cava appears normal in size. Measurements Chambers 2D Name Value Normal Range IVSd (2D) 1.21 cm (0.6 - 1.1) LVPWd (2D) 1.22 cm (0.6 - 1.1) LVIDd (2D) 5.61 cm (3.7 - 5.6) LVIDs (2D) 4.74 cm (2 - 3.8) LV FS (2D) 15.52 % - EF Teichholz (2D) 32.35 % - Ao root diameter (2D) 2.98 cm (2 - 3.7) Volumes/Mass Name Value Normal Range LA ESV SP 4CH (A/L) 90.79 ml - LA ESV SP 2CH (A/L) 79.53 ml - LA ESV BP (A/L) 85.37 ml - LA ESV SP 4CH (MOD) 84.6 ml - LA ESV SP 2CH (MOD) 74.61 ml - LV EDV SP 4CH (MOD) 197.38 ml - LV ESV SP 4CH (MOD) 123.93 ml - EF SP 4CH (MOD) 37.21 % - LV EDV SP 2CH (MOD) 194.2 ml - LV ESV SP 2CH (MOD) 123.7 ml - EF SP 2CH (MOD) 36.3 % - LV EDV BP 201.77 ml - LV ESV BP 131.12 ml - BP EF (MOD) 35.02 % - Diastolic/Systolic Function Name Value Normal Range MV E-wave Vmax 1.15 m/sec - MV deceleration time 133.32 msec - MV A-wave Vmax 0.78 m/sec - MV E:A ratio 1.48 ratio - Aortic Valve Name Value Normal Range AV Vmax 1.8 m/sec - AV VTI 35.01 cm - AV peak gradient 12.99 mmHg - AV mean gradient 6.54 mmHg - LVOT diameter 2.11 cm - LVOT Vmax 0.86 m/sec - LVOT VTI 17.92 cm - LVOT peak gradient 2.94 mmHg - LVOT mean gradient 1.54 mmHg - SV LVOT 62.77 ml - SKINNY (continuity Vmax) 1.67 cm2 - SKINNY (continuity VTI) 1.79 cm2 - Tricuspid Valve Name Value Normal Range TR Vmax 3.55 m/sec - TR peak gradient 50.29 mmHg - Pulmonic Valve/Qp:Qs Name Value Normal Range PV Vmax 1.09 m/sec - PV peak gradient 4.78 mmHg - AK end-diastolic Vmax 1.48 m/sec - PV acceleration time 117.98 msec - Veliz/IV: Voiding Method Bedpan IV Catheter Type [Left Hand] Peripheral IV IV Catheter Type [Left INT / Saline Lock Internal Jugular] Active Medications - Current Medications Current Medications: Generic Name Dose Route Start Last Admin Trade Name Freq PRN Reason Stop Dose Admin Acetaminophen 650 mg 07/13/20 23:07 08/06/20 21:57 Tylenol PO 650 mg Q4H PRN Administration Headache Albuterol 2.5 mg 07/16/20 18:22 07/29/20 15:24 Proventil IH 2.5 mg Q4HRT PRN Administration Shortness Of Breath Aspirin 81 mg 07/14/20 10:00 08/08/20 11:28 Halfprin Ec PO Not Given QDAY [facility] Atorvastatin Calcium 40 mg 07/14/20 22:00 08/07/20 21:20 Lipitor PO 40 mg QHS JP Administration Carvedilol 25 mg 07/14/20 10:00 08/08/20 11:27 Coreg PO Not Given BID [facility] Clonidine HCl 0.2 mg 07/27/20 01:28 07/29/20 08:31 Catapres PO 0.2 mg Q4H PRN Administration Hypertension Clonidine HCl 0.2 mg 07/31/20 08:30 08/08/20 06:00 Catapres PO Not Given Q8HR [facility] Clopidogrel Bisulfate 75 mg 07/14/20 10:00 08/08/20 11:28 Plavix PO Not Given QDAY [facility] Ezetimibe 10 mg 07/14/20 10:00 08/08/20 11:28 Zetia PO Not Given QDAY [facility] Epoetin Mulugeta 10,000 unit 07/21/20 17:17 08/02/20 10:38 Procrit IV 10,000 unit CHICHI PRN Administration hemodialysis Fluticasone Propionate 100 mcg 07/14/20 10:00 08/08/20 11:27 Flonase NS Not Given QDAY [facility] Furosemide 80 mg 07/14/20 10:00 08/08/20 11:27 Lasix PO 80 mg DAILY [facility] Administration Sodium Chloride 100 mls @ 999 mls/hr 07/14/20 13:00 Nacl 0.9% IV CHICHI PRN Hypotension Lidocaine 1 each 07/27/20 14:00 08/08/20 11:26 Lidoderm 5% TD 1 each QDAY [facility] Administration Lisinopril 20 mg 07/27/20 10:00 08/08/20 11:28 Zestril PO Not Given QDAY [facility] Loperamide HCl 2 mg 07/15/20 19:18 07/15/20 21:41 Imodium PO 2 mg Q2H PRN Administration Diarrhea Naphazoline HCl/Pheniramine Maleate 2 drops 07/27/20 11:27 Visine-A OU Q6H PRN Allergy Symptoms Nifedipine 90 mg 07/14/20 10:00 08/08/20 11:27 Procardia Xl PO 90 mg BID [facility] Administration Nitroglycerin 0.5 inch 07/14/20 06:00 08/08/20 11:28 Nitro-Bid 2% TP Not Given QIDNTG [facility] Protocol Ondansetron HCl 4 mg 07/13/20 23:07 08/02/20 10:38 Zofran IV 4 mg Q8H PRN Administration Nausea And Vomiting Warfarin Sodium 7.5 mg 08/05/20 17:00 08/07/20 21:21 Coumadin PO Not Given DAILY@1700 [facility] Warfarin Sodium 10 mg 08/05/20 17:00 08/07/20 21:21 Coumadin PO Not Given DAILY@1700 [facility] Nutrition/Malnutrition Assess - Dietary Evaluation Nutrition/Malnutrition Findings: Nutrition Notes Start: 07/17/20 13:10 Freq: Status: Active Protocol: Document 07/20/20 11:27 EN (Rec: 07/20/20 11:34 EN [email or web address]) Co-Sign 07/20/20 11:27 LM Nutrition Notes Initial or Follow up Reassessment Current Diagnosis CKD (stage V CKD),Coronary Artery Disease,Diabetes, Hypertension Other Pertinent Diagnosis ESRD on HD, NSTEMI, dyslipidedema Current Diet Renal Labs/Tests 07/19: BUN 25, Cr 4.1 Pertinent Medications Reviewed Height 5 ft 3 in Weight 75.4 kg [place] Body Weight (kg) 52.27 BMI 29.4 Weight Status Overweight Subjective/Other Information F/u for intakes. Pt reports eating 100% of breakfast. Pt would like pork and fruit cups during meals. Pt reports loose stool at 10:00 this morning. Pt states that appetite is good and denies N/ V Percent of energy/protein needs met: 100%/86% Burn Absent Trauma Absent GI Symptoms Diarrhea Food Allergy Yes Current % PO Good (75-100%) Minimum of two criteria No Interpretation of Weight Loss (severe) >5% in 1 month #2 Nutrition Diagnosis Inadequate oral intake As Evidenced by Signs and Symptoms consuming 100% of meals Diagnosis Progress(for reassessment Resolved documentation) #1 Nutrition Diagnosis Food and nutrition-related knowledge deficit As Evidenced by Signs and Symptoms No further Coumadin/Vit k questions Diagnosis Progress(for reassessment Resolved documentation) Is patient on ventilator? No Is Patient Ambulatory and/or Out of Bed No REE-([facility]-confined to bed) [phone] Calculation Used for Recommendations [facility] Additional Notes Protein: >1.2 g/kg (> 90g) Fluid: Urine output + 1000 ml/ day Nutrition Intervention Change Diet Order: Continue Renal Diet Goal #1 Meet 75% of energy and protein needs Anticipated Discharge Needs: Renal diet Revisit per MD consult or patient Sign Off request:
[2020-08-09] MEDS: cloNIDine 0.1 MG TAB PO SCH ×3 (06:01→22:18)
[2020-08-09] MEDS: NITROGLYCERIN 2% OINT 1 GM TP SCH ×4 (06:02→18:39)
[2020-08-09 06:13] LABS: INR 2.8 (0.87-1.13)
--- NOTE | 2020-08-09 09:42 | Progress Note ---
Assessment and Plan Impression: * End stage renal disease * NSTEMI --MPI: fixed lateral wall defect; no significant ischemia; EF 38%. (Jul 15 2020) --TTE: mild concentric LVH; multiple regional wall abnormalities (septal, basal, inf wall hypokinetic); EF 35-40%; impaired LV relaxation (Jul 14 2020) * Ischemic cardiomyopathy * Hypertension * Anemia secondary to CKD * Secondary hyperparathyroidism Plan: * Continue hemodialysis MWF, * UF as tolerated * Cardiology recommendations noted * Renal/HD diet * Discharge planning in progress - awaiting SNF placement * ok to dc from renal standpoint Subjective Date of service: 08/09/20 Principal diagnosis: ESRD/HD, Acc HTN, NSTEMI 2, H/o PE/DVT (IVC filter) Interval history: Patient complains of back pain. Denies any shortness of breath. No nausea or vomiting. Objective - Vital Signs Vital signs: Vital Signs - 12hr 08/08/20 08/08/20 08/09/20 21:52 23:00 03:06 Temperature 97.3 F L 97.9 F Pulse Rate 81 96 H 96 H Respiratory 18 18 Rate Blood Pressure 174/68 166/91 148/77 O2 Sat by Pulse 99 99 Oximetry 08/09/20 08/09/20 06:01 07:37 Temperature 98.7 F Pulse Rate 96 H 89 Respiratory 18 Rate Blood Pressure 148/77 188/93 O2 Sat by Pulse 97 Oximetry - General Appearance General appearance: well-developed, well-nourished, appears stated age EENT: PERRL, mucous membranes moist Neck: no JVD, no thyromegaly, no carotid bruit, supple, other (Left IJ PermCath in place) Respiratory: Present: Clear to Ascultation Cardiology: regular, normal heart rate, S1S2, no murmurs Gastrointestinal: normal, normoactive bowel sounds Integumentary: other (Right leg in a brace) - Lab 08/05/20 06:59 08/05/20 06:59 Most recent lab results Calcium 9.5 mg/dL (8.4-10.2) 08/05/20 06:59 Phosphorus 3.50 mg/dL (2.5-4.5) 08/05/20 06:59 Medications & Allergies - Medications Allergies/Adverse Reactions: Allergies apixaban [From Eliquis] Allergy (Verified 06/24/17 20:29) Itching dabigatran etexilate mesylate [From Pradaxa] Allergy (Verified 03/01/17 20:27) Itching heparin Allergy (Verified 07/14/20 05:54) Vomiting hydralazine HCl [From Apresoline] Allergy (Verified 03/01/17 13:11) Unknown morphine Allergy (Verified 02/15/14 02:23) Itching povidone-iodine [From Betadine] Allergy (Verified 03/01/17 20:26) Itching rivaroxaban [From Xarelto] Allergy (Verified 03/01/17 20:29) Itching soap [From Betadine] Allergy (Verified 03/01/17 20:26) Itching verapamil HCl [From Calan] Allergy (Verified 02/15/14 02:23) Headache Home Medications: Home Medications Medication Instructions Recorded Confirmed Last Taken Type Oxymetazoline 0.05% [Vicks Sinex] 1 spray NS BID 03/01/17 07/14/20 1 Day Ago History ~02/28/17 Furosemide [Lasix TAB] 80 mg PO QDAY #30 tablet 03/05/17 07/14/20 Unknown Rx Nystatin [Nystop Powder] 1 applic TP BID #15 g 03/05/17 07/14/20 Unknown Rx Lidocaine [Lidoderm] 5 patch TRANSDERMA QDAY 07/14/20 07/14/20 Unknown History NIFEdipine XL [Procardia Xl] 90 mg PO BID 07/14/20 07/14/20 Unknown History Warfarin [Coumadin] 10 mg PO QDAY 07/14/20 07/14/20 Unknown History Albuterol Sulfate [Albuterol 0.63% 0.63 mg IH Q4H PRN 30 Days 08/02/20 Unknown Rx NEBS] Aspirin EC [Halfprin EC] 81 mg PO QDAY #30 tablet. 08/02/20 Unknown Rx AtorvaSTATin [Lipitor] 40 mg PO QHS #30 08/02/20 Unknown Rx AtorvaSTATin [Lipitor] 80 mg PO QHS #30 tablet 08/02/20 Unknown Rx Clopidogrel [Plavix] 75 mg PO QDAY #30 08/02/20 Unknown Rx Ezetimibe [Zetia] 10 mg PO QDAY tablet 08/02/20 Unknown Rx Ferrous Sulfate [Feosol 325 MG tab] 325 mg PO QDAY 30 Days 08/02/20 Unknown Rx Fluticasone [Flonase] 100 mcg NS QDAY 30 Days bottle 08/02/20 Unknown Rx Furosemide [Lasix TAB] 80 mg PO DAILY #30 tablet 08/02/20 Unknown Rx Levothyroxine [Synthroid] 88 mcg PO QAM 30 Days 08/02/20 Unknown Rx NIFEdipine XL [Procardia Xl] 90 mg PO BID #60 tablet 08/02/20 Unknown Rx Naphazoline/Phenira 0.025/0.3% 2 drops OU Q6H PRN bottle 08/02/20 Unknown Rx [Visine-A] Warfarin [Coumadin] 5 mg PO DAILY@1700 30 Days #30 08/02/20 Unknown Rx tablet Warfarin [Coumadin] 10 mg PO DAILY@1700 #7 tablet 08/02/20 Unknown Rx carvediloL [Coreg] 25 mg PO BID #60 08/02/20 Unknown Rx cloNIDine [Catapres] 0.2 mg PO Q8HR #30 tablet 08/02/20 Unknown Rx lisinopriL [Zestril TAB] 20 mg PO QDAY #30 tablet 08/02/20 Unknown Rx Active Medications: Generic Name Dose Route Start Last Admin Trade Name Freq PRN Reason Stop Dose Admin Acetaminophen 650 mg 07/13/20 23:07 08/06/20 21:57 Tylenol PO 650 mg Q4H PRN Administration Headache Albuterol 2.5 mg 07/16/20 18:22 07/29/20 15:24 Proventil IH 2.5 mg Q4HRT PRN Administration Shortness Of Breath Aspirin 81 mg 07/14/20 10:00 08/08/20 11:28 Halfprin Ec PO Not Given QDAY JP Atorvastatin Calcium 40 mg 07/14/20 22:00 08/08/20 21:52 Lipitor PO Not Given QHS JP Carvedilol 25 mg 07/14/20 10:00 08/08/20 21:52 Coreg PO 25 mg BID JP Administration Clonidine HCl 0.2 mg 07/27/20 01:28 07/29/20 08:31 Catapres PO 0.2 mg Q4H PRN Administration Hypertension Clonidine HCl 0.2 mg 07/31/20 08:30 08/09/20 06:01 Catapres PO Not Given Q8HR JP Clopidogrel Bisulfate 75 mg 07/14/20 10:00 08/08/20 11:28 Plavix PO Not Given [facility]DAY [facility] Ezetimibe 10 mg 07/14/20 10:00 08/08/20 11:28 Zetia PO Not Given QDAY [facility] Epoetin Mulugeta 10,000 unit 07/21/20 17:17 08/02/20 10:38 Procrit IV 10,000 unit CHICHI PRN Administration hemodialysis Fluticasone Propionate 100 mcg 07/14/20 10:00 08/08/20 11:27 Flonase NS Not Given [facility]DAY [facility] Furosemide 80 mg 07/14/20 10:00 08/08/20 11:27 Lasix PO 80 mg DAILY [facility] Administration Sodium Chloride 100 mls @ 999 mls/hr 07/14/20 13:00 Nacl 0.9% IV CHICHI PRN Hypotension Lidocaine 1 each 07/27/20 14:00 08/08/20 11:26 Lidoderm 5% TD 1 each [facility]DAY [facility] Administration Lisinopril 20 mg 07/27/20 10:00 08/08/20 11:28 Zestril PO Not Given [facility]DAY [facility] Loperamide HCl 2 mg 07/15/20 19:18 07/15/20 21:41 Imodium PO 2 mg Q2H PRN Administration Diarrhea Naphazoline HCl/Pheniramine Maleate 2 drops 07/27/20 11:27 Visine-A OU Q6H PRN Allergy Symptoms Nifedipine 90 mg 07/14/20 10:00 08/08/20 21:51 Procardia Xl PO 90 mg BID [facility] Administration Nitroglycerin 0.5 inch 07/14/20 06:00 08/09/20 06:02 [facility] 2% [facility] Ondansetron HCl 4 mg 07/13/20 23:07 08/02/20 10:38 Zofran IV 4 mg Q8H PRN Administration Nausea And Vomiting Warfarin Sodium 7.5 mg 08/05/20 17:00 08/07/20 21:21 Coumadin PO Not Given DAILY@1700 [facility] Warfarin Sodium 10 mg 08/05/20 17:00 08/07/20 21:21 Coumadin PO Not Given DAILY@[facility]
[2020-08-09] MEDS: NIFEdipine XL 90 MG TAB PO SCH ×2 (09:48→22:22)
[2020-08-09] MEDS: LIDOCAINE 5% 1 EACH PATCH TD SCH (09:49)
[2020-08-09] MEDS: WARFARIN 7.5 MG TAB PO SCH (12:36)
[2020-08-09] MEDS: WARFARIN 10 MG TAB PO SCH ×2 (12:36→18:16)
[2020-08-09] MEDS: EZETIMIBE 10 MG TAB PO SCH (12:37)
[2020-08-09] MEDS: LISINOPRIL 20 MG TAB PO SCH (12:37)
[2020-08-09] MEDS: FUROSEMIDE 40 MG TAB PO SCH (12:37)
[2020-08-09] MEDS: ASPIRIN EC 81 MG TAB PO SCH (12:37)
[2020-08-09] MEDS: CLOPIDOGREL 75 MG TAB PO SCH (12:37)
[2020-08-09] MEDS: carvediloL 25 MG TAB PO SCH ×2 (12:37→22:18)
[2020-08-09] MEDS: FLUTICASONE PROPIONATE NASAL SPRAY 16 GM NS SCH (12:37)
--- NOTE | 2020-08-09 15:54 | Progress Note ---
Assessment and Plan Assessment and plan: -Non-ST elevation IN, type II 07/15/2020 stress test negative for acute ischemia EF 38 %. Continue current management including aspirin and Plavix Cardiology cleared for discharge --History of coronary artery disease status post PCI Continue current cardiac medications, cardiology following --Ischemic cardiomyopathy; EF 40 to 45% 2016 Continue antifailure medications --End-stage renal disease; MWF On hemodialysis, nephrology following, HD per schedule Stable ,renal cleared for discharge --Hypertensive emergency; present on admission Added clonidine. Monitor BP --History of peripheral vascular disease; Continue antiplatelets and statins --History of DVT and PE; chronic anticoagulation with Coumadin subtherapeutic INR noncompliant Coumadin resumed Target INR 2-3, Closely monitor Monitor INR and adjust as needed --History of IVC filter placement; supportive care --Type 2 diabetes mellitus; Accu-Chek sliding scale coverage ADA diet Insulin as needed --Dyslipidemia; Stable on lipid-lowering medications --Obesity; BMI 39.0 Advised weight reduction when medically stable --Possible obstructive sleep apnea; Patient may need outpatient sleep study Rule out KENY, CPAP BiPAP at night as needed ---Chronic back pain She uses 2 lidocaine patchs and opioids at home ---Eye irritation Antihistamine eyedrops --DVT prophylaxis; Patient is already on Coumadin DC planning per case management Patient is medically stable for discharge however still need to be discharged to facility but this has not been possible. guest relations manager currently trying to see the patient in place-options include placement to a facility versus personal assisted [which patient does not want] patient's daughter # [phone] provided by patient 07/25. I have seen and examined the patient at the bedside Patient's chart and medications reviewed No new complaints, patient receiving hemodialysis per schedule Clinically stable for discharge Awaiting placement 07/26. No change in medical condition. Vitals remain stable. Awaiting placement 07/27. Has itchy left eye. Prescribed eye drops. Stable for DC 07/28. Stable for DC. No new complaints 07/29. Medically stable for DC. BP elevated today. Added clonidine 07/30-. Medically stable for discharge. Blood pressure significantly improved. Try to call daughter on phone number provided by patient but no answer so I left a voice message. guest relations manager trying to get placement for patient-patients daughter has not been available to provide documents required prior to placement. 08/01. Awaiting placement 08/02/2020. Patient was set for discharge to a snf however this was discontinued. After further review, patient was deemed to be unsafe for discharge to a snf given the fact patient is on Coumadin and is blind with difficulty walking. Case management is aware and attempting to arrange for safe discharge. 08/03/2020. Awaiting placement. 08/04/2020. Multiple challenges including family dynamics, APS intervention and lack of funding makes the discharge difficult. Please see case management/social work notes. Continue to work with case management/social work with regards to discharge planning. Patient is medically stable for discharge. 08/05/20. Awaiting placement. 08/06/2020. Patient medically stable. Still awaiting placement. Follow-up with case management/social work in the morning regarding multiple challenges with discharge planning. 08/07/2020. Continue hemodialysis MWF, due today. Continue discharge planning as noted above. 08/08/2020. Has no complaints today. Still awaiting placement 08/09. Awaiting placement. She may eventually go to a home instead - Patient Problems (1) NSTEMI (non-ST elevated myocardial infarction) Current Visit: Yes Status: Acute (2) Accelerated hypertension Current Visit: Yes Status: Chronic (3) Anemia Current Visit: Yes Status: Chronic (4) CAD (coronary artery disease) Current Visit: Yes Status: Chronic (5) DM2 (diabetes mellitus, type 2) Current Visit: Yes Status: Chronic (6) End stage renal disease on dialysis Current Visit: Yes Status: Chronic (7) History of CVA (cerebrovascular accident) Current Visit: Yes Status: Chronic (8) History of DVT (deep vein thrombosis) Current Visit: Yes Status: Chronic (9) History of pulmonary embolism Current Visit: Yes Status: Chronic (10) Hyperlipidemia Current Visit: Yes Status: Chronic (11) Ischemic cardiomyopathy Current Visit: Yes Status: Chronic (12) PVD (peripheral vascular disease) Current Visit: Yes Status: Chronic (13) Presence of IVC filter Current Visit: Yes Status: Chronic (14) KENY (obstructive sleep apnea) Current Visit: Yes Status: Suspected (15) Chest pain Current Visit: Yes Status: Resolved History Interval history: Has no new complaints today Awaiting placement Hospitalist Physical - Physical exam Narrative exam: VITAL SIGNS: Reviewed. GENERAL: Awake and alert on response to questions HEAD: No signs of head trauma. EYES: Pupils are equal. Extraocular motions intact. EARS: Hearing grossly intact. MOUTH: Oropharynx is normal. NECK: No adenopathy, no JVD. CHEST: Chest with diminished breath sounds bilaterally. No wheezes, rales, or rhonchi. CARDIAC: Regular rate and rhythm. S1 and S2, without murmurs, gallops, or rubs. VASCULAR: No Edema. Peripheral pulses normal and equal in all extremities. ABDOMEN: Soft, non tender and non distended. No rebound or guarding, and no masses palpated. Bowel Sounds normal. MUSCULOSKELETAL: No leg edema NEUROLOGIC EXAM: Alert and oriented x3. No focal neurologic deficits SKIN: No obvious lesions - Constitutional Vitals: Temp Pulse Resp BP Pulse Ox 97.9 F 86 18 210/65 97 08/09/20 12:11 08/09/20 13:55 08/09/20 12:11 08/09/20 13:55 08/09/20 07:37 HEART Score - HEART Score Risk factors: > 3 risk factors or hx of atherosclerotic disease Troponin: Troponin T 0.099 ng/mL (0.00-0.029) H 07/14/20 10:13 Troponin: 1-3x normal limit - Critical Actions Critical Actions: 4-6 pts:12-16.6% risk of adverse cardiac event. Should be admitted (PATIENT UNDERGOING WORK UP) Results - Labs CBC & Chem 7: 08/05/20 06:59 08/05/20 06:59 Labs: Laboratory Last Values WBC 5.0 K/mm3 (4.5-11.0) 08/05/20 06:59 RBC 3.57 M/mm3 (3.65-5.03) L 08/05/20 06:59 Hgb 10.8 gm/dl (10.1-14.3) 08/05/20 06:59 Hct 32.6 % (30.3-42.9) 08/05/20 06:59 MCV 91 fl (79-97) 08/05/20 06:59 MCH 30 pg (28-32) 08/05/20 06:59 MCHC 33 % (30-34) 08/05/20 06:59 RDW 16.2 % (13.2-15.2) H 08/05/20 06:59 Plt Count 216 K/mm3 (140-440) 08/05/20 06:59 Lymph % (Auto) 21.7 % (13.4-35.0) 08/05/20 06:59 Collin % (Auto) 5.1 % (0.0-7.3) 08/05/20 06:59 Eos % (Auto) 3.8 % (0.0-4.3) 08/05/20 06:59 Baso % (Auto) 1.9 % (0.0-1.8) H 08/05/20 06:59 Lymph # (Auto) 1.1 K/mm3 (1.2-5.4) L 08/05/20 06:59 Collin # (Auto) 0.3 K/mm3 (0.0-0.8) 08/05/20 06:59 Eos # (Auto) 0.2 K/mm3 (0.0-0.4) 08/05/20 06:59 Baso # (Auto) 0.1 K/mm3 (0.0-0.1) 08/05/20 06:59 Seg Neutrophils % 67.5 % (40.0-70.0) 08/05/20 06:59 Seg Neutrophils # 3.4 K/mm3 (1.8-7.7) 08/05/20 06:59 PT 29.6 Sec. (12.2-14.9) H 08/09/20 05:35 INR 2.80 (0.87-1.13) H 08/09/20 05:35 APTT 28.2 Sec. (24.2-36.6) 07/13/20 23:36 Sodium 136 mmol/L (137-145) L 08/05/20 06:59 Potassium 4.3 mmol/L (3.6-5.0) 08/05/20 06:59 Chloride 95.5 mmol/L (98-107) L 08/05/20 06:59 Carbon Dioxide 28 mmol/L (22-30) 08/05/20 06:59 Anion Gap 17 mmol/L 08/05/20 06:59 BUN 25 mg/dL (7-17) H 08/05/20 06:59 Creatinine 4.5 mg/dL (0.6-1.2) H 08/05/20 06:59 Estimated GFR 12 ml/min 08/05/20 06:59 BUN/Creatinine Ratio 6 % 08/05/20 06:59 Glucose 115 mg/dL (65-100) H 08/05/20 06:59 Calcium 9.5 mg/dL (8.4-10.2) 08/05/20 06:59 Phosphorus 3.50 mg/dL (2.5-4.5) 08/05/20 06:59 Total Creatine Kinase 81 units/L (30-135) 07/14/20 10:13 CK-MB (CK-2) 1.9 ng/mL (0.0-4.0) 07/14/20 10:13 CK-MB (CK-2) Rel Index 2.3 (0-4) 07/14/20 10:13 Troponin T 0.099 ng/mL (0.00-0.029) H 07/14/20 10:13 Triglycerides 89 mg/dL (2-149) 07/13/20 23:36 Cholesterol 152 mg/dL (50-199) 07/13/20 23:36 LDL Cholesterol Direct 84 mg/dL (50-130) 07/13/20 23:36 HDL Cholesterol 59 mg/dL (40-59) 07/13/20 23:36 Cholesterol/HDL Ratio 2.57 % 07/13/20 23:36 Coronavirus (PCR) Negative (Negative) 07/21/20 Unknown Hepatitis A IgM Ab Non-reactive (NonReactive) 07/14/20 10:13 Hep Bs Antigen Non-reactive (Negative) 07/14/20 10:13 Hep B Core IgM Ab Non-reactive (NonReactive) 07/14/20 10:13 Hepatitis C Antibody Non-reactive (NonReactive) 07/14/20 10:13 - Diagnostic Impressions Diagnostic Impressions: Echocardiogram 07/14/20 10:55 Transthoracic Echocardiogram Indication: Chest Pain BP: 137/63 HR: 79 Conclusions *The left ventricular chamber size is normal. *Mild concentric left ventricular hypertrophy is observed. *There are multiple regional wall motion abnormalities. *septal,basal inferior wall hypokinetic *The estimated ejection fraction is 35-40%. *Abnormal left ventricular diastolic filling is observed, consistent with impaired relaxation. *The left ventricular diastolic filling pattern is consistent with pseudonormalization. *The left ventricular diastolic filling pattern is consistent with elevated mean left atrial pressure. *The left atrium is mildly dilated. *The right ventricle is mild to moderately dilated. *The aortic valve leaflets are moderately thickened. *There is trace of aortic regurgitation. *There is no evidence of aortic stenosis. *There is mitral annular calcification. *There is mild to moderate mitral regurgitation. *There is mild to moderate tricuspid regurgitation. *There is no pericardial effusion. *The inferior vena cava appears normal in size. Findings Left Ventricle: The left ventricular chamber size is normal. Mild concentric left ventricular hypertrophy is observed. There are multiple regional wall motion abnormalities. Global left ventricular systolic function is mild to moderately decreased. The estimated ejection fraction is 35-40%. Abnormal left ventricular diastolic function is observed. The left ventricular diastolic filling pattern is consistent with pseudonormalization. The left ventricular diastolic filling pattern is consistent with elevated mean left atrial pressure. Left Atrium: The left atrium is mildly dilated. Right Ventricle: The right ventricle is mild to moderately dilated. The right ventricular global systolic function is normal. Right Atrium: The right atrium appears normal. The interatrial septum appears normal. 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 Aortic Valve: The aortic valve is trileaflet. The aortic valve leaflets are moderately thickened. There is trace of aortic regurgitation. There is no evidence of aortic stenosis. Mitral Valve: The mitral valve leaflets appear normal. There is mitral annular calcification. There is mild to moderate mitral regurgitation. There is no evidence of mitral stenosis. Tricuspid Valve: The tricuspid valve leaflets are normal. There is mild to moderate tricuspid regurgitation. There is no tricuspid stenosis. Pulmonic Valve: The pulmonic valve appears normal. There is trace pulmonic regurgitation. There is no pulmonic stenosis. Pericardium: There is no pericardial effusion. Aorta: There is no dilatation of the ascending aorta. There is no dilatation of the aortic arch. There is no dilatation of the descending thoracic aorta. There is no dilatation of the aortic root. Venous: The inferior vena cava appears normal in size. Measurements Chambers 2D Name Value Normal Range IVSd (2D) 1.21 cm (0.6 - 1.1) LVPWd (2D) 1.22 cm (0.6 - 1.1) LVIDd (2D) 5.61 cm (3.7 - 5.6) LVIDs (2D) 4.74 cm (2 - 3.8) LV FS (2D) 15.52 % - EF Teichholz (2D) 32.35 % - Ao root diameter (2D) 2.98 cm (2 - 3.7) Volumes/Mass Name Value Normal Range LA ESV SP 4CH (A/L) 90.79 ml - LA ESV SP 2CH (A/L) 79.53 ml - LA ESV BP (A/L) 85.37 ml - LA ESV SP 4CH (MOD) 84.6 ml - LA ESV SP 2CH (MOD) 74.61 ml - LV EDV SP 4CH (MOD) 197.38 ml - LV ESV SP 4CH (MOD) 123.93 ml - EF SP 4CH (MOD) 37.21 % - LV EDV SP 2CH (MOD) 194.2 ml - LV ESV SP 2CH (MOD) 123.7 ml - EF SP 2CH (MOD) 36.3 % - LV EDV BP 201.77 ml - LV ESV BP 131.12 ml - BP EF (MOD) 35.02 % - Diastolic/Systolic Function Name Value Normal Range MV E-wave Vmax 1.15 m/sec - MV deceleration time 133.32 msec - MV A-wave Vmax 0.78 m/sec - MV E:A ratio 1.48 ratio - Aortic Valve Name Value Normal Range AV Vmax 1.8 m/sec - AV VTI 35.01 cm - AV peak gradient 12.99 mmHg - AV mean gradient 6.54 mmHg - LVOT diameter 2.11 cm - LVOT Vmax 0.86 m/sec - LVOT VTI 17.92 cm - LVOT peak gradient 2.94 mmHg - LVOT mean gradient 1.54 mmHg - SV LVOT 62.77 ml - SKINNY (continuity Vmax) 1.67 cm2 - SKINNY (continuity VTI) 1.79 cm2 - Tricuspid Valve Name Value Normal Range TR Vmax 3.55 m/sec - TR peak gradient 50.29 mmHg - Pulmonic Valve/Qp:Qs Name Value Normal Range PV Vmax 1.09 m/sec - PV peak gradient 4.78 mmHg - IA end-diastolic Vmax 1.48 m/sec - PV acceleration time 117.98 msec - Veliz/IV: Voiding Method Bedpan IV Catheter Type [Left Hand] Peripheral IV IV Catheter Type [Left INT / Saline Lock Internal Jugular] Active Medications - Current Medications Current Medications: Generic Name Dose Route Start Last Admin Trade Name Freq PRN Reason Stop Dose Admin Acetaminophen 650 mg 07/13/20 23:07 08/06/20 21:57 Tylenol PO 650 mg Q4H PRN Administration Headache Albuterol 2.5 mg 07/16/20 18:22 07/29/20 15:24 Proventil IH 2.5 mg Q4HRT PRN Administration Shortness Of Breath Aspirin 81 mg 07/14/20 10:00 08/09/20 12:37 Halfprin Ec PO Not Given QDAY [facility] Atorvastatin Calcium 40 mg 07/14/20 22:00 08/08/20 21:52 Lipitor PO Not Given QHS [facility] Carvedilol 25 mg 07/14/20 10:00 08/09/20 12:37 Coreg PO Not Given BID [facility] Clonidine HCl 0.2 mg 07/27/20 01:28 07/29/20 08:31 Catapres PO 0.2 mg Q4H PRN Administration Hypertension Clonidine HCl 0.2 mg 07/31/20 08:30 08/09/20 06:01 Catapres PO Not Given Q8HR [facility] Clopidogrel Bisulfate 75 mg 07/14/20 10:00 08/09/20 12:37 Plavix PO Not Given QDAY [facility] Ezetimibe 10 mg 07/14/20 10:00 08/09/20 12:37 Zetia PO Not Given QDAY [facility] Epoetin Mulugeta 10,000 unit 07/21/20 17:17 08/02/20 10:38 Procrit IV 10,000 unit CHICHI PRN Administration hemodialysis Fluticasone Propionate 100 mcg 07/14/20 10:00 08/09/20 12:37 Flonase NS Not Given QDAY [facility] Furosemide 80 mg 07/14/20 10:00 08/09/20 12:37 Lasix PO Not Given DAILY [facility] Sodium Chloride 100 mls @ 999 mls/hr 07/14/20 13:00 Nacl 0.9% IV CHICHI PRN Hypotension Lidocaine 1 each 07/27/20 14:00 08/09/20 09:49 Lidoderm 5% TD 1 each QDAY JP Administration Lisinopril 20 mg 07/27/20 10:00 08/09/20 12:37 Zestril PO Not Given QDAY [facility] Loperamide HCl 2 mg 07/15/20 19:18 07/15/20 21:41 Imodium PO 2 mg Q2H PRN Administration Diarrhea Naphazoline HCl/Pheniramine Maleate 2 drops 07/27/20 11:27 Visine-A OU Q6H PRN Allergy Symptoms Nifedipine 90 mg 07/14/20 10:00 08/09/20 09:48 Procardia Xl PO 90 mg BID JP Administration Nitroglycerin 0.5 inch 07/14/20 06:00 08/09/20 12:37 Nitro-Bid 2% TP Not Given QIDNTG [facility] Protocol Ondansetron HCl 4 mg 07/13/20 23:07 08/02/20 10:38 Zofran IV 4 mg Q8H PRN Administration Nausea And Vomiting Warfarin Sodium 10 mg 08/05/20 17:00 08/09/20 12:36 Coumadin PO Not Given DAILY@1700 [facility] Warfarin Sodium 2.5 mg 08/09/20 17:00 Coumadin PO DAILY@1700 [facility] Nutrition/Malnutrition Assess - Dietary Evaluation Nutrition/Malnutrition Findings: Nutrition Notes Start: 07/17/20 13:10 Freq: Status: Active Protocol: Document 07/20/20 11:27 EN (Rec: 07/20/20 11:34 EN [email or web address]) Co-Sign 07/20/20 11:27 LM Nutrition Notes Initial or Follow up Reassessment Current Diagnosis CKD (stage V CKD),Coronary Artery Disease,Diabetes, Hypertension Other Pertinent Diagnosis ESRD on HD, NSTEMI, dyslipidedema Current Diet Renal Labs/Tests 07/19: BUN 25, Cr 4.1 Pertinent Medications Reviewed Height 5 ft 3 in Weight 75.4 kg [place] Body Weight (kg) 52.27 BMI 29.4 Weight Status Overweight Subjective/Other Information F/u for intakes. Pt reports eating 100% of breakfast. Pt would like pork and fruit cups during meals. Pt reports loose stool at 10:00 this morning. Pt states that appetite is good and denies N/ V Percent of energy/protein needs met: 100%/86% Burn Absent Trauma Absent GI Symptoms Diarrhea Food Allergy Yes Current % PO Good (75-100%) Minimum of two criteria No Interpretation of Weight Loss (severe) >5% in 1 month #2 Nutrition Diagnosis Inadequate oral intake As Evidenced by Signs and Symptoms consuming 100% of meals Diagnosis Progress(for reassessment Resolved documentation) #1 Nutrition Diagnosis Food and nutrition-related knowledge deficit As Evidenced by Signs and Symptoms No further Coumadin/Vit k questions Diagnosis Progress(for reassessment Resolved documentation) Is patient on ventilator? No Is Patient Ambulatory and/or Out of Bed No REE-([facility]-confined to bed) [phone] Calculation Used for Recommendations [facility] Additional Notes Protein: >1.2 g/kg (> 90g) Fluid: Urine output + 1000 ml/ day Nutrition Intervention Change Diet Order: Continue Renal Diet Goal #1 Meet 75% of energy and protein needs Anticipated Discharge Needs: Renal diet Revisit per MD consult or patient Sign Off request:
[2020-08-09] MEDS: WARFARIN 2.5 MG TAB PO SCH (18:19)
[2020-08-10] MEDS: cloNIDine 0.1 MG TAB PO SCH ×3 (05:43→21:39)
[2020-08-10] MEDS: NITROGLYCERIN 2% OINT 1 GM TP SCH ×4 (05:44→17:24)
--- NOTE | 2020-08-10 09:06 | Progress Note ---
Assessment and Plan Impression: * End stage renal disease * NSTEMI --MPI: fixed lateral wall defect; no significant ischemia; EF 38%. (Jul 15 2020) --TTE: mild concentric LVH; multiple regional wall abnormalities (septal, basal, inf wall hypokinetic); EF 35-40%; impaired LV relaxation (Jul 14 2020) * Ischemic cardiomyopathy * Hypertension * Anemia secondary to CKD * Secondary hyperparathyroidism Plan: * Continue hemodialysis MWF, * UF as tolerated * Cardiology recommendations noted * Renal/HD diet * Epogen with dialysis * Discharge planning in progress - awaiting SNF placement * ok to dc from renal standpoint Subjective Date of service: 08/10/20 Principal diagnosis: ESRD/HD, Acc HTN, NSTEMI 2, H/o PE/DVT (IVC filter) Interval history: Patient appears comfortable today . Denies any shortness of breath. No nausea or vomiting. She did cut her dialysis time yesterday Objective - Vital Signs Vital signs: Vital Signs - 12hr 08/09/20 08/10/20 08/10/20 23:37 04:53 05:43 Temperature 97.4 F L 97.8 F Pulse Rate 93 H 92 H Respiratory 16 20 Rate Blood Pressure 187/87 175/82 175/82 O2 Sat by Pulse 97 99 Oximetry 08/10/20 05:44 Temperature Pulse Rate Respiratory Rate Blood Pressure 175/82 O2 Sat by Pulse Oximetry - General Appearance General appearance: well-developed, well-nourished, appears stated age EENT: PERRL, mucous membranes moist Neck: no JVD, no thyromegaly, no carotid bruit, supple, other (IJ PermCath in place) Respiratory: Present: Clear to Ascultation Cardiology: regular, normal heart rate, S1S2, no murmurs Gastrointestinal: normal, normoactive bowel sounds Integumentary: no rash, other (Brace in right leg) - Lab 08/05/20 06:59 08/05/20 06:59 Most recent lab results Calcium 9.5 mg/dL (8.4-10.2) 08/05/20 06:59 Phosphorus 3.50 mg/dL (2.5-4.5) 08/05/20 06:59 Medications & Allergies - Medications Allergies/Adverse Reactions: Allergies apixaban [From Eliquis] Allergy (Verified 03/01/17 20:29) Itching dabigatran etexilate mesylate [From Pradaxa] Allergy (Verified 03/01/17 20:27) Itching heparin Allergy (Verified 07/14/20 05:54) Vomiting hydralazine HCl [From Apresoline] Allergy (Verified 03/01/17 13:11) Unknown morphine Allergy (Verified 02/15/14 02:23) Itching povidone-iodine [From Betadine] Allergy (Verified 03/01/17 20:26) Itching rivaroxaban [From Xarelto] Allergy (Verified 03/01/17 20:29) Itching soap [From Betadine] Allergy (Verified 03/01/17 20:26) Itching verapamil HCl [From Calan] Allergy (Verified 02/15/14 02:23) Headache Home Medications: Home Medications Medication Instructions Recorded Confirmed Last Taken Type Oxymetazoline 0.05% [Vicks Sinex] 1 spray NS BID 03/01/17 07/14/20 1 Day Ago History ~02/28/17 Furosemide [Lasix TAB] 80 mg PO QDAY #30 tablet 03/05/17 07/14/20 Unknown Rx Nystatin [Nystop Powder] 1 applic TP BID #15 g 03/05/17 07/14/20 Unknown Rx Lidocaine [Lidoderm] 5 patch TRANSDERMA QDAY 07/14/20 07/14/20 Unknown History NIFEdipine XL [Procardia Xl] 90 mg PO BID 07/14/20 07/14/20 Unknown History Warfarin [Coumadin] 10 mg PO QDAY 07/14/20 07/14/20 Unknown History Albuterol Sulfate [Albuterol 0.63% 0.63 mg IH Q4H PRN 30 Days 08/02/20 Unknown Rx NEBS] Aspirin EC [Halfprin EC] 81 mg PO QDAY #30 tablet. 08/02/20 Unknown Rx AtorvaSTATin [Lipitor] 40 mg PO QHS #30 08/02/20 Unknown Rx AtorvaSTATin [Lipitor] 80 mg PO QHS #30 tablet 08/02/20 Unknown Rx Clopidogrel [Plavix] 75 mg PO QDAY #30 08/02/20 Unknown Rx Ezetimibe [Zetia] 10 mg PO QDAY tablet 08/02/20 Unknown Rx Ferrous Sulfate [Feosol 325 MG tab] 325 mg PO QDAY 30 Days 08/02/20 Unknown Rx Fluticasone [Flonase] 100 mcg NS QDAY 30 Days bottle 08/02/20 Unknown Rx Furosemide [Lasix TAB] 80 mg PO DAILY #30 tablet 08/02/20 Unknown Rx Levothyroxine [Synthroid] 88 mcg PO QAM 30 Days 08/02/20 Unknown Rx NIFEdipine XL [Procardia Xl] 90 mg PO BID #60 tablet 08/02/20 Unknown Rx Naphazoline/Phenira 0.025/0.3% 2 drops OU Q6H PRN bottle 08/02/20 Unknown Rx [Visine-A] Warfarin [Coumadin] 5 mg PO DAILY@1700 30 Days #30 08/02/20 Unknown Rx tablet Warfarin [Coumadin] 10 mg PO DAILY@1700 #7 tablet 08/02/20 Unknown Rx carvediloL [Coreg] 25 mg PO BID #60 08/02/20 Unknown Rx cloNIDine [Catapres] 0.2 mg PO Q8HR #30 tablet 08/02/20 Unknown Rx lisinopriL [Zestril TAB] 20 mg PO QDAY #30 tablet 08/02/20 Unknown Rx Active Medications: Generic Name Dose Route Start Last Admin Trade Name Freq PRN Reason Stop Dose Admin Acetaminophen 650 mg 07/13/20 23:07 08/06/20 21:57 Tylenol PO 650 mg Q4H PRN Administration Headache Albuterol 2.5 mg 07/16/20 18:22 07/29/20 15:24 Proventil IH 2.5 mg Q4HRT PRN Administration Shortness Of Breath Aspirin 81 mg 07/14/20 10:00 08/09/20 12:37 Halfprin Ec PO Not Given QDAY JP Atorvastatin Calcium 40 mg 07/14/20 22:00 08/09/20 22:18 Lipitor PO Not Given QHS JP Carvedilol 25 mg 07/14/20 10:00 08/09/20 22:18 Coreg PO Not Given BID JP Clonidine HCl 0.2 mg 07/27/20 01:28 07/29/20 08:31 Catapres PO 0.2 mg Q4H PRN Administration Hypertension Clonidine HCl 0.2 mg 07/31/20 08:30 08/10/20 05:43 Catapres PO Not Given Q8HR [facility] Clopidogrel Bisulfate 75 mg 07/14/20 10:00 08/09/20 12:37 Plavix PO Not Given QDAY [facility] Ezetimibe 10 mg 07/14/20 10:00 08/09/20 12:37 Zetia PO Not Given QDAY [facility] Epoetin Mulugeta 10,000 unit 07/21/20 17:17 08/02/20 10:38 Procrit IV 10,000 unit CHICHI PRN Administration hemodialysis Fluticasone Propionate 100 mcg 07/14/20 10:00 08/09/20 12:37 Flonase NS Not Given QDAY [facility] Furosemide 80 mg 07/14/20 10:00 08/09/20 12:37 Lasix PO Not Given DAILY [facility] Sodium Chloride 100 mls @ 999 mls/hr 07/14/20 13:00 Nacl 0.9% IV CHICHI PRN Hypotension Lidocaine 1 each 07/27/20 14:00 08/09/20 09:49 Lidoderm 5% TD 1 each QDAY [facility] Administration Lisinopril 20 mg 07/27/20 10:00 08/09/20 12:37 Zestril PO Not Given QDAY [facility] Loperamide HCl 2 mg 07/15/20 19:18 07/15/20 21:41 Imodium PO 2 mg Q2H PRN Administration Diarrhea Naphazoline HCl/Pheniramine Maleate 2 drops 07/27/20 11:27 Visine-A OU Q6H PRN Allergy Symptoms Nifedipine 90 mg 07/14/20 10:00 08/09/20 22:22 Procardia Xl PO 90 mg BID [facility] Administration Nitroglycerin 0.5 inch 07/14/20 06:00 08/10/20 05:44 Nitro-Bid 2% TP [facility] Protocol Ondansetron HCl 4 mg 07/13/20 23:07 08/02/20 10:38 Zofran IV 4 mg Q8H PRN Administration Nausea And Vomiting Warfarin Sodium 10 mg 08/05/20 17:00 08/09/20 18:16 Coumadin PO 10 mg DAILY@1700 [facility] Administration Warfarin Sodium 2.5 mg 08/09/20 17:00 08/09/20 18:19 Coumadin PO Not Given DAILY@1700 [facility]
[2020-08-10] MEDS: ASPIRIN EC 81 MG TAB PO SCH ×2 (10:14→10:20)
[2020-08-10] MEDS: CLOPIDOGREL 75 MG TAB PO SCH ×2 (10:14→10:18)
[2020-08-10] MEDS: EZETIMIBE 10 MG TAB PO SCH (10:14)
[2020-08-10] MEDS: carvediloL 25 MG TAB PO SCH ×2 (10:14→21:39)
[2020-08-10] MEDS: LISINOPRIL 20 MG TAB PO SCH (10:15)
[2020-08-10] MEDS: NIFEdipine XL 90 MG TAB PO SCH ×2 (10:15→21:51)
[2020-08-10] MEDS: FUROSEMIDE 40 MG TAB PO SCH (10:15)
[2020-08-10] MEDS: LIDOCAINE 5% 1 EACH PATCH TD SCH (10:15)
[2020-08-10] MEDS: FLUTICASONE PROPIONATE NASAL SPRAY 16 GM NS SCH (10:16)
--- NOTE | 2020-08-10 12:40 | Progress Note ---
Assessment and Plan Assessment and plan: -Non-ST elevation IA, type II 07/15/2020 stress test negative for acute ischemia EF 38 %. Continue current management including aspirin and Plavix Cardiology cleared for discharge --History of coronary artery disease status post PCI Continue current cardiac medications, cardiology following --Ischemic cardiomyopathy; EF 40 to 45% 2016 Continue antifailure medications --End-stage renal disease; MWF On hemodialysis, nephrology following, HD per schedule Stable ,renal cleared for discharge --Hypertensive emergency; present on admission Added clonidine. Monitor BP --History of peripheral vascular disease; Continue antiplatelets and statins --History of DVT and PE; chronic anticoagulation with Coumadin subtherapeutic INR noncompliant Coumadin resumed Target INR 2-3, Closely monitor Monitor INR and adjust as needed --History of IVC filter placement; supportive care --Type 2 diabetes mellitus; Accu-Chek sliding scale coverage ADA diet Insulin as needed --Dyslipidemia; Stable on lipid-lowering medications --Obesity; BMI 39.0 Advised weight reduction when medically stable --Possible obstructive sleep apnea; Patient may need outpatient sleep study Rule out KENY, CPAP BiPAP at night as needed ---Chronic back pain She uses 2 lidocaine patchs and opioids at home ---Eye irritation Antihistamine eyedrops --DVT prophylaxis; Patient is already on Coumadin DC planning per case management Patient is medically stable for discharge however still need to be discharged to facility but this has not been possible. manager material currently trying to see the patient in place-options include placement to a facility versus personal halfway [which patient does not want] patient's daughter # [phone] provided by patient 07/25. I have seen and examined the patient at the bedside Patient's chart and medications reviewed No new complaints, patient receiving hemodialysis per schedule Clinically stable for discharge Awaiting placement 07/26. No change in medical condition. Vitals remain stable. Awaiting placement 07/27. Has itchy left eye. Prescribed eye drops. Stable for DC 07/28. Stable for DC. No new complaints 07/29. Medically stable for DC. BP elevated today. Added clonidine 07/30-. Medically stable for discharge. Blood pressure significantly improved. Try to call daughter on phone number provided by patient but no answer so I left a voice message. manager material trying to get placement for patient-patients daughter has not been available to provide documents required prior to placement. 08/01. Awaiting placement 08/02/2020. Patient was set for discharge to a residential however this was discontinued. After further review, patient was deemed to be unsafe for discharge to a residential given the fact patient is on Coumadin and is blind with difficulty walking. Case management is aware and attempting to arrange for safe discharge. 08/03/2020. Awaiting placement. 08/04/2020. Multiple challenges including family dynamics, APS intervention and lack of funding makes the discharge difficult. Please see case management/social work notes. Continue to work with case management/social work with regards to discharge planning. Patient is medically stable for discharge. 08/05/20. Awaiting placement. 08/06/2020. Patient medically stable. Still awaiting placement. Follow-up with case management/social work in the morning regarding multiple challenges with discharge planning. 08/07/2020. Continue hemodialysis MWF, due today. Continue discharge planning as noted above. 08/08/2020. Has no complaints today. Still awaiting placement 08/09. Awaiting placement. She may eventually go to a home instead. 08/10. No new complaints. Awaiting dc . Needs a COVID-19 test (ordered) - Patient Problems (1) NSTEMI (non-ST elevated myocardial infarction) Current Visit: Yes Status: Acute (2) Accelerated hypertension Current Visit: Yes Status: Chronic (3) Anemia Current Visit: Yes Status: Chronic (4) CAD (coronary artery disease) Current Visit: Yes Status: Chronic (5) DM2 (diabetes mellitus, type 2) Current Visit: Yes Status: Chronic (6) End stage renal disease on dialysis Current Visit: Yes Status: Chronic (7) History of CVA (cerebrovascular accident) Current Visit: Yes Status: Chronic (8) History of DVT (deep vein thrombosis) Current Visit: Yes Status: Chronic (9) History of pulmonary embolism Current Visit: Yes Status: Chronic (10) Hyperlipidemia Current Visit: Yes Status: Chronic (11) Ischemic cardiomyopathy Current Visit: Yes Status: Chronic (12) PVD (peripheral vascular disease) Current Visit: Yes Status: Chronic (13) Presence of IVC filter Current Visit: Yes Status: Chronic (14) KENY (obstructive sleep apnea) Current Visit: Yes Status: Suspected (15) Chest pain Current Visit: Yes Status: Resolved History Interval history: Has no new complaints today Awaiting placement Hospitalist Physical - Physical exam Narrative exam: VITAL SIGNS: Reviewed. GENERAL: Awake and alert on response to questions HEAD: No signs of head trauma. EYES: Pupils are equal. Extraocular motions intact. EARS: Hearing grossly intact. MOUTH: Oropharynx is normal. NECK: No adenopathy, no JVD. CHEST: Chest with diminished breath sounds bilaterally. No wheezes, rales, or rhonchi. CARDIAC: Regular rate and rhythm. S1 and S2, without murmurs, gallops, or r ubs. VASCULAR: No Edema. Peripheral pulses normal and equal in all extremities. ABDOMEN: Soft, non tender and non distended. No rebound or guarding, and no masses palpated. Bowel Sounds normal. MUSCULOSKELETAL: No leg edema NEUROLOGIC EXAM: Alert and oriented x3. No focal neurologic deficits SKIN: No obvious lesions - Constitutional Vitals: Temp Pulse Resp BP Pulse Ox 97.8 F 92 H 20 175/82 99 08/10/20 04:53 08/10/20 04:53 08/10/20 04:53 08/10/20 05:44 08/10/20 04:53 General appearance: Present: no acute distress, well-nourished HEART Score - HEART Score Risk factors: > 3 risk factors or hx of atherosclerotic disease Troponin: Troponin T 0.099 ng/mL (0.00-0.029) H 07/14/20 10:13 Troponin: 1-3x normal limit - Critical Actions Critical Actions: 4-6 pts:12-16.6% risk of adverse cardiac event. Should be admitted (PATIENT UNDERGOING WORK UP) Results - Labs CBC & Chem 7: 08/05/20 06:59 08/05/20 06:59 Labs: Laboratory Last Values WBC 5.0 K/mm3 (4.5-11.0) 08/05/20 06:59 RBC 3.57 M/mm3 (3.65-5.03) L 08/05/20 06:59 Hgb 10.8 gm/dl (10.1-14.3) 08/05/20 06:59 Hct 32.6 % (30.3-42.9) 08/05/20 06:59 MCV 91 fl (79-97) 08/05/20 06:59 MCH 30 pg (28-32) 08/05/20 06:59 MCHC 33 % (30-34) 08/05/20 06:59 RDW 16.2 % (13.2-15.2) H 08/05/20 06:59 Plt Count 216 K/mm3 (140-440) 08/05/20 06:59 Lymph % (Auto) 21.7 % (13.4-35.0) 08/05/20 06:59 [place] % (Auto) 5.1 % (0.0-7.3) 08/05/20 06:59 Eos % (Auto) 3.8 % (0.0-4.3) 08/05/20 06:59 Baso % (Auto) 1.9 % (0.0-1.8) H 08/05/20 06:59 Lymph # (Auto) 1.1 K/mm3 (1.2-5.4) L 08/05/20 06:59 [place] # (Auto) 0.3 K/mm3 (0.0-0.8) 08/05/20 06:59 Eos # (Auto) 0.2 K/mm3 (0.0-0.4) 08/05/20 06:59 Baso # (Auto) 0.1 K/mm3 (0.0-0.1) 08/05/20 06:59 Seg Neutrophils % 67.5 % (40.0-70.0) 08/05/20 06:59 Seg Neutrophils # 3.4 K/mm3 (1.8-7.7) 08/05/20 06:59 PT 29.6 Sec. (12.2-14.9) H 08/09/20 05:35 INR 2.80 (0.87-1.13) H 08/09/20 05:35 APTT 28.2 Sec. (24.2-36.6) 07/13/20 23:36 Sodium 136 mmol/L (137-145) L 08/05/20 06:59 Potassium 4.3 mmol/L (3.6-5.0) 08/05/20 06:59 Chloride 95.5 mmol/L (98-107) L 08/05/20 06:59 Carbon Dioxide 28 mmol/L (22-30) 08/05/20 06:59 Anion Gap 17 mmol/L 08/05/20 06:59 BUN 25 mg/dL (7-17) H 08/05/20 06:59 Creatinine 4.5 mg/dL (0.6-1.2) H 08/05/20 06:59 Estimated GFR 12 ml/min 08/05/20 06:59 BUN/Creatinine Ratio 6 % 08/05/20 06:59 Glucose 115 mg/dL (65-100) H 08/05/20 06:59 Calcium 9.5 mg/dL (8.4-10.2) 08/05/20 06:59 Phosphorus 3.50 mg/dL (2.5-4.5) 08/05/20 06:59 Total Creatine Kinase 81 units/L (30-135) 07/14/20 10:13 CK-MB (CK-2) 1.9 ng/mL (0.0-4.0) 07/14/20 10:13 CK-MB (CK-2) Rel Index 2.3 (0-4) 07/14/20 10:13 Troponin T 0.099 ng/mL (0.00-0.029) H 07/14/20 10:13 Triglycerides 89 mg/dL (2-149) 07/13/20 23:36 Cholesterol 152 mg/dL (50-199) 07/13/20 23:36 LDL Cholesterol Direct 84 mg/dL (50-130) 07/13/20 23:36 HDL Cholesterol 59 mg/dL (40-59) 07/13/20 23:36 Cholesterol/HDL Ratio 2.57 % 07/13/20 23:36 Coronavirus (PCR) Negative (Negative) 07/21/20 Unknown Hepatitis A IgM Ab Non-reactive (NonReactive) 07/14/20 10:13 Hep Bs Antigen Non-reactive (Negative) 07/14/20 10:13 Hep B Core IgM Ab Non-reactive (NonReactive) 07/14/20 10:13 Hepatitis C Antibody Non-reactive (NonReactive) 07/14/20 10:13 - Diagnostic Impressions Diagnostic Impressions: Echocardiogram 07/14/20 10:55 Transthoracic Echocardiogram Indication: Chest Pain BP: 137/63 HR: 79 Conclusions *The left ventricular chamber size is normal. *Mild concentric left ventricular hypertrophy is observed. *There are multiple regional wall motion abnormalities. *septal,basal inferior wall hypokinetic *The estimated ejection fraction is 35-40%. *Abnormal left ventricular diastolic filling is observed, consistent with impaired relaxation. *The left ventricular diastolic filling pattern is consistent with pseudonormalization. *The left ventricular diastolic filling pattern is consistent with elevated mean left atrial pressure. *The left atrium is mildly dilated. *The right ventricle is mild to moderately dilated. *The aortic valve leaflets are moderately thickened. *There is trace of aortic regurgitation. *There is no evidence of aortic stenosis. *There is mitral annular calcification. *There is mild to moderate mitral regurgitation. *There is mild to moderate tricuspid regurgitation. *There is no pericardial effusion. *The inferior vena cava appears normal in size. Findings Left Ventricle: The left ventricular chamber size is normal. Mild concentric left ventricular hypertrophy is observed. There are multiple regional wall motion abnormalities. Global left ventricular systolic function is mild to moderately decreased. The estimated ejection fraction is 35-40%. Abnormal left ventricular diastolic function is observed. The left ventricular diastolic filling pattern is consistent with pseudonormalization. The left ventricular diastolic filling pattern is consistent with elevated mean left atrial pressure. Left Atrium: The left atrium is mildly dilated. Right Ventricle: The right ventricle is mild to moderately dilated. The right ventricular global systolic function is normal. Right Atrium: The right atrium appears normal. The interatrial septum appears normal. 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 Aortic Valve: The aortic valve is trileaflet. The aortic valve leaflets are moderately thickened. There is trace of aortic regurgitation. There is no evidence of aortic stenosis. Mitral Valve: The mitral valve leaflets appear normal. There is mitral annular calcification. There is mild to moderate mitral regurgitation. There is no evidence of mitral stenosis. Tricuspid Valve: The tricuspid valve leaflets are normal. There is mild to moderate tricuspid regurgitation. There is no tricuspid stenosis. Pulmonic Valve: The pulmonic valve appears normal. There is trace pulmonic regurgitation. There is no pulmonic stenosis. Pericardium: There is no pericardial effusion. Aorta: There is no dilatation of the ascending aorta. There is no dilatation of the aortic arch. There is no dilatation of the descending thoracic aorta. There is no dilatation of the aortic root. Venous: The inferior vena cava appears normal in size. Measurements Chambers 2D Name Value Normal Range IVSd (2D) 1.21 cm (0.6 - 1.1) LVPWd (2D) 1.22 cm (0.6 - 1.1) LVIDd (2D) 5.61 cm (3.7 - 5.6) LVIDs (2D) 4.74 cm (2 - 3.8) LV FS (2D) 15.52 % - EF Teichholz (2D) 32.35 % - Ao root diameter (2D) 2.98 cm (2 - 3.7) Volumes/Mass Name Value Normal Range LA ESV SP 4CH (A/L) 90.79 ml - LA ESV SP 2CH (A/L) 79.53 ml - LA ESV BP (A/L) 85.37 ml - LA ESV SP 4CH (MOD) 84.6 ml - LA ESV SP 2CH (MOD) 74.61 ml - LV EDV SP 4CH (MOD) 197.38 ml - LV ESV SP 4CH (MOD) 123.93 ml - EF SP 4CH (MOD) 37.21 % - LV EDV SP 2CH (MOD) 194.2 ml - LV ESV SP 2CH (MOD) 123.7 ml - EF SP 2CH (MOD) 36.3 % - LV EDV BP 201.77 ml - LV ESV BP 131.12 ml - BP EF (MOD) 35.02 % - Diastolic/Systolic Function Name Value Normal Range MV E-wave Vmax 1.15 m/sec - MV deceleration time 133.32 msec - MV A-wave Vmax 0.78 m/sec - MV E:A ratio 1.48 ratio - Aortic Valve Name Value Normal Range AV Vmax 1.8 m/sec - AV VTI 35.01 cm - AV peak gradient 12.99 mmHg - AV mean gradient 6.54 mmHg - LVOT diameter 2.11 cm - LVOT Vmax 0.86 m/sec - LVOT VTI 17.92 cm - LVOT peak gradient 2.94 mmHg - LVOT mean gradient 1.54 mmHg - SV LVOT 62.77 ml - SKINNY (continuity Vmax) 1.67 cm2 - SKINNY (continuity VTI) 1.79 cm2 - Tricuspid Valve Name Value Normal Range TR Vmax 3.55 m/sec - TR peak gradient 50.29 mmHg - Pulmonic Valve/Qp:Qs Name Value Normal Range PV Vmax 1.09 m/sec - PV peak gradient 4.78 mmHg - MS end-diastolic Vmax 1.48 m/sec - PV acceleration time 117.98 msec - Veliz/IV: Voiding Method Bedpan IV Catheter Type [Left Hand] Peripheral IV IV Catheter Type [Left INT / Saline Lock Internal Jugular] Active Medications - Current Medications Current Medications: Generic Name Dose Route Start Last Admin Trade Name Freq PRN Reason Stop Dose Admin Acetaminophen 650 mg 07/13/20 23:07 08/06/20 21:57 Tylenol PO 650 mg Q4H PRN Administration Headache Albuterol 2.5 mg 07/16/20 18:22 07/29/20 15:24 Proventil IH 2.5 mg Q4HRT PRN Administration Shortness Of Breath Aspirin 81 mg 07/14/20 10:00 08/10/20 10:20 Halfprin Ec PO Not Given QDAY JP Atorvastatin Calcium 40 mg 07/14/20 22:00 08/09/20 22:18 Lipitor PO Not Given QHS PJ Carvedilol 25 mg 07/14/20 10:00 08/10/20 10:14 Coreg PO 25 mg BID JP Administration Clonidine HCl 0.2 mg 07/27/20 01:28 07/29/20 08:31 Catapres PO 0.2 mg Q4H PRN Administration Hypertension Clonidine HCl 0.2 mg 07/31/20 08:30 08/10/20 05:43 Catapres PO Not Given Q8HR JP Clopidogrel Bisulfate 75 mg 07/14/20 10:00 08/10/20 10:18 Plavix PO Not Given QDAY JP Ezetimibe 10 mg 07/14/20 10:00 08/10/20 10:14 Zetia PO 10 mg QDAY JP Administration Epoetin Mulu[place] 10,000 unit 07/21/20 17:17 08/02/20 10:38 Procrit IV 10,000 unit CHICHI PRN Administration hemodialysis Fluticasone Propionate 100 mcg 07/14/20 10:00 08/10/20 10:16 Flonase NS 100 mcg QDAY JP Administration Furosemide 80 mg 07/14/20 10:00 08/10/20 10:15 Lasix PO 80 mg DAILY JP Administration Sodium Chloride 100 mls @ 999 mls/hr 07/14/20 13:00 Nacl 0.9% IV CHICHI PRN Hypotension Lidocaine 1 each 07/27/20 14:00 08/10/20 10:15 Lidoderm 5% TD 1 each QDAY JP Administration Lisinopril 20 mg 07/27/20 10:00 08/10/20 10:15 Zestril PO 20 mg QDAY JP Administration Loperamide HCl 2 mg 07/15/20 19:18 07/15/20 21:41 Imodium PO 2 mg Q2H PRN Administration Diarrhea Naphazoline HCl/Pheniramine Maleate 2 drops 07/27/20 11:27 Visine-A OU Q6H PRN Allergy Symptoms Nifedipine 90 mg 07/14/20 10:00 08/10/20 10:15 Procardia Xl PO 90 mg BID JP Administration Nitroglycerin 0.5 inch 07/14/20 06:00 08/10/20 10:15 Nitro-Bid 2% TP Not Given QIDNTG [facility] Protocol Ondansetron HCl 4 mg 07/13/20 23:07 08/02/20 10:38 Zofran IV 4 mg Q8H PRN Administration Nausea And Vomiting Warfarin Sodium 10 mg 08/05/20 17:00 08/09/20 18:16 Coumadin PO 10 mg DAILY@1700 [facility] Administration Warfarin Sodium 2.5 mg 08/09/20 17:00 08/09/20 18:19 Coumadin PO Not Given DAILY@1700 [facility] Nutrition/Malnutrition Assess - Dietary Evaluation Nutrition/Malnutrition Findings: Nutrition Notes Start: 07/17/20 13:10 Freq: Status: Active Protocol: Document 07/20/20 11:27 EN (Rec: 07/20/20 11:34 EN [email or web address]) Co-Sign 07/20/20 11:27 LM Nutrition Notes Initial or Follow up Reassessment Current Diagnosis CKD (stage V CKD),Coronary Artery Disease,Diabetes, Hypertension Other Pertinent Diagnosis ESRD on HD, NSTEMI, dyslipidedema Current Diet Renal Labs/Tests 07/19: BUN 25, Cr 4.1 Pertinent Medications Reviewed Height 5 ft 3 in Weight 75.4 kg [place] Body Weight (kg) 52.27 BMI 29.4 Weight Status Overweight Subjective/Other Information F/u for intakes. Pt reports eating 100% of breakfast. Pt would like pork and fruit cups during meals. Pt reports loose stool at 10:00 this morning. Pt states that appetite is good and denies N/ V Percent of energy/protein needs met: 100%/86% Burn Absent Trauma Absent GI Symptoms Diarrhea Food Allergy Yes Current % PO Good (75-100%) Minimum of two criteria No Interpretation of Weight Loss (severe) >5% in 1 month #2 Nutrition Diagnosis Inadequate oral intake As Evidenced by Signs and Symptoms consuming 100% of meals Diagnosis Progress(for reassessment Resolved documentation) #1 Nutrition Diagnosis Food and nutrition-related knowledge deficit As Evidenced by Signs and Symptoms No further Coumadin/Vit k questions Diagnosis Progress(for reassessment Resolved documentation) Is patient on ventilator? No Is Patient Ambulatory and/or Out of Bed No REE-([facility]-confined to bed) [id number] Calculation Used for Recommendations [facility] Additional Notes Protein: >1.2 g/kg (> 90g) Fluid: Urine output + 1000 ml/ day Nutrition Intervention Change Diet Order: Continue Renal Diet Goal #1 Meet 75% of energy and protein needs Anticipated Discharge Needs: Renal diet Revisit per MD consult or patient Sign Off request:
[2020-08-10] MEDS: WARFARIN 2.5 MG TAB PO SCH (17:24)
[2020-08-10] MEDS: WARFARIN 10 MG TAB PO SCH (17:24)
[2020-08-11] MEDS: cloNIDine 0.1 MG TAB PO SCH ×2 (05:54→13:30)
[2020-08-11] MEDS: NITROGLYCERIN 2% OINT 1 GM TP SCH ×2 (05:54→13:29)
[2020-08-11] MEDS: NIFEdipine XL 90 MG TAB PO SCH (09:10)
[2020-08-11] MEDS: EPOETIN ALFA 10,000 UNIT/1 ML INJ IV PRN (11:45)
--- NOTE | 2020-08-11 12:28 | Discharge Summary ---
Providers - Providers Date of Admission: 07/13/20 22:55 Date of discharge: 08/11/20 Attending physician: JESSICA PHILLIPS 07/14/20 06:00 Consult to Physician [CONS] Routine Comment: Consulting Provider: CANDIDO LEIGH Physician Instructions: Reason For Exam: ESRD ON DIALYSIS 07/18/20 19:34 Physical Therapy Evaluation and Treat [CONS] Routine Comment: Reason For Exam: General debility/DC needs 07/19/20 11:53 Occupational Therapy Evaluate and Treat [CONS] Routine Comment: Reason For Exam: debility Primary care physician: CUPOLA MECHANIC Hospitalization Condition: Stable Hospital course: 60-year-old female patient who is legally blind with significant history of coronary artery disease status post PCI, ischemic cardiomyopathy CVA end-stage renal disease on hemodialysis, history of PE IVC filter placement anticoagulation with Coumadin anemia was admitted through emergency room with chest pain Elevated troponins, evaluated by cardiology, underwent stress test which was negative for acute ischemia, patient was seen by nephrology receiving hemodialysis per schedule Patient is clinically stable for discharge, awaiting placement 07/25. I have seen and examined the patient at the bedside Patient's chart and medications reviewed No new complaints, patient receiving hemodialysis per schedule Clinically stable for discharge Awaiting placement 07/26. No change in medical condition. Vitals remain stable. Awaiting placement 07/27. Has itchy left eye. Prescribed eye drops. Stable for DC 07/28. Stable for DC. No new complaints 07/29. Medically stable for DC. BP elevated today. Added clonidine 07/30-. Medically stable for discharge. Blood pressure significantly improved. Try to call daughter on phone number provided by patient but no answer so I left a voice message. field case manager trying to get placement for patient-patients daughter has not been available to provide documents required p rior to placement. 08/01/2020. marble chip terrazzo worker worked through home/family dynamics.---Cyber Workforce Developer And Manager spoke to patient at bedside regarding discharge plan and lack of communication from family. Patient stated that her daughter was sick and in the hospital and she is now better. Patient stated that she is going to SNF and her daughter will pay for the 4 days she was at [facility] ([place]). SW informed patient that her daughter needs to assist with the discharge planning process because she is controlling the finances and if she does not then there is a concern for neglect and financial gain. SW urged patient to have daughter work with behavioral health case manager to create a safe discharge plan or the only discharge option is to a intermediate. field case manager informed of conversation. 08/02/2020. Patient was set for discharge to a intermediate however this was discontinued. After further review, patient was deemed to be unsafe for discharge to a intermediate given the fact patient is on Coumadin and is blind with difficulty walking. Case management is aware and attempting to arrange for safe discharge. 08/03/2020. Awaiting placement. 08/04/2020. Multiple challenges including family dynamics, APS intervention and lack of funding makes the discharge difficult. Please see case management/social work notes. Continue to work with case management/social work with regards to discharge planning. Patient is medically stable for discharge. 08/05/20. Awaiting placement. 08/06/2020. Patient medically stable. Still awaiting placement. Follow-up with case management/social work in the morning regarding multiple challenges with discharge planning. 08/07/2020. Continue hemodialysis MWF, due today. Continue discharge planning as noted above. 08/08/2020. Has no complaints today. Still awaiting placement 08/09. Awaiting placement. She may eventually go to a home instead. 08/10. No new complaints. Awaiting dc . Needs a COVID-19 test (ordered) 08/11. Needs HBsAg test. She will be discharged to personal fdc. Disposition: DC-01 TO HOME OR SELFCARE - Discharge Diagnoses (1) Acute respiratory failure Status: Acute (2) CHF (congestive heart failure) Status: Acute (3) Fluid overload Status: Acute (4) History of coronary artery disease Status: Acute (5) Hypertensive urgency Status: Acute (6) Subtherapeutic international normalized ratio (INR) Status: Acute (7) Accelerated hypertension Status: Chronic (8) CAD (coronary artery disease) Status: Chronic (9) DM2 (diabetes mellitus, type 2) Status: Chronic (10) End stage renal disease on dialysis Status: Chronic (11) Hyperlipidemia Status: Chronic Core Measure Documentation - Palliative Care Palliative Care/ Comfort Measures: Not Applicable - Core Measures Any of the following diagnoses?: none Exam - Physical Exam Narrative exam: VITAL SIGNS: Reviewed. GENERAL: Awake and alert on response to questions HEAD: No signs of head trauma. EYES: Pupils are equal. Extraocular motions intact. EARS: Hearing grossly intact. MOUTH: Oropharynx is normal. NECK: No adenopathy, no JVD. CHEST: Chest with diminished breath sounds bilaterally. No wheezes, rales, or rhonchi. CARDIAC: Regular rate and rhythm. S1 and S2, without murmurs, gallops, or rubs. VASCULAR: No Edema. Peripheral pulses normal and equal in all extremities. ABDOMEN: Soft, non tender and non distended. No rebound or guarding, and no masses palpated. Bowel Sounds normal. MUSCULOSKELETAL: No leg edema NEUROLOGIC EXAM: Alert and oriented x3. No focal neurologic deficits SKIN: No obvious lesions - Constitutional Vitals: Temp Pulse Resp BP Pulse Ox 97.9 F 95 H 18 194/98 97 08/11/20 08:16 08/11/20 08:16 08/11/20 08:16 08/11/20 08:16 08/11/20 08:16 Plan Follow up with: PRIMARY CARE, [Primary Care Provider] - 3-5 Days Forms: Warfarin Discharge Instruction Prescriptions: AtorvaSTATin [Lipitor] 80 mg PO QHS #30 tablet Albuterol Sulfate [Albuterol 0.63% NEBS] 0.63 mg IH Q4H PRN 30 Days PRN Reason: Wheezing cloNIDine [Catapres] 0.2 mg PO Q8HR #30 tablet carvediloL [Coreg] 25 mg PO BID #60 Warfarin [Coumadin] 10 mg PO DAILY@1700 #7 tablet Warfarin [Coumadin] 5 mg PO DAILY@1700 30 Days #30 tablet Ferrous Sulfate [Feosol 325 MG tab] 325 mg PO QDAY 30 Days Fluticasone [Flonase] 100 mcg NS QDAY 30 Days bottle Aspirin EC [Halfprin EC] 81 mg PO QDAY #30 tablet. Furosemide [Lasix TAB] 80 mg PO DAILY #30 tablet Clopidogrel [Plavix] 75 mg PO QDAY #30 NIFEdipine XL [Procardia Xl] 90 mg PO BID #60 tablet Levothyroxine [Synthroid] 88 mcg PO QAM 30 Days lisinopriL [Zestril TAB] 20 mg PO QDAY #30 tablet
--- NOTE | 2020-08-11 12:59 | Progress Note ---
Assessment and Plan Assessment and plan: -Non-ST elevation WI, type II 07/15/2020 stress test negative for acute ischemia EF 38 %. Continue current management including aspirin and Plavix Cardiology cleared for discharge --History of coronary artery disease status post PCI Continue current cardiac medications, cardiology following --Ischemic cardiomyopathy; EF 40 to 45% 2016 Continue antifailure medications --End-stage renal disease; MWF On hemodialysis, nephrology following, HD per schedule Stable ,renal cleared for discharge --Hypertensive emergency; present on admission Added clonidine. Monitor BP --History of peripheral vascular disease; Continue antiplatelets and statins --History of DVT and PE; chronic anticoagulation with Coumadin subtherapeutic INR noncompliant Coumadin resumed Target INR 2-3, Closely monitor Monitor INR and adjust as needed --History of IVC filter placement; supportive care --Type 2 diabetes mellitus; Accu-Chek sliding scale coverage ADA diet Insulin as needed --Dyslipidemia; Stable on lipid-lowering medications --Obesity; BMI 39.0 Advised weight reduction when medically stable --Possible obstructive sleep apnea; Patient may need outpatient sleep study Rule out KENY, CPAP BiPAP at night as needed ---Chronic back pain She uses 2 lidocaine patchs and opioids at home ---Eye irritation Antihistamine eyedrops --DVT prophylaxis; Patient is already on Coumadin DC planning per case management Patient is medically stable for discharge however still need to be discharged to facility but this has not been possible. residential real estate sales manager currently trying to see the patient in place-options include placement to a facility versus personal residential [which patient does not want] patient's daughter # [phone] provided by patient 07/25. I have seen and examined the patient at the bedside Patient's chart and medications reviewed No new complaints, patient receiving hemodialysis per schedule Clinically stable for discharge Awaiting placement 07/26. No change in medical condition. Vitals remain stable. Awaiting placement 07/27. Has itchy left eye. Prescribed eye drops. Stable for DC 07/28. Stable for DC. No new complaints 07/29. Medically stable for DC. BP elevated today. Added clonidine 07/30-. Medically stable for discharge. Blood pressure significantly improved. Try to call daughter on phone number provided by patient but no answer so I left a voice message. residential real estate sales manager trying to get placement for patient-patients daughter has not been available to provide documents required prior to placement. 08/01. Awaiting placement 08/02/2020. Patient was set for discharge to a longterm however this was discontinued. After further review, patient was deemed to be unsafe for discharge to a longterm given the fact patient is on Coumadin and is blind with difficulty walking. Case management is aware and attempting to arrange for safe discharge. 08/03/2020. Awaiting placement. 08/04/2020. Multiple challenges including family dynamics, APS intervention and lack of funding makes the discharge difficult. Please see case management/social work notes. Continue to work with case management/social work with regards to discharge planning. Patient is medically stable for discharge. 08/05/20. Awaiting placement. 08/06/2020. Patient medically stable. Still awaiting placement. Follow-up with case management/social work in the morning regarding multiple challenges with discharge planning. 08/07/2020. Continue hemodialysis MWF, due today. Continue discharge planning as noted above. 08/08/2020. Has no complaints today. Still awaiting placement 08/09. Awaiting placement. She may eventually go to a home instead. 08/10. No new complaints. Awaiting dc . Needs a COVID-19 test (ordered) 08/11. Needs HBsAg test. - Patient Problems (1) NSTEMI (non-ST elevated myocardial infarction) Current Visit: Yes Status: Acute (2) Accelerated hypertension Current Visit: Yes Status: Chronic (3) Anemia Current Visit: Yes Status: Chronic (4) CAD (coronary artery disease) Current Visit: Yes Status: Chronic (5) DM2 (diabetes mellitus, type 2) Current Visit: Yes Status: Chronic (6) End stage renal disease on dialysis Current Visit: Yes Status: Chronic (7) History of CVA (cerebrovascular accident) Current Visit: Yes Status: Chronic (8) History of DVT (deep vein thrombosis) Current Visit: Yes Status: Chronic (9) History of pulmonary embolism Current Visit: Yes Status: Chronic (10) Hyperlipidemia Current Visit: Yes Status: Chronic (11) Ischemic cardiomyopathy Current Visit: Yes Status: Chronic (12) PVD (peripheral vascular disease) Current Visit: Yes Status: Chronic (13) Presence of IVC filter Current Visit: Yes Status: Chronic (14) KENY (obstructive sleep apnea) Current Visit: Yes Status: Suspected (15) Chest pain Current Visit: Yes Status: Resolved History Interval history: Has no new complaints today Needs hepatitis b s Ag test prior to dc. Hospitalist Physical - Constitutional Vitals: Temp Pulse Resp BP Pulse Ox 97.9 F 95 H 18 194/98 97 08/11/20 08:16 08/11/20 08:16 08/11/20 08:16 08/11/20 08:16 08/11/20 08:16 General appearance: Present: no acute distress, well-nourished HEART Score - HEART Score Risk factors: > 3 risk factors or hx of atherosclerotic disease Troponin: Troponin T 0.099 ng/mL (0.00-0.029) H 07/14/20 10:13 Troponin: 1-3x normal limit - Critical Actions Critical Actions: 4-6 pts:12-16.6% risk of adverse cardiac event. Should be admitted (PATIENT UNDERGOING WORK UP) Results - Labs CBC & Chem 7: 08/05/20 06:59 08/05/20 06:59 Labs: Laboratory Last Values WBC 5.0 K/mm3 (4.5-11.0) 08/05/20 06:59 RBC 3.57 M/mm3 (3.65-5.03) L 08/05/20 06:59 Hgb 10.8 gm/dl (10.1-14.3) 08/05/20 06:59 Hct 32.6 % (30.3-42.9) 08/05/20 06:59 MCV 91 fl (79-97) 08/05/20 06:59 MCH 30 pg (28-32) 08/05/20 06:59 MCHC 33 % (30-34) 08/05/20 06:59 RDW 16.2 % (13.2-15.2) H 08/05/20 06:59 Plt Count 216 K/mm3 (140-440) 08/05/20 06:59 Lymph % (Auto) 21.7 % (13.4-35.0) 08/05/20 06:59 Thomas % (Auto) 5.1 % (0.0-7.3) 08/05/20 06:59 Eos % (Auto) 3.8 % (0.0-4.3) 08/05/20 06:59 Baso % (Auto) 1.9 % (0.0-1.8) H 08/05/20 06:59 Lymph # (Auto) 1.1 K/mm3 (1.2-5.4) L 08/05/20 06:59 Thomas # (Auto) 0.3 K/mm3 (0.0-0.8) 08/05/20 06:59 Eos # (Auto) 0.2 K/mm3 (0.0-0.4) 08/05/20 06:59 Baso # (Auto) 0.1 K/mm3 (0.0-0.1) 08/05/20 06:59 Seg Neutrophils % 67.5 % (40.0-70.0) 08/05/20 06:59 Seg Neutrophils # 3.4 K/mm3 (1.8-7.7) 08/05/20 06:59 PT 29.6 Sec. (12.2-14.9) H 08/09/20 05:35 INR 2.80 (0.87-1.13) H 08/09/20 05:35 APTT 28.2 Sec. (24.2-36.6) 07/13/20 23:36 Sodium 136 mmol/L (137-145) L 08/05/20 06:59 Potassium 4.3 mmol/L (3.6-5.0) 08/05/20 06:59 Chloride 95.5 mmol/L (98-107) L 08/05/20 06:59 Carbon Dioxide 28 mmol/L (22-30) 08/05/20 06:59 Anion Gap 17 mmol/L 08/05/20 06:59 BUN 25 mg/dL (7-17) H 08/05/20 06:59 Creatinine 4.5 mg/dL (0.6-1.2) H 08/05/20 06:59 Estimated GFR 12 ml/min 08/05/20 06:59 BUN/Creatinine Ratio 6 % 08/05/20 06:59 Glucose 115 mg/dL (65-100) H 08/05/20 06:59 Calcium 9.5 mg/dL (8.4-10.2) 08/05/20 06:59 Phosphorus 3.50 mg/dL (2.5-4.5) 08/05/20 06:59 Total Creatine Kinase 81 units/L (30-135) 07/14/20 10:13 CK-MB (CK-2) 1.9 ng/mL (0.0-4.0) 07/14/20 10:13 CK-MB (CK-2) Rel Index 2.3 (0-4) 07/14/20 10:13 Troponin T 0.099 ng/mL (0.00-0.029) H 07/14/20 10:13 Triglycerides 89 mg/dL (2-149) 07/13/20 23:36 Cholesterol 152 mg/dL (50-199) 07/13/20 23:36 LDL Cholesterol Direct 84 mg/dL (50-130) 07/13/20 23:36 HDL Cholesterol 59 mg/dL (40-59) 07/13/20 23:36 Cholesterol/HDL Ratio 2.57 % 07/13/20 23:36 Coronavirus (PCR) Negative (Negative) 07/21/20 Unknown Hepatitis A IgM Ab Non-reactive (NonReactive) 07/14/20 10:13 Hep Bs Antigen Non-reactive (Negative) 07/14/20 10:13 Hep B Core IgM Ab Non-reactive (NonReactive) 07/14/20 10:13 Hepatitis C Antibody Non-reactive (NonReactive) 07/14/20 10:13 - Diagnostic Impressions Diagnostic Impressions: Echocardiogram 07/14/20 10:55 Transthoracic Echocardiogram Indication: Chest Pain BP: 137/63 HR: 79 Conclusions *The left ventricular chamber size is normal. *Mild concentric left ventricular hypertrophy is observed. *There are multiple regional wall motion abnormalities. *septal,basal inferior wall hypokinetic *The estimated ejection fraction is 35-40%. *Abnormal left ventricular diastolic filling is observed, consistent with impaired relaxation. *The left ventricular diastolic filling pattern is consistent with pseudonormalization. *The left ventricular diastolic filling pattern is consistent with elevated mean left atrial pressure. *The left atrium is mildly dilated. *The right ventricle is mild to moderately dilated. *The aortic valve leaflets are moderately thickened. *There is trace of aortic regurgitation. *There is no evidence of aortic stenosis. *There is mitral annular calcification. *There is mild to moderate mitral regurgitation. *There is mild to moderate tricuspid regurgitation. *There is no pericardial effusion. *The inferior vena cava appears normal in size. Findings Left Ventricle: The left ventricular chamber size is normal. Mild concentric left ventricular hypertrophy is observed. There are multiple regional wall motion abnormalities. Global left ventricular systolic function is mild to moderately decreased. The estimated ejection fraction is 35-40%. Abnormal left ventricular diastolic function is observed. The left ventricular diastolic filling pattern is consistent with pseudonormalization. The left ventricular diastolic filling pattern is consistent with elevated mean left atrial pressure. Left Atrium: The left atrium is mildly dilated. Right Ventricle: The right ventricle is mild to moderately dilated. The right ventricular global systolic function is normal. Right Atrium: The right atrium appears normal. The interatrial septum appears normal. 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 Aortic Valve: The aortic valve is trileaflet. The aortic valve leaflets are moderately thickened. There is trace of aortic regurgitation. There is no evidence of aortic stenosis. Mitral Valve: The mitral valve leaflets appear normal. There is mitral annular calcification. There is mild to moderate mitral regurgitation. There is no evidence of mitral stenosis. Tricuspid Valve: The tricuspid valve leaflets are normal. There is mild to moderate tricuspid regurgitation. There is no tricuspid stenosis. Pulmonic Valve: The pulmonic valve appears normal. There is trace pulmonic regurgitation. There is no pulmonic stenosis. Pericardium: There is no pericardial effusion. Aorta: There is no dilatation of the ascending aorta. There is no dilatation of the aortic arch. There is no dilatation of the descending thoracic aorta. There is no dilatation of the aortic root. Venous: The inferior vena cava appears normal in size. Measurements Chambers 2D Name Value Normal Range IVSd (2D) 1.21 cm (0.6 - 1.1) LVPWd (2D) 1.22 cm (0.6 - 1.1) LVIDd (2D) 5.61 cm (3.7 - 5.6) LVIDs (2D) 4.74 cm (2 - 3.8) LV FS (2D) 15.52 % - EF Teichholz (2D) 32.35 % - Ao root diameter (2D) 2.98 cm (2 - 3.7) Volumes/Mass Name Value Normal Range LA ESV SP 4CH (A/L) 90.79 ml - LA ESV SP 2CH (A/L) 79.53 ml - LA ESV BP (A/L) 85.37 ml - LA ESV SP 4CH (MOD) 84.6 ml - LA ESV SP 2CH (MOD) 74.61 ml - LV EDV SP 4CH (MOD) 197.38 ml - LV ESV SP 4CH (MOD) 123.93 ml - EF SP 4CH (MOD) 37.21 % - LV EDV SP 2CH (MOD) 194.2 ml - LV ESV SP 2CH (MOD) 123.7 ml - EF SP 2CH (MOD) 36.3 % - LV EDV BP 201.77 ml - LV ESV BP 131.12 ml - BP EF (MOD) 35.02 % - Diastolic/Systolic Function Name Value Normal Range MV E-wave Vmax 1.15 m/sec - MV deceleration time 133.32 msec - MV A-wave Vmax 0.78 m/sec - MV E:A ratio 1.48 ratio - Aortic Valve Name Value Normal Range AV Vmax 1.8 m/sec - AV VTI 35.01 cm - AV peak gradient 12.99 mmHg - AV mean gradient 6.54 mmHg - LVOT diameter 2.11 cm - LVOT Vmax 0.86 m/sec - LVOT VTI 17.92 cm - LVOT peak gradient 2.94 mmHg - LVOT mean gradient 1.54 mmHg - SV LVOT 62.77 ml - SKINNY (continuity Vmax) 1.67 cm2 - SKINNY (continuity VTI) 1.79 cm2 - Tricuspid Valve Name Value Normal Range TR Vmax 3.55 m/sec - TR peak gradient 50.29 mmHg - Pulmonic Valve/Qp:Qs Name Value Normal Range PV Vmax 1.09 m/sec - PV peak gradient 4.78 mmHg - OH end-diastolic Vmax 1.48 m/sec - PV acceleration time 117.98 msec - Veliz/IV: Voiding Method Bedpan IV Catheter Type [Left Hand] Peripheral IV IV Catheter Type [Left INT / Saline Lock Internal Jugular] Active Medications - Current Medications Current Medications: Generic Name Dose Route Start Last Admin Trade Name Freq PRN Reason Stop Dose Admin Acetaminophen 650 mg 07/13/20 23:07 08/06/20 21:57 Tylenol PO 650 mg Q4H PRN Administration Headache Albuterol 2.5 mg 07/16/20 18:22 07/29/20 15:24 Proventil IH 2.5 mg Q4HRT PRN Administration Shortness Of Breath Aspirin 81 mg 07/14/20 10:00 08/10/20 10:20 Halfprin Ec PO Not Given QDAY [facility] Atorvastatin Calcium 40 mg 07/14/20 22:00 08/10/20 21:39 Lipitor PO Not Given QHS JP Carvedilol 25 mg 07/14/20 10:00 08/10/20 21:39 Coreg PO Not Given BID JP Clonidine HCl 0.2 mg 07/27/20 01:28 07/29/20 08:31 Catapres PO 0.2 mg Q4H PRN Administration Hypertension Clonidine HCl 0.2 mg 07/31/20 08:30 08/11/20 05:54 Catapres PO Not Given Q8HR [facility] Clopidogrel Bisulfate 75 mg 07/14/20 10:00 08/10/20 10:18 Plavix PO Not Given QDAY [facility] Ezetimibe 10 mg 07/14/20 10:00 08/10/20 10:14 Zetia PO 10 mg QDAY JP Administration Epoetin Mulugeta 10,000 unit 07/21/20 17:17 08/02/20 10:38 Procrit IV 10,000 unit CHICHI PRN Administration hemodialysis Fluticasone Propionate 100 mcg 07/14/20 10:00 08/10/20 10:16 Flonase NS 100 mcg QDAY JP Administration Furosemide 80 mg 07/14/20 10:00 08/10/20 10:15 Lasix PO 80 mg DAILY JP Administration Sodium Chloride 100 mls @ 999 mls/hr 07/14/20 13:00 Nacl 0.9% IV CHICHI PRN Hypotension Lidocaine 1 each 07/27/20 14:00 08/10/20 10:15 Lidoderm 5% TD 1 each QDAY JP Administration Lisinopril 20 mg 07/27/20 10:00 08/10/20 10:15 Zestril PO 20 mg QDAY JP Administration Loperamide HCl 2 mg 07/15/20 19:18 07/15/20 21:41 Imodium PO 2 mg Q2H PRN Administration Diarrhea Naphazoline HCl/Pheniramine Maleate 2 drops 07/27/20 11:27 Visine-A OU Q6H PRN Allergy Symptoms Nifedipine 90 mg 07/14/20 10:00 08/11/20 09:10 Procardia Xl PO 90 mg BID JP Administration Nitroglycerin 0.5 inch 07/14/20 06:00 08/11/20 05:54 Nitro-Bid 2% TP Not Given QIDNTG [facility] Protocol Ondansetron HCl 4 mg 07/13/20 23:07 08/02/20 10:38 Zofran IV 4 mg Q8H PRN Administration Nausea And Vomiting Warfarin Sodium 10 mg 08/05/20 17:00 08/10/20 17:24 Coumadin PO 10 mg DAILY@1700 [facility] Administration Warfarin Sodium 2.5 mg 08/09/20 17:00 08/10/20 17:24 Coumadin PO 2.5 mg DAILY@1700 [facility] Administration Nutrition/Malnutrition Assess - Dietary Evaluation Nutrition/Malnutrition Findings: Nutrition Notes Start: 07/17/20 13: 10 Freq: Status: Active Protocol: Document 07/20/20 11:27 EN (Rec: 07/20/20 11:34 EN [email or web address]) Co-Sign 07/20/20 11:27 LM Nutrition Notes Initial or Follow up Reassessment Current Diagnosis CKD (stage V CKD),Coronary Artery Disease,Diabetes, Hypertension Other Pertinent Diagnosis ESRD on HD, NSTEMI, dyslipidedema Current Diet Renal Labs/Tests 07/19: BUN 25, Cr 4.1 Pertinent Medications Reviewed Height 5 ft 3 in Weight 75.4 kg [place] Body Weight (kg) 52.27 BMI 29.4 Weight Status Overweight Subjective/Other Information F/u for intakes. Pt reports eating 100% of breakfast. Pt would like pork and fruit cups during meals. Pt reports loose stool at 10:00 this morning. Pt states that appetite is good and denies N/ V Percent of energy/protein needs met: 100%/86% Burn Absent Trauma Absent GI Symptoms Diarrhea Food Allergy Yes Current % PO Good (75-100%) Minimum of two criteria No Interpretation of Weight Loss (severe) >5% in 1 month #2 Nutrition Diagnosis Inadequate oral intake As Evidenced by Signs and Symptoms consuming 100% of meals Diagnosis Progress(for reassessment Resolved documentation) #1 Nutrition Diagnosis Food and nutrition-related knowledge deficit As Evidenced by Signs and Symptoms No further Coumadin/Vit k questions Diagnosis Progress(for reassessment Resolved documentation) Is patient on ventilator? No Is Patient Ambulatory and/or Out of Bed No REE-([facility]-confined to bed) 1430.486 Calculation Used for Recommendations [facility] Additional Notes Protein: >1.2 g/kg (> 90g) Fluid: Urine output + 1000 ml/ day Nutrition Intervention Change Diet Order: Continue Renal Diet Goal #1 Meet 75% of energy and protein needs Anticipated Discharge Needs: Renal diet Revisit per MD consult or patient Sign Off request:
[2020-08-11 13:26] VITALS: BP 151/70
[2020-08-11] MEDS: carvediloL 25 MG TAB PO SCH (13:28)
[2020-08-11] MEDS: FLUTICASONE PROPIONATE NASAL SPRAY 16 GM NS SCH (13:28)
[2020-08-11] MEDS: ASPIRIN EC 81 MG TAB PO SCH (13:28)
[2020-08-11] MEDS: FUROSEMIDE 40 MG TAB PO SCH (13:29)
[2020-08-11] MEDS: LISINOPRIL 20 MG TAB PO SCH (13:30)
[2020-08-11] MEDS: CLOPIDOGREL 75 MG TAB PO SCH (13:30)
[2020-08-11] MEDS: EZETIMIBE 10 MG TAB PO SCH (13:30)
--- NOTE | 2020-08-11 13:57 | Progress Note ---
Assessment and Plan Impression: * End stage renal disease * NSTEMI --MPI: fixed lateral wall defect; no significant ischemia; EF 38%. (Jul 15 2020) --TTE: mild concentric LVH; multiple regional wall abnormalities (septal, basal, inf wall hypokinetic); EF 35-40%; impaired LV relaxation (Jul 14 2020) * Ischemic cardiomyopathy * Hypertension * Anemia secondary to CKD * Secondary hyperparathyroidism Plan: * Continue hemodialysis MWF, * UF as tolerated * Cardiology recommendations noted * Renal/HD diet * Epogen with dialysis * Discharge planning in progress - awaiting SNF placement * ok to dc from renal standpoint * Patient advised regarding compliance with dialysis treatment Subjective Date of service: 08/11/20 Principal diagnosis: ESRD/HD, Acc HTN, NSTEMI 2, H/o PE/DVT (IVC filter) Interval history: Patient had hemodialysis treatment this morning. However she cut her time by about 45 minutes. Denies any shortness of breath. Complains of some back pain Objective - Vital Signs Vital signs: Vital Signs - 12hr 08/11/20 08/11/20 08/11/20 04:51 05:54 08:16 Temperature 96.8 F L 97.9 F Pulse Rate 95 H 95 H Respiratory 20 18 Rate Blood Pressure 169/84 169/84 194/98 Blood Pressure [Right] O2 Sat by Pulse 97 Oximetry 08/11/20 08/11/20 08/11/20 13:24 13:28 13:29 Temperature 98.4 F Pulse Rate 90 88 88 Respiratory 18 Rate Blood Pressure 151/70 151/70 Blood Pressure 151/70 [Right] O2 Sat by Pulse 100 Oximetry 08/11/20 13:30 Temperature Pulse Rate 88 Respiratory Rate Blood Pressure 151/70 Blood Pressure [Right] O2 Sat by Pulse Oximetry - General Appearance General appearance: well-developed, well-nourished, appears stated age EENT: PERRL, mucous membranes moist Neck: no JVD, no thyromegaly, no carotid bruit, supple, other (IJ PermCath in place) Respiratory: Present: Clear to Ascultation Cardiology: regular, normal heart rate, S1S2, no murmurs Gastrointestinal: normal, normoactive bowel sounds Integumentary: other (Right leg in a brace) - Lab 08/05/20 06:59 08/05/20 06:59 Most recent lab results Calcium 9.5 mg/dL (8.4-10.2) 08/05/20 06:59 Phosphorus 3.50 mg/dL (2.5-4.5) 08/05/20 06:59 Medications & Allergies - Medications Allergies/Adverse Reactions: Allergies apixaban [From Eliquis] Allergy (Verified 03/01/17 20:29) Itching dabigatran etexilate mesylate [From Pradaxa] Allergy (Verified 03/01/17 20:27) Itching heparin Allergy (Verified 07/14/20 05:54) Vomiting hydralazine HCl [From Apresoline] Allergy (Verified 03/01/17 13:11) Unknown morphine Allergy (Verified 02/15/14 02:23) Itching povidone-iodine [From Betadine] Allergy (Verified 03/01/17 20:26) Itching rivaroxaban [From Xarelto] Allergy (Verified 03/01/17 20:29) Itching soap [From Betadine] Allergy (Verified 03/01/17 20:26) Itching verapamil HCl [From Calan] Allergy (Verified 02/15/14 02:23) Headache Home Medications: Home Medications Medication Instructions Recorded Confirmed Last Taken Type Oxymetazoline 0.05% [Vicks Sinex] 1 spray NS BID 03/01/17 07/14/20 1 Day Ago History ~02/28/17 Furosemide [Lasix TAB] 80 mg PO QDAY #30 tablet 03/05/17 07/14/20 Unknown Rx Nystatin [Nystop Powder] 1 applic TP BID #15 g 03/05/17 07/14/20 Unknown Rx Lidocaine [Lidoderm] 5 patch TRANSDERMA QDAY 07/14/20 07/14/20 Unknown History NIFEdipine XL [Procardia Xl] 90 mg PO BID 07/14/20 07/14/20 Unknown History Warfarin [Coumadin] 10 mg PO QDAY 07/14/20 07/14/20 Unknown History Albuterol Sulfate [Albuterol 0.63% 0.63 mg IH Q4H PRN 30 Days 08/02/20 Unknown Rx NEBS] Aspirin EC [Halfprin EC] 81 mg PO QDAY #30 tablet. 08/02/20 Unknown Rx AtorvaSTATin [Lipitor] 40 mg PO QHS #30 08/02/20 Unknown Rx AtorvaSTATin [Lipitor] 80 mg PO QHS #30 tablet 08/02/20 Unknown Rx Clopidogrel [Plavix] 75 mg PO QDAY #30 08/02/20 Unknown Rx Ezetimibe [Zetia] 10 mg PO QDAY tablet 08/02/20 Unknown Rx Ferrous Sulfate [Feosol 325 MG tab] 325 mg PO QDAY 30 Days 08/02/20 Unknown Rx Fluticasone [Flonase] 100 mcg NS QDAY 30 Days bottle 08/02/20 Unknown Rx Furosemide [Lasix TAB] 80 mg PO DAILY #30 tablet 08/02/20 Unknown Rx Levothyroxine [Synthroid] 88 mcg PO QAM 30 Days 08/02/20 Unknown Rx NIFEdipine XL [Procardia Xl] 90 mg PO BID #60 tablet 08/02/20 Unknown Rx Naphazoline/Phenira 0.025/0.3% 2 drops OU Q6H PRN bottle 08/02/20 Unknown Rx [Visine-A] Warfarin [Coumadin] 5 mg PO DAILY@1700 30 Days #30 08/02/20 Unknown Rx tablet Warfarin [Coumadin] 10 mg PO DAILY@1700 #7 tablet 08/02/20 Unknown Rx carvediloL [Coreg] 25 mg PO BID #60 08/02/20 Unknown Rx cloNIDine [Catapres] 0.2 mg PO Q8HR #30 tablet 08/02/20 Unknown Rx lisinopriL [Zestril TAB] 20 mg PO QDAY #30 tablet 08/02/20 Unknown Rx Active Medications: Generic Name Dose Route Start Last Admin Trade Name Freq PRN Reason Stop Dose Admin Acetaminophen 650 mg 07/13/20 23:07 08/06/20 21:57 Tylenol PO 650 mg Q4H PRN Administration Headache Albuterol 2.5 mg 07/16/20 18:22 07/29/20 15:24 Proventil IH 2.5 mg Q4HRT PRN Administration Shortness Of Breath Aspirin 81 mg 07/14/20 10:00 08/11/20 13:28 Halfprin Ec PO Not Given QDAY JP Atorvastatin Calcium 40 mg 07/14/20 22:00 08/10/20 21:39 Lipitor PO Not Given QHS JP Carvedilol 25 mg 07/14/20 10:00 08/11/20 13:28 Coreg PO Not Given BID JP Clonidine HCl 0.2 mg 07/27/20 01:28 07/29/20 08:31 Catapres PO 0.2 mg Q4H PRN Administration Hypertension Clonidine HCl 0.2 mg 07/31/20 08:30 08/11/20 13:30 Catapres PO Not Given Q8HR [facility] Clopidogrel Bisulfate 75 mg 07/14/20 10:00 08/11/20 13:30 Plavix PO Not Given QDAY [facility] Ezetimibe 10 mg 07/14/20 10:00 08/11/20 13:30 Zetia PO Not Given QDAY [facility] Epoetin Mulugeta 10,000 unit 07/21/20 17:17 08/02/20 10:38 Procrit IV 10,000 unit CHICHI PRN Administration hemodialysis Fluticasone Propionate 100 mcg 07/14/20 10:00 08/11/20 13:28 Flonase NS Not Given QDAY [facility] Furosemide 80 mg 07/14/20 10:00 08/11/20 13:29 Lasix PO Not Given DAILY [facility] Sodium Chloride 100 mls @ 999 mls/hr 07/14/20 13:00 Nacl 0.9% IV CHICHI PRN Hypotension Lidocaine 1 each 07/27/20 14:00 08/10/20 10:15 Lidoderm 5% TD 1 each QDAY [facility] Administration Lisinopril 20 mg 07/27/20 10:00 08/11/20 13:30 Zestril PO Not Given QDAY [facility] Loperamide HCl 2 mg 07/15/20 19:18 07/15/20 21:41 Imodium PO 2 mg Q2H PRN Administration Diarrhea Naphazoline HCl/Pheniramine Maleate 2 drops 07/27/20 11:27 Visine-A OU Q6H PRN Allergy Symptoms Nifedipine 90 mg 07/14/20 10:00 08/11/20 09:10 Procardia Xl PO 90 mg BID [facility] Administration Nitroglycerin 0.5 inch 07/14/20 06:00 08/11/20 13:29 Nitro-Bid 2% TP Not Given QIDNTG [facility] Protocol Ondansetron HCl 4 mg 07/13/20 23:07 08/02/20 10:38 Zofran IV 4 mg Q8H PRN Administration Nausea And Vomiting Warfarin Sodium 10 mg 08/05/20 17:00 08/10/20 17:24 Coumadin PO 10 mg DAILY@1700 JP Administration Warfarin Sodium 2.5 mg 08/09/20 17:00 08/10/20 17:24 Coumadin PO 2.5 mg DAILY@1700 [facility] Administration
[2020-08-11] MEDS: LIDOCAINE 5% 1 EACH PATCH TD SCH (17:26)
[2020-08-11] MEDS: WARFARIN 10 MG TAB PO SCH (18:04)
[2020-08-11] MEDS: WARFARIN 2.5 MG TAB PO SCH (18:05)
== END 2020-08-11 18:07 | disposition home or self-care (01) | DRG 280 ==
LOC: ED 17:31 → 4A 22:55
PROVIDERS: ADMIT Internal Medicine; ATTEND Internal Medicine
PROC: 5A1D70Z Performance of Urinary Filtration, Intermittent, Less than 6 Hours Per Day (ICD-10-PCS; principal; 2020-07-14)
PROC: 5A1D70Z Performance of Urinary Filtration, Intermittent, Less than 6 Hours Per Day (ICD-10-PCS; 2020-07-17)
PROC: 5A1D70Z Performance of Urinary Filtration, Intermittent, Less than 6 Hours Per Day (ICD-10-PCS; 2020-07-19)
PROC: 5A1D70Z Performance of Urinary Filtration, Intermittent, Less than 6 Hours Per Day (ICD-10-PCS; 2020-07-21)
PROC: 5A1D70Z Performance of Urinary Filtration, Intermittent, Less than 6 Hours Per Day (ICD-10-PCS; 2020-07-24)
PROC: 5A1D70Z Performance of Urinary Filtration, Intermittent, Less than 6 Hours Per Day (ICD-10-PCS; 2020-07-26)
PROC: 5A1D70Z Performance of Urinary Filtration, Intermittent, Less than 6 Hours Per Day (ICD-10-PCS; 2020-07-28)
PROC: 5A1D70Z Performance of Urinary Filtration, Intermittent, Less than 6 Hours Per Day (ICD-10-PCS; 2020-07-31)
PROC: 5A1D70Z Performance of Urinary Filtration, Intermittent, Less than 6 Hours Per Day (ICD-10-PCS; 2020-08-02)
PROC: 5A1D70Z Performance of Urinary Filtration, Intermittent, Less than 6 Hours Per Day (ICD-10-PCS; 2020-08-04)
PROC: 5A1D70Z Performance of Urinary Filtration, Intermittent, Less than 6 Hours Per Day (ICD-10-PCS; 2020-08-07)
PROC: 5A1D70Z Performance of Urinary Filtration, Intermittent, Less than 6 Hours Per Day (ICD-10-PCS; 2020-08-09)
PROC: 5A1D70Z Performance of Urinary Filtration, Intermittent, Less than 6 Hours Per Day (ICD-10-PCS; 2020-08-11)
DX: I16.1 Hypertensive emergency (principal); I21.A1 Myocardial infarction type 2; N18.6 End stage renal disease; J96.00 Acute respiratory failure, unspecified whether with hypoxia or hypercapnia; N25.81 Secondary hyperparathyroidism of renal origin; I13.2 Hypertensive heart and chronic kidney disease with heart failure and with stage 5 chronic kidney disease, or end stage renal disease; I25.10 Atherosclerotic heart disease of native coronary artery without angina pectoris; Z20.828 Contact with and (suspected) exposure to other viral communicable diseases; H54.8 Legal blindness, as defined in USA; E11.51 Type 2 diabetes mellitus with diabetic peripheral angiopathy without gangrene; E78.5 Hyperlipidemia, unspecified; G47.33 Obstructive sleep apnea (adult) (pediatric); I50.9 Heart failure, unspecified; J44.9 Chronic obstructive pulmonary disease, unspecified; R79.1 Abnormal coagulation profile; E66.9 Obesity, unspecified; R19.7 Diarrhea, unspecified; I25.5 Ischemic cardiomyopathy; E11.22 Type 2 diabetes mellitus with diabetic chronic kidney disease; D63.1 Anemia in chronic kidney disease; G89.29 Other chronic pain; E83.9 Disorder of mineral metabolism, unspecified; Z99.2 Dependence on renal dialysis; Z86.711 Personal history of pulmonary embolism; Z79.899 Other long term (current) drug therapy; Z86.718 Personal history of other venous thrombosis and embolism; Z68.39 Body mass index [BMI] 39.0-39.9, adult; Z86.73 Personal history of transient ischemic attack (TIA), and cerebral infarction without residual deficits; Z88.8 Allergy status to other drugs, medicaments and biological substances; Z91.041 Radiographic dye allergy status; Z91.048 Other nonmedicinal substance allergy status
CPT/HCPCS: 36415; 71045; 78452; 80048; 80061; 80074; 82550; 82553; 84100; 84484; 85014; 85018; 85025; 85049; 85610; 85730; 87116; 93005; 93017; 93306; 94640; 94760; G0378; A9270-GY; A9502; J0885; J2405; J2785; U0003